=== PATIENT | male | born 1955 | race Caucasian/White ===

== ENCOUNTER 2023-08-08 11:10 | Outpatient (REF) | payer MEDICARE, SELFPAY ==
--- NOTE | ~2023-08-08 | US_ITS ---
EXAMINATION: US EXTRACRANIAL CAROTID DUPLEX, BILATERAL CLINICAL INFORMATION: TIA COMPARISON: None available. TECHNIQUE: Real-time ultrasound and Doppler techniques (integrating B-mode 2-D vascular images, Doppler spectral analysis and color-flow Doppler imaging) were utilized to interrogate the extracranial carotid arteries, the vertebral arteries and proximal subclavian arteries bilaterally. The degree of stenosis is determined by criteria similar to NASCET. FINDINGS: Right Side: 1. There is mild atherosclerotic plaque seen in the bifurcation/proximal ICA region. 2. The common carotid artery PSV proximally is 65 cm/s and distally 45 cm/s. 3. The proximal internal carotid artery velocities are 100 cm/s systolic and 24 cm/s diastolic. 4. The proximal external carotid artery PSV is 54 cm/s. 5. The vertebral artery shows antegrade flow. 6. The subclavian artery waveforms are normal. Left Side: 1. There is mild atherosclerotic plaque seen in the bifurcation/proximal ICA region. 2. The common carotid artery PSV proximally is 114 cm/s and distally 50 cm/s. 3. The proximal internal carotid artery velocities are 52 cm/s systolic and 17 cm/s diastolic. 4. The proximal external carotid artery PSV is 78 cm/s. 5. The vertebral artery shows antegrade flow. 6. The subclavian artery waveforms are normal. US/US carotid duplex BI IMPRESSION: 1. RIGHT: Minimal, non-hemodynamically significant stenosis of the proximal right internal carotid artery corresponding to a 0-49% stenosis by velocity criteria. 2. LEFT: Minimal, non-hemodynamically significant stenosis of the proximal left internal carotid artery corresponding to a 0-49% stenosis by velocity criteria.
== END 2023-08-08 11:11 | disposition home or self-care (01) ==
LOC: HO.US 11:10
PROVIDERS: Visit Provider Psychiatry & Neurology Neurology
DX: G45.9 Transient cerebral ischemic attack, unspecified (principal)
CPT/HCPCS: 93880

== ENCOUNTER 2024-01-08 12:07 | Outpatient (REF) | payer MEDICARE, SELFPAY ==
--- NOTE | ~2024-01-08 | XR_ITS ---
EXAMINATION: XR KNEE, LEFT CLINICAL INFORMATION: Left knee pain COMPARISON: None available. TECHNIQUE: Three views of the left knee. FINDINGS: Knee joint spaces are preserved. No significant subarticular sclerosis, cystic changes or marginal osteophytic changes are noted. No evidence of acute fracture or dislocation. No suprapatellar joint effusion. Mild vascular calcifications. XR/XR knee LT 3V IMPRESSION: No evidence of acute fracture or dislocation in the left knee. No significant degenerative changes. Electronically signed by: Penny Perez MD 01/23/2024 12:49 PM EDT
--- NOTE | ~2024-01-08 | XR_ITS ---
EXAMINATION: XR KNEE, RIGHT CLINICAL INFORMATION: Right knee pain COMPARISON: None available. TECHNIQUE: Three views of the right knee. FINDINGS: Knee joint spaces are preserved. No significant subarticular sclerosis, cystic changes or marginal osteophytic changes are noted. No evidence of acute fracture or dislocation. No suprapatellar joint effusion. XR/XR knee RT 3V IMPRESSION: No evidence of acute fracture or dislocation in the right knee. No significant degenerative changes. Electronically signed by: Penny Perez MD 01/23/2024 12:50 PM EDT
== END 2024-01-08 12:08 | disposition home or self-care (01) ==
LOC: HO.XRAY 12:07
PROVIDERS: PCP Hospitalist; Visit Provider Physician Assistant
DX: M17.11 Unilateral primary osteoarthritis, right knee (principal); M25.562 Pain in left knee
CPT/HCPCS: 20610; 73562; 99202; J1010

== ENCOUNTER 2024-01-08 12:45 | Outpatient (AMB) | payer MEDICARE, SELFPAY ==
--- NOTE | 2024-01-08 13:15 | A.OFFVIS_ITS ---
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 Patient reports his pain has been present for a while with his right knee being the worse. He has constant pain that has been increasing. Denies injury. No previous tx. Finds relief with Tylenol and Motrin daily. He mentions being diagnosed with MS. Allergies No Known Allergies Allergy (Verified 01/08/24 13:18) Medication List - Last Reconciled 01/08/24 by kAua Villatoro PA-C aspirin 81 mg PO DAILY bisoprolol fumarate 5 mg PO DAILY celecoxib 200 mg PO DAILY cyclobenzaprine 10 mg PO BEDTIME hydrochlorothiazide 12.5 mg PO DAILY levocetirizine 5 mg PO DAILY losartan 25 mg PO DAILY pantoprazole 40 mg PO DAILY paroxetine HCl 30 mg PO DAILY tamsulosin 0.4 mg PO DAILY HPI HPI [employer] - Bilateral knee pain, right is worse: Details: The patient is a 68-year-old male who presents to the office today for bilateral knee pain. He states it has been over a month and the right knee is worse than the left knee. He does notice crunching when he goes up the stairs. He denies any injury or trauma to the knees. He takes Tylenol and Motrin daily to help with the pain. He admits to having been diagnosed with multiple sclerosis. [facility] [place] Social History (Updated 01/08/24 @ 13:20 by Shraddha Patel Khoa) Patient Tobacco Use Status: Current everyday Tobacco user Current occupational status: unemployed and disabled Review of Systems Const All systems reviewed & are unremarkable except as noted in HPI and below Physical Exam Vital Signs: BMI result Body Mass Index 27.1 Extrem Other: Bilateral knee: Skin intact, no erythema or joint effusion. Tenderness along the medial joint line. Full ROM with crepitus. Negative Lulu?s. No ligamentous laxity. NVI. Results Reviewed Results Reviewed: xrays of bilat knee obtained today show mild oa Assessment & Plan Assessment & Plan (1) Osteoarthritis of knees, bilateral: Code(s): M17.0 - Bilateral primary osteoarthritis of knee Category: Medical Qualifiers: Osteoarthritis type: primary Qualified Code(s): M17.0 - Bilateral primary osteoarthritis of knee Plan We discussed options today, which include steroid injection. The patient did consent to move forward with the injection, which was tolerated well.? I recommended rest, ice and elevation and OTC antiinflammatories prn for discomfort. If symptoms persist over the next 6-8 weeks, they will contact our office, otherwise, prn Scribed for Akua Villatoro PA-C, by Sanjuana Wen medical art therapist, on 01/08/2024 at 12:30 AM EST. I, Akua Villatoro PA-C, have personally reviewed and agree with the information entered by the scribe. Orders: Orders XR knee RT 3V Today M17.11 - Unilateral primary osteoarthritis, right knee XR knee LT 3V Today M25.562 - Pain in left knee Coding Level of Care Code New Pt Level 3 (09052) Complex EM visit Add On G2211 Diagnoses Primary osteoarthritis of both knees M17.0 Osteoarthritis type: primary
[2024-01-08 13:17] VITALS: BMI 27.1
== END 2024-01-08 13:58 | disposition home or self-care (01) ==
PROVIDERS: PCP Hospitalist; Visit Provider Physician Assistant
DX: M17.0 Bilateral primary osteoarthritis of knee (principal)
CPT/HCPCS: 20610; 99203

== ENCOUNTER 2024-01-22 09:41 | Outpatient (AMB) | payer MEDICARE, SELFPAY ==
[2024-01-22 10:26] VITALS: BMI 27.1
--- NOTE | 2024-01-22 10:26 | A.OFFVIS_ITS ---
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 Patient reports having ongoing pain for many years. He state that his pain is worse when he is sitting for a long time and walking. Patient mentions that his pain is better when laying down. He mentions that he had injections and PT for his back in the past with no relief. Patient informed me that 3 days ago he moved his body a certain way when he was laying down which caused him a lot of pain. Allergies No Known Allergies Allergy (Verified 01/22/24 10:41) Medication List - Last Reconciled 01/22/24 by Evelyn Butcher MD aspirin 81 mg PO DAILY bisoprolol fumarate 5 mg PO DAILY celecoxib 200 mg PO DAILY cyclobenzaprine 10 mg PO BEDTIME hydrochlorothiazide 12.5 mg PO DAILY levocetirizine 5 mg PO DAILY losartan 25 mg PO DAILY pantoprazole 40 mg PO DAILY paroxetine HCl 30 mg PO DAILY tamsulosin 0.4 mg PO DAILY HPI Comments Details: Chronic back pain. Was told in the past to have disc issues for both cervical and lumbar, constant pain 09/29. Had MRI this year. Not available for my review. History of MS, managed at [facility]. This week, 3-4 days ago, was carrying a stove, felt pain on lower back and right side. He can't stand, sit or breathe without pain. Also with pain with laying down. Today lower back pain, goes down both legs. No bladder/bowel changes. Sometimes feet/leg numbness. Treatment done so far: PT 2022 in another country [facility] Social History (Updated 01/08/24 @ 13:20 by Shraddha Patel Khoa) Patient Tobacco Use Status: Current everyday Tobacco user Current occupational status: unemployed and disabled Review of Systems Const All systems reviewed & are unremarkable except as noted in HPI and below Physical Exam Vital Signs: BMI result Body Mass Index 27.1 Constitutional: Patient appears to be in no acute distress, well nourished and well developed. Patient was appropriately conversant and oriented. Good historian. MSK: No specific abnormalities found on inspection of the spine and all extremities. Tender on lumbar spinous processes and facets. No tenderness on SI or GT. Lumbar ROM was full. Bilateral hip, knee and ankle ROM WNL. No ligamentous laxity or crepitance. No increased effusion. Straight-leg raising test negative. FABERE test positive bilateral. Strength is 5/5 in all muscle groups tested. No increased tone noted. Neurological: Neurologic examination of the upper and lower extremities was nonfocal with intact sensation, muscle stretch reflexes and without focal motor deficits . Curran?s negative bilaterally. Babinski was down going bilaterally. Clonus was negative. Gait is antalgic without loss of balance. Assessment & Plan Assessment & Plan (1) Acute on chronic back pain: Code(s): M54.9 - Dorsalgia, unspecified; G89.29 - Other chronic pain Category: Medical (2) Lumbar degenerative disc disease: Code(s): M51.369 - Other intervertebral disc degeneration, lumbar region without mention of lumbar back pain or lower extremity pain Category: Medical Qualifiers: Disc-related pain type: unspecified whether pain present Qualified Code(s): M51.369 - Other intervertebral disc degeneration, lumbar region without mention of lumbar back pain or lower extremity pain Plan History of lumbar degenerative disc. Acute on chronic lower back pain, exacerbated a few days ago after trying to lift a stove. Pain going more to the right hip. Pain is described as severe, but no neurologic findings on exam. Patient was sent right away to lumbar x-ray. Images reviewed by me, question mild chronic looking compression L5? As of writing this note, official reading has not been done yet. We have already called in to [facility] request stat reading. Patient also says he had a lumbar MRI done a few months ago, possibly at [facility]. We called a few areas where he could have had MRI and could not find any. Assessment and plan discussed with patient, and patient was agreeable. All questions were answered thoroughly. Await official lumbar x-ray results. Most likely we will order a new lumbar MRI if there is any new fracture. Total of 45 minutes spent today including chart review, results review, history taking, physical examination, discussion of assessment and plan, and coordination of care. Evelyn Butcher MD, PHYLLIS Board Certified, [place] [employer] and [employer] (ABPMR) Board Certified, [place] [employer] Electro[employer] (ABEM) Orders: Orders XR lumbar spine 2-3V Today M54.9 - Dorsalgia, unspecified Coding Level of Care Code New Pt Level 4 (15731) Diagnoses Acute on chronic back pain M54.9; G89.29 Degeneration of intervertebral disc of lumbar region, unspecified whether pain present M51.369 Disc-related pain type: unspecified whether pain present
== END 2024-01-22 11:08 | disposition home or self-care (01) ==
PROVIDERS: PCP Hospitalist; Visit Provider Physical Medicine & Rehabilitation
DX: M54.9 Dorsalgia, unspecified (principal); G89.29 Other chronic pain; M51.369 Other intervertebral disc degeneration, lumbar region without mention of lumbar back pain or lower extremity pain
CPT/HCPCS: 99204

== ENCOUNTER 2024-01-22 09:41 | Outpatient (REF) | payer MEDICARE, SELFPAY ==
--- NOTE | ~2024-01-22 | XR_ITS ---
EXAMINATION: XR LUMBOSACRAL SPINE CLINICAL INFORMATION: Back pain COMPARISON: None available. TECHNIQUE: Three views of the lumbosacral spine. FINDINGS: There are 5 lumbar-type nonrib-bearing vertebrae. The vertebral body heights and alignment are maintained. Intervertebral disc spaces are preserved. Small marginal endplate osteophytes are noted at multiple levels. Mild facet arthropathy in the lumbar spine at multiple levels. Close approximation of the spinous processes is noted which may raise the possibility of Baastrup's disease. No suspicious lytic or blastic osseous lesions are noted. The sacrum and coccyx appear intact. Multiple surgical tacks are noted projecting over the left pelvic region, recommend correlation with history of hernia repair in the region. Paraspinous soft tissues are unremarkable. There is limited evaluation of the sacroiliac joints however probable partial fusion of bilateral sacroiliac joints cannot be excluded. Scattered aortic calcifications. XR/XR lumbar spine 2-3V IMPRESSION: No evidence of acute compression fracture or suspicious osseous lesion in the lumbar spine. Mild lumbar spondylosis. Probable partial fusion of bilateral sacroiliac joints. Electronically signed by: Penny Perez MD 01/23/2024 12:47 PM EDT
== END 2024-01-22 09:42 | disposition home or self-care (01) ==
LOC: HO.HOSX 09:41
PROVIDERS: PCP Hospitalist; Visit Provider Physical Medicine & Rehabilitation
DX: M54.9 Dorsalgia, unspecified (principal); M51.369 Other intervertebral disc degeneration, lumbar region without mention of lumbar back pain or lower extremity pain; G89.29 Other chronic pain
CPT/HCPCS: 72100; 99202

== ENCOUNTER 2024-04-03 19:32 | Outpatient (REF) | payer MEDICARE, SELFPAY | END 2024-04-03 19:33 | disposition home or self-care (01) | LOC: HO.MRI 19:32 | PROVIDERS: Visit Provider Physical Medicine & Rehabilitation | DX: M51.369 Other intervertebral disc degeneration, lumbar region without mention of lumbar back pain or lower extremity pain (principal); M54.9 Dorsalgia, unspecified; G89.29 Other chronic pain | CPT/HCPCS: 72148 ==

== ENCOUNTER 2024-05-01 08:55 | Outpatient (AMB) | payer MEDICARE, SELFPAY ==
--- NOTE | 2024-05-01 08:58 | MHC.OFFVIS ---
Vital Signs 05/01/24 09:10 Height 6 ft Weight 200 lb BMI 27.1 Intake Visit Reasons: OV-Bilateral knee pain, right is worse Intake Note: Palmira is a 68 year old male who presents today for a follow up of bilateral knee pain, last injection 01/08/24. Patient reports injections provided him relief for about 2 months. His pain has returned with his right knee being the worse. He is requesting to repeat injection. Allergies No Known Allergies Allergy (Verified 05/01/24 09:08) Medication List - Last Reconciled 05/01/24 by Akua Villatoro PA-C aspirin 81 mg PO DAILY bisoprolol fumarate 5 mg PO DAILY celecoxib 200 mg PO DAILY cyclobenzaprine 10 mg PO BEDTIME hydrochlorothiazide 12.5 mg PO DAILY levocetirizine 5 mg PO DAILY losartan 25 mg PO DAILY pantoprazole 40 mg PO DAILY paroxetine HCl 30 mg PO DAILY tamsulosin 0.4 mg PO DAILY HPI HPI OV-Bilateral knee pain, right is worse: Details: 68-year-old male returns to the office today presenting for bilateral knee pain. I previously saw him back in December and performed bilateral knee injections which she states was helpful for about 2 months. Over the last several weeks he has developed worsening knee pain with activity. [facility] Social History (Updated 01/08/24 @ 13:20 by HOLLIE Garcia) Patient Tobacco Use Status: Current everyday Tobacco user Current occupational status: unemployed and disabled Review of Systems Const All systems reviewed & are unremarkable except as noted in HPI and below Physical Exam Vital Signs: BMI result Body Mass Index 27.1 Extrem Other: Bilateral knee: Skin intact, no erythema or joint effusion. Tenderness along the medial joint line. Full ROM with crepitus. Negative Lulu?s. No ligamentous laxity. NVI. Office Procedures AMB Joint Injection/Aspiration Joint Injection/Aspiration Primary Site: right knee Secondary Site: left knee Prep: site was prepped using aseptic technique, ethochloride spray was applied and injection warnings given Injected: 80 mg of, DepoMedrol, with 8 mL of, 1% plain lidocaine and in the joint Approach Used: anterolateral Procedure: The patient tolerated the procedure well and there was some relief with the local anesthesia Coding 28275 - Glenohumeral/Tronchanteric Bursa/Intraarticular Procedure code (CPT) selection complete Assessment & Plan Assessment & Plan (1) Osteoarthritis of knees, bilateral: Code(s): M17.0 - Bilateral primary osteoarthritis of knee Category: Medical Qualifiers: Osteoarthritis type: primary Qualified Code(s): M17.0 - Bilateral primary osteoarthritis of knee Plan We discussed options today, which include steroid injection. The patient did consent to move forward with the injection, which was tolerated well.? I recommended rest, ice and elevation and OTC antiinflammatories prn for discomfort. If symptoms persist over the next 6-8 weeks, they will contact our office, otherwise, prn Coding Level of Care Code Est Pt Level 3 (79534) Complex EM visit Add On G2211 Diagnoses Primary osteoarthritis of both knees M17.0 Osteoarthritis type: primary CPT Codes Coding - Joint 7: 29324 - Glenohumeral/Tronchanteric Bursa/Intraarticular ([id number])
[2024-05-01 09:10] VITALS: BMI 27.1
== END 2024-05-01 09:30 | disposition home or self-care (01) ==
PROVIDERS: PCP Hospitalist; Visit Provider Physician Assistant
DX: M17.0 Bilateral primary osteoarthritis of knee (principal)
CPT/HCPCS: 20610; 99213

== ENCOUNTER → 2024-05-01 08:55 | Outpatient (BNVA) | payer MEDICARE, SELFPAY | PROVIDERS: PCP Hospitalist; Visit Provider Physician Assistant | DX: M17.0 Bilateral primary osteoarthritis of knee (principal) | CPT/HCPCS: 20610; 99212; J1010; J2003 ==

== ENCOUNTER 2024-05-08 08:29 | Outpatient (AMB) | payer MEDICARE, SELFPAY ==
--- NOTE | 2024-05-08 08:41 | A.OFFVIS_ITS ---
Vital Signs 05/08/24 08:45 Height 6 ft Weight 200 lb BMI 27.1 Intake Visit Reasons: OV: lower back pain Intake Note: Palmira is a 68 year old male who presents today for folow up of his lower back pain and review of his lumbar spine MRI results. Patient reports his pain was better but this morning he woke up with pain on his upper back. Allergies diclofenac Allergy (Severe, Verified 05/08/24 08:47) Anaphylaxis HPI Comments Details: Chronic back pain. Was told in the past to have disc issues for both cervical and lumbar, constant pain 6/10. History of MS, managed at [facility]. Today lower back pain, goes down both legs. No bladder/bowel changes. Sometimes feet/leg numbness. Treatment done so far[place] He did have injections in [place], [place] and [place] - 15 years ago More numbness on right leg. Pain on lower back. Difficulty getting up from bed or chair. MRI done, confirms disc herniation L5-S1. Incidental finding on right kidney, possible cystic mass, possible mass near right adrenal gland. Patient denies any history of kidney issues. Denies any history of cancer. He just saw Dr. Dawson's speech therapy assistant last week, blood work ordered, but I do not think they are aware of the MRI findings. [facility] Social History (Updated 01/08/24 @ 13:20 by Shraddha Patel Khoa) Patient Tobacco Use Status: Current everyday Tobacco user Current occupational status: unemployed and disabled Physical Exam Vital Signs: BMI result Body Mass Index 27.1 Constitutional: Patient appears to be in no acute distress, well nourished and well developed. Patient was appropriately conversant and oriented. Good historian. Neurological: Neurologic examination of the upper and lower extremities was nonfocal with intact sensation, muscle stretch reflexes and without focal motor deficits . Curran?s negative bilaterally. Babinski was down going bilaterally. Clonus was negative. Gait is non antalgic without loss of balance. Results Reviewed Results Reviewed: Ordering Physician: Evelyn Potter Date of Service: 04/03/24 Procedure(s): MR lumbar spine wo con Accession Number(s): [id number] cc: Evelyn Potter~ EXAMINATION: MR LUMBAR SPINE WITHOUT CONTRAST CLINICAL INFORMATION: 68-year-old male with intervertebral disc degeneration, lumbar region. Self-reported low back pain of a few years' duration, worsening with reduced range of motion and difficulty walking and standing, with bilateral leg pain, weakness and numbness and toe weakness or numbness bilaterally. COMPARISON: None available. TECHNIQUE: MRI of the lumbar spine was obtained using routine sequences without contrast. FINDINGS: Coronal Alignment: Normal. Sagittal Alignment: Straightening of the lumbar spine is noted, with slight retrolisthesis at L5-S1. Lumbosacral Junction: Normal. There are 5 vrt-zeo-yrniyta lumbar-type vertebral bodies. Vertebral Bodies: Vertebral body heights are well maintained. Disc Spaces and Endplates: Minor disc volume loss posteriorly at L5-S1 with mild disc desiccation and mild spondylosis. Slight disc volume loss at L3-L4 with mild disc desiccation and iujs-mx-wpkrgmjy spondylosis. Emgo-af-tijssgps spondylosis asymmetric to the left at L2-L3 and mild anterior marginal spondylosis at L1-L2. Small Schmorl's node noted anteriorly asymmetric to the right along the superior endplate of L4. Otherwise, endplates appear grossly intact. Spinal Canal: No abnormal developmental findings. Bone Marrow: No suspicious marrow-replacing process or bone marrow edema. There is minor type I degenerative marrow signal changes seen along the anteroinferior corner of L1. There are multilevel small benign vertebral hemangiomata at L3 and L5. Conus Medullaris: Terminates at T12-L1. Morphology and signal is normal. Intradural Nerve Roots: Within normal limits. L5-S1: There is concentric disc bulging with a superimposed broad-based kzlgcnl-kp-ebli subarticular extruded disc herniation with slight caudal migration. Minimal indentation of the ventral thecal sac is noted. Disc herniation contacts the S1 nerve root sleeves bilaterally, left more than right. Mild facet joint arthrosis is noted bilaterally without significant central canal stenosis. Mild narrowing of the left subarticular zone is noted. There is mild foraminal narrowing, left more than right without neural impingement. L4-L5: There is concentric disc bulging, asymmetric to the left with left posterolateral annular fissuring, with qpbt-oy-gefaffkm flattening of the dural sac asymmetric to the left. Mild facet joint arthrosis is noted, left more than right without central canal stenosis. There is cuqp-jf-ddflglkp left-sided subarticular recess stenosis, with minimal encroachment on the traversing left L5 nerve root. Mild foraminal narrowing noted on the left, with disc bulging and annular fissuring possibly contacting the exiting left L4 nerve root sleeve. L3-L4: Concentric disc bulging is noted asymmetric to the left with left posterolateral concentric annular fissuring and slight flattening the ventral dural sac, slightly asymmetric to the left. Mild facet joint arthrosis is noted bilaterally without central canal stenosis. There is mild narrowing of the left subarticular zone with minimal encroachment on the traversing left L4 nerve root. Kvtd-cj-lanygsqs left-sided neural foraminal narrowing is noted with asymmetric disc bulge possibly contacting the exiting left L3 nerve root sleeve. L2-L3: No significant disc bulge or herniation. Mild facet joint arthropathy noted, left more than right. No significant canal or neural foraminal stenosis. L1-L2: Shallow left and right paramedian disc protrusions without significant facet joint arthrosis, canal or neural foraminal stenosis. No neural impingement. T12-L1: Normal annular contour. No facet joint arthrosis, canal or neural foraminal stenosis. Paravertebral and Included Extraspinal Soft Tissues: The visualized paravertebral soft tissues appear grossly unremarkable. Note is made of multiple partially included simple-appearing bilateral renal cysts in addition to a 3.4 cm somewhat complex-appearing cystic mass in the parapelvic portion of the mid right kidney. Numerous bilateral benign renal cysts were identified on ultrasound of 12/05/2023. There is a partially-imaged large partially-fatty mass which may be arising from the right adrenal gland. Given these findings, CT without and with contrast of the abdomen is recommended to further assess. MR/MR lumbar spine wo con IMPRESSION: 1. Straightening of the lumbar spine with slight retrolisthesis at L5-S1. 2. Multilevel discogenic degenerative changes between L1-L2 and L5-S1 inclusive, with multilevel disc bulging and annular fissuring, as described above, with a central to left subarticular extruded disc herniation at L5-S1 which contacts the S1 nerve root sleeves bilaterally, left more than right. 3. No significant central canal stenosis. Pfwy-sq-ksrpqujy left-sided subarticular recess stenosis at L4-L5 and mild left subarticular recess stenosis at L3-L4 with minimal encroachment on the traversing left L5 and L4 nerve roots respectively. 4. Tvhx-in-phgkwajt degrees of multilevel bilateral facet joint arthropathy, with tfav-vw-qcpqfwby left-sided neural foraminal narrowing at L3-L4, L4-L5 and L5-S1 without definite neural impingement. 5. Slightly complex-appearing cystic mass in the right kidney and a partially-imaged predominantly fatty mass possibly arising from the right adrenal gland measuring at least 4 cm as suspected on previous ultrasound. Recommend CT of the abdomen without and with contrast to further assess these findings. Study performed on 04/03/2024 and submitted for evaluation/interpretation on 05/06/2024. Electronically signed by: Andrea Hess MD 05/06/2024 02:13 PM EST Assessment & Plan Assessment & Plan (1) Lumbar degenerative disc disease: Code(s): M51.369 - Other intervertebral disc degeneration, lumbar region without mention of lumbar back pain or lower extremity pain Category: Medical Qualifiers: Disc-related pain type: unspecified whether pain present Qualified Code(s): M51.369 - Other intervertebral disc degeneration, lumbar region without mention of lumbar back pain or lower extremity pain (2) Right kidney mass: Code(s): N28.89 - Other specified disorders of kidney and ureter Category: Medical Plan 1. Lumbar MRI confirms L5-S1 disc herniation. He has had spinal injections in the past previously with at least temporary relief. He is considering repeat injections. Referring him to pain management. 2. Incidental finding on MRI on right kidney and adrenal gland. Patient unaware if there is any past history. We will go ahead and order CT abdomen/pelvis with and without contrast. I did advise patient to discuss with primary care. We will fax over this note and MRI results to Dr. Dawson. Assessment and plan discussed with patient, and patient was agreeable. All questions were answered thoroughly. Evelyn Butcher MD, PHYLLIS Board Certified, [place] [employer] and Rehabilitation (ABPMR) Board Certified, [place] [employer] Electro[employer] (ABEM) Orders: Orders CT abdomen pelvis wo/w IV con Today N28.89 - Other specified disorders of kidney and ureter Referrals Pain Management Referral M51.369 - Other intervertebral disc degeneration, lumbar region without mention of lumbar back pain or lower extremity pain Coding Level of Care Code Est Pt Level 4 (85479) Diagnoses Degeneration of intervertebral disc of lumbar region, unspecified whether pain present M51.369 Disc-related pain type: unspecified whether pain present Right kidney mass N28.89
[2024-05-08 08:45] VITALS: BMI 27.1
== END 2024-05-08 10:11 | disposition home or self-care (01) ==
PROVIDERS: PCP Hospitalist; Visit Provider Physical Medicine & Rehabilitation
DX: M51.369 Other intervertebral disc degeneration, lumbar region without mention of lumbar back pain or lower extremity pain (principal); N28.89 Other specified disorders of kidney and ureter
CPT/HCPCS: 99214

== ENCOUNTER → 2024-05-08 08:29 | Outpatient (BNVA) | payer MEDICARE, SELFPAY | PROVIDERS: PCP Hospitalist; Visit Provider Physical Medicine & Rehabilitation | DX: M51.369 Other intervertebral disc degeneration, lumbar region without mention of lumbar back pain or lower extremity pain (principal); N28.89 Other specified disorders of kidney and ureter | CPT/HCPCS: 99212 ==

== ENCOUNTER 2024-06-01 13:45 | Outpatient (AMB) | payer MEDICARE, SELFPAY ==
--- NOTE | 2024-06-01 13:55 | MHC.OFFVIS ---
Vital Signs 06/01/24 14:05 Height 6 ft Weight 215 lb BMI 29.2 BP 102/66 Blood Pressure Location Lt brachial Position Sitting Pulse 83 Pulse Source Pulse Oximeter Pulse Oximetry (%) 99 Intake Visit Reasons: Other interver disc degeneration/lumbar reg Allergies diclofenac Allergy (Severe, Verified 05/08/24 08:47) Anaphylaxis HPI HPI Other interver disc degeneration/lumbar reg: Details: Patient is a pleasant 68 years old male with a history of chronic back pain, presents today for initial evaluation for acute on chronic back pain with bilateral radiculopathy. Denies any recent trauma, injury or falls. Patient has been referred to our office by Dr. Butcher for potential L5-S1 injection for disc herniation. Back pain is axial, discogenic and bilateral radiation of back pain to buttocks and into posterior thighs and calves with associated numbness and tingling in his toes and weakness. Pain is presents during resting and worse with activity, especially walking or bending. Reports walking capacity is under 10-15 minutes due to increase of back pain.?Pain affects his daily activities and functioning, mobility, mood, sleep and quality of life. He completed physical therapy 2022 and injections in [place] where he spends summer months. He also had back injections in [place] and [place] about 15 years ago with mixed results. Lumbar spine imaging is noted below. Patient is also scheduled for abdominal/pelvic CT scan with and without contrast on 07/08/24 to evaluate right renal mass noted on lumbar MRI. Denies any fever or chills, weight loss, abdominal or groin pain, weakness, bladder or bowel dysfunction, or saddle anesthesia. Location: Lower back radiates down mauro legs posteriorly Duration: Chronic pain for over 5 years Characteristics of symptom or complaint: Aching, radiating, numbness, tinging, heavy, stabbing, burning, shooting Aggravating or associated factors: Laying flat, bending, standing, walking, movements, bending, lifting Relieving factors: Rest, activity modifications, cyclobenzaprine, NSAIDs, Tylenol Treatment: Injections, PT, lumbar xray/MRI [facility] Medical History (Updated 06/01/24 @ 15:09 by DEXTER Lopez) Currently smokes tobacco HTN (hypertension) TIA (transient ischemic attack) Multiple sclerosis Chronic low back pain Osteoarthritis of knees, bilateral Lumbar degenerative disc disease Social History Patient Tobacco Use Status: Current everyday Tobacco user Tobacco use type: Cigarette Cigarettes Per Day: 2 Current occupational status: unemployed and disabled Review of Systems Const All systems reviewed & are unremarkable except as noted in HPI and below Physical Exam Vital Signs: Last Vital Signs Pulse 83 06/01/24 14:05 BP 102/66 06/01/24 14:05 Pulse Ox 99 06/01/24 14:05 BMI result Body Mass Index 29.2 General: Appears afebrile. Alert and oriented. Mood and affect appropriate. Follows and participates in conversation appropriately. Respiratory effort is unlabored. No cough. Able to transition from sit to stand unassisted. Antalgic gait. Ambulates with bilaterally normal heel strike and toe off, reports increased pain with standing on his heels. General: Yes no CVA tenderness Back/Spine/Pelvis Other: Limited lumbar ROM due to pain. Antalgic gait. No limping. Lumbar flexion, bending forward and axial rotations reproduce moderate pain. Demonstrates 5/5 strength of quadriceps bilaterally as well as flexion/dorsiflexion of bilateral feet against resistance. 2+ pedal pulses bilaterally. Straight leg rise with dorsiflexion is negative bilaterally. +2 patellar and achilles reflexes bilaterally. Facet loading test positive bilaterally. Alirio sign, Bull?s, Gaenslen, Pelvic compression and Stinchfield tests are positive bilaterally, right>left. No groin pain with I/E hip rotations. Valsalva maneuver negative. Back: no CVA tenderness Cervical Spine: cervical ROM normal, cervical muscular tenderness, No Cervical spine tenderness and No step off deformity Thoracic/Lumbar Spine: thoracic and lumbar spine normal to inspection, No Thoracic/lumbar spine scar(s), Lasegue's sign negative, straight leg raise negative bilaterally, pain with thoraco-lumbar ROM, paraspinal muscle tenderness, thoraco-lumbar ROM limited, No thoracic spinal tenderness and lumbar spinal tenderness (L4-S1) Pelvis: buttock tenderness bilaterally and no sciatic notch tenderness Sacroiliac joints: bilaterally tender to palpation Extrem General: Yes capillary refill normal, Yes no clubbing, cyanosis or edema and Yes no calf tenderness Results Reviewed Results Reviewed: MR LUMBAR SPINE WITHOUT CONTRAST 04/03/24 CLINICAL INFORMATION: 68-year-old male with intervertebral disc degeneration, lumbar region. Self-reported low back pain of a few years' duration, worsening with reduced range of motion and difficulty walking and standing, with bilateral leg pain, weakness and numbness and toe weakness or numbness bilaterally. FINDINGS: Coronal Alignment: Normal. Sagittal Alignment: Straightening of the lumbar spine is noted, with slight retrolisthesis at L5-S1. Lumbosacral Junction: Normal. There are 5 fmx-yof-bewzkol lumbar-type vertebral bodies. Vertebral Bodies: Vertebral body heights are well maintained. Disc Spaces and Endplates: Minor disc volume loss posteriorly at L5-S1 with mild disc desiccation and mild spondylosis. Slight disc volume loss at L3-L4 with mild disc desiccation and ucbb-hf-krornvjy spondylosis. Dqjc-cx-aplofywq spondylosis asymmetric to the left at L2-L3 and mild anterior marginal spondylosis at L1-L2. Small Schmorl's node noted anteriorly asymmetric to the right along the superior endplate of L4. Otherwise, endplates appear grossly intact. Spinal Canal: No abnormal developmental findings. Bone Marrow: No suspicious marrow-replacing process or bone marrow edema. There is minor type I degenerative marrow signal changes seen along the anteroinferior corner of L1. There are multilevel small benign vertebral hemangiomata at L3 and L5. Conus Medullaris: Terminates at T12-L1. Morphology and signal is normal. Intradural Nerve Roots: Within normal limits. L5-S1: There is concentric disc bulging with a superimposed broad-based oisukdv-es-feti subarticular extruded disc herniation with slight caudal migration. Minimal indentation of the ventral thecal sac is noted. Disc herniation contacts the S1 nerve root sleeves bilaterally, left more than right. Mild facet joint arthrosis is noted bilaterally without significant central canal stenosis. Mild narrowing of the left subarticular zone is noted. There is mild foraminal narrowing, left more than right without neural impingement. L4-L5: There is concentric disc bulging, asymmetric to the left with left posterolateral annular fissuring, with wqay-zt-mjhnucqy flattening of the dural sac asymmetric to the left. Mild facet joint arthrosis is noted, left more than right without central canal stenosis. There is ythw-eg-kvqsjxzw left-sided subarticular recess stenosis, with minimal encroachment on the traversing left L5 nerve root. Mild foraminal narrowing noted on the left, with disc bulging and annular fissuring possibly contacting the exiting left L4 nerve root sleeve. L3-L4: Concentric disc bulging is noted asymmetric to the left with left posterolateral concentric annular fissuring and slight flattening the ventral dural sac, slightly asymmetric to the left. Mild facet joint arthrosis is noted bilaterally without central canal stenosis. There is mild narrowing of the left subarticular zone with minimal encroachment on the traversing left L4 nerve root. Uhfn-rx-kygsdhbq left-sided neural foraminal narrowing is noted with asymmetric disc bulge possibly contacting the exiting left L3 nerve root sleeve. L2-L3: No significant disc bulge or herniation. Mild facet joint arthropathy noted, left more than right. No significant canal or neural foraminal stenosis. L1-L2: Shallow left and right paramedian disc protrusions without significant facet joint arthrosis, canal or neural foraminal stenosis. No neural impingement. T12-L1: Normal annular contour. No facet joint arthrosis, canal or neural foraminal stenosis. Paravertebral and Included Extraspinal Soft Tissues: The visualized paravertebral soft tissues appear grossly unremarkable. Note is made of multiple partially included simple-appearing bilateral renal cysts in addition to a 3.4 cm somewhat complex-appearing cystic mass in the parapelvic portion of the mid right kidney. Numerous bilateral benign renal cysts were identified on ultrasound of 12/05/2023. There is a partially-imaged large partially-fatty mass which may be arising from the right adrenal gland. Given these findings, CT without and with contrast of the abdomen is recommended to further assess. IMPRESSION: 1. Straightening of the lumbar spine with slight retrolisthesis at L5-S1. 2. Multilevel discogenic degenerative changes between L1-L2 and L5-S1 inclusive, with multilevel disc bulging and annular fissuring, as described above, with a central to left subarticular extruded disc herniation at L5-S1 which contacts the S1 nerve root sleeves bilaterally, left more than right. 3. No significant central canal stenosis. Urli-cw-jstwyxvl left-sided subarticular recess stenosis at L4-L5 and mild left subarticular recess stenosis at L3-L4 with minimal encroachment on the traversing left L5 and L4 nerve roots respectively. 4. Drou-kg-rdgyvnvs degrees of multilevel bilateral facet joint arthropathy, with orqd-ct-oqktnbce left-sided neural foraminal narrowing at L3-L4, L4-L5 and L5-S1 without definite neural impingement. 5. Slightly complex-appearing cystic mass in the right kidney and a partially-imaged predominantly fatty mass possibly arising from the right adrenal gland measuring at least 4 cm as suspected on previous ultrasound. Recommend CT of the abdomen without and with contrast to further assess these findings. XR LUMBOSACRAL SPINE 01/22/24 FINDINGS: There are 5 lumbar-type nonrib-bearing vertebrae. The vertebral body heights and alignment are maintained. Intervertebral disc spaces are preserved. Small marginal endplate osteophytes are noted at multiple levels. Mild facet arthropathy in the lumbar spine at multiple levels. Close approximation of the spinous processes is noted which may raise the possibility of Baastrup's disease. No suspicious lytic or blastic osseous lesions are noted. The sacrum and coccyx appear intact. Multiple surgical tacks are noted projecting over the left pelvic region, recommend correlation with history of hernia repair in the region. Paraspinous soft tissues are unremarkable. There is limited evaluation of the sacroiliac joints however probable partial fusion of bilateral sacroiliac joints cannot be excluded. Scattered aortic calcifications. IMPRESSION: No evidence of acute compression fracture or suspicious osseous lesion in the lumbar spine. Mild lumbar spondylosis. Probable partial fusion of bilateral sacroiliac joints. Assessment & Plan Assessment & Plan (1) Lumbar degenerative disc disease: Code(s): M51.369 - Other intervertebral disc degeneration, lumbar region without mention of lumbar back pain or lower extremity pain Category: Medical Qualifiers: Disc-related pain type: unspecified whether pain present Qualified Code(s): M51.369 - Other intervertebral disc degeneration, lumbar region without mention of lumbar back pain or lower extremity pain (2) Acute on chronic back pain: Code(s): M54.9 - Dorsalgia, unspecified; G89.29 - Other chronic pain Category: Medical (3) Lumbosacral spondylosis: Code(s): M47.817 - Spondylosis without myelopathy or radiculopathy, lumbosacral region Category: Medical (4) Vertebrogenic low back pain: Code(s): M54.51 - Vertebrogenic low back pain Category: Medical (5) Herniation of intervertebral disc of lumbosacral region: Code(s): M51.27 - Other intervertebral disc displacement, lumbosacral region Category: Medical Plan Discussed interventional treatments for axial, discogenic and radicular low back pain. Schedule Bilateral L5-S1 TFESI with local and fluoroscopy. Recent lumbar spine MRI confirms L5-S1 disc herniation which correlates with patient's back exam today. Expectations, risks and benefits were reviewed. Patient is aware he will be contacted to schedule this procedure. All questions were answered and the patient is in agreement of plan. Follow-up after injections and sooner as needed. Coding Level of Care Code New Pt Level 4 (08412) Complex EM visit Add On G2211 Diagnoses Degeneration of intervertebral disc of lumbar region, unspecified whether pain present M51.369 Disc-related pain type: unspecified whether pain present Acute on chronic back pain M54.9; G89.29 Lumbosacral spondylosis M47.817 Vertebrogenic low back pain M54.51 Herniation of intervertebral disc of lumbosacral region M51.27
[2024-06-01 14:05] VITALS: BP 102/66; PULSE 83; O2SAT 99; BMI 29.2
== END 2024-06-01 14:26 | disposition home or self-care (01) ==
PROVIDERS: PCP Hospitalist; Referring Provider Physical Medicine & Rehabilitation; Visit Provider Nurse Practitioner Family
DX: M51.369 Other intervertebral disc degeneration, lumbar region without mention of lumbar back pain or lower extremity pain (principal); M54.9 Dorsalgia, unspecified; G89.29 Other chronic pain; M47.817 Spondylosis without myelopathy or radiculopathy, lumbosacral region; M54.51 Vertebrogenic low back pain; M51.27 Other intervertebral disc displacement, lumbosacral region
CPT/HCPCS: 99204; G2211

== ENCOUNTER → 2024-06-01 13:45 | Outpatient (BNVA) | payer MEDICARE, SELFPAY | PROVIDERS: PCP Hospitalist; Referring Provider Physical Medicine & Rehabilitation; Visit Provider Nurse Practitioner Family | DX: M51.360 Other intervertebral disc degeneration, lumbar region with discogenic back pain only (principal); M47.817 Spondylosis without myelopathy or radiculopathy, lumbosacral region; M51.27 Other intervertebral disc displacement, lumbosacral region; G89.29 Other chronic pain | CPT/HCPCS: 99202 ==

== ENCOUNTER 2024-07-08 08:43 | Outpatient (REF) | payer MEDICARE, SELFPAY ==
--- NOTE | ~2024-07-08 | CT_ITS ---
CLINICAL HISTORY: N28.89 - Other specified disorders of kidney and ureter CT abdomen and pelvis with and without contrast Comparison: None Findings: No consolidation or effusion. 3.7 cm right adrenal myelolipoma. Liver and spleen are unremarkable. Pancreas and left adrenal gland demonstrate no acute finding. Cholecystectomy. No biliary ductal dilation. Bilateral exophytic renal lesions that do not demonstrate postcontrast enhancement and are consistent with simple cysts. No bowel obstruction, pneumoperitoneum, or pneumatosis. Lipoma versus hernia posterolaterally on the right at the level of the kidney. Pelvic contents unremarkable. Normal appendix. Prior bilateral inguinal hernia repair with mesh. No pelvic fluid collections or adenopathy. No vascular dilation. No acute osseous findings. IMPRESSION: 1. Right adrenal myelolipoma measuring 3.7 cm. 2. Bilateral benign appearing renal cysts. No enhancing renal lesion or hydronephrosis. No stones. This document has been electronically signed by: Mishel Vasquez MD on 07/09/2024 09:30:05
--- OUTSIDE RECORDS SUMMARY | 2024-07-08 09:33 | XMS_ITS | Clinical Summary ---
Author Organization [facility] Address [address] [place] [id number] Care Team Providers Care Food Technology Teacher Name Role Phone Rylee Valenzuela MD Primary Care Provider [phone] Allergies Active Allergy Reactions Criticality Noted Date Comments Diclofenac 09/07/2014 Medications Medication Sig Dispensed Refills Start Date End Date Status clonazePAM (KLONOPIN) 0.25 mg split tablet Take 0.5 mg by mouth daily. 0 Active tamsulosin (FLOMAX) 0.4 MG CAPS Take 1 capsule (0.4 mg total) by mouth daily. 90 capsule 1 05/15/2016 Active simvastatin (ZOCOR) tablet 40 mg Take 1 tablet (40 mg total) by mouth every night at bedtime. 90 tablet 1 05/15/2016 Active ranitidine (ZANTAC) 150 MG tablet Take 1 tablet (150 mg total) by mouth every night at bedtime. 90 tablet 1 05/15/2016 Active PARoxetine (PAXIL) 20 MG tablet Take 1 tablet (20 mg total) by mouth daily. 30 tablet 3 05/21/2016 Active lamoTRIgine (LAMICTAL) 25 MG tablet Take 1 tablet by mouth daily. 0 06/11/2016 Active ibuprofen (ADVIL,MOTRIN) 800 MG tablet Take 800 mg by mouth every 4 (four) hours. 0 Active Active Problems Problem Noted Date Diagnosed Date Hyperlipidemia 05/21/2016 Essential hypertension 02/18/2015 Chain smoker 09/09/2014 Back pain, chronic 09/09/2014 CAFL (chronic airflow limitation) 09/09/2014 Clinical depression 09/09/2014 Auditory impairment 09/09/2014 Immunizations Name Administration Dates Next Due Influenza Quad (Afluria/Fluz one) 0.5mL >=6mon Vial (SD-IIV4) 02/28/2016 Family History Medical History Relation Name Comments No Sig Med Hx Brother Hypertension Father No Sig Med Hx Maternal Aunt No Sig Med Hx Maternal Grandfather No Sig Med Hx Maternal Grandmother No Sig Med Hx Maternal Uncle Hypertension Mother No Sig Med Hx Paternal Aunt No Sig Med Hx Paternal Grandfather No Sig Med Hx Paternal Grandmother No Sig Med Hx Paternal Uncle No Sig Med Hx Sister Relation Name Status Comments Brother Father Maternal Aunt Maternal Grandfather Maternal Grandmother Maternal Uncle Mother Paternal Aunt Paternal Grandfather Paternal Grandmother Paternal Uncle Sister Social History Tobacco Use Types Packs/Day Years Used Date Smoking Tobacco: Every Day Cigarettes 1.5 Tobacco Cessation:Counseling Given: No Alcohol Use Standard Drinks/Week Comments No 0 (1 standard drink = 0.6 oz pur e alcohol) Sex and Gender Information Value Date Recorded Sex Assigned at Not on file Gender Identity Not on file Sexual Orientation Not on file Job Start Date Occupation Industry Not on file Not on file Not on file Last Filed Vital Signs Vital Sign Reading Time Taken Comments Blood Pressure 160/82 06/19/2016 11:19 AM EST Pulse 120 06/19/2016 11:19 AM EST Temperature 36.6 ??C (97.8 ??F) 06/19/2016 11:[address] Respiratory Rate 16 03/13/2016 9:00 AM EST Oxygen Saturation - - Inhaled Oxygen Concentration - - Weight 88.5 kg (195 lb) 06/19/2016 11:19 AM EST Height 182.9 cm (6') 06/19/2016 11:19 AM EST Body Mass Index 26.45 06/19/2016 11:19 AM EST Plan of Treatment Health Maintenance Due Date Last Done Comments Hepatitis C Screening 1955 COVID-19 Vaccine (#1) 02/21/1956 Pneumococcal Vaccine (1 of 2 - PCV) 1962 Depression Screening 1968 DTap / Tdap / Td (1 - Tdap) 08/22/1975 Colon Cancer Screening (Colonoscopy) 2001 Shingrix-Zoster Vaccine (1 o f 2) 2006 Preventative Health Evaluation 02/27/2017 02/28/2016, 05/17/2015 Fall Risk Assessment 2021 Influenza Vaccine (#1) 2023 02/28/2016 RSV Adult > 60+ Yrs or (1 - 1-dose 75+ series) 08/22/2031 Hepatitis B Vaccines Aged Out No long er eligible based on patient's age to complete this topic RSV Ped < 20 months Aged Out No longe r eligible based on patient's age to complete this topic Care Teams Food Technology Teacher Relationship Specialty Start Date End Date Rylee Valenzuela MD PCP - General Family Medicine 09/07/14
--- OUTSIDE RECORDS SUMMARY | 2024-07-08 09:34 | XMS_ITS | Clinical Summary ---
Author Organization [facility] Address [address] [place] [address] Phone Care Team Providers Care Sand Shoveler Name Role Phone Whit Dawson MD Primary Care Provider [phone] Surgical History Surgery Date Site/Laterality Comments LIPOMA RESECTION PROCEDURE: SKIN TISSUE EXCISION(LIPOMA); COMMENT: midline abdomen Medical History Medical History Date Comments Benign essential HTN 10/07/2018 DX:Benign e ssential HTN Hyperlipidemia 10/07/2018 DX:Hyperlipidemi a GERD (gastroesophageal reflux disease) 10/07/2018 DX:GERD (gastroesophageal reflux disease) BPH (benign prostatic hyperplasia) 10/07/2018 DX:BPH (benign prostatic hyperplasia) Tobacco abuse 10/07/2018 DX:Tobacco abuse Family History Medical History Relation Name Comments Heart attack Mother Relation Name Status Comments Mother Social History Tobacco Use Types Packs/Day Years Used Date Smoking Tobacco: Every Day Cigarettes 1 49.9 Started: 1974 Smokeless Tobacco: Never Alcohol Use Standard Drinks/Week Comments No 0 (1 standard drink = 0.6 oz pur e alcohol) Sex and Gender Information Value Date Recorded Sex Assigned at Not on file Legal Sex Male 8:20 AM EST Gender Identity Not on file Sexual Orientation Not on file Obstetrics History Plan of Treatment Health Maintenance Due Date Last Done Comments DTaP,Tdap,and Td Vaccines (1 - Tdap) 08/22/1975 Pneumococcal Vaccine: 50+ Ye ars (1 of 2 - PCV) 08/22/1975 Zoster Vaccines (1 of 2) 2006 COVID-19 Vaccine (2023-2 5 season) 2023 07/15/2020 Influenza Vaccine (#1) 2023 02/28/2016 Abdominal Aortic Aneurysm (A AA) Screen 01/30/2024 Cholesterol Screening (Lipid Panel) 01/30/2024 Colorectal Cancer Screening: Colonoscopy 01/30/2024 Depression Screening 01/30/2024 Falls Risk Assessment 01/30/2024 Hepatitis C Screening 01/30/2024 Hypertension/CHF/CAD Annual BMP Blood Test 01/30/2024 Lung Cancer Screening (Low D ose CT) 01/30/2024 Medicare Annual Wellness Visit 01/30/2024 Social Influencers of Health Screening 01/30/2024 RSV Immunization Patients 60 + Years Old (1 - 1-dose 75+ series) 08/22/2031 HIB Vaccines Aged Out No longer eligi ble based on patient's age to complete this topic HPV Vaccines Aged Out No longer eligi ble based on patient's age to complete this topic Hepatitis A Vaccines Aged Out No long er eligible based on patient's age to complete this topic Hepatitis B Vaccines Aged Out No long er eligible based on patient's age to complete this topic IPV Vaccines Aged Out No longer eligi ble based on patient's age to complete this topic MMR Vaccines Aged Out No longer eligi ble based on patient's age to complete this topic Meningococcal ACWY Vaccine Aged Out N o longer eligible based on patient's age to complete this topic Meningococcal B Vacine Aged Out No lo nger eligible based on patient's age to complete this topic RSV Immunization Patients Un joel 20 months Aged Out No longer eligible b ased on patient's age to complete this topic Varicella Vaccines Aged Out No longer eligible based on patient's age to complete this topic Insurance [place] Care Teams Sand Shoveler Relationship Specialty Start Date End Date Whit Dawson MD [address] [place] [address] PCP - General 08/05/23
--- OUTSIDE RECORDS SUMMARY | 2024-07-08 09:34 | XMS_ITS ---
Author Organization [facility] Address [address] [facility] [address] [place] [address] Care Team Providers Care Supervisor Insulation Name Role Phone INESSA CHAPMAN Primary Care Provider [phone] Rene Allan Unavailable [phone] REASON FOR VISIT Waiting for call back Encounters Encounter Location Date Provider Diagnosis [facility] [address] [facility] [address] [place] [address] 05/08/2024 Rene Allan Kidney cysts N28.1 Assessments Encounter Date Diagnosis (ICD Code) Assessment Notes Treatment Notes Treatment Clinical Notes Section Notes 05/08/2024 Kidney cysts (ICD-10 - N28.1) Plan Of Treatment Pending Test Test Name Order Date CT Abdomen W WO 05/08/2024 Progress Notes * Eleazar ASTORGAOB:1955 (68 yo M)Acc No.[id number]:05/08/2024 Patient:?GAURI Chavis :1955???Age:68 Y???Sex:Male Address:[address] [place] [address] Subjective: * Chief Complaints: * ???Waiting for call back * Medical History:? * Surgical History:? * Hospitalization/Major Diagno stic Procedure:? * Medications:? Objective: * Vitals:? * Physical Examination:? Assessment: * Assessment: 1.?Kidney cysts - N28.1 (Mercedez maggie)??? Plan: * Treatment: * Procedure Codes:? * true * Date:? Generated for Printi ng/Faxing/eTransmitting on:?07/08/2024 09:34 AM EDT
--- OUTSIDE RECORDS SUMMARY | 2024-07-08 09:34 | XMS_ITS ---
Author Organization [facility] Address [address] [address] Care Team Providers Care Artistic Director Name Role Phone INESSA CHAPMAN Primary Care Provider [phone] REASON FOR VISIT RX Req Encounters Encounter Location Date Provider Diagnosis [facility] [address] [facility] [address] [place] [address] 06/02/2024 INESSA CHAPMAN Plan Of Treatment No Information Progress Notes * Eleazar ASTORGAOB:1955 (68 yo M)Acc No.[id number]:06/02/2024 Patient:?Palmira ASTORGA :1955???Age:68 Y???Sex:Male Address:[address] [place] [address] * true * Date:? Generated for Clevei jeffrey/Arie/eTransmitting on:?07/08/2024 09:34 AM EDT
--- OUTSIDE RECORDS SUMMARY | 2024-07-08 09:34 | XMS_ITS ---
Author Organization [facility] Address [address] [address] Care Team Providers Care Sample Worker Name Role Phone INESSA CHAPMAN Primary Care Provider REASON FOR VISIT [facility] Referral Encounters Encounter Location Date Provider Diagnosis [facility] [address] [address] 05/21/2024 INESSA CHAPMAN Plan Of Treatment No Information Progress Notes * Eleazar ASTORGAOB:1955 (68 yo M)Acc No.[id number]:05/21/2024 Patient:?Palmira ASTORGA :1955???Age:68 Y???Sex:Male Address:[address] [place] [address] * true * Date:? Generated for Clevei jeffrey/Arie/eTransmitting on:?07/08/2024 09:33 AM EDT
[2024-07-08] MEDS: iohexoL 350 MG/ML 100 ML INFUS..BTL IV (10:09)
[2024-07-08 13:00] LABS: Creatinine POC 1.1 mg/dL (0.5-1.4); GFR POC > 60
== END 2024-07-08 08:44 | disposition home or self-care (01) ==
LOC: HO.CT 08:43
PROVIDERS: PCP Hospitalist; Visit Provider Physical Medicine & Rehabilitation
DX: N28.89 Other specified disorders of kidney and ureter (principal)
CPT/HCPCS: 74178; 82565; Q9967

== ENCOUNTER → 2024-07-08 08:45 | Outpatient (BNV) | payer MEDICARE, SELFPAY | PROVIDERS: PCP Hospitalist; Visit Provider Radiology Diagnostic Radiology | DX: N28.89 Other specified disorders of kidney and ureter (principal) | CPT/HCPCS: 74178 ==

== ENCOUNTER 2024-07-09 06:26 | Outpatient (REF) | payer MEDICARE, SELFPAY ==
--- NOTE | ~2024-07-09 | FL_ITS ---
EXAMINATION: FL GUIDANCE ONLY HISTORY: M51.27 - Other intervertebral disc displacement, lumbosacral region COMPARISON: None available. TECHNIQUE: Fluoroscopy time: 0.2 minutes. Cumulative Dose: 4.47 mGy. DAP: 0.0409 mGym2 Images: 2. FINDINGS: AP and lateral fluoroscopic spot films demonstrate needles and contrast material in the regions of the bilateral S1-2 levels. FL/FL guidance in treatment room IMPRESSION: Fluoroscopy during procedure. Please see procedure report for additional information. Electronically signed by: Kimani Skaggs MD 07/09/2024 03:00 PM EDT
== END 2024-07-09 06:27 | disposition home or self-care (01) ==
LOC: CF 06:26
PROVIDERS: Visit Provider Internal Medicine
DX: M51.27 Other intervertebral disc displacement, lumbosacral region (principal); M54.16 Radiculopathy, lumbar region
CPT/HCPCS: 64483; J1100; J2003; Q9967

== ENCOUNTER 2024-07-09 12:39 | Outpatient (AMB) | payer MEDICARE, SELFPAY ==
[2024-07-09 12:44] VITALS: BP 119/70; PULSE 83; RESP 16; O2SAT 97
--- NOTE | 2024-07-09 12:44 | A.OFFVIS_ITS ---
Vital Signs 07/09/24 12:44 BP 119/70 Blood Pressure Location Lt brachial Position Sitting Respiration 16 Pulse 83 Pulse Source Pulse Oximeter Pulse Oximetry (%) 97 Oxygen Delivery Method Room Air Intake Visit Reasons: Keenan L5-S1 TFESI Intake Note: Pt left before 2nd vitals could be done Ordained Minister Required: No Allergies diclofenac Allergy (Severe, Verified 08/06/24 12:51) Anaphylaxis Medication List - Last Reconciled 07/09/24 by Aruna Ingram LPN albuterol sulfate 90 mcg/actuation inhalation aspirin 81 mg PO DAILY bisoprolol fumarate 5 mg PO DAILY celecoxib 200 mg PO DAILY cyclobenzaprine 10 mg PO BEDTIME hydrochlorothiazide 12.5 mg PO DAILY levocetirizine 5 mg PO DAILY losartan 25 mg PO DAILY ocrelizumab 600 mg IV [id number] pantoprazole 40 mg PO DAILY paroxetine HCl 30 mg PO DAILY tamsulosin 0.4 mg PO DAILY HPI HPI Keenan L5-S1 TFESI: Details: Patient presents for scheduled procedure. Denies any recent cough, cold, infecti on, fever or other significant changes in medical history since last office visit. [facility] Medical History Currently smokes tobacco HTN (hypertension) TIA (transient ischemic attack) Multiple sclerosis Chronic low back pain Osteoarthritis of knees, bilateral Lumbar degenerative disc disease Social History Patient Tobacco Use Status: Current everyday Tobacco user Tobacco use type: Cigarette Cigarettes Per Day: 2 Current occupational status: unemployed and disabled Physical Exam Vital Signs: Last Vital Signs Pulse 83 07/09/24 12:44 Resp 16 07/09/24 12:44 BP 119/70 07/09/24 12:44 Pulse Ox 97 07/09/24 12:44 Oxygen Delivery Method Room Air 07/09/24 12:44 Office Procedures Details: Transforaminal epidural steroid injection, Bilateral S1 After obtaining written consent, pre-procedure blood pressure and heart rate were stable and recorded in the nursing record. The patient was placed in the prone position on the fluoroscopy table. The lumbosacral area was prepped with chloraprep, allowed to dry and draped in sterile fashion. Using fluoroscopy, the skin overlying our target was anesthetized with 0.5% lidocaine. A 22 gauge 3.5 inch spinal needle was advanced through the S1 foramen. No paresthesias were elicited with needle placement and aspiration was negative for blood and CSF. Correct needle position was confirmed with approximately 1 ml contrast dye (Omnipaque 180 mg/ml) injected under real- time fluoroscopy. No evidence of vascular or intrathecal uptake was seen and there was both epidural and peripheral spread of the contrast agent. 7.5 mg dexamethasone plus 1 ml containing 0.5% lidocaine was slowly injected. The needle was flushed and removed. The same procedure was repeated for the other side. The skin was cleansed and a sterile bandages were applied. The patient tolerated the procedure well and no complications were encountered. Following the procedure the patient's vital signs were stable. The patient was discharged home in good condition with post-procedural instructions. Time Out: Immediately prior to the procedure, the following was verbally confirmed that there is a signed consent form and that the correct patient, planned procedure, site and side are consistent with documentation and that necessary equipment and/or blood products are available prior to the start of the case. Complications: none EBL: <5 cc 39991 - Lumbar/Sacral (bilateral) Procedure code (CPT) selection complete Assessment & Plan Assessment & Plan (1) Lumbar radicular pain: Code(s): M54.16 - Radiculopathy, lumbar region Category: Medical Plan Patient is status post bilateral S1 TFESI. Patient tolerated procedure well and was discharged home in stable condition with discharge instructions. All questions were answered. We will follow-up via telephone or in clinic to assess response to therapy. A follow-up appointment was made during today's visit. Orders: Orders FL guidance in treatment room 07/09/24 M51.27 - Other intervertebral disc displacement, lumbosacral region Coding Level of Care Code Procedure Only Diagnoses Lumbar radicular pain M54.16 CPT Codes Transforaminal Epidural Steroid Inj - TESI 3: 59837 - Lumbar/Sacral ([id number])
== END 2024-07-09 14:02 | disposition home or self-care (01) ==
LOC: HO.PMCPRC 12:39
PROVIDERS: PCP Hospitalist; Visit Provider Internal Medicine
DX: M54.16 Radiculopathy, lumbar region (principal)
CPT/HCPCS: 64483

== ENCOUNTER 2024-07-16 09:29 | Outpatient (AMB) | payer MEDICARE, SELFPAY ==
--- NOTE | 2024-07-16 09:30 | MHC.OFFVIS ---
Intake Visit Reasons: TELE - Pelvis & Abdomen CT Review Intake Note: Palmira is a 68 year old male who presents today VIA Telephone for a CT scan review of his abdomen & pelvis. At his last visit his lumbar spine MRI was reviewed & he was referred to Pain Management to discuss injections. 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 Was told in the past to have disc issues for both cervical and lumbar, constant pain /10. History of MS, managed at [facility]. Today lower back pain, goes down both legs. No bladder/bowel changes. Sometimes feet/leg numbness. Treatment done so far[place] He did have injections in [place], [place] and [place] - 15 years ago More numbness on right leg. Pain on lower back. Difficulty getting up from bed or chair. MRI done, confirms disc herniation L5-S1. Incidental finding on right kidney, possible cystic mass, possible mass near right adrenal gland. Patient denies any history of kidney issues. Denies any history of cancer. [facility] Medical History (Updated 06/01/24 @ 15:09 by DEXTER Lopez) Currently smokes tobacco HTN (hypertension) TIA (transient ischemic attack) Multiple sclerosis Chronic low back pain Osteoarthritis of knees, bilateral Lumbar degenerative disc disease Social History Patient Tobacco Use Status: Current everyday Tobacco user Tobacco use type: Cigarette Cigarettes Per Day: 2 Current occupational status: unemployed and disabled Telehealth Telehealth Telehealth Platform: [facility] Location of provider rendering services: practice address Location of patient: address on file Patient Identification confirmed using: Name, : Yes Telehealth method: video Patient verbally consented to treatment: Yes Patient verbally consented to billing insurance company: Yes Patient informed of any privacy concerns related to visit: Yes Minutes spent on Phone/Video with Pt.: 30 Results Reviewed Results Reviewed: Ordering Physician: Evelyn Potter Date of Service: 07/08/24 Procedure(s): CT abdomen pelvis wo/w IV con Accession Number(s): [id number] cc: Denisa Dawson MD; Evelyn Potter~ Report Number: [id number]: Total DLP = 1261.00 mGy-cm CLINICAL HISTORY: N28.89 - Other specified disorders of kidney and ureter CT abdomen and pelvis with and without contrast Comparison: None Findings: No consolidation or effusion. 3.7 cm right adrenal myelolipoma. Liver and spleen are unremarkable. Pancreas and left adrenal gland demonstrate no acute finding. Cholecystectomy. No biliary ductal dilation. Bilateral exophytic renal lesions that do not demonstrate postcontrast enhancement and are consistent with simple cysts. No bowel obstruction, pneumoperitoneum, or pneumatosis. Lipoma versus hernia posterolaterally on the right at the level of the kidney. Pelvic contents unremarkable. Normal appendix. Prior bilateral inguinal hernia repair with mesh. No pelvic fluid collections or adenopathy. No vascular dilation. No acute osseous findings. IMPRESSION: 1. Right adrenal myelolipoma measuring 3.7 cm. 2. Bilateral benign appearing renal cysts. No enhancing renal lesion or hydronephrosis. No stones. This document has been electronically signed by: Mishel Vasquez MD on 07/09/2024 09:30:05 MR LUMBAR SPINE WITHOUT CONTRAST 04/03/24 CLINICAL INFORMATION: 68-year-old male with intervertebral disc degeneration, lumbar region. Self-reported low back pain of a few years' duration, worsening with reduced range of motion and difficulty walking and standing, with bilateral leg pain, weakness and numbness and toe weakness or numbness bilaterally. FINDINGS: Coronal Alignment: Normal. Sagittal Alignment: Straightening of the lumbar spine is noted, with slight retrolisthesis at L5-S1. Lumbosacral Junction: Normal. There are 5 tbb-shf-nshpxcs lumbar-type vertebral bodies. Vertebral Bodies: Vertebral body heights are well maintained. Disc Spaces and Endplates: Minor disc volume loss posteriorly at L5-S1 with mild disc desiccation and mild spondylosis. Slight disc volume loss at L3-L4 with mild disc desiccation and szcx-sa-hcecsvkd spondylosis. Ryns-gw-pnfvnovc spondylosis asymmetric to the left at L2-L3 and mild anterior marginal spondylosis at L1-L2. Small Schmorl's node noted anteriorly asymmetric to the right along the superior endplate of L4. Otherwise, endplates appear grossly intact. Spinal Canal: No abnormal developmental findings. Bone Marrow: No suspicious marrow-replacing process or bone marrow edema. There is minor type I degenerative marrow signal changes seen along the anteroinferior corner of L1. There are multilevel small benign vertebral hemangiomata at L3 and L5. Conus Medullaris: Terminates at T12-L1. Morphology and signal is normal. Intradural Nerve Roots: Within normal limits. L5-S1: There is concentric disc bulging with a superimposed broad-based nwkdtaw-jb-icsv subarticular extruded disc herniation with slight caudal migration. Minimal indentation of the ventral thecal sac is noted. Disc herniation contacts the S1 nerve root sleeves bilaterally, left more than right. Mild facet joint arthrosis is noted bilaterally without significant central canal stenosis. Mild narrowing of the left subarticular zone is noted. There is mild foraminal narrowing, left more than right without neural impingement. L4-L5: There is concentric disc bulging, asymmetric to the left with left posterolateral annular fissuring, with agyo-sa-vwwnrkkt flattening of the dural sac asymmetric to the left. Mild facet joint arthrosis is noted, left more than right without central canal stenosis. There is keiz-rf-qqgnfjyb left-sided subarticular recess stenosis, with minimal encroachment on the traversing left L5 nerve root. Mild foraminal narrowing noted on the left, with disc bulging and annular fissuring possibly contacting the exiting left L4 nerve root sleeve. L3-L4: Concentric disc bulging is noted asymmetric to the left with left posterolateral concentric annular fissuring and slight flattening the ventral dural sac, slightly asymmetric to the left. Mild facet joint arthrosis is noted bilaterally without central canal stenosis. There is mild narrowing of the left subarticular zone with minimal encroachment on the traversing left L4 nerve root. Rhnx-gr-bzwxtlco left-sided neural foraminal narrowing is noted with asymmetric disc bulge possibly contacting the exiting left L3 nerve root sleeve. L2-L3: No significant disc bulge or herniation. Mild facet joint arthropathy noted, left more than right. No significant canal or neural foraminal stenosis. L1-L2: Shallow left and right paramedian disc protrusions without significant facet joint arthrosis, canal or neural foraminal stenosis. No neural impingement. T12-L1: Normal annular contour. No facet joint arthrosis, canal or neural foraminal stenosis. Paravertebral and Included Extraspinal Soft Tissues: The visualized paravertebral soft tissues appear grossly unremarkable. Note is made of multiple partially included simple-appearing bilateral renal cysts in addition to a 3.4 cm somewhat complex-appearing cystic mass in the parapelvic portion of the mid right kidney. Numerous bilateral benign renal cysts were identified on ultrasound of 12/05/2023. There is a partially-imaged large partially-fatty mass which may be arising from the right adrenal gland. Given these findings, CT without and with contrast of the abdomen is recommended to further assess. IMPRESSION: 1. Straightening of the lumbar spine with slight retrolisthesis at L5-S1. 2. Multilevel discogenic degenerative changes between L1-L2 and L5-S1 inclusive, with multilevel disc bulging and annular fissuring, as described above, with a central to left subarticular extruded disc herniation at L5-S1 which contacts the S1 nerve root sleeves bilaterally, left more than right. 3. No significant central canal stenosis. Xvbl-os-zupjxiil left-sided subarticular recess stenosis at L4-L5 and mild left subarticular recess stenosis at L3-L4 with minimal encroachment on the traversing left L5 and L4 nerve roots respectively. 4. Hbio-be-uegviqjb degrees of multilevel bilateral facet joint arthropathy, with lpzg-vk-biinutyo left-sided neural foraminal narrowing at L3-L4, L4-L5 and L5-S1 without definite neural impingement. 5. Slightly complex-appearing cystic mass in the right kidney and a partially-imaged predominantly fatty mass possibly arising from the right adrenal gland measuring at least 4 cm as suspected on previous ultrasound. Recommend CT of the abdomen without and with contrast to further assess these findings. XR LUMBOSACRAL SPINE 01/22/24 FINDINGS: There are 5 lumbar-type nonrib-bearing vertebrae. The vertebral body heights and alignment are maintained. Intervertebral disc spaces are preserved. Small marginal endplate osteophytes are noted at multiple levels. Mild facet arthropathy in the lumbar spine at multiple levels. Close approximation of the spinous processes is noted which may raise the possibility of Baastrup's disease. No suspicious lytic or blastic osseous lesions are noted. The sacrum and coccyx appear intact. Multiple surgical tacks are noted projecting over the left pelvic region, recommend correlation with history of hernia repair in the region. Paraspinous soft tissues are unremarkable. There is limited evaluation of the sacroiliac joints however probable partial fusion of bilateral sacroiliac joints cannot be excluded. Scattered aortic calcifications. IMPRESSION: No evidence of acute compression fracture or suspicious osseous lesion in the lumbar spine. Mild lumbar spondylosis. Probable partial fusion of bilateral sacroiliac joints. Assessment & Plan Assessment & Plan (1) Lumbar degenerative disc disease: Code(s): M51.369 - Other intervertebral disc degeneration, lumbar region without mention of lumbar back pain or lower extremity pain Category: Medical Qualifiers: Disc-related pain type: unspecified whether pain present Qualified Code(s): M51.369 - Other intervertebral disc degeneration, lumbar region without mention of lumbar back pain or lower extremity pain Plan 1. Lumbar MRI confirms L5-S1 disc herniation. He has undergone bilateral L5-S1 transforaminal epidural injections under Dr. Fleming, pain management. Patient reports at least 50% relief. He is happy with this improvement. Patient has further follow up with Dr. Fleming on 08/06/2024. 2. Incidental finding on MRI on right kidney and adrenal gland. Pelvis CT done which reports myelolipoma on adrenal and bilateral kidney CS. We have sent the results to Dr. Dawson's office and we will send him this note as well. Patient advised to follow up with primary care. UPTODATE: Adrenal myelolipoma?? This is a benign tumor composed of mature fat and interspersed hematopoietic elements that resemble bone marrow. On computed imaging, the presence of large amounts of macroscopic fat in an adrenal mass is diagnostic of a myelolipoma (image [email or web address]) [email or web address]]. Although adrenal myelolipomas may grow over time, they can usually be followed without surgical excision. However, when larger than 6 cm in diameter or when causing local mass-effect symptoms, surgical removal should be considered. When adrenal myelolipomas are bilateral, the clinician should consider the diagnosis of congenital adrenal hyperplasia [[email or web address]]. Assessment and plan discussed with patient, and patient was agreeable. All questions were answered thoroughly. Evelyn Butcher MD, PHYLLIS Board Certified, [place] Board of Physical Medicine and Rehabilitation (ABPMR) Board Certified, [place] Board of Electrodiagnostic Medicine (ABEM) Coding Level of Care Code Tele Est Pt Level 4 (95324) Diagnoses Degeneration of intervertebral disc of lumbar region, unspecified whether pain present M51.369 Disc-related pain type: unspecified whether pain present
== END 2024-07-16 09:40 | disposition home or self-care (01) ==
LOC: HO.HOS 09:29
PROVIDERS: PCP Hospitalist; Visit Provider Physical Medicine & Rehabilitation
DX: M51.369 Other intervertebral disc degeneration, lumbar region without mention of lumbar back pain or lower extremity pain (principal)
CPT/HCPCS: 98006

== ENCOUNTER 2024-08-06 12:46 | Outpatient (AMB) | payer MEDICARE, SELFPAY ==
--- NOTE | 2024-08-06 12:48 | A.OFFVIS_ITS ---
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 Fleming. Patient reports ongoing 70% pain relief in the lower back and bilateral posterior leg pain since procedure with partial improvement in his daily activities, functioning, mobility and sleep. He also reports ongoing complaints of right knee pain resurfacing after substantial initial relief with cortisone injection through Orthopedic office in April,, indicating expected recurrence after around three months. The pain is currently exacerbated and interfering with mobility and activities such as walking or climbing stairs as well as with cold or rainy weather changes. Right knee pain is localized to medial aspects. Physical therapy has not been undertaken yet, though residential proximity might facilitate future participation. 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 He is managing depression symptoms with current medications, including lamotrigine and paroxetine. The patient denies substance misuse, aside from smoking 3-4 cigarettes per day. Past Procedures: 07/09/24: Bilateral L5-S1 TFESI-70% ongoing pain relief PRIOR: Patient is a pleasant 68 years old male with a history of chronic back pain, presents today for initial evaluation for acute on chronic back pain with bilateral radiculopathy. Denies any recent trauma, injury or falls. Patient has been referred to our office by Dr. Butcher for potential L5-S1 injection for disc herniation. Back pain is axial, discogenic and bilateral radiation of back pain to buttocks and into posterior thighs and calves with associated numbness and tingling in his toes and weakness. Pain is presents during resting and worse with activity, especially walking or bending. Reports walking capacity is under 10-15 minutes due to increase of back pain. Pain affects his daily activities and functioning, mobility, mood, sleep and quality of life. He completed physical therapy 2023 and injections in [place] where he spends summer months. He also had back injections in [place] and [place] about 15 years ago with mixed results. Lumbar spine imaging is noted below. Patient is also scheduled for abdominal/pelvic CT scan with and without contrast on 07/08/24 to evaluate right renal mass noted on lumbar MRI. Denies any fever or chills, weight loss, abdominal or groin pain, weakness, bladder or bowel dysfunction, or saddle anesthesia. Location: Lower back radiates down mauro legs posteriorly Duration: Chronic pain for over 5 years Characteristics of symptom or complaint: Aching, radiating, numbness, tinging, heavy, stabbing, burning, shooting Aggravating or associated factors: Laying flat, bending, standing, walking, movements, bending, lifting Relieving factors: Rest, activity modifications, cyclobenzaprine, NSAIDs, Tylenol Treatment: Injections, PT, lumbar xray/MRI [facility] Medical History Currently smokes tobacco HTN (hypertension) TIA (transient ischemic attack) Multiple sclerosis Chronic low back pain Osteoarthritis of knees, bilateral Lumbar degenerative disc disease Social History Patient Tobacco Use Status: Current everyday Tobacco user Tobacco use type: Cigarette Cigarettes Per Day: 2 Current occupational status: unemployed and disabled Review of Systems Const All systems reviewed & are unremarkable except as noted in HPI and below Physical Exam Vital Signs: Last Vital Signs Pulse 92 08/06/24 12:51 BP 128/74 08/06/24 12:51 Pulse Ox 96 08/06/24 12:51 Oxygen Delivery Method Room Air 08/06/24 12:51 BMI result Body Mass Index 29.2 General: Appears afebrile. Alert and oriented. Mood and affect appropriate. Follows and participates in conversation appropriately. Respiratory effort is unlabored. No cough. Able to transition from sit to stand unassisted. Antalgic gait. Ambulates with bilaterally normal heel strike and toe off, reports increased right medial knee pain with walking. General: Yes no CVA tenderness Back/Spine/Pelvis Back: no CVA tenderness Cervical Spine: cervical ROM normal, cervical muscular tenderness, No Cervical spine tenderness and No step off deformity Thoracic/Lumbar Spine: thoracic and lumbar spine normal to inspection, No Thoracic/lumbar spine scar(s), Lasegue's sign negative, straight leg raise nega tive bilaterally, pain with thoraco-lumbar ROM, paraspinal muscle tenderness, thoraco-lumbar ROM limited, No thoracic spinal tenderness and lumbar spinal tenderness (L4-S1) Pelvis: buttock tenderness bilaterally and no sciatic notch tenderness Sacroiliac joints: bilaterally tender to palpation Extrem General: Yes capillary refill normal, Yes no clubbing, cyanosis or edema and Yes no calf tenderness Right lower extremity: knee (Limited ROM due to pain.) Details: normal to ins pection, tenderness Location: of the medial joint line and crepitus (mild); no swelling, no ecchymosis, no deformity and no unusual warmth Assessment & Plan Assessment & Plan (1) Depression: Code(s): F32.A - Depression, unspecified Category: Medical (2) Lumbar degenerative disc disease: Code(s): M51.369 - Other intervertebral disc degeneration, lumbar region without mention of lumbar back pain or lower extremity pain Category: Medical Qualifiers: Disc-related pain type: unspecified whether pain present Qualified Code(s): M51.369 - Other intervertebral disc degeneration, lumbar region without mention of lumbar back pain or lower extremity pain (3) Herniation of intervertebral disc of lumbosacral region: Code(s): M51.27 - Other intervertebral disc displacement, lumbosacral region Category: Medical (4) Osteoarthritis of knees, bilateral: Code(s): M17.0 - Bilateral primary osteoarthritis of knee Category: Medical Qualifiers: Osteoarthritis type: primary Qualified Code(s): M17.0 - Bilateral primary osteoarthritis of knee (5) Lumbosacral spondylosis: Code(s): M47.817 - Spondylosis without myelopathy or radiculopathy, lumbosacral region Category: Medical (6) Chronic low back pain: Code(s): M54.50 - Low back pain, unspecified; G89.29 - Other chronic pain Category: Medical (7) Right knee pain: Code(s): M25.561 - Pain in right knee Category: Medical Plan Patient is one month status post bilateral L5-S1 TFESI with 70% ongoing pain relief. Patient will notify our office upon symptom resurgence. For chronic right knee pain due to OA, we will proceed with Right knee Synvisc One injection with local and fluoroscopy. Expectations, risks and benefits were reviewed. Patient is aware he will be contacted to schedule this procedure. Script sent for Gabapentin to mitigate combined pain, depression and anxiety symptoms. Side effects and precautions were discussed with patient. He also requests refill for Aspirin as he recently run out of medication. I advised patient in exploring psychiatric consultations to reassess the current strategies managing his depression symptoms. Patient will also start formal course of PT at [facility] for chronic back and knee pain, at location closer to his home for most participation per patient's request. All questions and concerns have been answered and patient agreed with the plan. Follow up after injection and sooner as needed. Patient was informed and verbally consented to the use of an ambient scribe for clinic note documentation during this visit. Orders: Orders PT Evaluation and Treatment Today G89.29 - Other chronic pain, M17.0 - Bilateral primary osteoarthritis of knee, M25.561 - Pain in right knee, M47.817 - Spondylosis without myelopathy or radiculopathy, lumbosacral region, M51.27 - Other intervertebral disc displacement, lumbosacral region, M54.50 - Low back pain, unspecified Medications: New gabapentin 300 mg PO TID 30 days 90 caps 0RF pain F32.A - Depression, unspecified, M51.27 - Other intervertebral disc displacement, lumbosacral region, M51.369 - Other intervertebral disc degeneration, lumbar region without mention of lumbar back pain or lower extremity pain Changed From aspirin 81 mg PO DAILY To aspirin 81 mg PO DAILY 90 days 90 tabs 0RF Coding Level of Care Code Est Pt Level 4 (23560) Complex EM visit Add On G2211 Diagnoses Depression F32.A Degeneration of intervertebral disc of lumbar region, unspecified whether pain present M51.369 Disc-related pain type: unspecified whether pain present Herniation of intervertebral disc of lumbosacral region M51.27 Primary osteoarthritis of both knees M17.0 Osteoarthritis type: primary Lumbosacral spondylosis M47.817 Chronic low back pain M54.50; G89.29 Right knee pain M25.561
[2024-08-06 12:51] VITALS: BP 128/74; PULSE 92; O2SAT 96; BMI 29.2
--- OUTSIDE RECORDS SUMMARY | 2024-08-06 15:31 | XMS_ITS | Clinical Summary ---
Author Organization [facility] Address [address] [place] [address] Care Team Providers Care Sulfonation Equipment Operator Name Role Phone Rylee Valenzuela MD Primary Care Provider [phone] Allergies Active Allergy Reactions Criticality Noted Date [...] age to complete this topic Care Teams Sulfonation Equipment Operator Relationship Specialty Start Date End Date Rylee Valenzuela MD PCP - General Family Medicine 09/07/14
--- OUTSIDE RECORDS SUMMARY | 2024-08-06 15:31 | XMS_ITS ---
Author Organization [facility] Address [address] [facility] [address] [place] [address] Care Team Providers Care Dowel Sticker Operator Name Role Phone ARI WYLIE Primary Care Provider Rene Allan Unavailable [phone] REASON FOR VISIT BP Medication Encounters Encounter Location Date Provider Diagnosis [facility] [address] [facility] [address] [place] [address] 07/28/2024 Rene Allan Plan Of Treatment No Information Progress Notes * Eleazar ASTORGAOB:1955 (68 yo M)Acc No.[id number]:07/28/2024 Patient:?Palmira ASTORGA :1955???Age:68 Y???Sex:Male Address:[address] [place] [id number] * * Date:?
--- OUTSIDE RECORDS SUMMARY | 2024-08-06 15:32 | XMS_ITS ---
Author Organization [facility] Address [address] [address] Care Team Providers Care Bass Viol Repairer Name Role Phone INESSA CHAPMAN Primary Care Provider REASON FOR VISIT [facility] Auth Encounters Encounter Location Date Provider Diagnosis [facility] [address] [address] 07/27/2024 INESSA CHAPMAN Plan Of Treatment No Information Progress Notes * Eleazar ASTORGAOB:1955 (68 yo M)Acc No.[id number]:07/27/2024 Patient:?Palmira ASTORGA :1955???Age:68 Y???Sex:Male Address:[address] [place] [address] * true * Date:? Generated for Clevei jeffrey/Arie/eTransmitting on:?08/06/2024 03:32 PM EDT
--- OUTSIDE RECORDS SUMMARY | 2024-08-06 15:32 | XMS_ITS | Patient Health Record ---
Author Organization [facility] Address [address] [place] [address] [address] [place] [address] Care Team Providers Care Teleservices Representative Name Role Phone INESSA CHAPMAN Primary Care Provider Sanjana Rene Unavailable [phone] Allergies No Known Allergies Results Component Value Reference Range Notes Comp. Metabolic Panel ([id number] Reviewed date:05/07/2024 09:48:52 AM Interpretation: Performing Lab:[employer] [facility], [facility], Phone - [phone], Director - MDJodry Notes/Report: Glucose 99 70-99 mg/dL BUN 17 8-27 mg/dL Creatinine 1.12 0.76-1.27 mg/dL eGFR 72 >59 mL/min/1.73 BUN/Creatinine Ratio 15 10-24 Sodium 142 134-144 mmol/L Potassium 4.3 3.5-5.2 mmol/L Chloride 105 96-106 mmol/L Carbon Dioxide, Total 21 20-29 mmol/L Calcium 9.7 8.6-10.2 mg/dL Protein, Total 6.6 6.0-8.5 g/dL Albumin 4.2 3.9-4.9 g/dL Globulin, Total 2.4 1.5-4.5 g/dL Bilirubin, Total 0.5 0.0-1.2 mg/dL Alkaline Phosphatase 62 44-121 IU/L AST (SGOT) 22 0-40 IU/L ALT (SGPT) 20 0-44 IU/L Lipid Panel-[id number] Reviewed date:05/07/2024 09:48:34 AM Interpretation: Performing Lab:[employer] [facility], [facility] [place], Phone - [phone], Director - Ignacia Notes/Report: Cholesterol, Total 155 100-199 mg/dL Triglycerides 183 0-149 mg/dL HDL Cholesterol 26 >39 mg/dL VLDL Cholesterol Dereje 32 5-40 mg/dL LDL Chol Calc ([facility]) 97 0-99 mg/dL Vitamin D, 05-[id number] Reviewed date:05/07/2024 09:48:14 AM Interpretation: Performing Lab:[facility] [place], [address] [place] [address], Phone - [phone], Director - Ignacia Notes/Report: Vitamin D, 25-Hydroxy 32.7 30.0-100.0 ng/mL Vitamin D deficiency has been defined by the [place] of Medicine and an Endocrine Society practice guideline as a level of serum 25-OH vitamin D less than 20 ng/mL (1,2). The Endocrine Society went on to further define vitamin D insufficiency as a level between 21 and 29 ng/mL (2). 1. IOM ([place] of [employer]). 2010. Dietary reference intakes for calcium and D. [place]: The National Academies Press. 2. Mark MF, Jose [place], Agatha CARREON, et al. Evaluation, treatment, and prevention of vitamin D deficiency: an Endocrine Society clinical practice guideline. JCEM. 2010; 96(7):1911-30. CBC with Diff, Platelet, NLR -[id number] Reviewed date:05/07/2024 09:48:43 AM Interpretation: Performing Lab:[facility] [place], [address] [place] [address], Phone - [phone], Director - Ignacia Notes/Report: WBC 13.6 3.4-10.8 x10E3/uL RBC 5.10 4.14-5.80 x10E6/uL Hemoglobin 15.4 13.0-17.7 g/dL Hematocrit 47.0 37.5-51.0 % MCV 92 79-97 fL MCH 30.2 26.6-33.0 pg MCHC 32.8 31.5-35.7 g/dL RDW 12.7 11.6-15.4 % Platelets 253 150-450 x10E3/uL Neutrophils 57 Not Estab. % Lymphs 29 Not Estab. % Monocytes 8 Not Estab. % Eos 4 Not Estab. % Basos 1 Not Estab. % Neutrophils (Absolute) 7.8 1.4-7.0 x10E3/uL Lymphs (Absolute) 4.0 0.7-3.1 x10E3/uL Neut/Lymph Ratio 2.0 0.0-2.9 ratio Published COVID-19 studies suggest: Low likelihood of severe COVID-19 disease progression 0.0-2.9 High likelihood of severe COVID-19 disease progression >4.9 Monocytes(Absolute) 1.1 0.1-0.9 x10E3/uL Eos (Absolute) 0.6 0.0-0.4 x10E3/uL Baso (Absolute) 0.1 0.0-0.2 x10E3/uL Immature Granulocytes 1 Not Estab. % Immature Grans (Abs) 0.1 0.0-0.1 x10E3/uL Ferritin-[id number] Reviewed date:05/07/2024 09:49:13 AM Interpretation: Performing Lab:[facility] [place], [address] [place] [address], [place], Phone - [phone], Director - Jerody Notes/Report: Ferritin 71 30-400 ng/mL Iron and TIBC-[id number] Reviewed date:05/07/2024 09:49:02 AM Interpretation: Performing Lab:[facility] [place], [address] [facility], [place], Phone - [phone], Director - MDMaryy Notes/Report: Iron Bind.Cap.(TIBC) 272 250-450 ug/dL UIBC 174 111-343 ug/dL Iron 98 38-169 ug/dL Iron Saturation 36 15-55 % Reason For Referral Reason Evaluation and manag ement Diagnosis 1 Chest pain, unspecif ied (R07.9) Referral Organization [facility] Referring Provider First Name [facility] Referring Provider Last Name [facility] Referring Provider Speciality Internal M edicine Referred Provider Specialty Cardiology General Notes Referral faxed to cardiology F: [phone], please contact patient to schedule Referral Priority Routine Reason Evaluation and manag ement Diagnosis 1 Chest pain, unspecif ied (R07.9) Referral Organization [facility] Referring Provider First Name [facility] Referring Provider Last Name [facility] Referring Provider Speciality Internal M edicine Referred Provider Specialty Cardiology General Notes Referral faxed to [phone] by celestino Referral Priority Routine Reason History of lumbar de generative Disc w/ radiculopathy BL with numbness. BL knee pain Prefer [facility] with Dr. car or Dr. Royal Mane at [facility] whomever takes him first Diagnosis 1 Other intervertebral disc degeneration, lumbar region (M51.36) Referral Organization [facility] Referring Provider First Name Rene Referring Provider Last Name Sanjana Referred Provider Specialty Orthopedic S urgery General Notes Referral sent to [facility] at [facility] and [facility] - Office will call patient for scheduling., Celestino Dennis 12/12/2023 12:51:09 PM > Referral Priority Urgent Reason constant headache- Diagnosis 1 Headache, unspecifie d (R51.9) Referral Organization [facility] Referring Provider First Name Rene Referring Provider Last Name Sanjana Referred Provider Specialty Neurology General Notes faxed to [facility], they will call Sonja cohen Brittney 01/03/2024 02:09:53 PM > Referral Priority Routine Reason Tinea unguium- evalu ate and treat Diagnosis 1 Tinea unguium (B35.1 ) Referral Organization [facility] Referring Provider First Name Jaleel Referring Provider Last Name Sanjana Referred Provider Specialty Podiatry General Notes faxed to [facility] , they will call Sonja cohen Brittney 01/07/2024 01:04:07 PM > Referral Priority Routine Reason BP monitor 48 hour Please evaluate and treat Diagnosis 1 Unspecified acute co njunctivitis, unspecified eye (H10.30) Referral Organization [facility] Referring Provider First Name Rene Referring Provider Last Name Sanjana Referred Provider Specialty Nephrology General Notes Please call the divya ent to schedule the appointment, Namrata Boswell 07/20/2024 01:06:22 PM > Referral Priority Stat Medications Medication SIG (Take, Route, Frequency, Duration) Notes Start Date End Date Status Bisoprolol Fumarate 5 MG 1 tablet Orally Once a day for 90 days Active Celecoxib 200 MG 1 capsule with food Orally Once a day for 30 day(s) 07/11/2023 Not-Taking lamoTRIgine Starter Kit-[place] 42 x 25 MG & 7 x 100 MG as directed Orally daily for 30 days Active Levocetirizine Dihydrochloride 5 MG 1 tablet in the evening Orally Once a day for 90 days Active CeleBREX 200 MG 1 capsule with food Orally Once a day for 30 days 2023 Active Spiriva HandiHaler 18 MCG 1 capsule by inhaling the contents of the capsule using the HandiHaler device Inhalation Once a day for 30 days 07/25/2023 Active Advair HFA 115-21 MCG/ACT 2 puffs Inhalation Twice a day for 30 days 07/25/2023 Active Albuterol Sulfate HFA 108 (90 Base) MCG/ACT 1 puff as needed Inhalation every 4 hrs for 30 days Active PARoxetine HCl 30 MG TAKE 1 TABLET BY MOUTH EVERY DAY IN THE MORNING FOR 30 DAYS for 90 days Active Pregabalin 50 MG 1 capsule in the evening 1 to 3 hours before bedtime Orally Once a day for 28 days 2023 Active Bthpwzsr-Pjhhxcbmg-Utozyy th 3.5-25069-7.1 1 drop into affected eye Ophthalmic Four times a day for 30 days 07/15/2024 Active Cyclobenzaprine HCl 10 MG 1 tablet at bedtime as needed Orally Once a day for 30 days 2023 Active Breo Ellipta 100-25 MCG/ACT 1 puff Inhalation Once a day for 30 days 08/22/2023 Active Atorvastatin Calcium 40 MG 1 tablet Orally Once a day for 90 days Active Doxycycline Hyclate 100 MG 1 tablet Orally twice a day for 10 days 11/22/2023 Not-Taking predniSONE 20 MG 1 tablet Orally Once a day for 7 days 10/18/2023 Not-Taking Caladryl 1-8 % 1 application as needed Externally Three times a day for 30 days 07/08/2023 Not-Taking Riboflavin 400 MG 1 capsule Orally Once a day for 30 days 12/05/2023 Not-Taking Hydrocortisone 2 % 1 application Externally Twice a day for 14 days 11/22/2023 Not-Taking Acyclovir 5 % 1 application Externally Five times a day for 10 days 01/29/2023 Not-Taking oxyCODONE HCl 5 MG 1 tablet as needed Orally every 12 hrs for 5 days 11/25/2023 Not-Taking clonazePAM 0.5 MG 1 tablet at bedtime Orally Once a day for 30 days 07/08/2023 Not-Taking Align 4 MG as directed Orally DAILY for 90 days 2023 Not-Taking Pantoprazole Sodium 40 MG 1 tablet Orall y Once a day for 30 days 01/29/2023 Active hydroCHLOROthiazide 12.5 MG TAKE 1 TABLET BY MOUTH EVERY DAY IN THE MORNING FOR 30 DAYS for 90 days Active Losartan Potassium 25 MG TAKE 1 TABLET B Y MOUTH EVERY DAY FOR 30 DAYS for 90 days Active Tamsulosin HCl 0.4 MG 1 capsule Orally TWICE A DAY for 30 days ADJUSTED BY UROLOGY 01/29/2023 Active Hydrocortisone 2.5 % APPLY 1 APPLICATION EXTERNALLY EVERY DAY for 56 Active LaMICtal 100 MG 1 tablet Orally Once a day for 30 days 07/15/2024 Active Aspirin 81 MG 1 tablet Orally Once a day for 30 day(s) 07/11/2023 Active Ocrelizumab 300 MG/10ML as directed Intravenous weekly for 30 days 07/12/2023 Active Pantoprazole Sodium 20 MG TAKE 1 TABLET BY MOUTH EVERY DAY FOR 30 DAYS for 90 Active Fluticasone Propionate 50 MCG/ACT 1 spray in each nostril Nasally Twice a day for 30 days 04/29/2024 Active lamoTRIgine 25 & 50 & 100 MG as directed Orally daily for 90 days 04/29/2024 Active Immunizations Vaccine Route Administration Date Status Comme nts COVID 19 Pfizer Unknown 07/15/2020 Administered Influenza Unknown 02/15/2021 Administered Influenza, high dose seasonal Unknown 02/14/2021 Admini stered Social History Tobacco Use: Social History Observation Description Date Details (start date - stop date) Current Smoker NA - NA Tobacco Use/Smoking Question Answer Notes Are you a current smoker How often do you smoke cigarettes? every day How many cigarettes a day do you smoke? 11-20 Alcohol Screen (Audit-C) Question Answer Notes Did you have a drink containing alcohol in the p ast year? No Points 0 Interpretation Negative Problems Problem Type SNOMED Code ICD Code Onset Dates Problem Status W/U Status Risk Notes Problem Genital herpes simplex (00159856) Herpesviral infection of urogenital system, unspecified (A60.00) Active confirmed Problem Mixed hyperlipidemia (342377288) Mixed hyperlipidemia (E78.2) Active confirmed Problem Tobacco user (291959600) Nicotine dependence, unspecified, uncomplicated (F17.200) Active confirmed Problem Tobacco user (044994383) Nicotine dependence, cigarettes, uncomplicated (F17.210) Active confirmed Problem Generalized anxiety disorder (55305365) Generalized anxiety disorder (F41.1) Active confirmed Problem Multiple sclerosis (47061940) Multiple sclerosis (G35) Active confirmed Problem Insomnia (996890615) Insomnia, unspecified (G47.00) Active confirmed Problem Hearing loss (33872823) Unspecified hearing loss, unspecified ear (H91.90) Active confirmed Problem Intermittent claudication of bilateral lower limbs co-occurrent and due to atherosclerosis (53581543530730502) Atherosclerosis of [place] arteries of extremities with intermittent claudication, 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) Active confirmed Problem Chronic obstructive pulmonary disease (95601129) Chronic obstructive pulmonary disease, unspecified (J44.9) Active confirmed Problem Gastro-esophageal reflux disease without esophagitis (152917259) Gastro-esophageal reflux disease without esophagitis (K21.9) Active confirmed Problem Constipation (47170498) Constipation, unspecified (K59.00) Active confirmed Problem Osteoarthritis (079468916) Polyosteoarthriti s, unspecified (M15.9) Active confirmed Problem Osteoarthritis of knee (440154461) Osteoarthritis of knee, unspecified (M17.9) Active confirmed Problem Acquired spondylolisthesis (546056176) Spondylolisthesis , lumbar region (M43.16) Active confirmed Problem Degeneration of thoracolumbar intervertebral disc (42077426) Other intervertebral disc degeneration, thoracolumbar region (M51.35) Active confirmed Problem Degeneration of lumbar intervertebral disc (21416920) Other intervertebral disc degeneration, lumbar region (M51.36) Active confirmed Problem Erectile dysfunction (disorder) (566229291) Male erectile dysfunction, unspecified (N52.9) Active confirmed Problem 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, 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) Active confirmed Problem Wheezing (36360889) Wheezing (R06.2) Active con firmed Problem Adult health examination (135260981) Encounter for general adult medical examination without abnormal findings (Z00.00) Active confirmed Problem Body mass index 30+ - obesity (589812648) Body mass index (BMI) 30.0-30.9, adult (Z68.30) Active confirmed Problem Essential hypertension (16982657) Essential (primary) hypertension (I10) Active confirmed Problem Benign prostatic hypertrophy without outflow obstruction (852217526) Benign prostatic hyperplasia without lower urinary tract symptoms (N40.0) Active confirmed Problem Lower urinary tract symptoms due to benign prostatic hypertrophy (08763307308561) Benign prostatic hyperplasia with lower urinary tract symptoms (N40.1) Active confirmed Problem Atherosclerotic heart disease of [place] coronary artery without angina pectoris (905806453878654) Coronary artery disease involving [place] coronary artery of [place] heart without angina pectoris (I25.10) Active confirmed Problem Seasonal allergy (730864905) Seasonal allergies (J30.2) Active confirmed Vital Signs Heart Rate 76 /min 07/15/2024 Temperature 97.4 degrees Fahrenheit 07/15/2024 Oximetry 96 % 07/15/2024 Blood pressure diastolic 82 mm Hg 07/15/2024 Height 70.5 in 07/15/2024 Blood pressure systolic 130 mm Hg 07/15/2024 Weight 215.4 lbs 07/15/2024 BMI 30.47 kg/m2 07/15/2024 Encounters Encounter Location Date Provider Diagnosis [address] [place] [address] 07/21/[address] [place] [address] 07/28/[address] [place] [address] 08/08/[address] [place] [address] 08/13/[address] [place] [address] 08/14/[address] [place] [address] 08/15/[address] [place] [address] 08/19/[address] [place] [address] 08/22/[address] [place] [address] 09/05/2023 [facility] [address] [place] [address] 10/18/2023 [facility] [address] [place] [address] 10/18/2023 [facility] Chronic obstructive pulmonary disease, unspecified J44.9 [facility] [address] [facility] [place] [address] 10/22/2023 [facility] [address] [facility] [place] [address] 10/31/2023 [facility] Herpesviral infectio n, unspecified B00.9 [facility] [address] [facility] [place] [address] 11/25/2023 Ghadeer Mazloum [facility] [address] [facility] [place] [address] 11/25/2023 [facility] [address] [place] [address] 11/27/2023 [facility] [address] [facility] [place] [address] 12/05/2023 [facility] Headache, unspecifie d R51.9 [facility] [address] [place] [address] 12/05/2023 [facility] [address] [facility] [place] [address] 12/05/2023 [facility] [address] [facility] [place] [address] 12/06/2023 [facility] [address] [facility] [place] [address] 12/11/2023 [facility] [address] [facility] [place] [address] 12/18/2023 [facility] [address] [place] [address] 12/24/2023 [facility] Benign prostatic hyperplasia with lower urinary tract symptoms N40.1 [facility] [address] [place] [address] 12/31/2023 [facility] [address] [place] [address] 01/20/2024 [facility] [address] [place] [address] 01/27/2024 [facility] [address] [place] [address] 02/06/2024 [facility] Herpesviral infectio n, unspecified B00.9 [facility] [address] [place] [address] 03/11/2024 [facility] [address] [place] [address] 03/16/2024 [facility] [address] [place] [address] 04/24/2024 [facility] [address] [place] [address] 04/27/2024 [facility] [address] [place] [address] 05/01/2024 [facility] Headache, unspecifie d R51.9 [facility] [address] [place] [address] 05/05/2024 [facility] [address] [place] [address] 05/08/2024 [facility]er [facility] Kidney cysts N28.1 [facility] [address] [place] [address] 05/21/2024 [facility] [address] [place] [address] 06/02/2024 [facility] [address] [place] [address] 07/13/2024 [facility] [address] [place] [address] 07/14/2024 [facility] [address] [place] [address] 07/20/2024 [facility] [address] [place] [address] 07/21/2024 [facility] [address] [place] [address] 07/27/2024 [facility] [address] [facility] [address] [place] [address] 07/15/2024 [facility] Headache, unspecifie d R51.9 ; Essential (primary) hypertension I10 and Unspecified acute conjunctivitis, unspecified eye H10.30 [facility] [address] [place] [address] 05/06/2024 [facility] [address] [place] [address] 2023 WYLIE GU Essential (primary) hypertension I10 ; Coronary artery disease involving [place] coronary artery of [place] heart without angina pectoris I25.10 ; Mixed hyperlipidemia E78.2 ; Gastro-esophageal reflux disease without esophagitis K21.9 ; Pain in right arm M79.601 and Seasonal allergies J30.2 [facility] [address] [place] [address] 10/18/2023 WYLIE AZAR Chronic obstructive pulmonary disease, unspecified J44.9 [facility] [address] [place] [address] 11/22/2023 WYLIE AZAR Folliculitis L73.9 a nd Dermatitis L30.[address] [place] [address] 12/06/2023 Ghadeer Mazloum Other intervertebral disc degeneration, lumbar region M51.36 ; Pain in unspecified knee M25.569 and Benign prostatic hyperplasia with lower urinary tract symptoms N40.[address] [place] [address] 01/03/2024 Ghadeer Mazloum Folliculitis L73.9 ; Dermatitis L30.9 and Tinea unguium B35.[address] [place] [address] 04/29/2024 Ghadeer Mazloum Headache, unspecifie d R51.9 ; Acute sinusitis, unspecified J01.90 and Encounter for screening for cardiovascular disorders Z13.6 Assessments Encounter Date Diagnosis (ICD Code) Assessment Notes Treatment Notes Treatment Clinical Notes Section Notes 12/05/2023 Headache, unspecified (ICD-10 - R51.9) 2023 Essential (primary) hypertension (ICD-10 - I10) Mr. Jensen is a 67 year old gentleman with acid reflux, BPH, generalized anxiety disorder, hypertension, HSV and dyslipidemia here complaining of arm pain. Plan is as follows: Coronary artery disease. Recent cardiac catheterization with mild coronary artery disease with no stenosis or blockage. Optimize medical management. He is on the right medications. Encouraged to quit smoking Hyperlipidemia. Last lipid panel within normal limits. Continue Atorvastatin 40 MG once a day. Hypertension. Blood pressure is wihtin reasonable limits. Continue Losartan 25 MG along with HCTZ 12.5 MG once a day. Continue other current regimen. Generalized anxiety disorder. Mood is stable on Paroxetine. GERD. Stable on Pantoprazole 40 mg once a day. Start Align 4 MG once a day. BPH. Stable on Tamsulosin 0.4 MG once a day. MS. Continue Ocrelizumab 300 MG/10 ML weekly. COPD. He was advised to use inhalers as needed along with Benzonatate 100 MG TID PRN for 7 days. He is also started on Advair, Spiriva. Seasonal allergies. Start Levocetirizine 5 MG in the evening Arm pain. DDX cervical radiculopathy, brachial plexus neuropathy. Start Celebrex 200 MG with food, Pregabalin 50 MG in the evening, and Cyclobenzaprine 10 MG at bedtime as needed. General health concerns discussed with patient. Scribe services used to formulate this note under HIPAA compliance and under [place] law mandated for scribe services. Patient aware of service. Verbal consent and written consent taken from the patient. Patient understands and verbalizes understanding of the scribes services and all questions answered regarding scribes services. Patient agrees to use of scribes services. 2023 Coronary artery disease involving [place] coronary artery of [place] heart without angina pectoris (ICD-10 - I25.10) Mr. Jensen is a 67 year old gentleman with acid reflux, BPH, generalized anxiety disorder, hypertension, HSV and dyslipidemia here complaining of arm pain. Plan is as follows: Coronary artery disease. Recent cardiac catheterization with mild coronary artery disease with no stenosis or blockage. Optimize medical management. He is on the right medications. Encouraged to quit smoking Hyperlipidemia. Last lipid panel within normal limits. Continue Atorvastatin 40 MG once a day. Hypertension. Blood pressure is wihtin reasonable limits. Continue Losartan 25 MG along with HCTZ 12.5 MG once a day. Continue other current regimen. Generalized anxiety disorder. Mood is stable on Paroxetine. GERD. Stable on Pantoprazole 40 mg once a day. Start Align 4 MG once a day. BPH. Stable on Tamsulosin 0.4 MG once a day. MSRosa Continue Ocrelizumab 300 MG/10 ML weekly. COPD. He was advised to use inhalers as needed along with Benzonatate 100 MG TID PRN for 7 days. He is also started on Advair, Spiriva. Seasonal allergies. Start Levocetirizine 5 MG in the evening Arm pain. DDX cervical radiculopathy, brachial plexus neuropathy. Start Celebrex 200 MG with food, Pregabalin 50 MG in the evening, and Cyclobenzaprine 10 MG at bedtime as needed. General health concerns discussed with patient. Scribe services used to formulate this note under HIPAA compliance and under [place] law mandated for scribe services. Patient aware of service. Verbal consent and written consent taken from the patient. Patient understands and verbalizes understanding of the scribes services and all questions answered regarding scribes services. Patient agrees to use of scribes services. 10/18/2023 Chronic obstructive pulmonary disease, unspecified (ICD-10 - J44.9) Mr. Jensen is a 68 year old gentleman with acid reflux, BPH, generalized anxiety disorder, hypertension, HSV and dyslipidemia here complaining of wheezing. Plan is as follows: COPD. Start Albuterol inhalers as needed. We will give him a course of Azithromycin 250 MG, as directed, 2 tablets on the first day, then 1 tablet daily for 5 days along with Benzonatate TID for 7 days, prednisone taper starting from 60 mg and Levocetirizine 5 MG once a day. Advised appropriate hydration. General health concerns discussed with patient. Scribe services used to formulate this note under HIPAA compliance and under [place] law mandated for scribe services. Patient aware of service. Verbal consent and written consent taken from the patient. Patient understands and verbalizes understanding of the scribes services and all questions answered regarding scribes services. Patient agrees to use of scribes services. 10/18/2023 Chronic obstructive pulmonary disease, unspecified (ICD-10 - J44.9) 10/31/2023 Herpesviral infection, unspecified (ICD-10 - B00.9) 11/22/2023 Dermatitis (ICD-10 - L30.9) Mr. Jensen is a 68-year-old gentleman with acid reflux, BPH, generalized anxiety disorder, hypertension, HSV and dyslipidemia here complaining of folliculitis. He states that he had an ingrown hair, he plucked it and then a cyst formed. Plan as follows: Folliculitis: - Cyst is noted with erythema, edema and tender to palpate. Extending to the right jaw and neck. We have started patient on Doxycyline for 10 days. - Advised on taking Tylenol for pain as needed. - Advised on not taking abx without medical rx, educated on side effects of Fluroquinolones. Dermatitis: - Most likely seasonal dermatitis. Started patient on Hydrocortisone cream. I have rendered the services for this patient under direct supervision of Dr. Chapman, who did not see the patient but was available upon request 11/22/2023 Folliculitis (ICD-10 - L73.9) Mr. Jensen is a 68-year-old gentleman with acid reflux, BPH, generalized anxiety disorder, hypertension, HSV and dyslipidemia here complaining of folliculitis. He states that he had an ingrown hair, he plucked it and then a cyst formed. Plan as follows: Folliculitis: - Cyst is noted with erythema, edema and tender to palpate. Extending to the right jaw and neck. We have started patient on Doxycyline for 10 days. - Advised on taking Tylenol for pain as needed. - Advised on not taking abx without medical rx, educated on side effects of Fluroquinolones. Dermatitis: - Most likely seasonal dermatitis. Started patient on Hydrocortisone cream. I have rendered the services for this patient under direct supervision of Dr. Chapman, who did not see the patient but was available upon request 12/06/2023 Other intervertebral disc degeneration, lumbar region (ICD-10 - M51.36) Mr. Jensen is a 68-year-old gentleman with acid reflux, BPH, generalized anxiety disorder, hypertension, HSV and dyslipidemia here for low back pain with BL radiculopathy and another chief complaint of progressive BL knee pain. Plan as follows: Lumbar radiculopathy: - Per patient has history of lumbar degenerative disc disease. He has been experiencing low back pain that radiates BL with numbness. Denies red flags sxs. SLR is 60 degrees. NML strength BL. Sensation intact BL. Referred to Orthopedic for further evaluation and management. BL knee pain: - Progressive BL knee pain. Most likely arthritis. PE is normal. But will r/o RA. Referred to Orthopedic. Defers therapy for now. Started patient on Celebrix. I have rendered the services for this patient under direct supervision of Dr. Chapman, who did not see the patient but was available upon request 12/24/2023 Benign prostatic hyperplasia with lower urinary tract symptoms (ICD-10 - N40.1) 01/03/2024 Dermatitis (ICD-10 - L30.9) Mr. Jensen is a 68-year-old gentleman with acid reflux, BPH, generalized anxiety disorder, hypertension, HSV and dyslipidemia here for cysts in the armpit. Plan as follows: Folliculitis: - Started couple days ago. painful and tender to touch. PE is remarkable for two small folliculitis with pus, mild erythema, warm and tender to touch. Started patient on Augmentin. Recommended warm compresses. Headaches: - Referred to Neurology. Tinea Unguium: - Referred to podiatry 01/03/2024 Folliculitis (ICD-10 - L73.9) Mr. Jensen is a 68-year-old gentleman with acid reflux, BPH, generalized anxiety disorder, hypertension, HSV and dyslipidemia here for cysts in the armpit. Plan as follows: Folliculitis: - Started couple days ago. painful and tender to touch. PE is remarkable for two small folliculitis with pus, mild erythema, warm and tender to touch. Started patient on Augmentin. Recommended warm compresses. Headaches: - Referred to Neurology. Tinea Unguium: - Referred to podiatry 02/06/2024 Herpesviral infection, unspecified (ICD-10 - B00.9) 04/29/2024 Acute sinusitis, unspecified (ICD-10 - J01.90) Mr. Jensen is a 68-year-old gentleman with acid reflux, BPH, generalized anxiety disorder, hypertension, HSV and dyslipidemia here for Headache and dizziness. Plan as follows: CARREON: - Consistent with migraines. He has been on Lamictal before and improved his symptoms. Had recent MRI which was non-revealing for any new pathology. Started patient on Lamictal. Possible side effects have been discussed. HTN/dizziness: - BP is running on the low normal. He is currently on Bisoprolol and HCTZ, he has not been taking Losartan. I have discontinued HCTZ. We will also check comp. Continue on bisprolol. We will check BP in 2 weeks. Hydration is recommended and reducing salt intake Acute Sinusitis: - He admits runny nose and post nasal drip. PE is unremarkable. Started patient on fluticasone nasal spray BL knee pain: - He is currently getting managed by [facility]. I have spent 20 mins w/ patient Screening BW before next appt General concerns have been discussed. I have rendered the services for this patient under direct supervision of Dr. Chapman, who did not see the patient but was available upon request 04/29/2024 Headache, unspecified (ICD-10 - R51.9) Mr. Jensen is a 68-year-old gentleman with acid reflux, BPH, generalized anxiety disorder, hypertension, HSV and dyslipidemia here for Headache and dizziness. Plan as follows: CARREON: - Consistent with migraines. He has been on Lamictal before and improved his symptoms. Had recent MRI which was non-revealing for any new pathology. Started patient on Lamictal. Possible side effects have been discussed. HTN/dizziness: - BP is running on the low normal. He is currently on Bisoprolol and HCTZ, he has not been taking Losartan. I have discontinued HCTZ. We will also check comp. Continue on bisprolol. We will check BP in 2 weeks. Hydration is recommended and reducing salt intake Acute Sinusitis: - He admits runny nose and post nasal drip. PE is unremarkable. Started patient on fluticasone nasal spray BL knee pain: - He is currently getting managed by [facility]. I have spent 20 mins w/ patient Screening BW before next appt General concerns have been discussed. I have rendered the services for this patient under direct supervision of Dr. Chapman, who did not see the patient but was available upon request 05/01/2024 Headache, unspecified (ICD-10 - R51.9) 05/08/2024 Kidney cysts (ICD-10 - N28.1) 07/15/2024 Essential (primary) hypertension (ICD-10 - I10) Mr. Jensen is a 68-year-old gentleman with acid reflux, BPH, generalized anxiety disorder, hypertension, HSV and dyslipidemia here for BP check. Plan as follows: HTN - BP is within normal limit. Continue on Bisoprolol and losartan 25mg. I will also get a 48-hour blood pressure monitor. Given the intermittent/episo dic headache and high blood pressure. I will rule out pheochromocytoma. Order blood work Hydration is recommended and reducing salt intake Headache - Stable on Lamictal. Continue Lamictal 100 mg. Refilled his medications General concerns have been discussed. I have rendered the services for this patient under direct supervision of Dr. Champan, who did not see the patient but was available upon request 07/15/2024 Headache, unspecified (ICD-10 - R51.9) Mr. Jensen is a 68-year-old gentleman with acid reflux, BPH, generalized anxiety disorder, hypertension, HSV and dyslipidemia here for BP check. Plan as follows: HTN - BP is within normal limit. Continue on Bisoprolol and losartan 25mg. I will also get a 48-hour blood pressure monitor. Given the intermittent/episo dic headache and high blood pressure. I will rule out pheochromocytoma. Order blood work Hydration is recommended and reducing salt intake Headache - Stable on Lamictal. Continue Lamictal 100 mg. Refilled his medications General concerns have been discussed. I have rendered the services for this patient under direct supervision of Dr. Chapman, who did not see the patient but was available upon request 2023 Mixed hyperlipidemia (ICD-10 - E78.2) Mr. Jensen is a 67 year old gentleman with acid reflux, BPH, generalized anxiety disorder, hypertension, HSV and dyslipidemia here complaining of arm pain. Plan is as follows: Coronary artery disease. Recent cardiac catheterization with mild coronary artery disease with no stenosis or blockage. Optimize medical management. He is on the right medications. Encouraged to quit smoking Hyperlipidemia. Last lipid panel within normal limits. Continue Atorvastatin 40 MG once a day. Hypertension. Blood pressure is wihtin reasonable limits. Continue Losartan 25 MG along with HCTZ 12.5 MG once a day. Continue other current regimen. Generalized anxiety disorder. Mood is stable on Paroxetine. GERD. Stable on Pantoprazole 40 mg once a day. Start Align 4 MG once a day. BPH. Stable on Tamsulosin 0.4 MG once a day. MS. Continue Ocrelizumab 300 MG/10 ML weekly. COPD. He was advised to use inhalers as needed along with Benzonatate 100 MG TID PRN for 7 days. He is also started on Advair, Spiriva. Seasonal allergies. Start Levocetirizine 5 MG in the evening Arm pain. DDX cervical radiculopathy, brachial plexus neuropathy. Start Celebrex 200 MG with food, Pregabalin 50 MG in the evening, and Cyclobenzaprine 10 MG at bedtime as needed. General health concerns discussed with patient. Scribe services used to formulate this note under HIPAA compliance and under [place] law mandated for scribe services. Patient aware of service. Verbal consent and written consent taken from the patient. Patient understands and verbalizes understanding of the scribes services and all questions answered regarding scribes services. Patient agrees to use of scribes services. 07/15/2024 Unspecified acute conjunctivitis, unspecified eye (ICD-10 - H10.30) Mr. Jensen is a 68-year-old gentleman with acid reflux, BPH, generalized anxiety disorder, hypertension, HSV and dyslipidemia here for BP check. Plan as follows: HTN - BP is within normal limit. Continue on Bisoprolol and losartan 25mg. I will also get a 48-hour blood pressure monitor. Given the intermittent/episo dic headache and high blood pressure. I will rule out pheochromocytoma. Order blood work Hydration is recommended and reducing salt intake Headache - Stable on Lamictal. Continue Lamictal 100 mg. Refilled his medications General concerns have been discussed. I have rendered the services for this patient under direct supervision of Dr. Chapman, who did not see the patient but was available upon request 04/29/2024 Encounter for screening for cardiovascular disorders (ICD-10 - Z13.6) Mr. Jensen is a 68-year-old gentleman with acid reflux, BPH, generalized anxiety disorder, hypertension, HSV and dyslipidemia here for Headache and dizziness. Plan as follows: CARREON: - Consistent with migraines. He has been on Lamictal before and improved his symptoms. Had recent MRI which was non-revealing for any new pathology. Started patient on Lamictal. Possible side effects have been discussed. HTN/dizziness: - BP is running on the low normal. He is currently on Bisoprolol and HCTZ, he has not been taking Losartan. I have discontinued HCTZ. We will also check comp. Continue on bisprolol. We will check BP in 2 weeks. Hydration is recommended and reducing salt intake Acute Sinusitis: - He admits runny nose and post nasal drip. PE is unremarkable. Started patient on fluticasone nasal spray BL knee pain: - He is currently getting managed by [facility]. I have spent 20 mins w/ patient Screening BW before next appt General concerns have been discussed. I have rendered the services for this patient under direct supervision of Dr. Chapman, who did not see the patient but was available upon request 01/03/2024 Tinea unguium (ICD-10 - B35.1) Mr. Jensen is a 68-year-old gentleman with acid reflux, BPH, generalized anxiety disorder, hypertension, HSV and dyslipidemia here for cysts in the armpit. Plan as follows: Folliculitis: - Started couple days ago. painful and tender to touch. PE is remarkable for two small folliculitis with pus, mild erythema, warm and tender to touch. Started patient on Augmentin. Recommended warm compresses. Headaches: - Referred to Neurology. Tinea Unguium: - Referred to podiatry 12/06/2023 Pain in unspecified knee (ICD-10 - M25.569) Mr. Jensen is a 68-year-old gentleman with acid reflux, BPH, generalized anxiety disorder, hypertension, HSV and dyslipidemia here for low back pain with BL radiculopathy and another chief complaint of progressive BL knee pain. Plan as follows: Lumbar radiculopathy: - Per patient has history of lumbar degenerative disc disease. He has been experiencing low back pain that radiates BL with numbness. Denies red flags sxs. SLR is 60 degrees. NML strength BL. Sensation intact BL. Referred to Orthopedic for further evaluation and management. BL knee pain: - Progressive BL knee pain. Most likely arthritis. PE is normal. But will r/o RA. Referred to Orthopedic. Defers therapy for now. Started patient on Celebrix. I have rendered the services for this patient under direct supervision of Dr. Chapman, who did not see the patient but was available upon request 12/06/2023 Benign prostatic hyperplasia with lower urinary tract symptoms (ICD-10 - N40.1) Mr. Jensen is a 68-year-old gentleman with acid reflux, BPH, generalized anxiety disorder, hypertension, HSV and dyslipidemia here for low back pain with BL radiculopathy and another chief complaint of progressive BL knee pain. Plan as follows: Lumbar radiculopathy: - Per patient has history of lumbar degenerative disc disease. He has been experiencing low back pain that radiates BL with numbness. Denies red flags sxs. SLR is 60 degrees. NML strength BL. Sensation intact BL. Referred to Orthopedic for further evaluation and management. BL knee pain: - Progressive BL knee pain. Most likely arthritis. PE is normal. But will r/o RA. Referred to Orthopedic. Defers therapy for now. Started patient on Celebrix. I have rendered the services for this patient under direct supervision of Dr. Chapman, who did not see the patient but was available upon request 2023 Gastro-esophageal reflux disease without esophagitis (ICD-10 - K21.9) Mr. Jensen is a 67 year old gentleman with acid reflux, BPH, generalized anxiety disorder, hypertension, HSV and dyslipidemia here complaining of arm pain. Plan is as follows: Coronary artery disease. Recent cardiac catheterization with mild coronary artery disease with no stenosis or blockage. Optimize medical management. He is on the right medications. Encouraged to quit smoking Hyperlipidemia. Last lipid panel within normal limits. Continue Atorvastatin 40 MG once a day. Hypertension. Blood pressure is wihtin reasonable limits. Continue Losartan 25 MG along with HCTZ 12.5 MG once a day. Continue other current regimen. Generalized anxiety disorder. Mood is stable on Paroxetine. GERD. Stable on Pantoprazole 40 mg once a day. Start Align 4 MG once a day. BPH. Stable on Tamsulosin 0.4 MG once a day. MS. Continue Ocrelizumab 300 MG/10 ML weekly. COPD. He was advised to use inhalers as needed along with Benzonatate 100 MG TID PRN for 7 days. He is also started on Advair, Spiriva. Seasonal allergies. Start Levocetirizine 5 MG in the evening Arm pain. DDX cervical radiculopathy, brachial plexus neuropathy. Start Celebrex 200 MG with food, Pregabalin 50 MG in the evening, and Cyclobenzaprine 10 MG at bedtime as needed. General health concerns discussed with patient. Scribe services used to formulate this note under HIPAA compliance and under [place] law mandated for scribe services. Patient aware of service. Verbal consent and written consent taken from the patient. Patient understands and verbalizes understanding of the scribes services and all questions answered regarding scribes services. Patient agrees to use of scribes services. 2023 Pain in right arm (ICD-10 - M79.601) Mr. Jensen is a 67 year old gentleman with acid reflux, BPH, generalized anxiety disorder, hypertension, HSV and dyslipidemia here complaining of arm pain. Plan is as follows: Coronary artery disease. Recent cardiac catheterization with mild coronary artery disease with no stenosis or blockage. Optimize medical management. He is on the right medications. Encouraged to quit smoking Hyperlipidemia. Last lipid panel within normal limits. Continue Atorvastatin 40 MG once a day. Hypertension. Blood pressure is wihtin reasonable limits. Continue Losartan 25 MG along with HCTZ 12.5 MG once a day. Continue other current regimen. Generalized anxiety disorder. Mood is stable on Paroxetine. GERD. Stable on Pantoprazole 40 mg once a day. Start Align 4 MG once a day. BPH. Stable on Tamsulosin 0.4 MG once a day. MS. Continue Ocrelizumab 300 MG/10 ML weekly. COPD. He was advised to use inhalers as needed along with Benzonatate 100 MG TID PRN for 7 days. He is also started on Advair, Spiriva. Seasonal allergies. Start Levocetirizine 5 MG in the evening Arm pain. DDX cervical radiculopathy, brachial plexus neuropathy. Start Celebrex 200 MG with food, Pregabalin 50 MG in the evening, and Cyclobenzaprine 10 MG at bedtime as needed. General health concerns discussed with patient. Scribe services used to formulate this note under HIPAA compliance and under [place] law mandated for scribe services. Patient aware of service. Verbal consent and written consent taken from the patient. Patient understands and verbalizes understanding of the scribes services and all questions answered regarding scribes services. Patient agrees to use of scribes services. 2023 Seasonal allergies (ICD-10 - J30.2) Mr. Jensen is a 67 year old gentleman with acid reflux, BPH, generalized anxiety disorder, hypertension, HSV and dyslipidemia here complaining of arm pain. Plan is as follows: Coronary artery disease. Recent cardiac catheterization with mild coronary artery disease with no stenosis or blockage. Optimize medical management. He is on the right medications. Encouraged to quit smoking Hyperlipidemia. Last lipid panel within normal limits. Continue Atorvastatin 40 MG once a day. Hypertension. Blood pressure is wihtin reasonable limits. Continue Losartan 25 MG along with HCTZ 12.5 MG once a day. Continue other current regimen. Generalized anxiety disorder. Mood is stable on Paroxetine. GERD. Stable on Pantoprazole 40 mg once a day. Start Align 4 MG once a day. BPH. Stable on Tamsulosin 0.4 MG once a day. MS. Continue Ocrelizumab 300 MG/10 ML weekly. COPD. He was advised to use inhalers as needed along with Benzonatate 100 MG TID PRN for 7 days. He is also started on Advair, Spiriva. Seasonal allergies. Start Levocetirizine 5 MG in the evening Arm pain. DDX cervical radiculopathy, brachial plexus neuropathy. Start Celebrex 200 MG with food, Pregabalin 50 MG in the evening, and Cyclobenzaprine 10 MG at bedtime as needed. General health concerns discussed with patient. Scribe services used to formulate this note under HIPAA compliance and under [place] law mandated for scribe services. Patient aware of service. Verbal consent and written consent taken from the patient. Patient understands and verbalizes understanding of the scribes services and all questions answered regarding scribes services. Patient agrees to use of scribes services. Plan Of Treatment Pending Test Test Name Order Date MRI : Brain 07/08/2023 HEMOGLOBIN A1C 02/20/2023 CT Abdomen W WO 05/08/2024 Metanephrines, Pheochromocyt-[id number] 06/21 Catecholamines,Ur.,Free,24 Hr-[id number] Metanephrines, Frac, Qn, 91-[id number] Rheumatoid Factor (RF)-[id number] 12/06/2023 CBC/Differential (No Platelet)-[id number] Anti-CCP Ab, IgG/IgA-[id number] 12/06/2023 Comp. Metabolic Panel [id number] 2024 DARCY Profile 12 (RDL)-[id number] 12/06/2023 Hemoglobin A1c 07/11/2023 Insurance Providers Payer Name Payer Address Payer Phone Subscriber Number Group Number Insured Name Patient Relationship to Insured Coverage Start Date Coverage End Date [employer] Preferred [address] [place] [address] [id number] Palmira Jensen Self - patient is the insured Medical (General) History Medical History History ICD Code hypertension, benign hyperlipidemia acid reflux Benign prostatic hypertrophy Nicotine dependence herpes genitalis right renal cyst on [place] imaging in [place] Migraines Hospitalization History Reason Date(Month/Year) dizziness, weakness, headache, elevated BP-went in [place]
--- OUTSIDE RECORDS SUMMARY | 2024-08-06 15:32 | XMS_ITS ---
Author Organization [facility] Address [address] [address] Care Team Providers Care Manager Digital Ad Operations Name Role Phone ARI WYLIE Primary Care Provider REASON FOR VISIT Atorvastatin Refill Req Medications Medication SIG (Take, Route, Frequency, Duration) Notes Start Date End Date Status Atorvastatin Calcium 40 MG 1 tablet Oral ly Once a day for 90 days Active Encounters Encounter Location Date Provider Diagnosis [facility] [address] [address] 07/21/2024 INESSA CHAPMAN Plan Of Treatment Medication Medication Name Sig Start Date Stop Date Notes Atorvastatin Calcium 40 MG 1 tablet Oral ly Once a day for 90 days Progress Notes * Eleazar ASTORGAOB:1955 (68 yo M)Acc No.[id number]:07/21/2024 Patient:?VASQUEZPalmira THEODORE :1955???Age:68 Y???Sex:Male Address:[address] [place] [address] * Refills? Refill Atorvastatin Calcium Tablet, 40 MG, Orally, 90, 1 tablet, Once a day, 90 days, Refills=3 Subjective: * Chief Complaints: * ???Atorvastatin Refill Req * Medical History:? * Surgical History:? * Hospitalization/Major Diagno stic Procedure:? * Medications:? Objective: * Vitals:? * Physical Examination:? Assessment: Plan: * Treatment: * Procedure Codes:? * true * Date:? Generated for Jericho murphy/Arie/eTransmitting on:?08/06/2024 03:32 PM EDT
--- OUTSIDE RECORDS SUMMARY | 2024-08-06 15:32 | XMS_ITS | Clinical Summary ---
Author Organization [facility] Address [address] [place] [address] Phone Care Team Providers Care Biological Aide Name Role Phone Whit Dawson MD Primary Care Provider [phone] Surgical History Surgery Date Site/Laterality Comments LIPOMA [...] Date Smoking Tobacco: Every Day Cigarettes 1 50 Started: 1974 Smokeless Tobacco: Never Alcohol Use [...] Vaccines (1 of 2) 2006 COVID-19 Vaccine (2 - 2024-2 5 season) 2023 07/15/2020 Abdominal Aortic Aneurysm (A AA) Screen 01/30/2024 Cholesterol Screening (Lipid Panel) 01/30/2024 Colorectal Cancer Screening: Colonoscopy 01/30/2024 Depression Screening 01/30/2024 Falls Risk Assessment 01/30/2024 Hepatitis C Screening 01/30/2024 Hypertension/CHF/CAD Annual BMP Blood Test 01/30/2024 Lung Cancer Screening (Low D ose CT) 01/30/2024 Medicare Annual Wellness Visit 01/30/2024 Social Influencers of Health Screening 01/30/2024 Influenza Vaccine (Season Ended) 2024 02/28/20 16 RSV Immunization Adult Patie nts (1 - 1-dose 75+ series) 08/22/2031 HIB [...] age to complete this topic Meningococcal B Vaccine Aged Out No l onger eligible based on patient's age to complete this topic RSV Immunization Patients Un joel 20 months Aged Out No longer eligible b ased on patient's age to complete this topic Varicella Vaccines Aged Out No longer eligible based on patient's age to complete this topic Insurance [place] Care Teams Biological Aide Relationship Specialty Start Date End Date Whit Dawson MD [address] [place] [address] PCP - General 08/05/23
== END 2024-08-06 13:14 | disposition home or self-care (01) ==
LOC: HO.PMC 12:47
PROVIDERS: PCP Hospitalist; Visit Provider Nurse Practitioner Family
DX: M51.369 Other intervertebral disc degeneration, lumbar region without mention of lumbar back pain or lower extremity pain (principal); M51.27 Other intervertebral disc displacement, lumbosacral region; M17.0 Bilateral primary osteoarthritis of knee; M47.817 Spondylosis without myelopathy or radiculopathy, lumbosacral region; M54.50 Low back pain, unspecified; G89.29 Other chronic pain; M25.561 Pain in right knee; F32.A Depression, unspecified
CPT/HCPCS: 99214; G2211

== ENCOUNTER → 2024-08-06 12:46 | Outpatient (BNVA) | payer MEDICARE, SELFPAY | PROVIDERS: PCP Hospitalist; Visit Provider Nurse Practitioner Family | DX: M51.360 Other intervertebral disc degeneration, lumbar region with discogenic back pain only (principal); M51.27 Other intervertebral disc displacement, lumbosacral region; M17.0 Bilateral primary osteoarthritis of knee; M47.817 Spondylosis without myelopathy or radiculopathy, lumbosacral region; F32.A Depression, unspecified; G89.29 Other chronic pain | CPT/HCPCS: 99212 ==

== ENCOUNTER 2024-08-20 07:07 | Outpatient (REF) | payer MEDICARE, SELFPAY ==
--- NOTE | ~2024-08-20 | FL_ITS ---
EXAMINATION: XR FLUOROSCOPY WITH IMAGES CLINICAL INFORMATION: Right knee pain management. COMPARISON: None available. TECHNIQUE: Fluoroscopy provided to: Dr. Fleming Fluoroscopy time: 0.3 minutes DAP: 0.0186 mGycm2 Images: 2 FINDINGS: 2 fluoroscopic spot images obtained during injection of the right knee. Please refer to full procedural report for detail. FL/FL guidance in treatment room IMPRESSION: Fluoroscopic guidance. Electronically signed by: Alexander Ortega MD 08/21/2024 11:09 AM EDT
--- OUTSIDE RECORDS SUMMARY | 2024-08-20 07:10 | XMS_ITS ---
Author Organization [facility] Address [address] [facility] [address] [place] [address] Care Team Providers Care Furniture Installer Name Role Phone ARI WYLIE Primary Care Provider Rene Allan Unavailable [phone] REASON FOR VISIT BP Medication Encounters Encounter Location Date Provider Diagnosis [facility] [address] [facility] [address] [place] [address] 07/28/2024 Rene Allan Plan Of Treatment No Information Progress Notes * Eleazar ASTORGAOB:1955 (68 yo M)Acc No.[id number]:07/28/2024 Patient:?GAURIYuryan :1955???Age:68 Y???Sex:Male Address:[address] [place] [address] * true * Date:? Generated for Jericho murphy/Arie/eTransmitting on:?08/20/2024 07:09 AM EDT
--- OUTSIDE RECORDS SUMMARY | 2024-08-20 07:10 | XMS_ITS ---
Author Organization [facility] Address [address] [place] [address] [address] [place] [address] Care Team Providers Care Conduit Mechanic Name Role Phone INESSA CHAPMAN Primary Care Provider Allergies No Known Allergies REASON FOR VISIT high BP Medications Medication SIG (Take, Route, Frequency, Duration) Notes Start Date End Date Status Doxycycline Hyclate 100 MG 1 tablet Orally twice a day for 10 days 11/22/2023 Not-Taking Caladryl 1-8 % 1 application as needed Externally Three times a day for 30 days 07/08/2023 Not-Taking predniSONE 20 MG 1 tablet Orally Once a day for 7 days 10/18/2023 Not-Taking Hydrocortisone 2 % 1 application Externally Twice a day for 14 days 11/22/2023 Not-Taking Riboflavin 400 MG 1 capsule Orally Once a day for 30 days 12/05/2023 Not-Taking Align 4 MG as directed Orally DAILY for 90 days 2023 Not-Taking clonazePAM 0.5 MG 1 tablet at bedtime Orally Once a day for 30 days 07/08/2023 Not-Taking oxyCODONE HCl 5 MG 1 tablet as needed Orally every 12 hrs for 5 days 11/25/2023 Not-Taking Acyclovir 5 % 1 application Externally Five times a day for 10 days 01/29/2023 Not-Taking Celecoxib 200 MG 1 capsule with food Orally Once a day for 30 day(s) 07/11/2023 Not-Taking Cyclobenzaprine HCl 10 MG 1 tablet at bedtime as needed Orally Once a day for 30 days 2023 Active Losartan Potassium 25 MG TAKE 1 TABLET B Y MOUTH EVERY DAY FOR 30 DAYS for 90 days Active Atorvastatin Calcium 40 MG 1 tablet Orally Once a day for 90 days Active Bisoprolol Fumarate 5 MG 1 tablet Orally Once a day for 90 days Active Levocetirizine Dihydrochloride 5 MG 1 tablet in the evening Orally Once a day for 90 days Active lamoTRIgine Starter Kit-Whitley 42 x 25 MG & 7 x 100 MG as directed Orally daily for 30 days Active CeleBREX 200 MG 1 capsule with food Orally Once a day for 30 days 2023 Active Pregabalin 50 MG 1 capsule in the evening 1 to 3 hours before bedtime Orally Once a day for 28 days 2023 Active Advair HFA 115-21 MCG/ACT 2 puffs Inhalation Twice a day for 30 days 07/25/2023 Active Spiriva HandiHaler 18 MCG 1 capsule by inhaling the contents of the capsule using the HandiHaler device Inhalation Once a day for 30 days 07/25/2023 Active Tamsulosin HCl 0.4 MG 1 capsule Orally TWICE A DAY for 30 days ADJUSTED BY UROLOGY 01/29/2023 Active hydroCHLOROthiazide 12.5 MG TAKE 1 TABLET BY MOUTH EVERY DAY IN THE MORNING FOR 30 DAYS for 90 days Active Pantoprazole Sodium 40 MG 1 tablet Orall y Once a day for 30 days 01/29/2023 Active Aspirin 81 MG 1 tablet Orally Once a day for 30 day(s) 07/11/2023 Active PARoxetine HCl 30 MG TAKE 1 TABLET BY MOUTH EVERY DAY IN THE MORNING FOR 30 DAYS for 90 days Active Pantoprazole Sodium 20 MG TAKE 1 TABLET BY MOUTH EVERY DAY FOR 30 DAYS for 90 Active Ocrelizumab 300 MG/10ML as directed Intravenous weekly for 30 days 07/12/2023 Active Hydrocortisone 2.5 % APPLY 1 APPLICATION EXTERNALLY EVERY DAY for 56 Active lamoTRIgine 25 & 50 & 100 MG as directed Orally daily for 90 days 04/29/2024 Active Fluticasone Propionate 50 MCG/ACT 1 spray in each nostril Nasally Twice a day for 30 days 04/29/2024 Active Cbskmcod-Ttwztwwjv-Tgtpen th 3.5-63385-9.1 1 drop into affected eye Ophthalmic Four times a day for 30 days 07/15/2024 Active LaMICtal 100 MG 1 tablet Orally Once a day for 30 days 07/15/2024 Active amLODIPine Besylate 10 MG 1 tablet Orall y Once a day Active Albuterol Sulfate HFA 108 (90 Base) MCG/ACT 1 puff as needed Inhalation every 4 hrs for 30 days Active Breo Ellipta 100-25 MCG/ACT 1 puff Inhalation Once a day for 30 days 08/22/2023 Active Align 10 MG as directed Orally DAILY for 30 days 08/17/2024 Active Gas Relief 80 MG 1 tablet after meals and at bedtime as needed Orally Four times a day for 30 days 08/17/2024 Active Vital Signs Temperature 97 degrees Fahrenheit 08/17/2024 Oximetry 98 % 08/17/2024 Heart Rate 81 /min 08/17/2024 Blood pressure systolic 116 mm Hg 08/18/19 25 Blood pressure diastolic 62 mm Hg 025 Weight 218.6 lbs 08/17/2024 BMI 30.92 kg/m2 08/17/2024 Height 70.5 in 08/17/2024 Encounters Encounter Location Date Provider Diagnosis [facility] [address] [address] 08/17/2024 INESSA CHAPMAN Essential (primary) hypertension I10 and Flatulence R14.3 Assessments Encounter Date Diagnosis (ICD Code) Assessment Notes Treatment Notes Treatment Clinical Notes Section Notes 08/17/2024 Essential (primary) hypertension (ICD-10 - I10) Mr. Astorga is a 68-year-old gentleman with acid reflux, BPH, generalized anxiety disorder, hypertension, MS, HSV and dyslipidemia here for Episodic elevated blood pressure up to 180 with headache. Hypertension. Blood pressure well controlled on current regimen. We discussed that there may be an error in his home blood pressure cuff. Advised low-sodium diet and encouraged nicotine abstinence. Flatulence. He is given Gas-X and probiotics. Advised to avoid starchy foods and increase regular exercise and weight loss 08/17/2024 Flatulence (ICD-10 - R14.3) Mr. Astorga is a 68-year-old gentleman with acid reflux, BPH, generalized anxiety disorder, hypertension, MS, HSV and dyslipidemia here for Episodic elevated blood pressure up to 180 with headache. Hypertension. Blood pressure well controlled on current regimen. We discussed that there may be an error in his home blood pressure cuff. Advised low-sodium diet and encouraged nicotine abstinence. Flatulence. He is given Gas-X and probiotics. Advised to avoid starchy foods and increase regular exercise and weight loss Plan Of Treatment Medication Medication Name Sig Start Date Stop Date Notes Align 10 MG as directed Orally DAILY for 30 days Gas Relief 80 MG 1 tablet after meals and at bedtime as needed Orally Four times a day for 30 days 08/17/2024 Next Appt Details Follow Up: 3 Months, Reason: Progress Notes * Eleazar ASTORGAOB:1955 (68 yo M)Acc No.[id number]:08/17/2024 Patient:?Palmira ASTORGA Provider:?INESSA CHAPMAN MD :1955???Age:68 Y???Sex:Male Omari e:08/17/2024 Address:[address] [place], [place] [id number] Subjective: * Chief Complaints: * ???high BP * HPI: ???Internal Medicine:?Mr. Astorga is a 68-year-old gentleman with acid reflux, BPH, generalized anxiety disorder, hypertension, HSV and dyslipidemia here for Episodic elevated blood pressure up to 180 with headache.? He states that happens intermittently.? His blood pressure usually is high at night with no associated symptoms.? He still smoking cigarettes and noncompliant with low-sodium diet.? He saw cardiology and he was started on amlodipine 10 mg daily which she is tolerating fine.? He also complained of flatulence today.? His bowel movements are regular.? No other issues. * ROS:?General/Constitutional:?Overall health?Good.?Change in appetite?denies.?Chills?denies.?Fever?denies.?Night sweats?denies.?Sleep disturbance?denies.?Weight gain?denies.?Weight loss?denies.?Neurologic:?Difficulty speaking?denies.?Dizziness?, admits, that is associated with change in position, that is frequent.?Gait abnormality?denies.?Headache?admits.?Loss of strength?denies.?Memory loss?denies.?Seizures?denies.?Tingling/Numbness?denies .?Ophthalmologic:?Blurred vision?denies.?Discharge?denies.?Dry eye?denies.?Red eye?denies.?ENT:?Change in Voice?Denies.?Cold Symptoms?Denies.?Cough?Denies.?Dizziness?Denies.?Nasal Congestion?Denies.?Otalgia?Denies.?postnasal drip?Denies.?Blocked ear?denies.?Nosebleed?denies.?Snoring?denies.?Cardiovascular:?Diaphoresis?Denies.?Pedal Edema?Denies.?PND (Paroxsymal nocturnal dyspnea)?Denies.?Chest pain?denies.?Difficulty laying flat?denies.?Dyspnea on exertion?denies.?Heart murmur?denies.?Orthopnea?denies.?Respiratory:?Snoring?denies.?Asthma?denies.?Cough?denies.?Shortness of breath with exertion?denies.?Sputum production?denies.?Wheezing?denies.?Gastrointestinal:?Change in bowel habits?denies.?Constipation?denies.?Decreased appetite?denies.?Diarrhea?denies.?Heartburn?denies.?Nausea?denies.?Vomiting?baylee es.?Musculoskeletal:?tingling/numbness?Admits.?myalgias?Denies.?Joint Swelling?Denies.?extremeties?normal.?Patient complaining of?BL knee pain.?Arthritis?denies.?Back problems?admits, has history of lumbar Degenerative disc.?Carpal tunnel?denies.?Joint stiffness?denies.?Muscle aches?denies.?Admits?Weakness,?of the right lower extremity, pogressive.?Endocrine:?Bowel Changes?Denies.?Breast Discharge?Denies.?poor libido?Denies.?Cold intolerance?denies.?Excessive sweating?denies.?Excessive thirst?denies.?Frequent urination?denies.?Thyroid problems?denies.?Skin:?Bruising?Denies.?Eczema?denies.?Hair changes?denies.?Rash?denies.?Skin lesion(s)?denies.?Psychiatric:?Anxiety?denies.?Depressed mood?denies.?Difficulty sleeping?denies.?Nervous breakdown?denies.?Substance abuse?denies.?Urology:?blood in urine?denies.?burning on urination?denies.?difficulty urinating?denies.?discharge?denies.?dysuria?denies.? * Medical History:? * Medications:?TakingamLODIPin e Besylate 10 MG Tablet 1 tablet Orally Once a day LaMICtal 100 MG Tablet 1 tablet Orally Once a day Czshtgfd-Jzjxzzxab-Kayqwzvo 3.5-10209-3.1 Suspension 1 drop into affected eye Ophthalmic Four times a day Breo Ellipta 100-25 MCG/ACT Aerosol Powder Breath Activated 1 puff Inhalation Once a day Albuterol Sulfate HFA 108 (90 Base) MCG/ACT Aerosol Solution 1 puff as needed Inhalation every 4 hrs Fluticasone Propionate 50 MCG/ACT Suspension 1 spray in each nostril Nasally Twice a day lamoTRIgine 25 & 50 & 100 MG Kit as directed Orally daily Ocrelizumab 300 MG/10ML Solution as directed Intravenous weekly Pantoprazole Sodium 20 MG Tablet Delayed Release TAKE 1 TABLET BY MOUTH EVERY DAY FOR 30 DAYS Hydrocortisone 2.5 % Cream APPLY 1 APPLICATION EXTERNALLY EVERY DAY Aspirin 81 MG Tablet Delayed Release 1 tablet Orally Once a day Tamsulosin HCl 0.4 MG Capsule 1 capsule Orally TWICE A DAY , Notes to Pharmacist: ADJUSTED BY UROLOGYPantoprazole Sodium 40 MG Tablet Delayed Release 1 tablet Orally Once a day hydroCHLOROthiazide 12.5 MG Tablet TAKE 1 TABLET BY MOUTH EVERY DAY IN THE MORNING FOR 30 DAYS PARoxetine HCl 30 MG Tablet TAKE 1 TABLET BY MOUTH EVERY DAY IN THE MORNING FOR 30 DAYS Pregabalin 50 MG Capsule 1 capsule in the evening 1 to 3 hours before bedtime Orally Once a day Spiriva HandiHaler 18 MCG Capsule 1 capsule by inhaling the contents of the capsule using the HandiHaler device Inhalation Once a day Advair HFA 115-21 MCG/ACT Aerosol 2 puffs Inhalation Twice a day CeleBREX 200 MG Capsule 1 capsule with food Orally Once a day lamoTRIgine Starter Kit-Whitley 42 x 25 MG & 7 x 100 MG Kit as directed Orally daily Levocetirizine Dihydrochloride 5 MG Tablet 1 tablet in the evening Orally Once a day Bisoprolol Fumarate 5 MG Tablet 1 tablet Orally Once a day Losartan Potassium 25 MG Tablet TAKE 1 TABLET BY MOUTH EVERY DAY FOR 30 DAYS Cyclobenzaprine HCl 10 MG Tablet 1 tablet at bedtime as needed Orally Once a day Atorvastatin Calcium 40 MG Tablet 1 tablet Orally Once a day Taking amLODIPine Besylate 10 MG Tablet 1 tablet Orally Once a day Taking LaMICtal 100 MG Tablet 1 tablet Orally Once a day Taking Tkmcklvm-Llnrymrcj-Laamizdx 3.5-33444-5.1 Suspension 1 drop into affected eye Ophthalmic Four times a day Taking Breo Ellipta 100-25 MCG/ACT Aerosol Powder Breath Activated 1 puff Inhalation Once a day Taking Albuterol Sulfate HFA 108 (90 Base) MCG/ACT Aerosol Solution 1 puff as needed Inhalation every 4 hrs Taking Fluticasone Propionate 50 MCG/ACT Suspension 1 spray in each nostril Nasally Twice a day Taking lamoTRIgine 25 & 50 & 100 MG Kit as directed Orally daily Taking Ocrelizumab 300 MG/10ML Solution as directed Intravenous weekly Taking Pantoprazole Sodium 20 MG Tablet Delayed Release TAKE 1 TABLET BY MOUTH EVERY DAY FOR 30 DAYS Taking Hydrocortisone 2.5 % Cream APPLY 1 APPLICATION EXTERNALLY EVERY DAY Taking Aspirin 81 MG Tablet Delayed Release 1 tablet Orally Once a day Taking Tamsulosin HCl 0.4 MG Capsule 1 capsule Orally TWICE A DAY , Notes to Pharmacist: ADJUSTED BY UROLOGYTaking Pantoprazole Sodium 40 MG Tablet Delayed Release 1 tablet Orally Once a day Taking hydroCHLOROthiazide 12.5 MG Tablet TAKE 1 TABLET BY MOUTH EVERY DAY IN THE MORNING FOR 30 DAYS Taking PARoxetine HCl 30 MG Tablet TAKE 1 TABLET BY MOUTH EVERY DAY IN THE MORNING FOR 30 DAYS Taking Pregabalin 50 MG Capsule 1 capsule in the evening 1 to 3 hours before bedtime Orally Once a day Taking Spiriva HandiHaler 18 MCG Capsule 1 capsule by inhaling the contents of the capsule using the HandiHaler device Inhalation Once a day Taking Advair HFA 115-21 MCG/ACT Aerosol 2 puffs Inhalation Twice a day Taking CeleBREX 200 MG Capsule 1 capsule with food Orally Once a day Taking lamoTRIgine Starter Kit-Whitley 42 x 25 MG & 7 x 100 MG Kit as directed Orally daily Taking Levocetirizine Dihydrochloride 5 MG Tablet 1 tablet in the evening Orally Once a day Taking Bisoprolol Fumarate 5 MG Tablet 1 tablet Orally Once a day Taking Losartan Potassium 25 MG Tablet TAKE 1 TABLET BY MOUTH EVERY DAY FOR 30 DAYS Taking Cyclobenzaprine HCl 10 MG Tablet 1 tablet at bedtime as needed Orally Once a day Taking Atorvastatin Calcium 40 MG Tablet 1 tablet Orally Once a day Not-TakingCelecoxib 200 MG Capsule 1 capsule with food Orally Once a day clonazePAM 0.5 MG Tablet 1 tablet at bedtime Orally Once a day Align 4 MG Capsule as directed Orally DAILY Acyclovir 5 % Cream 1 application Externally Five times a day oxyCODONE HCl 5 MG Tablet 1 tablet as needed Orally every 12 hrs Riboflavin 400 MG Capsule 1 capsule Orally Once a day Hydrocortisone 2 % Cream 1 application Externally Twice a day predniSONE 20 MG Tablet 1 tablet Orally Once a day Caladryl 1-8 % Lotion 1 application as needed Externally Three times a day Doxycycline Hyclate 100 MG Tablet 1 tablet Orally twice a day Medication List reviewed and reconciled with the patientNot-Taking Celecoxib 200 MG Capsule 1 capsule with food Orally Once a day Not-Taking clonazePAM 0.5 MG Tablet 1 tablet at bedtime Orally Once a day Not- Taking Align 4 MG Capsule as directed Orally DAILY Not-Taking Acyclovir 5 % Cream 1 application Externally Five times a day Not-Taking oxyCODONE HCl 5 MG Tablet 1 tablet as needed Orally every 12 hrs Not-Taking Riboflavin 400 MG Capsule 1 capsule Orally Once a day Not-Taking Hydrocortisone 2 % Cream 1 application Externally Twice a day Not-Taking predniSONE 20 MG Tablet 1 tablet Orally Once a day Not-Taking Caladryl 1-8 % Lotion 1 application as needed Externally Three times a day Not-Taking Doxycycline Hyclate 100 MG Tablet 1 tablet Orally twice a day Medication List reviewed and reconciled with the patient * Allergies:?N.K.D.A.no[Allerg ies Verified] Objective: * Vitals:?Temp:97F, Oxygen sat %:98%, HR:81/min, BP:116/62mm Hg, Wt:218.6lbs, BMI:30.92Index, Ht: 70.5 in. * Examination: ???General Examination: ?Psychiatry?Normal.?GENERAL APPEARANCE:?Well developed, well nourished, in no acute distress.?HEAD:?Normocephalic, atraumatic.?EYES:?Pupils equal, round, reactive to light and accommodation, sclera non-icteric.?EARS:?Normal.?ORAL CAVITY:?Normal.?THROAT:?Clear.?OROPHARYNX?Normal.?SINUSES?Normal.?NECK/THYROID:?Neck supple, full range of motion, no cervical lymphadenopathy.?SKIN:?normal.?HEART:?, S1, S2 normal, regular rate and rhythm, no murmurs, rubs, gallops.?LUNGS:?, clear to auscultation bilaterally.?BREASTS:?__.?EXTREMITIES:?Normal.?PERIPHERAL PULSES:?Normal.?NEUROLOGIC:?Nonfocal,? 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 .? Assessment: * Assessment: 1.?Essential (primary) hyper tension - I10 (Primary)???2.?Flatulence - R14.3??? Mr. Astorga is a 68-year-old g entleman with acid reflux, BPH, generalized anxiety disorder, hypertension, MS, HSV and dyslipidemia here for Episodic elevated blood pressure up to 180 with headache.? Hypertension.? Blood pressure well controlled on current regimen.? We discussed that there may be an error in his home blood pressure cuff.? Advised low-sodium diet and encouraged nicotine abstinence. Flatulence.? He is given Gas-X and probiotics.? Advised to avoid starchy foods and increase regular exercise and weight loss Plan: * Treatment: * Procedure Codes:?3074F SYST BP LT 130 MM [id number] DIAST BP < 80 MM HG * Follow Up:?3 Months * Images: * Sign off status: Completed true * Provider:?INESSA CHAPMAN MD Date:?08/17 Generated for Jericho murphy/Arie/Chano on:?08/20/2024 07:10 AM EDT History and Physical Notes * HPI (History of Present Illness) Category Sub-Category Detail Notes Category Not es Internal Medicine Mr. Astorga is a 68-year-old gentleman with acid reflux, BPH, generalized anxiety disorder, hypertension, HSV and dyslipidemia here for Episodic elevated blood pressure up to 180 with headache. He states that happens intermittently. His blood pressure usually is high at night with no associated symptoms. He still smoking cigarettes and noncompliant with low-sodium diet. He saw cardiology and he was started on amlodipine 10 mg daily which she is tolerating fine. He also complained of flatulence today. His bowel movements are regular. No other issues Examination Category Sub-Category Detail Notes Category Not es General Examination GENERAL APPEARANCE: Well dev eloped, well nourished, in no acute distress HEAD: Normocephalic, atrau matic EYES: Pupils equal, round, reactive to light and accommodation, sclera non-icteric EARS: Normal THROAT: Clear NECK/THYROID: Neck supple, full ra nge of motion, no cervical lymphadenopathy HEART: , S1, S2 normal, reg ular rate and rhythm, no murmurs, rubs, gallops LUNGS: , clear to auscultat ion bilaterally ABDOMEN: NEUROLOGIC: Nonfocal, appropriat e motor strength normal upper and lower extremities, sensory exam intact, negative Romberg, negative Heather hillpike SKIN: normal EXTREMITIES: Normal PERIPHERAL PULSES: Normal BREASTS: __ MUSCULOSKELETAL: MALE GENITOURINARY: __ FEMALE GENITOURINARY: __ ORAL CAVITY: Normal PODIATRIC: Tinea unguium of the right toe Psychiatry Normal OROPHARYNX Normal SINUSES Normal 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
--- OUTSIDE RECORDS SUMMARY | 2024-08-20 07:10 | XMS_ITS | Clinical Summary ---
Author Organization [facility] Address [address] [place] [address] Care Team Providers Care Television News Producer Name Role Phone Rylee Valenzuela MD Primary Care Provider [phone] Allergies Active Allergy Reactions Criticality Noted Date [...] age to complete this topic Care Teams Television News Producer Relationship Specialty Start Date End Date Rylee Valenzuela MD PCP - General Family Medicine 09/07/14
--- OUTSIDE RECORDS SUMMARY | 2024-08-20 07:10 | XMS_ITS | Patient Health Record ---
Author Organization [facility] Address [address] [place] [address] [address] [place] [address] Care Team Providers Care Uniform Force Captain Name Role Phone INESSA CHAPMAN Primary Care Provider Sanjana Rene Unavailable [phone] Allergies No Known Allergies Results Component Value Reference Range Notes Comp. Metabolic Panel [id number] Reviewed date:05/07/2024 09:48:52 AM Interpretation: Performing Lab:[facility] Suraj, [facility], Phone - [phone], Director - MDJodry Notes/Report: Glucose 99 70-99 [...] IU/L ALT (SGPT) 20 0-44 IU/L Lipid Panel-[id number] Reviewed date:05/07/2024 09:48:34 AM Interpretation: Performing Lab:[facility] Suraj, [employer] [place], Phone - [phone], Director - Ignacia Notes/Report: Cholesterol, Total 155 100-199 mg/dL Triglycerides 183 0-149 mg/dL HDL Cholesterol 26 >39 mg/dL VLDL Cholesterol Dereje 32 5-40 mg/dL LDL Chol Calc ([facility]) 97 0-99 mg/dL Vitamin D, 32-Pvdiefh-403838 Reviewed date:05/07/2024 09:48:14 AM Interpretation: Performing Lab:[facility] [place], [address] [place] [address], Phone - [phone], Director - Ignacia Notes/Report: Vitamin D, 25-Hydroxy 32.7 30.0-100.0 ng/mL Vitamin D deficiency has been defined by the [place] of [employer] and an Endocrine Society practice guideline as a level of serum 25-OH vitamin D less than 20 ng/mL (1,2). The Endocrine Society went on to further define vitamin D insufficiency as a level between 21 and 29 ng/mL (2). 1. IOM ([place] of [employer]). 2010. Dietary reference intakes for calcium and D. [place]: The National Academies Press. 2. Mark MF, Jose [place], Agatha CARREON, et al. Evaluation, treatment, and prevention of vitamin D deficiency: an Endocrine Society clinical practice guideline. JCEM. 2010; 96(7):1911-30. CBC with Diff, Platelet, NLR -[id number] Reviewed date:05/07/2024 09:48:43 AM Interpretation: Performing Lab:[facility] [place], [address] [place] [address], Phone - [phone], Director - Ignacia Notes/Report: WBC 13.6 3.4-10.8 [...] % Immature Grans (Abs) 0.1 0.0-0.1 x10E3/uL Ferritin-[id number] Reviewed date:05/07/2024 09:49:13 AM Interpretation: Performing Lab:[facility] [place], [address] [facility], [place], Phone - [phone], Director - MDJodry Notes/Report: Ferritin 71 30-400 ng/mL Iron and TIBC-247923 Reviewed date:05/07/2024 09:49:02 AM Interpretation: Performing Lab:[facility] [place], [address] [facility], [place], Phone - [phone], Director - MDJodry Notes/Report: Iron Bind.Cap.(TIBC) 272 250-450 ug/dL UIBC 174 111-343 ug/dL Iron 98 38-169 ug/dL Iron Saturation 36 15-55 % Reason For Referral Reason History of lumbar de generative Disc w/ radiculopathy BL with numbness. BL knee pain Prefer C with Dr. car or Dr. Royal Mane at [facility] whomever takes him first Diagnosis 1 Other intervertebral disc degeneration, lumbar region (M51.36) Referral Organization [facility] Referring Provider First Name Rene Referring Provider Last Name Sanjana Referred Provider Specialty Orthopedic S urgery General Notes Referral sent to [facility] and [facility] - Office will call patient for scheduling.Jeannie Latraya 12/12/2023 12:51:09 PM > Referral Priority Urgent Reason constant headache- Diagnosis 1 Headache, unspecifie d (R51.9) Referral Organization [facility] Referring Provider First Name Jaleel Referring Provider Last Name Sanjana Referred Provider Specialty Neurology General Notes faxed to [facility], they will call Sonja cohen Brittney 01/03/2024 02:09:53 PM > Referral Priority Routine Reason Tinea unguium- evalu ate and treat Diagnosis 1 Tinea unguium (B35.1 ) Referral Organization [facility] Referring Provider First Name Jaleel Referring Provider Last Name Sanjana Referred Provider Specialty Podiatry General Notes faxed to [facility] , they will call Sonja cohen Brittney 01/07/2024 01:04:07 PM > Referral Priority Routine Reason BP monitor 48 hour Please evaluate and treat Diagnosis 1 Unspecified acute co njunctivitis, unspecified eye (H10.30) Referral Organization [facility] Referring Provider First Name Jaleel Referring Provider Last Name Sanjana Referred Provider Specialty Nephrology General Notes Please call the divya ent to schedule the appointment, Namrata Boswell 07/20/2024 01:06:22 PM > Referral Priority Stat Medications Medication SIG (Take, Route, Frequency, Duration) Notes Start Date End Date Status Tamsulosin HCl 0.4 MG 1 capsule Orally TWICE A DAY for 30 days ADJUSTED BY UROLOGY 01/29/2023 Active hydroCHLOROthiazide 12.5 MG TAKE 1 TABLET BY MOUTH EVERY DAY IN THE MORNING FOR 30 DAYS for 90 days Active Pantoprazole Sodium 40 MG 1 tablet Orall y Once a day for 30 days 01/29/2023 Active Riboflavin 400 MG 1 capsule Orally Once a day for 30 days 12/05/2023 Not-Taking Doxycycline Hyclate 100 MG 1 tablet Orally twice a day for 10 days 11/22/2023 Not-Taking amLODIPine Besylate 10 MG 1 tablet Orall y Once a day Active Caladryl 1-8 % 1 application as needed Externally Three times a day for 30 days 07/08/2023 Not-Taking lamoTRIgine Starter Kit-Luquillo 42 x 25 MG & 7 x 100 MG as directed Orally daily for 30 days Active CeleBREX 200 MG 1 capsule with food Orally Once a day for 30 days 2023 Active predniSONE 20 MG 1 tablet Orally Once a day for 7 days 10/18/2023 Not-Taking Levocetirizine Dihydrochloride 5 MG 1 tablet in the evening Orally Once a day for 90 days Active Hydrocortisone 2 % 1 application Externally Twice a day for 14 days 11/22/2023 Not-Taking Pregabalin 50 MG 1 capsule in the evening 1 to 3 hours before bedtime Orally Once a day for 28 days 2023 Active PARoxetine HCl 30 MG TAKE 1 TABLET BY MOUTH EVERY DAY IN THE MORNING FOR 30 DAYS for 90 days Active Advair HFA 115-21 MCG/ACT 2 puffs Inhalation Twice a day for 30 days 07/25/2023 Active Spiriva HandiHaler 18 MCG 1 capsule by inhaling the contents of the capsule using the HandiHaler device Inhalation Once a day for 30 days 07/25/2023 Active Sragnqrk-Cilwlaxxj-Czdxvo th 3.5-25463-5.1 1 drop into affected eye Ophthalmic Four times a day for 30 days 07/15/2024 Active LaMICtal 100 MG 1 tablet Orally Once a day for 30 days 07/15/2024 Active Align 4 MG as directed Orally DAILY for 90 days 2023 Not-Taking clonazePAM 0.5 MG 1 tablet at bedtime Orally Once a day for 30 days 07/08/2023 Not-Taking oxyCODONE HCl 5 MG 1 tablet as needed Orally every 12 hrs for 5 days 11/25/2023 Not-Taking Acyclovir 5 % 1 application Externally Five times a day for 10 days 01/29/2023 Not-Taking Align 10 MG as directed Orally DAILY for 30 days 08/17/2024 Active Cyclobenzaprine HCl 10 MG 1 tablet at bedtime as needed Orally Once a day for 30 days 2023 Active Gas Relief 80 MG 1 tablet after meals and at bedtime as needed Orally Four times a day for 30 days 08/17/2024 Active Losartan Potassium 25 MG TAKE 1 TABLET B Y MOUTH EVERY DAY FOR 30 DAYS for 90 days Active Celecoxib 200 MG 1 capsule with food Orally Once a day for 30 day(s) 07/11/2023 Not-Taking Atorvastatin Calcium 40 MG 1 tablet Orally Once a day for 90 days Active Pantoprazole Sodium 20 MG TAKE 1 TABLET BY MOUTH EVERY DAY FOR 30 DAYS for 90 Active Ocrelizumab 300 MG/10ML as directed Intravenous weekly for 30 days 07/12/2023 Active Aspirin 81 MG 1 tablet Orally Once a day for 30 day(s) 07/11/2023 Active Bisoprolol Fumarate 5 MG 1 tablet Orally Once a day for 90 days Active Hydrocortisone 2.5 % APPLY 1 APPLICATION EXTERNALLY EVERY DAY for 56 Active Albuterol Sulfate HFA 108 (90 Base) MCG/ACT 1 puff as needed Inhalation every 4 hrs for 30 days Active Breo Ellipta 100-25 MCG/ACT 1 puff Inhalation Once a day for 30 days 08/22/2023 Active lamoTRIgine 25 & 50 & 100 MG as directed Orally daily for 90 days 04/29/2024 Active Fluticasone Propionate 50 MCG/ACT 1 spray in each nostril Nasally Twice a day for 30 days 04/29/2024 Active Immunizations Vaccine Route Administration [...] Status Risk Notes Problem Genital herpes simplex (93570563) Herpesviral infection of urogenital system, unspecified (A60.00) Active confirmed Problem Mixed hyperlipidemia (913333061) Mixed hyperlipidemia (E78.2) Active confirmed Problem Tobacco user (282213713) Nicotine dependence, unspecified, uncomplicated (F17.200) Active confirmed Problem Tobacco user (618683163) Nicotine dependence, cigarettes, uncomplicated (F17.210) Active confirmed Problem Generalized anxiety disorder (97240329) Generalized anxiety disorder (F41.1) Active confirmed Problem Multiple sclerosis (25697850) Multiple sclerosis (G35) Active confirmed Problem Insomnia (662455380) Insomnia, unspecified (G47.00) Active confirmed Problem Hearing loss (98272038) Unspecified hearing loss, unspecified ear (H91.90) Active confirmed Problem Intermittent claudication of bilateral lower limbs co-occurrent and due to atherosclerosis (24057747709453249) Atherosclerosis of [place] arteries of extremities with intermittent claudication, 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) Active confirmed Problem Chronic obstructive pulmonary disease (54333723) Chronic obstructive pulmonary disease, unspecified (J44.9) Active confirmed Problem Gastro-esophageal reflux disease without esophagitis (477487200) Gastro-esophageal reflux disease without esophagitis (K21.9) Active confirmed Problem Constipation (77846759) Constipation, unspecified (K59.00) Active confirmed Problem Osteoarthritis (054436564) Polyosteoarthriti s, unspecified (M15.9) Active confirmed Problem Osteoarthritis of knee (743400073) Osteoarthritis of knee, unspecified (M17.9) Active confirmed Problem Acquired spondylolisthesis (921520385) Spondylolisthesis , lumbar region (M43.16) Active confirmed Problem Degeneration of thoracolumbar intervertebral disc (88162629) Other intervertebral disc degeneration, thoracolumbar region (M51.35) Active confirmed Problem Degeneration of lumbar intervertebral disc (88487505) Other intervertebral disc degeneration, lumbar region (M51.36) Active confirmed Problem Erectile dysfunction (disorder) (004032960) Male erectile dysfunction, unspecified (N52.9) Active confirmed Problem 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, 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) Active confirmed Problem Wheezing (46805925) Wheezing (R06.2) Active con firmed Problem Adult health examination (087589787) Encounter for general adult medical examination without abnormal findings (Z00.00) Active confirmed Problem Body mass index 30+ - obesity (168757341) Body mass index (BMI) 30.0-30.9, adult (Z68.30) Active confirmed Problem Essential hypertension (64636486) Essential (primary) hypertension (I10) Active confirmed Problem Benign prostatic hypertrophy without outflow obstruction (859907853) Benign prostatic hyperplasia without lower urinary tract symptoms (N40.0) Active confirmed Problem Lower urinary tract symptoms due to benign prostatic hypertrophy (94261260515414) Benign prostatic hyperplasia with lower urinary tract symptoms (N40.1) Active confirmed Problem Atherosclerotic heart disease of [place] coronary artery without angina pectoris (372454257641077) Coronary artery disease involving [place] coronary artery of [place] heart without angina pectoris (I25.10) Active confirmed Problem Seasonal allergy (902262947) Seasonal allergies (J30.2) Active confirmed Vital Signs Heart Rate 81 /min 08/17/2024 Temperature 97 degrees Fahrenheit 08/17/2024 Blood pressure diastolic 62 mm Hg 08/17/2024 Oximetry 98 % 08/17/2024 Height 70.5 in 08/17/2024 Blood pressure systolic 116 mm Hg 08/17/2024 Weight 218.6 lbs 08/17/2024 BMI 30.92 kg/m2 08/17/2024 Encounters Encounter Location Date Provider Diagnosis [address] [place] [address] 05/06/2024 Ghadeer Joeloum [address] [place] [address] 2023 WYLIE GUL Essential (primary) hypertension I10 ; Coronary artery disease involving [place] coronary artery of [place] heart without angina pectoris I25.10 ; Mixed hyperlipidemia E78.2 ; Gastro-esophageal reflux disease without esophagitis K21.9 ; Pain in right arm M79.601 and Seasonal allergies J30.[address] [place] [address] 10/18/2023 WYLIE GUL Chronic obstructive pulmonary disease, unspecified J44.[address] [place] [address] 11/22/2023 WYLIE GUL Folliculitis L73.9 a nd Dermatitis L30.[address] [place] [address] 12/06/2023 Ghadeer Mazloum Other intervertebral disc degeneration, lumbar region M51.36 ; Pain in unspecified knee M25.569 and Benign prostatic hyperplasia with lower urinary tract symptoms N40.[address] [place] [address] 01/03/2024 Ghadeer Mazloum Folliculitis L73.9 ; Dermatitis L30.9 and Tinea unguium B35.[address] [place] [address] 04/29/2024 Ghadeer Mazloum Headache, unspecifie d R51.9 ; Acute sinusitis, unspecified J01.90 and Encounter for screening for cardiovascular disorders Z13.6 [facility] [address] [place] [address] 07/15/2024 Ghadeer Mazloum Headache, unspecifie d R51.9 ; Essential (primary) hypertension I10 and Unspecified acute conjunctivitis, unspecified eye H10.30 [facility] [address] [place] [address] 08/17/2024 [facility] Essential (primary) hypertension I10 and Flatulence R14.3 [facility] [address] [facility] [address] [place] [address] 08/22/[address] [place] [address] 09/05/[address] [place] [address] 10/18/[address] [place] [address] 10/18/2023 [facility] Chronic obstructive pulmonary disease, unspecified J44.[address] [place] [address] 10/22/[address] [place] [address] 10/31/2023 [facility] Herpesviral infectio n, unspecified B00.[address] [place] [address] 11/25/[address] [facility] [address] [place] [address] 11/25/[address] [place] [address] 11/27/[address] [place] [address] 12/05/2023 Ghadeer Joeloum Headache, unspecifie d R51.9 [facility] [address] [place] [address] 12/05/2023 [facility] [address] [place] [address] 12/05/2023 [facility] [address] [place] [address] 12/06/2023 [facility] [address] [place] [address] 12/11/2023 [facility] [address] [place] [address] 12/18/2023 [facility] [address] [place] [address] 12/24/2023 [facility] Benign prostatic hyperplasia with lower urinary tract symptoms N40.1 [facility] [address] [place] [address] 12/31/2023 [facility] [address] [place] [address] 01/20/[address] [facility] [address] [place] [address] 01/27/2024 [facility] [address] [place] [address] 02/06/2024 Ghadeer Joeloum Herpesviral infectio n, unspecified B00.9 [facility] [address] [place] [address] 03/11/2024 [facility] [address] [place] [address] 03/16/2024 [facility] [address] [place] [address] 04/24/2024 [facility] [address] [place] [address] 04/27/2024 [facility] [address] [place] [address] 05/01/2024 [facility] Headache, unspecifie d R51.9 [facility] [address] [place] [address] 05/05/[address] [facility] [address] [place] [address] 05/08/2024 [facility] Kidney cysts N28.1 [facility] [address] [place] [address] 05/21/2024 [facility] [address] [place] [address] 06/02/2024 [facility] [address] [place] [address] 07/13/2024 [facility] [address] [place] [address] 07/14/2024 [facility] [address] [place] [address] 07/20/2024 [facility] [address] [place] [address] 07/21/2024 [facility] [address] [place] [address] 07/21/2024 [facility] [address] [place] [address] 07/27/2024 [facility] [address] [place] [address] 07/28/[address] [facility] [address] [place] [address] 08/17/2024 INESSA CHAPMAN Assessments Encounter Date Diagnosis (ICD Code) Assessment Notes Treatment Notes Treatment Clinical Notes Section Notes 12/05/2023 Headache, unspecified (ICD-10 - R51.9) 11/22/2023 Dermatitis (ICD-10 - L30.9) Mr. Jensen [...] the patient but was available upon request 10/31/2023 Herpesviral infection, unspecified (ICD-10 - B00.9) 10/18/2023 Chronic obstructive pulmonary disease, unspecified (ICD-10 - J44.9) 10/18/2023 Chronic obstructive pulmonary disease, unspecified (ICD-10 [...] this note under HIPAA compliance and under [place] law mandated for scribe services. Patient aware of service. Verbal consent and written consent taken from the patient. Patient understands and verbalizes understanding of the scribes services and all questions answered regarding scribes services. Patient agrees to use of scribes services. 01/03/2024 Dermatitis (ICD-10 - L30.9) Mr. Jensen [...] Neurology. Tinea Unguium: - Referred to podiatry 12/24/2023 Benign prostatic hyperplasia with lower urinary tract symptoms (ICD-10 - N40.1) 02/06/2024 Herpesviral infection, unspecified (ICD-10 - B00.9) 05/08/2024 Kidney cysts (ICD-10 - N28.1) 12/06/2023 Other intervertebral disc degeneration, lumbar region [...] patient but was available upon request 2023 Essential (primary) hypertension (ICD-10 - I10) [...] this note under HIPAA compliance and under [place] law mandated for scribe services. Patient aware of service. Verbal consent and written consent taken from the patient. Patient understands and verbalizes understanding of the scribes services and all questions answered regarding scribes services. Patient agrees to use of scribes services. 2023 Coronary artery disease involving [place] coronary artery of [place] heart without angina pectoris (ICD-10 - I25.10) [...] this note under HIPAA compliance and under [place] law mandated for scribe services. Patient aware of service. Verbal consent and written consent taken from the patient. Patient understands and verbalizes understanding of the scribes services and all questions answered regarding scribes services. Patient agrees to use of scribes services. 07/15/2024 Essential (primary) hypertension (ICD-10 - I10) [...] request 05/01/2024 Headache, unspecified (ICD-10 - R51.9) 04/29/2024 Acute sinusitis, unspecified (ICD-10 - J01.90) [...] - He is currently getting managed by [facility]. I have spent 20 mins w/ patient Screening BW before next appt General concerns have been discussed. I have rendered the services for this patient under direct supervision of Dr. Chapman, who did not see the patient but was available upon request 08/17/2024 Flatulence (ICD-10 - R14.3) Mr. Jensen is a 68-year-old gentleman with [...] increase regular exercise and weight loss 08/17/2024 Essential (primary) hypertension (ICD-10 - I10) [...] and increase regular exercise and weight loss 04/29/2024 Headache, unspecified (ICD-10 - R51.9) Mr. [...] - He is currently getting managed by [facility]. I have spent 20 mins w/ patient Screening BW before next appt General concerns have been discussed. I have rendered the services for this patient under direct supervision of Dr. Chapman, who did not see the patient but was available upon request 07/15/2024 Unspecified acute conjunctivitis, unspecified eye (ICD-10 [...] - He is currently getting managed by [facility]. I have spent 20 mins w/ [...] this note under HIPAA compliance and under [place] law mandated for scribe services. Patient aware of service. Verbal consent and written consent taken from the patient. Patient understands and verbalizes understanding of the scribes services and all questions answered regarding scribes services. Patient agrees to use of scribes services. 2023 Gastro-esophageal reflux disease without esophagitis (ICD-10 [...] this note under HIPAA compliance and under [place] law mandated for scribe services. Patient aware of service. Verbal consent and written consent taken from the patient. Patient understands and verbalizes understanding of the scribes services and all questions answered regarding scribes services. Patient agrees to use of scribes services. 12/06/2023 Benign prostatic hyperplasia with lower urinary [...] patient but was available upon request 2023 Pain in right arm (ICD-10 - [...] this note under HIPAA compliance and under [place] law mandated for scribe services. Patient aware [...] this note under HIPAA compliance and under [place] law mandated for scribe services. Patient aware of service. Verbal consent and written consent taken from the patient. Patient understands and verbalizes understanding of the scribes services and all questions answered regarding scribes services. Patient agrees to use of scribes services. Plan Of Treatment Pending Test Test Name Order Date MRI : Brain 07/08/2023 HEMOGLOBIN A1C 02/20/2023 CT Abdomen W WO 05/08/2024 Metanephrines, Pheochromocyt-[id number] 06/21 Catecholamines,Ur.,Free,24 Hr-[id number] Metanephrines, Frac, Qn, 78-Pz-[id number] Rheumatoid Factor (RF)-[id number] 12/06/2023 CBC/Differential (No Platelet)-[id number] Anti-CCP Ab, IgG/IgA-[id number] 12/06/2023 Comp. Metabolic Panel [id number] 2024 DARCY Profile 12 (RDL)-[id number] 12/06/2023 Hemoglobin A1c 07/11/2023 Insurance Providers Payer Name Payer Address Payer Phone Subscriber Number Group Number Insured Name Patient Relationship to Insured Coverage Start Date Coverage End Date [employer] Preferred [address] [place] [address] [phone] [id number] Palmira Jensen Self - patient is the insured Medical (General) History Medical History History ICD Code hypertension, benign hyperlipidemia acid reflux Benign prostatic hypertrophy Nicotine dependence herpes genitalis right renal cyst on recent imaging in [facility] [place] Migraines Hospitalization History Reason Date(Month/Year) dizziness, weakness, headache, elevated BP-went in [facility] [facility]
--- OUTSIDE RECORDS SUMMARY | 2024-08-20 07:10 | XMS_ITS | Clinical Summary ---
Author Organization [facility] Address [address] [place] [address] Phone Care Team Providers Care Principal Law Clerk Name Role Phone Whit Dawson MD Primary Care Provider [phone] Surgical History Surgery Date Site/Laterality Comments LIPOMA [...] on file Obstetrics History Plan of Treatment Upcoming Encounters Date Type Department Care Team (Late st Contact Info) Description 08/20/2024 2:00 PM EDT Consult [facility] [address] [facility] [address] [place] [id number] Karan Lee MD [address] [facility] [address] [place] [address] Health Maintenance Due Date Last Done Comments DTaP,Tdap,and Td Vaccines (1 - Tdap) 08/22/1975 Pneumococcal Vaccine: 50+ Ye ars (1 of 2 - PCV) 08/22/1975 Zoster Vaccines (1 of 2) 2006 COVID-19 Vaccine (2 - 2023-2 5 season) 2023 07/15/2020 Abdominal Aortic Aneurysm (A AA) Screen 01/30/2024 Cholesterol Screening (Lipid Panel) 01/30/2024 Colorectal Cancer Screening: Colonoscopy 01/30/2024 Depression Screening 01/30/2024 Falls Risk Assessment 01/30/2024 Hepatitis C Screening 01/30/2024 Hypertension/CHF/CAD Annual BMP Blood Test 01/30/2024 Medicare Annual Wellness Visit 01/30/2024 Social [...] - [place] [employer] Care Teams Principal Law Clerk Relationship Specialty Start Date End Date Whit Dawson MD [address] [place] [address] PCP - General 08/05/23
--- OUTSIDE RECORDS SUMMARY | 2024-08-20 07:10 | XMS_ITS ---
Author Organization [facility] Address [address] [address] Care Team Providers Care Rough Planer Tender Name Role Phone INESSA CHAPMAN Primary Care Provider REASON FOR VISIT High BP Encounters Encounter Location Date Provider Diagnosis [facility] [address] [facility] [address] [place] [address] 08/17/2024 INESSA CHAPMAN Plan Of Treatment No Information Progress Notes * Eleazar ASTORGAOB:1955 (68 yo M)Acc No.[id number]:08/17/2024 Patient:?Palmira ASTORGA :1955???Age:68 Y???Sex:Male Address:[address] [place] [address] * true * Date:? Generated for Clevei jeffrey/Arie/eTransmitting on:?08/20/2024 07:10 AM EDT
== END 2024-08-20 07:08 | disposition home or self-care (01) ==
LOC: CF 07:07
PROVIDERS: Visit Provider Internal Medicine
DX: M25.561 Pain in right knee (principal); M17.0 Bilateral primary osteoarthritis of knee
CPT/HCPCS: 20610; J2003; J7325; Q9967

== ENCOUNTER 2024-08-20 11:46 | Outpatient (AMB) | payer MEDICARE, SELFPAY ==
[2024-08-20 11:52] VITALS: BP 100/64; PULSE 79; RESP 16; O2SAT 98
--- NOTE | 2024-08-20 11:52 | MHC.OFFVIS ---
Vital Signs 08/20/24 11:52 08/20/24 12:28 BP 100/64 110/68 Blood Pressure Location Lt brachial Lt brachial Position Sitting Sitting Respiration 16 16 Pulse 79 78 Pulse Source Pulse Oximeter Pulse Oximeter Pulse Oximetry (%) 98 98 Oxygen Delivery Method Room Air Room Air Intake Visit Reasons: Right knee Synvisc one w/ fluoro Senior Counsel Required: No Allergies diclofenac Allergy (Severe, Verified 08/20/24 11:53) Anaphylaxis Medication List - Last Reconciled 08/20/24 by Aruna Ingram LPN acyclovir 5% appl topical albuterol sulfate 90 mcg/actuation inhalation amlodipine 2.5 mg PO DAILY aspirin 81 mg PO DAILY 90 days bisoprolol fumarate 5 mg PO DAILY celecoxib 200 mg PO DAILY cholecalciferol (vitamin D3) (Vitamin D3) 50 mcg PO DAILY cyclobenzaprine 10 mg PO BEDTIME fluticasone propionate 50 mcg/actuation 1 spray intranasal BID gabapentin 300 mg PO TID 30 days hydrochlorothiazide 12.5 mg PO DAILY lamotrigine 100 mg PO DAILY levocetirizine 5 mg PO DAILY losartan 25 mg PO DAILY ocrelizumab 600 mg IV [id number] pantoprazole 40 mg PO DAILY paroxetine HCl 30 mg PO DAILY tamsulosin 0.4 mg PO DAILY HPI HPI Right knee Synvisc one w/ fluoro: Details: Patient presents for scheduled procedure. Denies any recent cough, cold, infection, fever or other significant changes in medical history since last office visit. [facility] Medical History Currently smokes tobacco HTN (hypertension) TIA (transient ischemic attack) Multiple sclerosis Chronic low back pain Osteoarthritis of knees, bilateral Lumbar degenerative disc disease Social History Patient Tobacco Use Status: Current everyday Tobacco user Tobacco use type: Cigarette Cigarettes Per Day: 2 Current occupational status: unemployed and disabled Physical Exam Vital Signs: Last Vital Signs Pulse 78 08/20/24 12:28 Resp 16 08/20/24 12:28 BP 110/68 08/20/24 12:28 Pulse Ox 98 08/20/24 12:28 Oxygen Delivery Method Room Air 08/20/24 12:28 Office Procedures AMB Joint Injection/Aspiration Joint Injection/Aspiration Primary Site: right knee Prep: site was prepped using sterile technique Injected: in the joint (6 mL Synvisc-One) Approach Used: medial parapatellar (fluoro guided) Procedure: The patient tolerated the procedure well Coding 48325 - Large joint Procedure code (CPT) selection complete Office Meds lidocaine (PF) 10 mg/mL (1 %) injection solution Performing Provider: Rob Fleming MD Performing Location: [facility] Administered by: Rob Fleming MD on 08/20/24 12:04 Dose Route Admin Location Dispensed Lot Number Expiration Date [facility] Sales Correspondent 5 mL Infiltration 5 mL [id number] 08/20/26 Synvisc-One 48 mg/6 mL intra-articular syringe Performing Provider: Rob Fleming MD Performing Location: [facility] Administered by: Rob Fleming MD on 08/20/24 12:04 Dose Route Admin Location Dispensed Lot Number Expiration Date [facility] Sales Correspondent 48 mg intra-articular 6 mL [id number] 10/19/26 [address]-4 dscovered EVANS - Assessment & Plan Assessment & Plan (1) Right knee pain: Code(s): M25.561 - Pain in right knee Category: Medical Plan Patient is status post right Synvisc-One injection under fluoroscopy. Patient tolerated procedure well and was discharged home in stable condition with discharge instructions. All questions were answered. We will follow-up via telephone or in clinic to assess response to therapy. A follow-up appointment was made during today's visit. Orders: Orders FL guidance in treatment room Today M25.561 - Pain in right knee AMB Joint Injection/Aspiration Today M25.561 - Pain in right knee Coding Level of Care Code Procedure Only Diagnoses Right knee pain M25.561 CPT Codes Coding - 45881 Large joint: 54694 - Large joint ([id number])
[2024-08-20 12:28] VITALS: BP 110/68; PULSE 78; RESP 16; O2SAT 98
== END 2024-08-20 12:15 | disposition home or self-care (01) ==
LOC: HO.PMCPRC 11:46
PROVIDERS: PCP Hospitalist; Visit Provider Internal Medicine
DX: M25.561 Pain in right knee (principal)
CPT/HCPCS: 20610; 77002

== ENCOUNTER 2024-09-24 08:15 | Outpatient (AMB) | payer MEDICARE, SELFPAY ==
--- OUTSIDE RECORDS SUMMARY | 2024-09-24 08:25 | XMS_ITS | Clinical Summary ---
Author Organization [facility] Address [address] [place] [address] Care Team Providers Care Nurseryman Assistant Name Role Phone Rylee Valenzuela MD Primary Care Provider [phone] Allergies Active Allergy Reactions Criticality Noted Date [...] age to complete this topic Care Teams Nurseryman Assistant Relationship Specialty Start Date End Date Rylee Valenzuela MD PCP - General Family Medicine 09/07/14
--- NOTE | 2024-09-24 08:26 | MHC.OFFVIS ---
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 Fleming. Patient reports ongoing 50% pain relief in the medial aspect of right knee with minimal improvement in his daily activities, functioning, mobility and sleep. Patient would like to proceed with right diagnostic saphenous nerve block for potential Sprint PNS trial. We also discussed genicular RFA, however his insurance generally does not cover it. The patient has a documented allergy to diclofenac with previous anaphylactic reactions and has not tried Celebrex due to concern over similar reactions. Gabapentin has been prescribed but usage consistency is unclear. Upcoming travel plans limit immediate intervention options, guiding a decision between pre-travel or post-travel management strategies. Past Procedures: 08/20/24: Right knee Synvisc One injection-50% ongoing pain relief 07/09/24: Bilateral L5-S1 TFESI-70% ongoing pain relief PRIOR: Patient is a pleasant 68 years old male with a history of chronic back pain, presents today for initial evaluation for acute on chronic back pain with bilateral radiculopathy. Denies any recent trauma, injury or falls. Patient has been referred to our office by Dr. Butcher for potential L5-S1 injection for disc herniation. Back pain is axial, discogenic and bilateral radiation of back pain to buttocks and into posterior thighs and calves with associated numbness and tingling in his toes and weakness. Pain is presents during resting and worse with activity, especially walking or bending. Reports walking capacity is under 10-15 minutes due to increase of back pain. Pain affects his daily activities and functioning, mobility, mood, sleep and quality of life. He completed physical therapy 2022 and injections in [place] where he spends summer months. He also had back injections in [place] and [place] about 15 years ago with mixed results. Lumbar spine imaging is noted below. Patient is also scheduled for abdominal/pelvic CT scan with and without contrast on 07/08/24 to evaluate right renal mass noted on lumbar MRI. Denies any fever or chills, weight loss, abdominal or groin pain, weakness, bladder or bowel dysfunction, or saddle anesthesia. Location: Lower back radiates down mauro legs posteriorly Duration: Chronic pain for over 5 years Characteristics of symptom or complaint: Aching, radiating, numbness, tinging, heavy, stabbing, burning, shooting Aggravating or associated factors: Laying flat, bending, standing, walking, movements, bending, lifting Relieving factors: Rest, activity modifications, cyclobenzaprine, NSAIDs, Tylenol Treatment: Injections, PT, lumbar xray/MRI [facility] Medical History Currently smokes tobacco HTN (hypertension) TIA (transient ischemic attack) Multiple sclerosis Chronic low back pain Osteoarthritis of knees, bilateral Lumbar degenerative disc disease Social History Patient Tobacco Use Status: Current everyday Tobacco user Tobacco use type: Cigarette Cigarettes Per Day: 2 Current occupational status: unemployed and disabled Review of Systems Const All systems reviewed & are unremarkable except as noted in HPI and below Physical Exam Vital Signs: Last Vital Signs Pulse 79 09/24/24 08:31 BP 116/68 09/24/24 08:31 Pulse Ox 100 09/24/24 08:31 Oxygen Delivery Method Room Air 09/24/24 08:31 BMI result Body Mass Index 29.2 General: Appears afebrile. Alert and oriented. Mood and affect appropriate. Follows and participates in conversation appropriately. Respiratory effort is unlabored. No cough. Able to transition from sit to stand unassisted. Antalgic gait. Ambulates with bilaterally normal heel strike and toe off, reports increased right medial knee pain with walking. Extrem General: Yes capillary refill normal, Yes no clubbing, cyanosis or edema and Yes no calf tenderness Right lower extremity: knee (Limited ROM due to pain) Details: normal to inspection, tenderness Location: of the medial joint line and crepitus (mild); no swelling, no ecchymosis, no deformity and no unusual warmth Results Reviewed Results Reviewed: XR KNEE, RIGHT 01/08/24 CLINICAL INFORMATION: Right knee pain FINDINGS: Knee joint spaces are preserved. No significant subarticular sclerosis, cystic changes or marginal osteophytic changes are noted. No evidence of acute fracture or dislocation. No suprapatellar joint effusion. IMPRESSION: No evidence of acute fracture or dislocation in the right knee. No significant degenerative changes. Assessment & Plan Assessment & Plan (1) Osteoarthritis of knees, bilateral: Code(s): M17.0 - Bilateral primary osteoarthritis of knee Category: Medical Qualifiers: Osteoarthritis type: primary Qualified Code(s): M17.0 - Bilateral primary osteoarthritis of knee (2) Right knee pain: Code(s): M25.561 - Pain in right knee Category: Medical Plan Patient is one month status post right knee Synvisc One injection with minimal relief. He would like to proceed with diagnostic nerve block for otential Sprint PNS trial, with scheduling dependent on insurance approval. Interventions are time-sensitive, accommodating the patient's travel timeline. Schedule Right Diagnostic Saphenous Nerve Block with local and fluoroscopy. Expectations, risks and benefits were reviewed. Patient is aware he will be contacted to schedule this procedure. Further orthopedic consultation is being considered for advanced management if no relief with diagnostic injection. Due to allergy concerns, Celebrex was reconsidered, and gabapentin remains. All questions and concerns have been answered and patient agreed with the plan. Follow up after injection and sooner as needed. Patient was informed and verbally consented to the use of an ambient scribe for clinic note documentation during this visit. Patient Instructions: I discussed with the patient the persistence of his chronic right knee pain and the lack of relief from prior injections. We reviewed treatment options including a diagnostic right saphenous nerve block and Sprint PNS trial and RFA. I explained potential benefits and limitations of these procedures, along with the need for insurance approval. Given his drug allergy, Celebrex was reconsidered, maintaining gabapentin as the current medication. We addressed the patient's travel schedule, ensuring flexibility in treatment initiation. The patient agreed to follow up upon return for continued evaluation and management. - Continue taking gabapentin 300 mg three times a day - Avoid Celebrex due to potential allergy - Prepare for nerve block injection; await scheduling details - Monitor for effectiveness and report changes in pain level - Follow up after return from [place] - Contact for immediate concerns or adverse reactions Coding Level of Care Code Est Pt Level 4 (20977) Complex EM visit Add On G2211 Diagnoses Primary osteoarthritis of both knees M17.0 Osteoarthritis type: primary Right knee pain M25.561
[2024-09-24 08:31] VITALS: BP 116/68; PULSE 79; O2SAT 100; BMI 29.2
== END 2024-09-24 09:18 | disposition home or self-care (01) ==
LOC: HO.PMC 08:16
PROVIDERS: PCP Hospitalist; Visit Provider Nurse Practitioner Family
DX: M17.0 Bilateral primary osteoarthritis of knee (principal); M25.561 Pain in right knee
CPT/HCPCS: 99214; G2211

== ENCOUNTER → 2024-09-24 08:15 | Outpatient (BNVA) | payer MEDICARE, SELFPAY | PROVIDERS: PCP Hospitalist; Visit Provider Nurse Practitioner Family | DX: M17.0 Bilateral primary osteoarthritis of knee (principal); M25.561 Pain in right knee | CPT/HCPCS: 99212 ==

== ENCOUNTER 2024-11-06 11:40 | Outpatient (AMB) | payer MEDICARE, SELFPAY ==
--- NOTE | 2024-11-06 11:42 | MHC.OFFVIS ---
Vital Signs 11/06/24 11:43 Height 6 ft Weight 211 lb BMI 28.6 BP 110/58 L Blood Pressure Location Lt brachial Position Sitting Respiration 16 Pulse 79 Pulse Source Pulse Oximeter Pulse Oximetry (%) 97 Oxygen Delivery Method Room Air Intake Visit Reasons: Right SNB Client Relations Representative Required: No Logistics Service Representative: Logistics Service Representative Present Accompanied by: Cullen Ortiz Allergies diclofenac Allergy (Severe, Verified 11/06/24 11:44) Anaphylaxis Medication List - Last Reconciled 11/06/24 by Aruna Ingram LPN acyclovir 5% appl topical albuterol sulfate 90 mcg/actuation inhalation amlodipine 10 mg PO DAILY aspirin 81 mg PO DAILY 90 days atorvastatin 40 mg PO DAILY bisoprolol fumarate 5 mg PO DAILY celecoxib 200 mg PO DAILY cholecalciferol (vitamin D3) (Vitamin D3) 50 mcg PO DAILY cyclobenzaprine 10 mg PO BEDTIME dalfampridine ER mg PO fluticasone propionate 50 mcg/actuation 1 spray intranasal BID gabapentin 300 mg PO TID 30 days hydrochlorothiazide 12.5 mg PO DAILY lamotrigine 100 mg PO DAILY levocetirizine 5 mg PO DAILY losartan 25 mg PO DAILY ocrelizumab 600 mg IV [id number] pantoprazole 20 mg PO DAILY paroxetine HCl 30 mg PO DAILY tamsulosin 0.4 mg PO DAILY HPI HPI Right SNB: Details: The patient is a 69-year-old male presenting with knee and leg pain. The knee pain has been persistent, and a previous injection did not provide significant relief. The patient reports weakness in the leg, necessitating starting ambulation with the left leg instead of the right. A nerve block was performed to assess if targeting the nerve would alleviate the knee pain. [facility] Medical History Currently smokes tobacco HTN (hypertension) TIA (transient ischemic attack) Multiple sclerosis Chronic low back pain Osteoarthritis of knees, bilateral Lumbar degenerative disc disease Social History Patient Tobacco Use Status: Current everyday Tobacco user Tobacco use type: Cigarette Cigarettes Per Day: 2 Current occupational status: unemployed and disabled Physical Exam Vital Signs: Last Vital Signs Pulse 79 11/06/24 11:43 Resp 16 11/06/24 11:43 BP 110/58 L 11/06/24 11:43 Pulse Ox 97 11/06/24 11:43 Oxygen Delivery Method Room Air 11/06/24 11:43 BMI result Body Mass Index 28.6 Office Procedures Nerve Block Details: Right adductor canal saphenous nerve block, ultrasound-guided After obtaining written consent, pre-procedure blood pressure and heart rate were stable and recorded in the nursing record. The patient was placed supine on the table. The medial thigh area overlying the adductor canal was widely prepped with chloraprep, allowed to dry and sterilely draped. Using ultrasound, the appropriate landmarks including the femoral artery and saphenous nerve were identified. The skin overlying the target was anesthetized with 0.5% lidocaine. A 21 gauge 80 mm echostim needle was advanced under sonographic guidance to the adductor canal. Aspiration was negative for heme and synovial fluid. 8 cc of lidocaine 1%? was injected around the saphenous nerve. The needles were removed, skin cleansed and a sterile bandage was applied. The patient tolerated the procedure well and no complications were encountered. Following the procedure the patient's vital signs and knee strength were stable. The patient was discharged home in good condition with post-procedural instructions. Time Out: Immediately prior to the procedure, the following was verbally confirmed that there is a signed consent form and that the correct patient, planned procedure, site and side are consistent with documentation and that necessary equipment and/or blood products are available prior to the start of the case. Complications: none EBL: <1 cc 03836 - Femoral (adductor injection) Procedure code (CPT) selection complete Assessment & Plan Assessment & Plan (1) Right knee pain: Code(s): M25.561 - Pain in right knee Category: Medical Plan - Monitor for extremity weakness on the right side following the procedure. - Follow up to assess the response to the injection. Patient was informed and verbally consented to the use of an ambient scribe for clinic note documentation during this visit. Discussion Notes I discussed with the patient the option of performing a nerve block to evaluate if targeting the nerve would help alleviate his knee pain. I explained that the procedure is primarily for testing purposes and may not provide long-term relief. The patient was informed about the possibility of experiencing weakness in the right leg post-procedure and agreed to follow up to assess the response. Patient Instructions - Monitor for any weakness in the right leg after the procedure. - Follow up with the clinic to assess the response to the injection. Coding Level of Care Code Procedure Only Diagnoses Right knee pain M25.561 CPT Codes Nerve Block - Nerve Block 7: 84380 - Femoral (adductor injection) ([id number])
[2024-11-06 11:43] VITALS: BP 110/58; PULSE 79; RESP 16; O2SAT 97; BMI 28.6
--- OUTSIDE RECORDS SUMMARY | 2024-11-06 12:00 | XMS_ITS | Clinical Summary ---
Author Organization [facility] Address [address] [place] [address] Care Team Providers Care Soaker Meat Name Role Phone Rylee Valenzuela MD Primary Care Provider [phone] Allergies Active Allergy Reactions Criticality Noted Date [...] 120 06/19/2016 11:19 AM EST Temperature 36.6 C (97.8 F) 06/19/2016 11:19 AM EST Respiratory Rate 16 03/13/2016 9:00 AM EST [...] Fall Risk Assessment 2021 Influenza Vaccine (#1) 2024 02/28/2016 RSV Adult > 60+ Yrs or (1 - 1-dose 75+ series) 08/22/2031 Hepatitis B Vaccines Aged Out No long er eligible based on patient's age to complete this topic RSV Ped < 20 months Aged Out No longe r eligible based on patient's age to complete this topic Care Teams Soaker Meat Relationship Specialty Start Date End Date Rylee Valenzuela MD PCP - General Family Medicine 09/07/14
--- OUTSIDE RECORDS SUMMARY | 2024-11-06 12:01 | XMS_ITS | Clinical Summary ---
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 Capsules should be taken 30 minutes following the same meal each day. Active atorvastatin (LIPITOR) 40 mg tablet Take 1 tablet (40 mg total) by mouth at bedtime. Active pantoprazole (PROTONIX) 40 mg EC tablet Take 1 tablet (40 mg total) by mouth 1 (one) time each day before breakfast. Do not crush, chew, or split. Active bisoprolol (ZEBETA) 5 mg tablet Take 1 tablet (5 mg total) by mouth 1 (one) time each day. Active losartan (COZAAR) 25 mg tablet Take 1 tablet (25 mg total) by mouth 1 (one) time each day. Active PARoxetine (PAXIL) 30 mg tablet Take 1 tablet (30 mg total) by mouth 1 (one) time each day in the morning. Active ocrelizumab (OCREVUS IV) Infuse 600 mg into a venous catheter. 4 Active dalfampridine (Ampyra) 10 mg tablet extended release 12 hr Take one tablet (10 mg) by mouth 2 (two) times a day. 60 each 3 09/28/2024 8:38 AM EDT Active amLODIPine (NORVASC) 5 mg tablet Take by mouth 1 (one) time each day. Active lamoTRIgine (LaMICtal) 100 mg tablet Take by mouth. Activ e cyanocobalamin 2,000 mcg ER tablet Take 1 tablet (2,000 mcg total) by mouth 1 (one) time each day. 30 tablet 11 5 08/26/19 26 Active Active Problems Problem Noted Date Diagnosed Date MS (multiple sclerosis) ([facility] V24, [facility] V2 8) 09/08/2024 Encounters Date Type Department Care Team Description 11/05/2024 [facility] Out[facility] [address] [phone] [place] 10/08/2024 [facility] [address] [phone] Andrea Thompson RN Multiple Sclerosis 10/08/2024 [facility] Out[facility] Re[facility]itation [address] [phone] Andrea Thompson RN Multiple Sclerosis 09/22/2024 11:00 AM EDT Evaluation [address] [phone] Kimani Vincent, PT Multiple sclerosis ([facility] V24, [facility] V28); Vitamin D deficiency; Gait abnormality 09/21/2024 [facility] [phone] Karan Lee MD RQST FOR FREE DRUG; APPROVED FOR FREE DRUG 09/10/[address] [phone] Whit Dawson MD 09/08/2024 9:32 AM EDT - 09/08/2024 11:59 PM EDT Hospital Encounter [facility] Outpatient Rehabilititation [facility] [address] [place] [phone] MS (multiple sclerosis) ([facility] V24, [facility] V28) (Primary Dx) Discharge Disposition: Home or Self Care 09/01/2024 Telephone [facility] Outpatient Rehabilititation [facility] [address] [place] [phone] Karan Lee MD MISSING OCREVUS START FORM INFO 08/28/2024 Telephone [facility] MS [facility] [address] [place] [phone] Karan Lee MD QUESTIONS 08/25/2024 [facility] Outpatient Rehabil[facility]itation [facility] [address] [place] [phone] Karan Lee MD OCREVUS AUTH RQST; AUTH NOT REQRD 08/20/2024 2:00 PM EDT Consult [facility] [address] [place] [phone] Karan Lee MD Multiple sclerosis ([facility] V24, [facility] V28) (Primary Dx); Vitamin D deficiency; Gait abnormality; Mood changes from Last 3 Months Surgical History Surgery Date Site/Laterality Comments LIPOMA [...] Date Smoking Tobacco: Every Day Cigarettes 1 50.2 Started: 1974 Smokeless Tobacco: Never Tobacco Cessation:Ready to Q uit: Not Asked; Counseling Given: Not Answered Alcohol Use Standard Drinks/Week Comments No 0 (1 standard drink = 0.6 oz pur e alcohol) Sex and Gender Information Value Date Recorded Sex Assigned at Not on file Legal Sex Male 8:20 AM EST Gender Identity Not on file Sexual Orientation Not on file Obstetrics History Last Filed Vital Signs Vital Sign Reading Time Taken Comments Blood Pressure 116/73 09/08/2024 1:12 PM EDT Pulse 90 09/08/2024 1:12 PM EDT Temperature 36.3 C (97.3 F) 09/08/2024 1:12 PM EDT Respiratory Rate 16 09/08/2024 1:12 PM EDT Oxygen Saturation 96% 09/08/2024 1:12 PM EDT Inhaled Oxygen Concentration - - Weight 102 kg (225 lb) 08/20/2024 2:09 PM EDT Height 180.3 cm (5' 11 ) 08/20/2024 2:09 PM EDT Body Mass Index 31.38 08/20/2024 2:09 PM EDT Plan of Treatment Upcoming Encounters Date Type Department Care Team (Late st Contact Info) Description 11/30/2024 3:30 PM EDT Office Visit [facility] [place] [address] [phone] Karan Lee MD [address] [phone] 03/08/2025 10:00 AM EST Appointment [facility] [place] [address] [phone] Health Maintenance Due Date Last Done Comments DTaP,Tdap,and Td Vaccines (1 - Tdap) 08/22/1975 Pneumococcal Vaccine: 50+ Years (1 of 2 - PCV) 08/22/1975 Zoster Vaccines (1 of 2) 2006 RSV Immunization Adult Patients (1 - Risk 60-74 years 1-dose series) 2016 COVID-19 Vaccine (2 - season) 2023 07/15/2020 Abdominal Aortic Aneurysm (AAA) Screen 01/30/2024 Cholesterol Screening (Lipid Panel) 01/30/2024 Colorectal Cancer Screening: Colonoscopy 01/30/2024 Falls Risk Assessment 01/30/2024 Lung Cancer Screening (Low Dose CT) 01/30/2024 Medicare Annual Wellness Visit 01/30/2024 Social Influencers of Health Screening 01/30/2024 Depression Screening 04/22/2024 Influenza Vaccine (#1) 2024 , 02/15/2021, 02/14/2021, Additional history exists Hypertension/CHF/CAD Annual BMP Blood Test 2025 2024 Hepatitis C Screening Completed 2024 HIB Vaccines Aged Out No longer eligi [...] to complete this topic RSV Immunization Patients Under 20 months Aged Out No longer eligible based on patient's age to complete this topic Varicella Vaccines Aged Out No longer eligible based on patient's age to complete this topic Goals Goal Patient Goal Type Associated Problems Recent Progress Patient-Stated? Author PT LTGs General No Kimani Vincent, PT Note: Pt will be independent with HEP Pt will report no ERP with lumbar AROM testing Pt will increase FGA to 18/30 to indicate improved balance with functional mobility Procedures Procedure Name Priority Date/Time Associated Diagnosis Comments INTERFERON GAMMA INTERPRETATION Routine 2024 3:18 PM EDT Multiple sclerosis ([facility]/HCC V24, CMS/HCC V28) INTERFERON GAMMA ANTIGEN 2 Routine 2024 3:18 PM EDT Multiple sclerosis (CMS/HCC V24, CMS/HCC V28) INTERFERON GAMMA ANTIGEN 1 Routine 2024 3:18 PM EDT Multiple sclerosis (CMS/HCC V24, CMS/HCC V28) INTERFERON GAMMA MITOGEN Routine 2024 3:18 PM EDT Multiple sclerosis (CMS/HCC V24, CMS/HCC V28) INTERFERON GAMMA NIL Routine 2024 3:18 PM EDT Multiple sclerosis (CMS/HCC V24, CMS/HCC V28) CBC WITH AUTO DIFFERENTIAL Routine 2024 3:18 PM EDT Multiple sclerosis ([facility]/HCC V24, CMS/HCC V28) SJOGRENS ANTIBODIES, SSA AND SSB Routine 2024 3:18 PM EDT Multiple sclerosis ([facility]/HCC V24, CMS/HCC V28) NEUROMYELITIS OPTICA, [id number] Routine 2024 3:18 PM EDT Multiple sclerosis ([facility]/HCC V24, CMS/HCC V28) MYELIN OLIGODENDROCYTE GLYCOPROTEIN ANTIBODY WITH REFLEX TO TITER Routine 2024 3:18 PM EDT Multiple sclerosis ([facility]/HCC V24, CMS/HCC V28) RHEUMATOID FACTOR Routine 2024 3:1 8 PM EDT Multiple sclerosis ([facility]/HCC V24, [facility]/HCC V28) DARCY IFA WITH TITER AND PATTERN Routine 2024 3:18 PM EDT Multiple sclerosis ([facility]/HCC V24, [facility]/HCC V28) HEPATIC FUNCTION PANEL Routine 3:18 PM EDT Multiple sclerosis ([facility]/HCC V24, CMS/HCC V28) VARICELLA ZOSTER ANTIBODY IGG Routine 2024 3:18 PM EDT Multiple sclerosis ([facility]/HCC V24, CMS/HCC V28) INTERFERON GAMMA FOR TB, QUALITATIVE Routine 2024 3:18 PM EDT Multiple sclerosis ([facility]/HCC V24, CMS/HCC V28) HIV 1, 2 ANTIBODY, P24 ANTIGEN WITH REFLEX TO DIFFERENTIATION Routine 2024 3:18 PM EDT Multiple sclerosis (CMS/HCC V24, CMS/HCC V28) HEPATITIS B CORE ANTIBODY, TOTAL Routine 2024 3:18 PM EDT Multiple sclerosis (CMS/HCC V24, CMS/HCC V28) HEPATITIS B CORE ANTIBODY IGM Routine 2024 3:18 PM EDT Multiple sclerosis (CMS/HCC V24, CMS/HCC V28) HEPATITIS B SURFACE ANTIGEN WITH CONFIRMATION Routine 2024 3:18 PM EDT Multiple sclerosis (CMS/HCC V24, CMS/HCC V28) HEPATITIS C ANTIBODY Routine 2024 3:18 PM EDT Multiple sclerosis (CMS/HCC V24, CMS/HCC V28) IMMUNOGLOBULIN IGM Routine 2024 3: 18 PM EDT Multiple sclerosis (CMS/HCC V24, CMS/HCC V28) IMMUNOGLOBULIN IGG Routine 2024 3: 18 PM EDT Multiple sclerosis (CMS/HCC V24, CMS/HCC V28) IMMUNOGLOBULIN IGA Routine 2024 3: 18 PM EDT Multiple sclerosis (CMS/HCC V24, CMS/HCC V28) IMMUNE DEFICIENCY PANEL, COMPREHENSIVE Routine 2024 3:18 PM EDT Multiple sclerosis (CMS/HCC V24, CMS/HCC V28) BORRELIA BURGDORFERI ANTIBODY Routine 2024 3:18 PM EDT Multiple sclerosis (CMS/HCC V24, CMS/HCC V28) CBC AND DIFFERENTIAL Routine 2024 3:18 PM EDT Multiple sclerosis (CMS/HCC V24, CMS/HCC V28) BUN Routine 2024 3:18 PM EDT Multiple sclerosis (CMS/HCC V24, CMS/HCC V28) CREATININE, SERUM Routine 2024 3:1 8 PM EDT Multiple sclerosis (CMS/HCC V24, CMS/HCC V28) VITAMIN B12 Routine 2024 3:18 PM EDT Multiple sclerosis (CMS/HCC V24, CMS/HCC V28) VITAMIN D 25 HYDROXY Routine 2024 3:18 PM EDT Multiple sclerosis (CMS/HCC V24, CMS/HCC V28) Vitamin D deficiency from Last 3 Months Results * Hepatitis C antibody (2024 3:18 PM EDT) Pathologist [facility] Hepatitis C Antibody Negative Negative LAB CHEMISTRY METHOD 2024 6:11 PM EDT [facility] Blood Venous blood specimen / Unknown Venipuncture / Unknown 2024 3:18 PM EDT 2024 3:37 PM EDT Karan Lee MD LAB BLOOD ORDERABLES Fin al Result [facility] [address] [place] [address], * HIV 1,2 antibody, p24 antigen with reflex to differentiation (2024 3:18 PM EDT) [facility] HIV Combo AB/AG Negative Negative LAB CHEMISTRY METHOD 2024 6:13 PM EDT [facility] Blood Venous blood specimen / Unknown Venipuncture / Unknown 2024 3:18 PM EDT 2024 3:37 PM EDT Narrative [facility] - 2024 6:13 PM EDT This assay is a 4th generation assay allowing for earlier detection of HIV infection by detecting the presence of the HIV-1 p24 antigen as well as the traditional antibodies to HIV type 1 (including group O) and type 2. Use of a 4th generation assay is the current CDC recommendation for HIV screening. us Karan Lee MD LAB BLOOD ORDERABLES Fin al Result Performing Organization Address City/[facility]/ZIP Co de Phone Number [facility] [address] [place] [address], [place] [phone] * Interferon gamma interpretation (2024 3:18 PM EDT) [facility] Quantiferon Plus Interpretation Negative Negative LAB CHEMISTRY METHOD 08/23/2024 11:00 AM EDT [facility] Blood Venous blood specimen / Unknown Venipuncture / Unknown 2024 3:18 PM EDT 2024 3:41 PM EDT Karan Lee MD LAB BLOOD ORDERABLES Fin al Result Performing Organization Address [facility]/ZIP Co de Phone Number [facility] [address] [place] [address], [place] [phone] * Interferon gamma antigen 2 (2024 3:18 PM EDT) Blood Venous blood specimen / Unknown Venipuncture / Unknown 2024 3:18 PM EDT 2024 3:41 PM EDT us Karan Lee MD LAB BLOOD ORDERABLES Fin al Result Performing Organization Address City/[facility]/ZIP Co de Phone Number [facility] [address] [place] [address], [place] [phone] * Inteferon gamma antigen 1 (2024 3:18 PM EDT) Blood Venous blood specimen / Unknown Venipuncture / Unknown 2024 3:18 PM EDT 2024 3:41 PM EDT us Karan Lee MD LAB BLOOD ORDERABLES Fin al Result Performing Organization Address City/[facility]/ZIP Co de Phone Number [facility] [address] [place] [address], [place] [phone] * Interferon gamma mitogen (2024 3:18 PM EDT) Blood Venous blood specimen / Unknown Venipuncture / Unknown 2024 3:18 PM EDT 2024 3:41 PM EDT us Karan Lee MD LAB BLOOD ORDERABLES Fin al Result Performing Organization Address [facility] Co de Phone Number [facility] [address] [place] [address], [place] [phone] * Interferon gamma NIL (2024 3:18 PM EDT) Blood Venous blood specimen / Unknown Venipuncture / Unknown 2024 3:18 PM EDT 2024 3:41 PM EDT us Karan Lee MD LAB BLOOD ORDERABLES Fin al Result Performing Organization Address [facility] Co de Phone Number [facility] [address] [place] [address], [place] [phone] * Hepatitis B surface antigen with reflex to confirmation (2024 3:18 PM EDT) Hepatitis B Surface Ag Negative Negative LAB CHEMISTRY METHOD 2024 5:44 PM EDT [facility] Blood Venous blood specimen / Unknown Venipuncture / Unknown 2024 3:18 PM EDT 2024 3:37 PM EDT Narrative [facility] - 2024 5:44 PM EDT Over the counter supplements containing high doses of biotin may interfere with this assay. If interference is suspected, patients shoud be retested after refraining from biotin supplements for 72 hours. us Karan Lee MD LAB BLOOD ORDERABLES Fin al Result Performing Organization Address [facility]/ZIP Co de Phone Number [facility] [address] [place] [address], * Myelin oligodendrocyte glycoprotein antibody with reflex to titer (2024 3:18 PM EDT) Pathologist [facility] MOG Antibody, Cell-based IFA Negative Negative 08/24/2024 11:05 PM EDT [facility] Blood Venous blood specimen / Unknown Venipuncture / Unknown 2024 3:18 PM EDT 2024 3:37 PM EDT Narrative [facility] - 08/24/2024 11:05 PM EDT Test(s) [id number] Antibody, Cell-based IFA was developed and its performance characteristics determined by [facility]. It has not been cleared or approved by the Food and Drug Administration. Performed at: - [address] [id number] [employer]uff Blender: Shanice Cardona MD, Phone: [phone] Karan Lee MD LAB BLOOD ORDERABLES Fin al Result Performing Organization Address [facility]/ZIP Co de Phone Number [facility] * Sjogrens antibodies, SSA and SSB (2024 3:18 PM EDT) Sjogren's SS-A (Ro) Ab Quant 1 <20 units LAB CHEMISTRY METHOD 08/23/2024 12:34 PM EDT [facility] Sjogren's SS-A (Ro) Ab Negative Negative LAB CHEMISTRY METHOD 08/23/2024 12:34 PM EDT [facility] Sjogren's SS-B (La) Ab Quant 1 <20 units LAB CHEMISTRY METHOD 08/23/2024 12:34 PM EDT [facility] Sjogren's SS-B (La) Ab Negative Negative LAB CHEMISTRY METHOD 08/23/2024 12:34 PM EDT [facility] Blood Venous blood specimen / Unknown Venipuncture / Unknown 2024 3:18 PM EDT 2024 3:40 PM EDT us Karan Lee MD LAB BLOOD ORDERABLES Fin al Result [facility] [address] [place] [address], [place] [phone] * Neuromyelitis optica, [id number] (2024 3:18 PM EDT) Pathologist [facility] NMO IgG Autoantibodies <1.5 0.0 - 3.0 U/mL 08/24/2024 5:05 PM EDT [facility] Comment: Negative: 0.0 - 3.0 Positive: >3.0 Blood Venous blood specimen / Unknown Venipuncture / Unknown 2024 3:18 PM EDT 2024 3:37 PM EDT Narrative [facility] - 08/24/2024 5:05 PM EDT Performed at: 01 - [facility] [id number] Snuff Blender: Shanice Cardona MD, Phone: [phone] us Karan Lee MD LAB BLOOD ORDERABLES Fin al Result [facility] * (ABNORMAL) Immune deficiency panel, comprehensive (2024 3:18 PM EDT) CD3 Percent 86 55 - 86 % 08/24/2024 10:24 AM EDT [facility] CD3 Absolute Count 2933(H) 704 - 2138 cell/ul 08/24/2024 10:24 AM EDT [facility] CD8 Percent 15 9 - 37 % 08/24/2024 10:24 AM EDT [facility] CD8 Absolute Count 494 190 - 832 cell/ul 08/24/2024 10:24 AM EDT [facility] CD4 Percent 70(H) 35 - 66 % 08/24/2024 10:24 AM EDT [facility] CD4 Absolute Count 2388(H) 443 - 1471 cell/ul 08/24/2024 10:24 AM EDT [facility] CD56+CD16 Percent 13 3 - 24 % 08/24/2024 10:24 AM EDT [facility] CD56+CD16 Absolute Count 450 60 - 500 cell/ul 08/24/2024 10:24 AM EDT [facility] CD19 Percent <1(L) 4 - 25 % 08/24/2024 10:24 AM EDT [facility] CD19 Absolute <14(L) 100 - 524 cell/ul 08/24/2024 10:24 AM EDT [facility] T4/T8 Ratio (CD4:CD8) 4.8(H) 1.0 - 3.7 08/24/2024 10:24 AM EDT [facility] Comment: Test performed at [facility], [address] , [place] [address] Blood Venous blood specimen / Unknown Venipuncture / Unknown 2024 3:18 PM EDT 2024 3:37 PM EDT Karan Lee MD LAB BLOOD ORDERABLES Fin al Result [facility] [address] [place] [address] * DARCY IFA with titer and pattern (2024 3:18 PM EDT) [facility] DARCY Negative Negative 08/25/2024 10:41 AM EDT [facility] Blood Venous blood specimen / Unknown Venipuncture / Unknown 2024 3:18 PM EDT 2024 3:40 PM EDT Karan Lee MD LAB BLOOD ORDERABLES Fin al Result [facility] [address] [place] [address], * (ABNORMAL) CBC auto differential (2024 3:18 PM EDT) WBC 9.9 4.8 - 10.8 K/mcL LAB HEMETOLOGY METHOD 2024 3:54 PM EDT [facility] RBC 4.60 4.50 - 5.50 M/mcL LAB HEMETOLOGY METHOD 2024 3:54 PM EDT [facility] Hemoglobin 14.2 13.5 - 17.5 g/dL LAB HEMETOLOGY METHOD 2024 3:54 PM EDT [facility] Hematocrit 41.8(L) 42.0 - 54.0 % LAB HEMETOLOGY METHOD 2024 3:54 PM EDT [facility] MCV 91.5 79.0 - 98.0 FL LAB HEMETOLOGY METHOD 2024 3:54 PM EDT [facility] MCH 31.1 27.0 - 32.0 pcg LAB HEMETOLOGY METHOD 2024 3:54 PM EDT [facility] MCHC 34.0 32.0 - 37.0 g/dL LAB HEMETOLOGY METHOD 2024 3:54 PM EDT [facility] RDW 13.2 11.0 - 15.0 % LAB HEMETOLOGY METHOD 2024 3:54 PM EDT [facility] Platelets 234 130 - 400 K/mcL LAB HEMETOLOGY METHOD 2024 3:54 PM EDT [facility] MPV 10.4 7.0 - 11.0 FL LAB HEMETOLOGY METHOD 2024 3:54 PM EDT [facility] NRBC 0.0 <1.0 % LAB HEMETOLOGY METHOD 2024 3:54 PM [facility] NRBC Absolute 0.00 <0.10 K/mcL LAB HEMETOLOGY METHOD 2024 3:54 PM [facility] Neutrophils Relative 55.6 % LAB HEMETOLOGY METHOD 2024 3:54 PM [facility] Lymphocytes Relative 31.1 % LAB HEMETOLOGY METHOD 2024 3:54 PM [facility] Monocytes Relative 7.8 % LAB HEMETOLOGY METHOD 2024 3:54 PM [facility] Eosinophils Relative 4.3 % LAB HEMETOLOGY METHOD 2024 3:54 PM [facility] Basophils Relative 0.8 % LAB HEMETOLOGY METHOD 2024 3:54 PM [facility] Immature Granulocytes Relative 0.4 % LAB HEMETOLOGY METHOD 2024 3:54 PM [facility] Neutrophils Absolute 5.48 1.50 - 7.00 K/mcL LAB HEMETOLOGY METHOD 2024 3:54 PM [facility] Lymphocytes Absolute 3.07 1.00 - 5.00 K/mcL LAB HEMETOLOGY METHOD 2024 3:54 PM [facility] Monocytes Absolute 0.77 0.20 - 1.00 K/mcL LAB HEMETOLOGY METHOD 2024 3:54 PM [facility] Eosinophils Absolute 0.42 0.00 - 0.50 K/mcL LAB HEMETOLOGY METHOD 2024 3:54 PM [facility] Basophils Absolute 0.08 0.00 - 0.20 K/mcL LAB HEMETOLOGY METHOD 2024 3:54 PM EDT [facility] Immature Granulocytes Absolute 0.04(H) 0.00 - 0.03 K/[facility] LAB HEMETOLOGY METHOD 2024 3:54 PM EDT [facility] Blood Venous blood specimen / Unknown Venipuncture / Unknown 2024 3:18 PM EDT 2024 3:38 PM EDT us Karan Lee MD LAB BLOOD ORDERABLES Fin al Result Performing Organization Address [facility] de Phone Number [facility] [address] [place] [address], [place] [phone] * Borrelia burgdorferi antibody (2024 3:18 PM EDT) [facility] Lyme Ab Negative Negative LAB CHEMISTRY METHOD 08/22/2024 9:50 AM EDT [facility] Comment: No laboratory evidence of infection with B. burgdorferi (Lyme disease). Negative results may occur in patients recently infected (<=14 days) with B. burgdorferi. If recent infection is suspected, repeat testing on a new sample collected in 7- 14 days is recommended. Blood Venous blood specimen / Unknown Venipuncture / Unknown 2024 3:18 PM EDT 2024 3:40 PM EDT us Karan Lee MD LAB BLOOD ORDERABLES Fin al Result Performing Organization Address [facility]/ZIP Co de Phone Number [facility] [address] [place] [address], [place] [phone] * Hepatitis B core antibody IgM (2024 3:18 PM EDT) [facility] Hep B Core IgM Negative Negative LAB CHEMISTRY METHOD 2024 6:12 PM EDT [facility] Blood Venous blood specimen / Unknown Venipuncture / Unknown 2024 3:18 PM EDT 2024 3:37 PM EDT Narrative [facility] - 2024 6:12 PM EDT Over the counter supplements containing high doses of biotin may interfere with this assay. If interference is suspected, patients shoud be retested after refraining from biotin supplements for 72 hours. us Karan Lee MD LAB BLOOD ORDERABLES Fin al Result Performing Organization Address [facility]/ZIP Co de Phone Number [facility] [address] [place] [address], [place] [phone] * Hepatitis B core antibody, total (2024 3:18 PM EDT) Hep B Core Total Ab Negative Negative LAB CHEMISTRY METHOD 2024 6:12 PM EDT [facility] Blood Venous blood specimen / Unknown Venipuncture / Unknown 2024 3:18 PM EDT 2024 3:37 PM EDT us Karan Lee MD LAB BLOOD ORDERABLES Fin al Result Performing Organization Address City/[facility]/ZIP Co de Phone Number [facility] [address] [place] [address], [place] [phone] * Creatinine (2024 3:18 PM EDT) Creatinine 1.03 0.70 - 1.30 mg/dL LAB CHEMISTRY METHOD 2024 4:31 PM EDT [facility] eGFR 79 >=60 mL/min/1. 73m2 LAB CHEMISTRY METHOD 2024 4:31 PM EDT [facility] Comment:Calculation based on the Chronic Kidney Disease Epidemiology Collaboration (CKD-EPI) equation refit without adjustment for race. Blood Venous blood specimen / Unknown Venipuncture / Unknown 2024 3:18 PM EDT 2024 3:37 PM EDT us Karan Lee MD LAB BLOOD ORDERABLES Fin al Result Performing Organization Address [facility]/ZIP Co de Phone Number [facility] [address] [place] [address], [place] [phone] * Vitamin D 25 hydroxy (2024 3:18 PM EDT) Vit D, 25-Hydroxy 40.6 30.0 - 80.0 ng/mL LAB CHEMISTRY METHOD 2024 5:32 PM EDT [facility] Blood Venous blood specimen / Unknown Venipuncture / Unknown 2024 3:18 PM EDT 2024 3:37 PM EDT us Karan Lee MD LAB BLOOD ORDERABLES Fin al Result Performing Organization Address [facility] de Phone Number [facility] [address] [place] [address], [place] [phone] * Rheumatoid factor (2024 3:18 PM EDT) Rheumatoid Factor <10.0 <15.0 I Unit/mL LAB CHEMISTRY METHOD 2024 4:31 PM EDT [facility] Blood Venous blood specimen / Unknown Venipuncture / Unknown 2024 3:18 PM EDT 2024 3:37 PM EDT us Karan Lee MD LAB BLOOD ORDERABLES Fin al Result Performing Organization Address [facility]/ZIP Co de Phone Number [facility] [address] [place] [address], [place] [phone] * Varicella zoster antibody IgG (2024 3:18 PM EDT) Pathologist [facility] Varicella IgG Positive Positive LAB CHEMISTRY METHOD 08/22/2024 8:45 AM EDT [facility] Varicella Zoster IgG 5.33 >=1.00 S/CO LAB CHEMISTRY METHOD 08/22/2024 8:45 AM EDT [facility] Blood Venous blood specimen / Unknown Venipuncture / Unknown 2024 3:18 PM EDT 2024 3:40 PM EDT Narrative [facility] - 08/22/2024 8:45 AM EDT Interpretation >= 1.00 S/CO is considered to be consistent with Immunity us Karan Lee MD LAB BLOOD ORDERABLES Fin al Result Performing Organization Address City/[facility]/ZIP Co de Phone Number [facility] [address] [place] [address], [place] [phone] * BUN (2024 3:18 PM EDT) [facility] BUN 17 5 - 25 mg/dL LAB CHEMISTRY METHOD 2024 4:31 PM EDT [facility] Blood Venous blood specimen / Unknown Venipuncture / Unknown 2024 3:18 PM EDT 2024 3:37 PM EDT us Karan Lee MD LAB BLOOD ORDERABLES Fin al Result Performing Organization Address City/[facility]/ZIP Co de Phone Number [facility] [address] [place] [address], [place] [phone] * Immunoglobulin IgA (2024 3:18 PM EDT) [facility] IgA 251 61 - 348 mg/dL LAB CHEMISTRY METHOD 2024 4:31 PM EDT [facility] Blood Venous blood specimen / Unknown Venipuncture / Unknown 2024 3:18 PM EDT 2024 3:37 PM EDT us Karan Lee MD LAB BLOOD ORDERABLES Fin al Result Performing Organization Address [place]/[facility]/ZIP Co de Phone Number [facility] [address] [place] [address], [place] [phone] * Immunoglobulin IgM (2024 3:18 PM EDT) IgM 59 23 - 259 mg/dL LAB CHEMISTRY METHOD 2024 4:55 PM EDT [facility] Blood Venous blood specimen / Unknown Venipuncture / Unknown 2024 3:18 PM EDT 2024 3:37 PM EDT us Karan Lee MD LAB BLOOD ORDERABLES Fin al Result Performing Organization Address [place]/[facility]/ZIP Co de Phone Number [facility] [address] [place] [address], [place] [phone] * Immunoglobulin IgG (2024 3:18 PM EDT) Total IgG 1,100 549 - 1,584 mg/dL LAB CHEMISTRY METHOD 2024 4:31 PM EDT [facility] Blood Venous blood specimen / Unknown Venipuncture / Unknown 2024 3:18 PM EDT 2024 3:37 PM EDT us Karan Lee MD LAB BLOOD ORDERABLES Fin al Result [facility] [address] [place] [address], [place] [phone] * (ABNORMAL) Vitamin B12 (2024 3:18 PM EDT) Pathologist [facility] Vitamin B-12 237(L) 250 - 900 pcg/mL LAB CHEMISTRY METHOD 2024 4:55 PM EDT [facility] Blood Venous blood specimen / Unknown Venipuncture / Unknown 2024 3:18 PM EDT 2024 3:37 PM EDT Karan Lee MD LAB BLOOD ORDERABLES Fin al Result [facility] [address] [place] [address], [place] [phone] * Hepatic function panel (2024 3:18 PM EDT) [facility] Total Protein 7.0 6.0 - 8.0 g/dL LAB CHEMISTRY METHOD 2024 4:31 PM EDT [facility] Albumin 3.7 3.2 - 5.0 g/dL LAB CHEMISTRY METHOD 2024 4:31 PM EDT [facility] Total Bilirubin 0.5 0.0 - 1.4 mg/dL LAB CHEMISTRY METHOD 2024 4:31 PM [facility] Bilirubin, Direct 0.1 0.0 - 0.3 mg/dL LAB CHEMISTRY METHOD 2024 4:31 PM EDT [facility] Bilirubin, Indirect 0.4 0.0 - 1.1 mg/dL LAB CHEMISTRY METHOD 2024 4:31 PM EDT [facility] ALT (SGPT) 25 10 - 60 unit/L LAB [facility]STRY [facility]24 4:[facility] AST (SGOT) 20 10 - 42 unit/L LAB CHEMISTRY METHOD 2024 4:31 PM EDT [facility] Alkaline Phosphatase 71 42 - 121 unit/L LAB CHEMISTRY METHOD 2024 4:31 PM EDT [facility]) [facility] Blood Venous blood specimen / Unknown Venipuncture / Unknown 2024 3:18 PM EDT 2024 3:37 PM EDT Karan Lee MD LAB BLOOD ORDERABLES Fin al Result [facility] [address] [place] [address], [place] [phone] from Last 3 Months Insurance MEDICAID - [place] Care Teams Seed Analysis Laboratory Assistant Relationship Specialty Start Date End Date Whit Dawson MD [address] [place] [address] PCP - General 08/05/23
--- OUTSIDE RECORDS SUMMARY | 2024-11-06 12:01 | XMS_ITS | Patient Health Record ---
Author Organization [facility] Address [address] [place] [address] Care Team Providers Care Binder Lockstitch Name Role Phone INESSA CHAPMAN Primary Care Provider [phone] Sanjana Rene Unavailable [phone] Allergies No Known Allergies Results Component Value Reference Range Notes IMMUNOGLOBULIN IGG Reviewed date:2024 05:40:16 PM Interpretation: Performing Lab: Notes/Report: Total IgG 9608 492-7141 mg/dL IMMUNOGLOBULIN IGM Reviewed date:2024 05:39:43 PM Interpretation: Performing Lab: Notes/Report: IgM 59 23-259 mg/dL BORRELIA BURGDORFERI ANTIBOD Y Reviewed date:08/23/2024 09:41:16 AM Interpretation: Performing Lab: Notes/Report: Lyme Ab Negative Negative No laboratory evidence of infection with B. burgdorferi (Lyme disease). Negative results may occur in patients recently infected (<=14 days) with B. burgdorferi. If recent infection is suspected, repeat testing on a new sample collected in 7-14 days is recommended. HEPATITIS B CORE ANTIBODY IG M Reviewed date:08/23/2024 09:42:05 AM Interpretation: Performing Lab: Notes/Report: Over the counter supplements containing high doses of biotin may interfere with this assay. If interference is suspected, patients shoud be retested after refraining from biotin supplements for 72 hours. Hep B Core IgM Negative Negative IMMUNOGLOBULIN IGA Reviewed date:2024 05:40:03 PM Interpretation: Performing Lab: Notes/Report: IgA 251 61-348 mg/dL HEPATITIS B CORE ANTIBODY, T OTAL Reviewed date:08/23/2024 09:42:01 AM Interpretation: Performing Lab: Notes/Report: Hep B Core Total Ab Negative Negative VARICELLA ZOSTER ANTIBODY IG G Reviewed date:08/23/2024 09:41:53 AM Interpretation: Performing Lab: Notes/Report: Interpretation >= 1.00 S/CO is considered to be consistent with Immunity Varicella IgG Positive Positive Varicella Zoster IgG 5.33 >=1.00 S/CO INTERFERON GAMMA NIL Reviewed date:08/23/2024 10:19:16 AM Interpretation: Performing Lab: Notes/Report: INTERFERON GAMMA ANTIGEN 1 Reviewed date:08/23/2024 10:19:12 AM Interpretation: Performing Lab: Notes/Report: INTERFERON GAMMA ANTIGEN 2 Reviewed date:08/23/2024 10:19:08 AM Interpretation: Performing Lab: Notes/Report: INTERFERON GAMMA MITOGEN Reviewed date:08/23/2024 10:19:05 AM Interpretation: Performing Lab: Notes/Report: INTERFERON GAMMA INTERPRETAT ION Reviewed date:08/24/2024 08:02:47 AM Interpretation: Performing Lab: Notes/Report: Quantiferon Plus Interpretation Negative Negative SJOGRENS ANTIBODIES, SSA AND SSB Reviewed date:08/24/2024 08:02:44 AM Interpretation: Performing Lab: Notes/Report: Sjogren's SS-A (Ro) Ab Quant 1 <20 units Sjogren's SS-A (Ro) Ab Negative Negative Sjogren's SS-B (La) Ab Quant 1 <20 units Sjogren's SS-B (La) Ab Negative Negative RHEUMATOID FACTOR Reviewed date:2024 05:40:35 PM Interpretation: Performing Lab: Notes/Report: Rheumatoid Factor <10.0 <15.0 I Unit/mL HEPATIC FUNCTION PANEL Reviewed date:2024 05:40:45 PM Interpretation: Performing Lab: Notes/Report: Total Protein 7.0 6.0-8.0 g/dL Albumin 3.7 3.2-5.0 g/dL Total Bilirubin 0.5 0.0-1.4 mg/dL Bilirubin, Direct 0.1 0.0-0.3 mg/dL Bilirubin, Indirect 0.4 0.0-1.1 mg/dL ALT (SGPT) 25 10-60 unit/L AST (SGOT) 20 10-42 unit/L Alkaline Phosphatase 71 42-121 unit/L BUN Reviewed date:2024 05:40:54 PM Interpretation: Performing Lab: Notes/Report: BUN 17 5-25 mg/dL HIV 1, 2 ANTIBODY, P24 ANTIG EN WITH REFLEX TO DIFFERENTIATION Reviewed date:08/23/2024 09:41:56 AM Interpretation: Performing Lab: Notes/Report: This assay is a 4th generation assay allowing for earlier detection of HIV infection by detecting the presence of the HIV-1 p24 antigen as well as the traditional antibodies to HIV type 1 (including group O) and type 2. Use of a 4th generation assay is the current CDC recommendation for HIV screening. HIV Combo AB/AG Negative Negative HEPATITIS C ANTIBODY Reviewed date:08/23/2024 09:42:09 AM Interpretation: Performing Lab: Notes/Report: Hepatitis C Antibody Negative Negative HEPATITIS B SURFACE ANTIGEN WITH REFLEX TO CONFIRMATION Reviewed date:08/23/2024 09:42:13 AM Interpretation: Performing Lab: Notes/Report: Over the counter supplements containing high doses of biotin may interfere with this assay. If interference is suspected, patients shoud be retested after refraining from biotin supplements for 72 hours. Hepatitis B Surface Ag Negative Negative VITAMIN D 25 HYDROXY Reviewed date:2024 05:39:26 PM Interpretation: Performing Lab: Notes/Report: Vit D, 25-Hydroxy 40.6 30.0-80.0 ng/mL VITAMIN B12 Reviewed date:2024 05:39:48 PM Interpretation: Performing Lab: Notes/Report: Vitamin B-12 237 250-900 pcg/mL CREATININE Reviewed date:2024 05:40:26 PM Interpretation: Performing Lab: Notes/Report: Creatinine 1.03 0.70-1.30 mg/dL eGFR 79 >=60 mL/min/1.73m2 Calculati on based on the?Chronic Kidney Disease Epidemiology Collaboration (CKD-EPI) equation refit?without adjustment for race. CBC WITH AUTO DIFFERENTIAL Reviewed date:2024 05:41:03 PM Interpretation: Performing Lab: Notes/Report: WBC 9.9 4.8-10.8 K/mcL RBC 4.60 4.50-5.50 M/mcL Hemoglobin 14.2 13.5-17.5 g/dL Hematocrit 41.8 42.0-54.0 % MCV 91.5 79.0-98.0 FL MCH 31.1 27.0-32.0 pcg MCHC 34.0 32.0-37.0 g/dL RDW 13.2 11.0-15.0 % Platelets 234 130-400 K/mcL MPV 10.4 7.0-11.0 FL NRBC 0.0 <1.0 % NRBC Absolute 0.00 <0.10 K/mcL Neutrophils Relative 55.6 Lymphocytes Relative 31.1 Monocytes Relative 7.8 Eosinophils Relative 4.3 Basophils Relative 0.8 Immature Granulocytes Relative 0.4 Neutrophils Absolute 5.48 1.50-7.00 K/mcL Lymphocytes Absolute 3.07 1.00-5.00 K/mcL Monocytes Absolute 0.77 0.20-1.00 K/mcL Eosinophils Absolute 0.42 0.00-0.50 K/mcL Basophils Absolute 0.08 0.00-0.20 K/mcL Immature Granulocytes Absolute 0.04 0.00-0.03 K/mcL DARCY IFA WITH TITER AND KWAKU COOPER Reviewed date:08/25/2024 11:55:07 AM Interpretation: Performing Lab: Notes/Report: DARCY Negative Negative MYELIN OLIGODENDROCYTE GLYCO PROTEIN ANTIBODY WITH REFLEX TO TITER Reviewed date:08/25/2024 07:47:25 AM Interpretation: Performing Lab: Notes/Report: Test(s) 150632-ZQI Antibody, Cell-based IFA was developed and its performance characteristics determined by [facility]. It has not been cleared or approved by the Food and Drug Administration. Performed at: [address] [place] [address] [id number] Silk Spreader: Shanice Cardona MD, Phone: [phone] MOG Antibody, Cell-based IFA Negative Negative NEUROMYELITIS OPTICA, [place] RIN-4-IGG Reviewed date:08/25/2024 07:47:27 AM Interpretation: Performing Lab: Notes/Report: Performed at: [address] [place] [address] [id number] Silk Spreader: Shanice Cardona MD, Phone: [phone] NMO IgG Autoantibodies <1.5 0.0-3.0 U/mL Negative: 0.0 - 3.0 Positive: >3.0 IMMUNE DEFICIENCY PANEL, COM PREHENSIVE Reviewed date:08/24/2024 12:41:34 PM Interpretation: Performing Lab: Notes/Report: CD3 Percent 86 55-86 % CD3 Absolute Count 2933 704-2138 cell/ul CD8 Percent 15 9-37 % CD8 Absolute Count 494 190-832 cell/ul CD4 Percent 70 35-66 % CD4 Absolute Count 2388 443-1471 cell/ul CD56+CD16 Percent 13 3-24 % CD56+CD16 Absolute Count 450 60-500 cell/ul CD19 Percent <1 4-25 % CD19 Absolute <14 100-524 cell/ul T4/T8 Ratio (CD4:CD8) 4.8 1.0-3.7 Test performed at [facility], [address] [place] [address] Comp. Metabolic Panel (14)-[phone] Reviewed date:05/07/2024 09:48:52 AM Interpretation: Performing Lab:[facility], [employer] [facility], [place], Phone - [phone], Director - MDJodry Notes/Report: Glucose 99 70-99 [...] IU/L ALT (SGPT) 20 0-44 IU/L Lipid Panel-[id number] Reviewed date:05/07/2024 09:48:34 AM Interpretation: Performing Lab:[facility], [address] [place], [place], Phone - [phone], Director - MDJodry Notes/Report: Cholesterol, Total 155 100-199 mg/dL Triglycerides 183 0-149 mg/dL HDL Cholesterol 26 >39 mg/dL VLDL Cholesterol Dereje 32 5-40 mg/dL LDL Chol Calc ([facility]) 97 0-99 mg/dL Vitamin D, 33-Qumqjzo-902725 Reviewed date:05/07/2024 09:48:14 AM Interpretation: Performing Lab:[facility] [place], [address] [facility], [place], Phone - [phone], Director - Ignacia Notes/Report: Vitamin D, 25-Hydroxy 32.7 30.0-100.0 ng/mL Vitamin D deficiency has been defined by the [place] of [employer] and an Endocrine Society practice guideline as a level of serum 25-OH vitamin D less than 20 ng/mL (1,2). The Endocrine Society went on to further define vitamin D insufficiency as a level between 21 and 29 ng/mL (2). 1. IOM ([place] of [employer]). 2010. Dietary reference intakes for calcium and D. [place]: The National Academies Press. 2. Mark MF, Jose PRYOR, Agatha CARREON, et al. Evaluation, treatment, and prevention of vitamin D deficiency: an Endocrine Society clinical practice guideline. JCEM. 2010; 96(7):1911-30. CBC with Diff, Platelet, NLR -[id number] Reviewed date:05/07/2024 09:48:43 AM Interpretation: Performing Lab:[facility] [place], [address] [facility], [place], Phone - [phone], Director - Ignacia Notes/Report: WBC 13.6 3.4-10.8 [...] % Immature Grans (Abs) 0.1 0.0-0.1 x10E3/uL Ferritin-[id number] Reviewed date:05/07/2024 09:49:13 AM Interpretation: Performing Lab:[facility] [place], [address] [facility], [place], Phone - [phone], Director - MDy Notes/Report: Ferritin 71 30-400 ng/mL Iron and TIBC-[id number] Reviewed date:05/07/2024 09:49:02 AM Interpretation: Performing Lab:[facility] [place], [address] [facility], [place], Phone - [phone], Director - MDMaryy Notes/Report: Iron Bind.Cap.(TIBC) 272 250-450 ug/dL UIBC 174 111-343 ug/dL Iron 98 38-169 ug/dL Iron Saturation 36 15-55 % Reason For Referral Reason History of lumbar de generative Disc w/ radiculopathy BL with numbness. BL knee pain Prefer C with Dr. car or Dr. Royal Mane at [facility] whomever takes him first Diagnosis 1 Other intervertebral disc degeneration, lumbar region (M51.36) Referral Organization [facility] Referring Provider First Name Rene Referring Provider Last Name Sanjana Referred Provider Specialty Orthopedic S urgery General Notes Referral sent to [facility] at [facility] - Office will call patient for scheduling.Jeannie Latraya 12/12/2023 12:51:09 PM > Referral Priority Urgent Reason constant headache- Diagnosis 1 Headache, unspecifie d (R51.9) Referral Organization [facility] Referring Provider First Name Rene Referring Provider Last Name Sanjana Referred Provider Specialty Neurology General Notes faxed to [facility], they will call Sonja cohen Brittney 01/03/2024 02:09:53 PM > Referral Priority Routine Reason Tinea unguium- evalu ate and treat Diagnosis 1 Tinea unguium (B35.1 ) Referral Organization [facility] Referring Provider First Name Jaleel Referring Provider Last Name Sanjana Referred Provider Specialty Podiatry General Notes faxed to [facility] , they will call ptSonja Brittney 01/07/2024 01:04:07 PM > Referral Priority Routine Reason BP monitor 48 hour Please evaluate and treat Diagnosis 1 Unspecified acute co njunctivitis, unspecified eye (H10.30) Referral Organization [facility] Referring Provider First Name Jaleel Referring Provider Last Name Sanjana Referred Provider Specialty Nephrology General Notes Please call the divya ent to schedule the appointment, Namrata Boswell 07/20/2024 01:06:22 PM > Referral Priority Stat Reason 48 hour BP monitor; Elevated BP Diagnosis 1 Essential (primary) hypertension (I10) Referral Organization [facility] Referring Provider First Name Jaleel Referring Provider Last Name Sanjana Referred Provider Specialty Cardiology General Notes Faxed to [facility]. Please contact the patient to schedule., Tasha Dudley 08/25/2024 02:51:34 PM > Referral Priority Routine Medications Medication SIG (Take, Route, Frequency, Duration) Notes Start Date End Date Status Tamsulosin HCl 0.4 MG 1 capsule Orally TWICE A DAY; Duration: 30 days ADJUSTED BY UROLOGY 01/29/2023 Active hydroCHLOROthiazide 12.5 MG TAKE 1 TABLET BY MOUTH EVERY DAY IN THE MORNING FOR 30 DAYS; Duration: 90 days Active Cyclobenzaprine HCl 10 MG 1 tablet at bedtime as needed Orally Once a day; Duration: 30 days 2023 Active Riboflavin 400 MG 1 capsule Orally Once a day; Duration: 30 days 12/05/2023 Not-Taking Doxycycline Hyclate 100 MG 1 tablet Orally twice a day; Duration: 10 days 11/22/2023 Not-Taking amLODIPine Besylate 10 MG 1 tablet Orall y Once a day Active Caladryl 1-8 % 1 application as needed Externally Three times a day; Duration: 30 days 07/08/2023 Not-Taking lamoTRIgine Starter Kit-[place]uy 42 x 25 MG & 7 x 100 MG as directed Orally daily; Duration: 30 days Active CeleBREX 200 MG 1 capsule with food Orally Once a day; Duration: 30 days 2023 Active predniSONE 20 MG 1 tablet Orally Once a day; Duration: 7 days 10/18/2023 Not-Taking Levocetirizine Dihydrochloride 5 MG 1 tablet in the evening Orally Once a day; Duration: 90 days Active Hydrocortisone 2 % 1 application Externally Twice a day; Duration: 14 days 11/22/2023 Not-Taking Pregabalin 50 MG 1 capsule in the evening 1 to 3 hours before bedtime Orally Once a day; Duration: 28 days 2023 Active Advair HFA 115-21 MCG/ACT 2 puffs Inhalation Twice a day; Duration: 30 days 07/25/2023 Active Spiriva HandiHaler 18 MCG 1 capsule by inhaling the contents of the capsule using the HandiHaler device Inhalation Once a day; Duration: 30 days 07/25/2023 Active Whxbuiwl-Racxmxnln-Vgwugd th 3.5-02459-5.1 1 drop into affected eye Ophthalmic Four times a day; Duration: 30 days 07/15/2024 Active LaMICtal 100 MG 1 tablet Orally Once a day; Duration: 30 days 07/15/2024 Active Pantoprazole Sodium 40 MG TAKE 1 TABLET BY MOUTH EVERY DAY FOR 30 DAYS; Duration: 90 Active Fluticasone Propionate 50 MCG/ACT 1 spray in each nostril Nasally Twice a day; Duration: 30 days Active Benzonatate 100 MG 1 capsule as needed Orally Three times a day; Duration: 7 days 08/26/2024 Active Align 4 MG as directed Orally DAILY; Duration: 90 days 2023 Not-Taking clonazePAM 0.5 MG 1 tablet at bedtime Orally Once a day; Duration: 30 days 07/08/2023 Not-Taking oxyCODONE HCl 5 MG 1 tablet as needed Orally every 12 hrs; Duration: 5 days 11/25/2023 Not-Taking Acyclovir 5 % 1 application Externally Five times a day; Duration: 10 01/29/2023 Not-Taking Align 10 MG as directed Orally DAILY; Duration: 30 days 08/17/2024 Active Bisoprolol Fumarate 5 MG 1 tablet Orally Once a day; Duration: 90 days Active Gas Relief 80 MG 1 tablet after meals and at bedtime as needed Orally Four times a day; Duration: 30 days 08/17/2024 Active Losartan Potassium 25 MG TAKE 1 TABLET B Y MOUTH EVERY DAY FOR 30 DAYS; Duration: 90 days Active Celecoxib 200 MG 1 capsule with food Orally Once a day; Duration: 30 day(s) 07/11/2023 Not-Taking PARoxetine HCl 30 MG TAKE 1 TABLET BY MOUTH EVERY MORNING; Duration: 90 Active Pantoprazole Sodium 20 MG TAKE 1 TABLET BY MOUTH EVERY DAY FOR 30 DAYS; Duration: 90 Active Ocrelizumab 300 MG/10ML as directed Intravenous weekly; Duration: 30 days 07/12/2023 Active Atorvastatin Calcium 40 MG TAKE 1 TABLET BY MOUTH EVERY DAY FOR 90 DAYS; Duration: 90 Active Aspirin 81 MG 1 tablet Orally Once a day; Duration: 30 day(s) 07/11/2023 Active Hydrocortisone 2.5 % APPLY 1 APPLICATION EXTERNALLY EVERY DAY; Duration: 56 Active Albuterol Sulfate HFA 108 (90 Base) MCG/ACT 1 puff as needed Inhalation every 4 hrs; Duration: 30 days Active Breo Ellipta 100-25 MCG/ACT 1 puff Inhalation Once a day; Duration: 30 days 08/22/2023 Active lamoTRIgine 25 & 50 & 100 MG as directed Orally daily; Duration: 90 days 04/29/2024 Active Immunizations Vaccine Route [...] Status Risk Notes Problem Genital herpes simplex (58502461) Herpesviral infection of urogenital system, unspecified (A60.00) Active confirmed Problem Mixed hyperlipidemia (916915264) Mixed hyperlipidemia (E78.2) Active confirmed Problem Tobacco user (264855901) Nicotine dependence, unspecified, uncomplicated (F17.200) Active confirmed Problem Tobacco user (259772568) Nicotine dependence, cigarettes, uncomplicated (F17.210) Active confirmed Problem Generalized anxiety disorder (78245505) Generalized anxiety disorder (F41.1) Active confirmed Problem Multiple sclerosis (47355138) Multiple sclerosis (G35) Active confirmed Problem Insomnia (260752663) Insomnia, unspecified (G47.00) Active confirmed Problem Hearing loss (83380387) Unspecified hearing loss, unspecified ear (H91.90) Active confirmed Problem Intermittent claudication of bilateral lower limbs co-occurrent and due to atherosclerosis (96123793127180904) Atherosclerosis of tribe arteries of extremities with intermittent claudication, 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) Active confirmed Problem Chronic obstructive pulmonary disease (31992829) Chronic obstructive pulmonary disease, unspecified (J44.9) Active confirmed Problem Gastro-esophageal reflux disease without esophagitis (871773362) Gastro-esophageal reflux disease without esophagitis (K21.9) Active confirmed Problem Constipation (75947088) Constipation, unspecified (K59.00) Active confirmed Problem Osteoarthritis (117489998) Polyosteoarthriti s, unspecified (M15.9) Active confirmed Problem Osteoarthritis of knee (700334795) Osteoarthritis of knee, unspecified (M17.9) Active confirmed Problem Acquired spondylolisthesis (445825519) Spondylolisthesis , lumbar region (M43.16) Active confirmed Problem Degeneration of thoracolumbar intervertebral disc (27294962) Other intervertebral disc degeneration, thoracolumbar region (M51.35) Active confirmed Problem Degeneration of lumbar intervertebral disc (93456462) Other intervertebral disc degeneration, lumbar region (M51.36) Active confirmed Problem Erectile dysfunction (disorder) (749854125) Male erectile dysfunction, unspecified (N52.9) Active confirmed Problem 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, 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) Active confirmed Problem Wheezing (19412256) Wheezing (R06.2) Active con firmed Problem Adult health examination (601688090) Encounter for general adult medical examination without abnormal findings (Z00.00) Active confirmed Problem Body mass index 30+ - obesity (386838443) Body mass index (BMI) 30.0-30.9, adult (Z68.30) Active confirmed Problem Essential hypertension (09994250) Essential (primary) hypertension (I10) Active confirmed Problem Benign prostatic hypertrophy without outflow obstruction (224812729) Benign prostatic hyperplasia without lower urinary tract symptoms (N40.0) Active confirmed Problem Lower urinary tract symptoms due to benign prostatic hypertrophy (84028714261269) Benign prostatic hyperplasia with lower urinary tract symptoms (N40.1) Active confirmed Problem Atherosclerotic heart disease of tribe coronary artery without angina pectoris (899165521416975) 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 (I25.10) Active confirmed Problem Seasonal allergy (347415222) Seasonal allergies (J30.2) Active confirmed Vital Signs Heart Rate 81 /min 08/17/2024 Temperature 97 degrees Fahrenheit 08/17/2024 Blood pressure diastolic 62 mm Hg 08/17/2024 Oximetry 98 % 08/17/2024 Height 70.5 in 08/17/2024 Blood pressure systolic 116 mm Hg 08/17/2024 Weight 218.6 lbs 08/17/2024 BMI 30.92 kg/m2 08/17/2024 Encounters Encounter Location Date Provider Diagnosis [address] [place] [address] 11/25/[address] [place] [address] 11/25/[address] [place] [address] 11/27/[address] [place] [address] 12/05/2023 [facility] Headache, unspecifie d R51.[address] [place] [address] 12/05/[address] [place] [address] 12/05/[address] [place] [address] 12/06/[address] [place] [address] 12/11/2023 [facility] [address] [place] [address] 12/18/2023 [facility] [address] [place] [address] 12/24/2023 [facility] Benign prostatic hyperplasia with lower urinary tract symptoms N40.1 [facility] [address] [place] [address] 12/31/2023 [facility] [address] [place] [address] 01/20/2024 [facility] [address] [place] [address] 01/27/2024 [facility] [address] [place] [address] [facility]pes[facility], unspecified B00.9 [facility] [address] [place] [address] 03/11/2024 [facility] [address] [facility] [address] [place] [address] 03/16/2024 [facility] [address] [place] [address] 04/24/2024 [facility] [address] [place] [address] 04/27/2024 [facility] [address] [place] [address] 05/01/2024 [facility] Headache, unspecifie d R51.9 [facility] [address] [place] [address] 05/05/2024 [facility] [address] [place] [address] 05/08[facility] N28.1 [facility] [address] [facility] [place] [address] 05/21/2024 [facility] [address] [facility] [place] [address] 06/02/2024 [facility] [address] [facility] [place] [address] 07/13/2024 [facility] [address] [facility] [place] [address] 07/14/2024 [facility] [address] [place] [address] 07/20/2024 [facility] [address] [facility] [place] [address] 07/21/2024 [facility] [address] [place] [address] 07/21/2024 [facility] [address] [facility] [place] [address] 07/27/2024 [facility] [address] [facility] [place] [address] 07/28/2024 [facility] [address] [place] [address] 08/17/2024 [facility] [address] [facility] [place] [address] 08/20/2024 [facility] [address] [facility] [place] [address] 2024 [facility] [address] [facility] [place] [address] 08/26/2024 [facility] [address] [facility] [place] [address] 08/27/2024 [facility] [address] [place] [address] 08/27/[address] [place] [address] 09/16/2024 WYLIE L [address] [address] [place] [address] 07/15/2024 Ghadeer Mazloum Headache, unspecifie d R51.9 ; Essential (primary) hypertension I10 and Unspecified acute conjunctivitis, unspecified eye H10.[address] [place] [address] 05/06/2024 Ghadeer Mazloum [address] [place] [address] 11/22/2023 WYLIE GUL Folliculitis L73.9 a nd Dermatitis L30.[address] [place] [address] 12/06/2023 Ghadeer Mazloum Other intervertebral disc degeneration, lumbar region M51.36 ; Pain in unspecified knee M25.569 and Benign prostatic hyperplasia with lower urinary tract symptoms N40.[address] [place] [address] 01/03/2024 Ghadeer Mazloum Folliculitis L73.9 ; Dermatitis L30.9 and Tinea unguium B35.[address] [place] [address] 04/29/2024 Ghadeer Mazloum Headache, unspecifie d R51.9 ; Acute sinusitis, unspecified J01.90 and Encounter for screening for cardiovascular disorders Z13.[address] [place] [address] 08/17/2024 WYLIE GUL Essential (primary) hypertension I10 and Flatulence R14.3 Assessments Encounter Date Diagnosis (ICD Code) Assessment Notes Treatment Notes Treatment Clinical Notes Section Notes 12/05/2023 Headache, unspecified (ICD-10 - R51.9) 07/15/2024 Essential (primary) hypertension (ICD-10 - I10) Mr. Jensen is a 68-year-old gentleman with acid reflux, BPH, generalized anxiety disorder, hypertension, HSV and dyslipidemia here for BP check. Plan as follows: HTN - BP is within normal limit. Continue on Bisoprolol and losartan 25mg. I will also get a 48-hour blood pressure monitor. Given the intermittent/epis odic headache and high blood pressure. I will [...] a 48-hour blood pressure monitor. Given the intermittent/epis odic headache and high blood pressure. I will rule out pheochromocytoma. Order blood work Hydration is recommended and reducing salt intake Headache - Stable on Lamictal. Continue Lamictal 100 mg. Refilled his medications General concerns have been discussed. I have rendered the services for this patient under direct supervision of Dr. Chapman, who did not see the patient but was available upon request 02/06/2024 Herpesviral infection, unspecified (ICD-10 - B00.9) 04/29/2024 Headache, unspecified (ICD-10 - R51.9) Mr. [...] - He is currently getting managed by [facility]. I have spent 20 mins w/ patient Screening BW before next appt General concerns have been discussed. I have rendered the services for this patient under direct supervision of Dr. Chapman, who did not see the patient but was available upon request 05/01/2024 Headache, unspecified (ICD-10 - R51.9) 05/08/2024 Kidney cysts (ICD-10 - N28.1) 08/17/2024 Flatulence (ICD-10 - R14.3) Mr. Jensen [...] and increase regular exercise and weight loss 01/03/2024 Dermatitis (ICD-10 - L30.9) Mr. Jensen [...] Neurology. Tinea Unguium: - Referred to podiatry 04/29/2024 Acute sinusitis, unspecified (ICD-10 - J01.90) [...] - He is currently getting managed by [facility]. I have spent 20 mins w/ patient Screening BW before next appt General concerns have been discussed. I have rendered the services for this patient under direct supervision of Dr. Chapman, who did not see the patient but was available upon request 11/22/2023 Dermatitis (ICD-10 - L30.9) Mr. Jensen [...] urinary tract symptoms (ICD-10 - N40.1) 01/03/2024 Tinea unguium (ICD-10 - B35.1) Mr. [...] - He is currently getting managed by [facility]. I have spent 20 mins w/ [...] a 48-hour blood pressure monitor. Given the intermittent/epis odic headache and high blood pressure. I will [...] the patient but was available upon request Plan Of Treatment Pending Test Test Name Order Date MRI : Brain 07/08/2023 HEMOGLOBIN A1C 02/20/2023 CT Abdomen W WO 05/08/2024 Metanephrines, Pheochromocyt-[id number] 06/21 Catecholamines,Ur.,Free,24 Hr-[id number] Metanephrines, Frac, Qn, 54-Hi-[id number] Rheumatoid Factor (RF)-[id number] 12/06/2023 CBC/Differential (No Platelet)-[id number] Anti-CCP Ab, IgG/IgA-[id number] 12/06/2023 Comp. Metabolic Panel [id number] 2024 DARCY Profile 12 (RDL)-[id number] 12/06/2023 Hemoglobin A1c 07/11/2023 Insurance Providers Payer Name Payer Address Payer Phone Subscriber Number Group Number Insured Name Patient Relationship to Insured Coverage Start Date Coverage End Date [employer] Preferred [address] [place] [address] [phone] [id number] Palmira Jensen Self - patient is the insured 4 Medical (General) History Medical History History ICD Code hypertension, benign hyperlipidemia acid reflux Benign prostatic hypertrophy Nicotine dependence herpes genitalis right renal cyst on [place] Migraines Hospitalization History Reason Date(Month/Year) dizziness, weakness, headache, elevated BP-went in [place]
== END 2024-11-06 12:26 | disposition home or self-care (01) ==
PROVIDERS: PCP Hospitalist; Visit Provider Internal Medicine
DX: M25.561 Pain in right knee (principal)
CPT/HCPCS: 64450; 76942

== ENCOUNTER 2024-12-29 14:14 | Outpatient (AMB) | payer MEDICARE, SELFPAY ==
--- OUTSIDE RECORDS SUMMARY | 2024-12-25 11:58 | XMS_ITS ---
Author Organization [facility] Address [address] [address] Care Team Providers Care Chief Cruiser Name Role Phone INESSA CHAPMAN Primary Care Provider REASON FOR VISIT lab slip Encounters Encounter Location Date Provider Diagnosis [facility] [address] [facility] [address] [place] [address] 12/25/2024 INESSA CHAPMAN Essential (primary) hypertension I10 Assessments Encounter Date Diagnosis (ICD Code) Assessment Notes Treatment Notes Treatment Clinical Notes Section Notes 12/25/2024 Essential (primary) hypertension (ICD-10 - I10) Plan Of Treatment Pending Test Test Name Order Date CBC/Differential (No Platelet)-[id number] Progress Notes * GAURIYuryJacielOB:1955 (69 yo M)Acc No.[id number]:12/25/2024 Patient: Palmira DEMPSEY :1955 A ge:69 Y S ex:Male Address:[address] [place] [address] Subjective: * Chief Complaints: * L ab slip * Medical History: * Surgical History: * Hospitalization/Major Diagno stic Procedure: * Medications: Objective: * Vitals: * Physical Examination: Assessment: * Assessment: 1. E ssential (primary) hypertension - I10 Plan: * Treatment: * Procedure Codes: * true * Date: Generated for Printi ng/Faxing/eTransmitting on: 0 12/29/2024 04:47 PM EDT
--- NOTE | 2024-12-29 14:18 | MHC.OFFVIS ---
Vital Signs 12/29/24 14:20 Height 6 ft Weight 216 lb 8 oz BMI 29.4 BP 111/68 Blood Pressure Location Lt brachial Position Sitting Pulse 87 Pulse Source Pulse Oximeter Pulse Oximetry (%) 99 Oxygen Delivery Method Room Air Intake Visit Reasons: PROCEDURE DISCUSSION Intake Note: Pain today 10/29 Supervisor Twisting Department Required: No Accompanied by: Son Allergies diclofenac Allergy (Severe, Verified 12/29/24 14:27) Anaphylaxis HPI Comments Details: The patient is a 69-year-old male presenting with chronic low back pain. The pain is located in the lower back and radiates to the side of both legs, with the right leg being more affected than the left. The patient reports that the pain has been persistent and is seeking a repeat injection for relief, as previous injections have been beneficial. However, patient reports his back radiates more laterally and posteriorly this time, than posterior. Patient reports partial and mild relief with gabapentin without any side effects. The patient also has a history of multiple sclerosis, which affects the right side more significantly. He experiences loss of leg control when his blood pressure is elevated or back pain is severe, which has been managed by adjusting his antihypertensive medication. Denies any recent cough, cold, infection, fever or any significant changes in medical history since last office visit. - Onset: Chronic, persistent pain in the lower back - Quality: Radiating pain to the side of both legs, more severe on the right; stabbing, shooting, aching, numbness, tingling, worse on the right - Exacerbating factors: Increased pain with certain movements, walking, bending - Relieving factors: Previous injections have provided relief - Affect: Pain impacts mobility, particularly in the right leg - Analgesia: Seeking repeat injection for pain relief - Activities of Daily Living: Pain affects leg control, reports MS affecting right side Past Procedures: 11/06/24: Right adductor canal saphenous nerve block, ultrasound-guided--minimal pain relief x1 day 08/20/24: Right knee Synvisc One injection-50% ongoing pain relief 07/09/24: Bilateral L5-S1 TFESI-70% ongoing pain relief PRIOR: Patient is a pleasant 68 years old male with a history of chronic back pain, presents today for initial evaluation for acute on chronic back pain with bilateral radiculopathy. Denies any recent trauma, injury or falls. Patient has been referred to our office by Dr. Butcher for potential L5-S1 injection for disc herniation. Back pain is axial, discogenic and bilateral radiation of back pain to buttocks and into posterior thighs and calves with associated numbness and tingling in his toes and weakness. Pain is presents during resting and worse with activity, especially walking or bending. Reports walking capacity is under 10-15 minutes due to increase of back pain. Pain affects his daily activities and functioning, mobility, mood, sleep and quality of life. He completed physical therapy 2022 and injections in [place] where he spends summer months. He also had back injections in [place] and [place] about 15 years ago with mixed results. Lumbar spine imaging is noted below. Patient is also scheduled for abdominal/pelvic CT scan with and without contrast on 07/08/24 to evaluate right renal mass noted on lumbar MRI. Denies any fever or chills, weight loss, abdominal or groin pain, weakness, bladder or bowel dysfunction, or saddle anesthesia. Location: Lower back radiates down mauro legs posteriorly Duration: Chronic pain for over 5 years Characteristics of symptom or complaint: Aching, radiating, numbness, tinging, heavy, stabbing, burning, shooting Aggravating or associated factors: Laying flat, bending, standing, walking, movements, bending, lifting Relieving factors: Rest, activity modifications, cyclobenzaprine, NSAIDs, Tylenol Treatment: Injections, PT, lumbar xray/MRI [facility] Medical History Currently smokes tobacco HTN (hypertension) TIA (transient ischemic attack) Multiple sclerosis Chronic low back pain Osteoarthritis of knees, bilateral Lumbar degenerative disc disease Social History Patient Tobacco Use Status: Current everyday Tobacco user Tobacco use type: Cigarette Cigarettes Per Day: 2 Current occupational status: unemployed and disabled Review of Systems Const All systems reviewed & are unremarkable except as noted in HPI and below Physical Exam Vital Signs: Last Vital Signs Pulse 87 12/29/24 14:20 BP 111/68 12/29/24 14:20 Pulse Ox 99 12/29/24 14:20 Oxygen Delivery Method Room Air 12/29/24 14:20 BMI result Body Mass Index 29.4 General: Appears afebrile. Alert and oriented. Mood and affect appropriate. Follows and participates in conversation appropriately. Respiratory effort is unlabored. No cough. Able to transition from sit to stand unassisted. Antalgic gait. Ambulates with bilaterally normal heel strike and toe off, reports increased pain with standing on his heels. General: Yes no CVA tenderness Back/Spine/Pelvis Other: Limited lumbar ROM due to pain. Antalgic gait. No limping. Lumbar flexion, bending forward and axial rotations reproduce moderate pain. Demonstrates 5/5 strength of quadriceps bilaterally as well as flexion/dorsiflexion of bilateral feet against resistance. 2+ pedal pulses bilaterally. Straight leg rise with dorsiflexion is negative bilaterally. +2 patellar and achilles reflexes bilaterally. Facet loading test positive bilaterally. Alirio sign, Bull?s, Gaenslen, Pelvic compression and Stinchfield tests are positive bilaterally, right>left. No groin pain with I/E hip rotations. Valsalva maneuver negative. Back: no CVA tenderness Cervical Spine: cervical ROM normal, cervical muscular tenderness, No Cervical spine tenderness and No step off deformity Thoracic/Lumbar Spine: thoracic and lumbar spine normal to inspection, No Thoracic/lumbar spine scar(s), Lasegue's sign negative, straight leg raise negative bilaterally, pain with thoraco-lumbar ROM, paraspinal muscle tenderness, thoraco-lumbar ROM limited, No thoracic spinal tenderness and lumbar spinal tenderness (L4-S1) Pelvis: buttock tenderness bilaterally and no sciatic notch tenderness Sacroiliac joints: bilaterally tender to palpation Extrem General: Yes capillary refill normal, Yes no clubbing, cyanosis or edema and Yes no calf tenderness Results Reviewed Results Reviewed: MR LUMBAR SPINE WITHOUT CONTRAST 04/03/24 CLINICAL INFORMATION: 68-year-old male with intervertebral disc degeneration, lumbar region. Self-reported low back pain of a few years' duration, worsening with reduced range of motion and difficulty walking and standing, with bilateral leg pain, weakness and numbness and toe weakness or numbness bilaterally. FINDINGS: Coronal Alignment: Normal. Sagittal Alignment: Straightening of the lumbar spine is noted, with slight retrolisthesis at L5-S1. Lumbosacral Junction: Normal. There are 5 urs-kyu-whljnsi lumbar-type vertebral bodies. Vertebral Bodies: Vertebral body heights are well maintained. Disc Spaces and Endplates: Minor disc volume loss posteriorly at L5-S1 with mild disc desiccation and mild spondylosis. Slight disc volume loss at L3-L4 with mild disc desiccation and pqug-ad-qbnqouug spondylosis. Tckf-fn-iebndgjf spondylosis asymmetric to the left at L2-L3 and mild anterior marginal spondylosis at L1-L2. Small Schmorl's node noted anteriorly asymmetric to the right along the superior endplate of L4. Otherwise, endplates appear grossly intact. Spinal Canal: No abnormal developmental findings. Bone Marrow: No suspicious marrow-replacing process or bone marrow edema. There is minor type I degenerative marrow signal changes seen along the anteroinferior corner of L1. There are multilevel small benign vertebral hemangiomata at L3 and L5. Conus Medullaris: Terminates at T12-L1. Morphology and signal is normal. Intradural Nerve Roots: Within normal limits. L5-S1: There is concentric disc bulging with a superimposed broad-based eawebji-bk-vjxm subarticular extruded disc herniation with slight caudal migration. Minimal indentation of the ventral thecal sac is noted. Disc herniation contacts the S1 nerve root sleeves bilaterally, left more than right. Mild facet joint arthrosis is noted bilaterally without significant central canal stenosis. Mild narrowing of the left subarticular zone is noted. There is mild foraminal narrowing, left more than right without neural impingement. L4-L5: There is concentric disc bulging, asymmetric to the left with left posterolateral annular fissuring, with qbii-rj-hcwufurh flattening of the dural sac asymmetric to the left. Mild facet joint arthrosis is noted, left more than right without central canal stenosis. There is kgmq-pr-lhsuntxo left-sided subarticular recess stenosis, with minimal encroachment on the traversing left L5 nerve root. Mild foraminal narrowing noted on the left, with disc bulging and annular fissuring possibly contacting the exiting left L4 nerve root sleeve. L3-L4: Concentric disc bulging is noted asymmetric to the left with left posterolateral concentric annular fissuring and slight flattening the ventral dural sac, slightly asymmetric to the left. Mild facet joint arthrosis is noted bilaterally without central canal stenosis. There is mild narrowing of the left subarticular zone with minimal encroachment on the traversing left L4 nerve root. Ojkw-gj-lhnauqbu left-sided neural foraminal narrowing is noted with asymmetric disc bulge possibly contacting the exiting left L3 nerve root sleeve. L2-L3: No significant disc bulge or herniation. Mild facet joint arthropathy noted, left more than right. No significant canal or neural foraminal stenosis. L1-L2: Shallow left and right paramedian disc protrusions without significant facet joint arthrosis, canal or neural foraminal stenosis. No neural impingement. T12-L1: Normal annular contour. No facet joint arthrosis, canal or neural foraminal stenosis. Paravertebral and Included Extraspinal Soft Tissues: The visualized paravertebral soft tissues appear grossly unremarkable. Note is made of multiple partially included simple-appearing bilateral renal cysts in addition to a 3.4 cm somewhat complex-appearing cystic mass in the parapelvic portion of the mid right kidney. Numerous bilateral benign renal cysts were identified on ultrasound of 12/05/2023. There is a partially-imaged large partially-fatty mass which may be arising from the right adrenal gland. Given these findings, CT without and with contrast of the abdomen is recommended to further assess. IMPRESSION: 1. Straightening of the lumbar spine with slight retrolisthesis at L5-S1. 2. Multilevel discogenic degenerative changes between L1-L2 and L5-S1 inclusive, with multilevel disc bulging and annular fissuring, as described above, with a central to left subarticular extruded disc herniation at L5-S1 which contacts the S1 nerve root sleeves bilaterally, left more than right. 3. No significant central canal stenosis. Lwzn-qu-ibfmwaxg left-sided subarticular recess stenosis at L4-L5 and mild left subarticular recess stenosis at L3-L4 with minimal encroachment on the traversing left L5 and L4 nerve roots respectively. 4. Vmyw-hf-ghwbyoys degrees of multilevel bilateral facet joint arthropathy, with mtmr-sl-ggdgaicm left-sided neural foraminal narrowing at L3-L4, L4-L5 and L5-S1 without definite neural impingement. 5. Slightly complex-appearing cystic mass in the right kidney and a partially-imaged predominantly fatty mass possibly arising from the right adrenal gland measuring at least 4 cm as suspected on previous ultrasound. Recommend CT of the abdomen without and with contrast to further assess these findings. XR LUMBOSACRAL SPINE 01/22/24 FINDINGS: There are 5 lumbar-type nonrib-bearing vertebrae. The vertebral body heights and alignment are maintained. Intervertebral disc spaces are preserved. Small marginal endplate osteophytes are noted at multiple levels. Mild facet arthropathy in the lumbar spine at multiple levels. Close approximation of the spinous processes is noted which may raise the possibility of Baastrup's disease. No suspicious lytic or blastic osseous lesions are noted. The sacrum and coccyx appear intact. Multiple surgical tacks are noted projecting over the left pelvic region, recommend correlation with history of hernia repair in the region. Paraspinous soft tissues are unremarkable. There is limited evaluation of the sacroiliac joints however probable partial fusion of bilateral sacroiliac joints cannot be excluded. Scattered aortic calcifications. IMPRESSION: No evidence of acute compression fracture or suspicious osseous lesion in the lumbar spine. Mild lumbar spondylosis. Probable partial fusion of bilateral sacroiliac joints. Assessment & Plan Assessment & Plan (1) Lumbar degenerative disc disease: Code(s): M51.369 - Other intervertebral disc degeneration, lumbar region without mention of lumbar back pain or lower extremity pain Category: Medical Qualifiers: Disc-related pain type: unspecified whether pain present Qualified Code(s): M51.369 - Other intervertebral disc degeneration, lumbar region without mention of lumbar back pain or lower extremity pain (2) Lumbosacral spondylosis: Code(s): M47.817 - Spondylosis without myelopathy or radiculopathy, lumbosacral region Category: Medical (3) Chronic low back pain: Code(s): M54.50 - Low back pain, unspecified; G89.29 - Other chronic pain Category: Medical (4) Lumbar radiculopathy: Code(s): M54.16 - Radiculopathy, lumbar region Category: Medical Plan The plan includes scheduling a Right L4-L5 TFESI with local and fluoroscopy. The patient is advised to discontinue aspirin one week prior to the procedure to minimize bleeding risk. Expectations, risks and benefits were reviewed. Patient is aware he will be contacted to schedule this procedure. All questions and concerns have been answered and patient agreed with the treatment plan. Follow up after injection and sooner as needed. Patient was informed and verbally consented to the use of an ambient scribe for clinic note documentation during this visit. Coding Level of Care Code Est Pt Level 4 (96279) Complex EM visit Add On G2211 Diagnoses Degeneration of intervertebral disc of lumbar region, unspecified whether pain present M51.369 Disc-related pain type: unspecified whether pain present Lumbosacral spondylosis M47.817 Chronic low back pain M54.50; G89.29 Lumbar radiculopathy M54.16
[2024-12-29 14:20] VITALS: BP 111/68; PULSE 87; O2SAT 99; BMI 29.4
--- OUTSIDE RECORDS SUMMARY | 2024-12-29 16:47 | XMS_ITS | Patient Health Record ---
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 Name Role Phone INESSA CHAPMAN Primary Care Provider Rene Allan Unavailable [phone] Allergies Allergen (clinical drug ingredient) Drug/Non Drug Allergy documented on EMR Reaction Allergy Type Onset Date Status diclofenac Diclofenac Unknown Drug Allergy Activ e Results Component Value Reference Range Notes CBC WITH AUTO DIFFERENTIAL ( Not yet reviewed by provider) Interpretation: Performing Lab: Notes/Report: WBC 13.1 4.8-10.8 K/mcL RBC 5.10 4.50-5.50 M/mcL Hemoglobin 15.5 13.5-17.5 g/dL Hematocrit 47.2 42.0-54.0 % MCV 92.4 79.0-98.0 FL MCH 30.3 27.0-32.0 pcg MCHC 32.8 32.0-37.0 g/dL RDW 13.8 11.0-15.0 % Platelets 272 130-400 K/mcL MPV 10.4 7.0-11.0 FL NRBC 0.0 <1.0 % NRBC Absolute 0.00 <0.10 K/mcL Neutrophils Relative 62.9 Lymphocytes Relative 25.5 Monocytes Relative 7.5 Eosinophils Relative 2.9 Basophils Relative 0.5 Immature Granulocytes Relative 0.7 Neutrophils Absolute 8.26 1.50-7.00 K/mcL Lymphocytes Absolute 3.34 1.00-5.00 K/mcL Monocytes Absolute 0.98 0.20-1.00 K/mcL Eosinophils Absolute 0.38 0.00-0.50 K/mcL Basophils Absolute 0.07 0.00-0.20 K/mcL Immature Granulocytes Absolute 0.09 0.00-0.03 K/mcL MR BRAIN WO AND W CONTRAST Reviewed date:12/23/2024 05:32:58 PM Interpretation: Performing Lab: Notes/Report: Note See Note [facility], a member of [employer] Patient Name: LESLI ASTORGA Date of : 1955 Reason for Exam: Multiple sclerosis, monitor Exam Date: 12/19/2024 [id number] EST Report Status: Final Ordering Provider: CLOVIS UMANA PCP: INESSA CHAPMAN PROCEDURE: Brain MRI INDICATION: Multiple sclerosis TECHNIQUE: Multiplanar, multisequence MRI of the brain without and with contrast. 20 mL Dotarem injected intravenously without complication from a 20 mL vial COMPARISON: 02/17/2023 FINDINGS: No acute infarct, ma ss effect, or intracranial hemorrhage. Unchanged, partially empty sella. Foramen magnum is within normal limits. Multiple T2 hyperintense foci throughout the supratentorial and infratentorial white matter are stable compared to 2022. For example pontine and left cerebellar T2 hyperintense foci are unchanged. Multiple supratentorial white matter T2 hyperintense foci are also unchanged. No new lesions. No abnormal intracranial enhancement. Ventricles, sulci, a nd cisterns are normal in size and configuration. No hydrocephalus. No abnormal intracranial susceptibility artifact. Major intracranial arterial flow voids are normal. Major dural venous sinuses enhance normally with contrast. Orbits and skull bas e soft tissues are within normal limits. Calvarium is normal. IMPRESSION: Stable demyelinating lesions throughout the supratentorial and infratentorial white matter when compared to 2022. No new lesions or abnormal enhancement to suggest active demyelination. -------- FINAL REPOR T -------- Dictated By: MARY JO THURSTON Dictated Date: 12/23/2024 09:11 ET Assigned Physician: MARY JO THURSTON Reviewed and Electronically Signed By: MARY JO THURSTON Signed Date: 12/23/2024 09:28 ET Workstation ID: [id number] Transcribed By: Self Edit Transcribed Date: 12/23/2024 09:11 ET MR CERVICAL SPINE WO AND W C ONTRAST Reviewed date:12/23/2024 05:32:47 PM Interpretation: Performing Lab: Notes/Report: Note See Note [facility], a member of [employer] Patient Name: LESLI ASTORGA Date of : 1955 Reason for Exam: Multiple sclerosis, monitor Exam Date: 12/19/2024 [id number] EST Report Status: Final Ordering Provider: CLOVIS UMANA PCP: INESSA CHAPMAN PROCEDURE: Cervical spine MRI INDICATION: Multiple sclerosis TECHNIQUE: Multiplanar, multisequence MRI of the Cervical spine without and with contrast. 20 mL Dotarem injected intravenously without complication. COMPARISON: 10/06/19 MRI. FINDINGS: Straightening of the normal cervical lordosis. No fracture or suspicious marrow replacing lesion. Mild multilevel degenerative loss of normal disc height and signal with associated endplate spurring, most pronounced at C5-C6 and C6-7. Mild degenerative facet arthritis throughout the cervical spine. There is a small T2 hyperintense focus within the right dorsolateral cord at the level of T1. Additional T2 hyperintense lesion within the left dorsolateral cord at the level of C7. Left dorsal cord T2 hyperintense lesion at C4-5. The dorsal cord T2 hyperintensity at C3-4. Lesions are all stable compared to the prior exam. No abnormal enhancement. Paraspinal muscles a re within normal limits. Foramen magnum is normal. Findings by level: C2-C3: Mild left and no right foraminal stenosis secondary to uncovertebral spurring and facet arthropathy. No spinal canal stenosis. C3-C4: Mild right an d no left foraminal stenosis secondary to uncovertebral spurring and facet arthropathy. Small posterior disc osteophyte complex without spinal canal stenosis. C4-C5: Mild left foraminal stenosis secondary to uncovertebral spurring and facet arthropathy. No right foraminal or spinal canal stenosis. Small posterior discussed by complex. C5-C6: Posterior discussed by complex results in mild spinal canal stenosis. Bilateral uncovertebral spurring and facet arthropathy with moderate foraminal stenosis bilaterally. C6-C7: Right greater than left facet arthropathy and uncovertebral spurring resulting in moderate right and no left foraminal stenosis. Posterior disc osteophyte complex with mild spinal canal stenosis. C7-T1: No foraminal or spinal canal stenosis. IMPRESSION: Multiple chronic demyelinating lesions throughout the cervical cord are similar compared to 2022. No new lesions or abnormal enhancement to suggest active demyelination. -------- FINAL REPOR T -------- Dictated By: MARY JO THURSTON Dictated Date: 12/23/2024 11:15 ET Assigned Physician: MARY JO THURSTON Reviewed and Electronically Signed By: MARY JO THURSTON Signed Date: 12/23/2024 13:22 ET Workstation ID: [id number] Transcribed By: Self Edit Transcribed Date: 12/23/2024 12:03 ET MYELIN OLIGODENDROCYTE GLYCO PROTEIN ANTIBODY WITH REFLEX TO TITER Reviewed date:08/25/2024 07:47:25 AM Interpretation: Performing Lab: Notes/Report: Test(s) 153801-VAY Antibody, Cell-based IFA was developed and its performance characteristics determined by [facility]. It has not been cleared or approved by the Food and Drug Administration. Performed at: [address] [place] [id number] Injection Moulding Machine Operator: Shanice Cardona MD, Phone: [phone] MOG Antibody, Cell-based IFA Negative Negative NEUROMYELITIS OPTICA, [place] RIN-4-IGG Reviewed date:08/25/2024 07:47:27 AM Interpretation: Performing Lab: Notes/Report: Performed at: [address] [place] [address] [id number] Injection Moulding Machine Operator: Shanice Cardona MD, Phone: [phone] NMO IgG Autoantibodies <1.5 0.0-3.0 U/mL Negative: [...] Ratio (CD4:CD8) 4.8 1.0-3.7 Test performed at [facility], [facility] [place] [address] [place] [address] SJOGRENS ANTIBODIES, SSA AND SSB Reviewed date:08/24/2024 08:02:44 AM Interpretation: Performing Lab: Notes/Report: Sjogren's SS-A (Ro) Ab Quant 1 <20 units Sjogren's SS-A (Ro) Ab Negative Negative Sjogren's SS-B (La) Ab Quant 1 <20 units Sjogren's SS-B (La) Ab Negative Negative INTERFERON GAMMA INTERPRETAT ION Reviewed date:08/24/2024 08:02:47 AM Interpretation: Performing Lab: Notes/Report: Quantiferon Plus Interpretation Negative Negative INTERFERON GAMMA MITOGEN Reviewed date:08/23/2024 10:19:05 AM Interpretation: Performing Lab: Notes/Report: INTERFERON GAMMA ANTIGEN 2 Reviewed date:08/23/2024 10:19:08 AM Interpretation: Performing Lab: Notes/Report: INTERFERON GAMMA ANTIGEN 1 Reviewed date:08/23/2024 10:19:12 AM Interpretation: Performing Lab: Notes/Report: INTERFERON GAMMA NIL Reviewed date:08/23/2024 10:19:16 AM Interpretation: Performing Lab: Notes/Report: VARICELLA ZOSTER ANTIBODY IG G Reviewed date:08/23/2024 09:41:53 AM Interpretation: Performing Lab: Notes/Report: Interpretation >= 1.00 S/CO is considered to be consistent with Immunity Varicella IgG Positive Positive Varicella Zoster IgG 5.33 >=1.00 S/CO HEPATITIS B CORE ANTIBODY, T OTAL Reviewed date:08/23/2024 09:42:01 AM Interpretation: Performing Lab: Notes/Report: Hep B Core Total Ab Negative Negative IMMUNOGLOBULIN IGA Reviewed date:2024 05:40:03 PM Interpretation: Performing Lab: Notes/Report: IgA 251 61-348 mg/dL HEPATITIS B CORE ANTIBODY IG M Reviewed date:08/23/2024 09:42:05 AM Interpretation: Performing Lab: Notes/Report: Over the counter supplements containing high doses of biotin may interfere with this assay. If interference is suspected, patients shoud be retested after refraining from biotin supplements for 72 hours. Hep B Core IgM Negative Negative BORRELIA BURGDORFERI ANTIBOD Y Reviewed date:08/23/2024 09:41:16 AM Interpretation: Performing Lab: Notes/Report: Lyme Ab Negative Negative No laboratory evidence of infection with B. burgdorferi (Lyme disease). Negative results may occur in patients recently infected (<=14 days) with B. burgdorferi. If recent infection is suspected, repeat testing on a new sample collected in 7-14 days is recommended. IMMUNOGLOBULIN IGM Reviewed date:2024 05:39:43 PM Interpretation: Performing Lab: Notes/Report: IgM 59 23-259 mg/dL IMMUNOGLOBULIN IGG Reviewed date:2024 05:40:16 PM Interpretation: Performing Lab: Notes/Report: Total IgG 7762 351-3160 mg/dL DARCY IFA WITH TITER AND KWAKU COOPER Reviewed date:08/25/2024 11:55:07 AM Interpretation: Performing Lab: Notes/Report: DARCY Negative Negative RHEUMATOID FACTOR Reviewed date:2024 05:40:35 [...] Performing Lab: Notes/Report: BUN 17 5-25 mg/dL MICROALBUMIN CREATININE URIN E RATIO Reviewed date:11/19/2024 12:25:28 PM Interpretation: Performing Lab: Notes/Report: Creatinine, Urine 167.0 Microalb, Ur 19.0 0.0-29.0 mg/L Microalb/Creat Ratio 11 <30 mg/g creat HIV 1, 2 ANTIBODY, P24 ANTIG EN [...] Notes/Report: Vit D, 25-Hydroxy 40.6 30.0-80.0 ng/mL PROSTATE SPECIFIC ANTIGEN SC PEGGYN Reviewed date:12/22/2024 12:50:33 PM Interpretation: Performing Lab: Notes/Report: The Siemens Advia Thinktwiceaur Chemiluminescent Immunoassay is used. Results obtained with different assay methods or kits cannot be used interchangeably. Results cannot be interpreted as absolute evidence of the presence or absence of malignant disease. PSA 0.83 0.00-4.00 ng/mL COMPREHENSIVE METABOLIC PANE L Reviewed date:11/19/2024 12:25:16 PM Interpretation: Performing Lab: Notes/Report: Sodium 140 133-145 mmol/L Potassium 4.1 3.5-5.5 mmol/L Hemolysis pre sent Chloride 111 96-110 mmol/L CO2 25 21-32 mmol/L Anion Gap 4 3-11 Glucose 89 70-100 mg/dL BUN 18 5-25 mg/dL Creatinine 1.16 0.70-1.30 mg/dL eGFR 69 >=60 mL/min/1.73m2 Calculation based on the Chronic Kidney Disease Epidemiology Collaboration (CKD-EPI) equation refit without adjustment for race. BUN/Creatinine Ratio 15.5 Calcium 8.4 8.5-10.5 mg/dL AST (SGOT) 24 10-42 unit/L Hemolysis prese nt ALT (SGPT) 32 10-60 unit/L Alkaline Phosphatase 69 42-121 unit/L Total Protein 6.7 6.0-8.0 g/dL Albumin 3.5 3.2-5.0 g/dL Total Bilirubin 0.5 0.0-1.4 mg/dL VITAMIN B12 Reviewed date:2024 05:39:48 PM Interpretation: Performing Lab: Notes/Report: Vitamin B-12 237 250-900 pcg/mL LIPID PANEL WITH REFLEX TO D IRECT LDL Reviewed date:12/22/2024 02:40:56 PM Interpretation: Performing Lab: Notes/Report: Cholesterol 153 0-200 mg/dL Triglycerides 125 0-150 mg/dL HDL 33 >=40 mg/dL LDL Calculated 95 0-100 mg/dL VLDL Cholesterol Dereje 25 Non HDL Chol. (LDL+VLDL) 120 <145 mg/dL Chol/HDL Ratio 4.6 0.0-4.4 CREATININE Reviewed date:2024 05:40:26 PM Interpretation: Performing Lab: Notes/Report: Creatinine 1.03 0.70-1.30 mg/dL eGFR 79 >=60 mL/min/1.73m2 Calculation based on the?Chronic Kidney Disease Epidemiology Collaboration (CKD-EPI) equation refit?without adjustment for race. CBC WITH AUTO DIFFERENTIAL Reviewed date:12/25/2024 04:15:47 PM Interpretation: Performing Lab: Notes/Report: WBC 14.1 4.8-10.8 K/mcL RBC 4.90 4.50-5.50 M/mcL Hemoglobin 14.8 13.5-17.5 g/dL Hematocrit 45.5 42.0-54.0 % MCV 92.3 79.0-98.0 FL MCH 30.0 27.0-32.0 pcg MCHC 32.5 32.0-37.0 g/dL RDW 14.8 11.0-15.0 % Platelets 293 130-400 K/mcL MPV 9.6 7.0-11.0 FL NRBC 0.0 <1.0 % NRBC Absolute 0.00 <0.10 K/mcL Neutrophils Relative 60.4 Lymphocytes Relative 28.9 Monocytes Relative 7.1 Eosinophils Relative 1.6 Basophils Relative 0.7 Immature Granulocytes Relative 1.3 Neutrophils Absolute 8.54 1.50-7.00 K/mcL Lymphocytes Absolute 4.09 1.00-5.00 K/mcL Monocytes Absolute 1.01 0.20-1.00 K/mcL Eosinophils Absolute 0.22 0.00-0.50 K/mcL Basophils Absolute 0.10 0.00-0.20 K/mcL Immature Granulocytes Absolute 0.18 0.00-0.03 K/mcL CBC WITH AUTO DIFFERENTIAL Reviewed date:2024 05:41:03 [...] K/mcL Immature Granulocytes Absolute 0.04 0.00-0.03 K/mcL Comp. Metabolic Panel (14)-3 [id number] Reviewed date:05/07/2024 09:48:52 AM Interpretation: Performing Lab:[facility], [address] [facility], [place], Phone - [phone], Director - Ignacia Notes/Report: Glucose 99 70-99 mg/dL BUN 17 [...] IU/L ALT (SGPT) 20 0-44 IU/L Lipid Panel-[id number] Reviewed date:05/07/2024 09:48:34 AM Interpretation: Performing Lab:[facility] [place], [address] [place] [address], Phone - [phone], Director - Ignacia Notes/Report: Cholesterol, Total 155 100-199 mg/dL Triglycerides 183 0-149 mg/dL HDL Cholesterol 26 >39 mg/dL VLDL Cholesterol Dereje 32 5-40 mg/dL LDL Chol Calc (NIH) 97 0-99 mg/dL Vitamin D, 12-Vevtumn-375800 Reviewed date:05/07/2024 09:48:14 AM Interpretation: Performing [facility] [address] [place] [address], Phone - [phone], Director - Ignacia Notes/Report: Vitamin D, 25-Hydroxy 32.7 30.0-100.0 ng/mL Vitamin D deficiency has been defined by the [place] of [employer] and an Endocrine Society practice guideline as a level of serum 25-OH vitamin D less than 20 ng/mL (1,2). The Endocrine Society went on to further define vitamin D insufficiency as a level between 21 and 29 ng/mL (2). 1. IOM ([place] of Medicine). 2010. Dietary reference intakes for calcium and D. [place]: The National Academies Press. 2. Mark MF, Jose [place], Agatha CARREON, et al. Evaluation, treatment, and prevention of vitamin D deficiency: an Endocrine Society clinical practice guideline. JCEM. 2010; 96(7):1911-30. CBC with Diff, Platelet, NLR -[id number] Reviewed date:05/07/2024 09:48:43 AM Interpretation: Performing Lab:[facility] [place], [address] [facility], [place], Phone - [phone], Director - Ignacia Notes/Report: WBC 13.6 3.4-10.8 [...] % Immature Grans (Abs) 0.1 0.0-0.1 x10E3/uL Ferritin-[id number] Reviewed date:05/07/2024 09:49:13 AM Interpretation: Performing Lab:[facility] [place], [address] [facility], Phone - [phone], [facility]/Report: Ferritin 71 30-400 ng/mL Iron and TIBC-[id number] Reviewed date:05/07/2024 09:49:02 AM Interpretation: Performing Lab:[facility] [place], [address] [facility], [place], Phone - [phone], Director - MDJodry Notes/Report: Iron Bind.Cap.(TIBC) 272 250-450 ug/dL UIBC 174 111-343 ug/dL Iron 98 38-169 ug/dL Iron Saturation 36 15-55 % Reason For Referral Reason constant headache- Diagnosis 1 Headache, unspecifie d (R51.9) Referral Organization [facility] ter Referring Provider First Name Rene Referring Provider Last Name Sanjana Referred Provider Specialty Neurology General Notes faxed to [facility] Neuro, they will call Sonja cohen Brittney 01/03/2024 02:09:53 PM > Referral Priority Routine Reason Tinea unguium- evalu ate and treat Diagnosis 1 Tinea unguium (B35.1 ) Referral Organization [facility] Referring Provider First Name Rene Referring Provider Last Name Sanjana Referred Provider Specialty Podiatry General Notes faxed to [facility] , they will call Sonja cohen Brittney 01/07/2024 01:04:07 PM > Referral Priority Routine Reason BP monitor 48 hour Please evaluate and treat Diagnosis 1 Unspecified acute co njunctivitis, unspecified eye (H10.30) Referral Organization [facility] Referring Provider First Name Jaleel Referring Provider Last Name Sanjana Referred Provider Specialty Nephrology General Notes Please call the [facility] to schedule the appointment, Namrata Boswell 07/20/2024 01:06:22 PM > Referral Priority Stat Reason 48 hour BP monitor; Elevated BP Diagnosis 1 Essential (primary) hypertension (I10) Referral Organization [facility] Referring Provider First Name Jaleel Referring Provider Last Name Sanjana Referred Provider Specialty Cardiology General Notes Faxed to [facility]. Please contact the patient to schedule., Tasha Dudley 08/25/2024 02:51:34 PM > Referral Priority Routine Medications Medication SIG (Take, Route, Frequency, Duration) Notes Start Date End Date Status Albuterol Sulfate HFA 108 (90 Base) MCG/ACT 1 puff as needed Inhalation every 4 hrs; Duration: 30 days Active Caladryl 1-8 % 1 application as needed Externally Three times a day; Duration: 30 days 07/08/2023 Not-Taking Breo Ellipta 100-25 MCG/ACT 1 puff Inhalation Once a day; Duration: 30 days 08/22/2023 Active predniSONE 20 MG 1 tablet Orally Once a day; Duration: 7 days 10/18/2023 Not-Taking Bdgqvrsu-Tzosbmxgp-Edggir th 3.5-86486-5.1 1 drop into affected eye Ophthalmic Four times a day; Duration: 30 days 07/15/2024 Active amLODIPine Besylate 10 MG 1 tablet Orall y Once a day Active Gas Relief 80 MG 1 tablet after meals and at bedtime as needed Orally Four times a day; Duration: 30 days 08/17/2024 Active Levocetirizine Dihydrochloride 5 MG 1 tablet in the evening Orally Once a day; Duration: 90 days Active lamoTRIgine 25 & 50 & 100 MG as directed Orally daily; Duration: 90 days 04/29/2024 Active lamoTRIgine Starter Kit-Independence 42 x 25 MG & 7 x 100 MG as directed Orally daily; Duration: 30 days Active Doxycycline Hyclate 100 MG 1 tablet Orally twice a day; Duration: 10 days 11/22/2023 Not-Taking PARoxetine HCl 30 MG TAKE 1 TABLET BY MOUTH EVERY MORNING; Duration: 90 Active Benzonatate 100 MG 1 capsule as needed Orally Three times a day; Duration: 7 days 08/26/2024 Not-Taking Cyclobenzaprine HCl 10 MG 1 tablet at bedtime as needed Orally Once a day; Duration: 30 days 2023 Active Align 10 MG as directed Orally DAILY; Duration: 30 days 08/17/2024 Active Pantoprazole Sodium 40 MG TAKE 1 TABLET BY MOUTH EVERY DAY FOR 30 DAYS; Duration: 90 Active Fluticasone Propionate 50 MCG/ACT 1 spray in each nostril Nasally Twice a day; Duration: 30 days Active Pantoprazole Sodium 20 MG TAKE 1 TABLET BY MOUTH EVERY DAY FOR 30 DAYS; Duration: 90 Active Atorvastatin Calcium 40 MG TAKE 1 TABLET BY MOUTH EVERY DAY FOR 90 DAYS; Duration: 90 Active Hydrocortisone 2.5 % APPLY 1 APPLICATION EXTERNALLY EVERY DAY; Duration: 56 Active clonazePAM 0.5 MG 1 tablet at bedtime Orally Once a day; Duration: 30 days 07/08/2023 Not-Taking Losartan Potassium 25 MG TAKE 1 TABLET B Y MOUTH EVERY DAY FOR 30 DAYS; Duration: 90 Active Celecoxib 200 MG 1 capsule with food Orally Once a day; Duration: 30 day(s) 07/11/2023 Not-Taking LORazepam 0.5 MG 1 tablet at bedtime as needed Orally Once a day; Duration: 45 days 11/18/2024 Active Ocrelizumab 300 MG/10ML as directed Intravenous weekly; Duration: 30 days 07/12/2023 Active hydroCHLOROthiazide 12.5 MG TAKE 1 TABLET BY MOUTH EVERY DAY IN THE MORNING; Duration: 90 Active Bisoprolol Fumarate 5 MG 1 tablet Orally Once a day; Duration: 90 days Active Pregabalin 50 MG 1 capsule in the evening 1 to 3 hours before bedtime Orally Once a day; Duration: 28 days 2023 Active Riboflavin 400 MG 1 capsule Orally Once a day; Duration: 30 days 12/05/2023 Not-Taking oxyCODONE HCl 5 MG 1 tablet as needed Orally every 12 hrs; Duration: 5 days 11/25/2023 Not-Taking Tamsulosin HCl 0.4 MG 1 capsule Orally TWICE A DAY; Duration: 30 days ADJUSTED BY UROLOGY 01/29/2023 Active Acyclovir 5 % 1 application Externally Five times a day; Duration: 10 days 01/29/2023 Not-Taking Aspirin 81 MG 1 tablet Orally Once a day; Duration: 30 day(s) 07/11/2023 Active Align 4 MG as directed Orally DAILY; Duration: 90 days 2023 Not-Taking CeleBREX 200 MG 1 capsule with food Orally Once a day; Duration: 30 days 2023 Active Advair HFA 115-21 MCG/ACT 2 puffs Inhalation Twice a day; Duration: 30 days 07/25/2023 Active lamoTRIgine 100 MG TAKE 1 TABLET BY MOUTH DAILY; Duration: 30 Active Spiriva HandiHaler 18 MCG 1 capsule by inhaling the contents of the capsule using the HandiHaler device Inhalation Once a day; Duration: 30 days 07/25/2023 Active Hydrocortisone 2 % 1 application Externally Twice a day; Duration: 14 days 11/22/2023 Not-Taking Immunizations Vaccine Route Administration Date Status Comme [...] Status Risk Notes Problem Genital herpes simplex (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) Herpesviral infection of urogenital system, unspecified (A60.00) Active confirmed Problem Mixed hyperlipidemia (155946294) Mixed hyperlipidemia (E78.2) Active confirmed Problem Tobacco user (198344338) Nicotine dependence, unspecified, uncomplicated (F17.200) Active confirmed Problem Tobacco user (579980348) Nicotine dependence, cigarettes, uncomplicated (F17.210) Active confirmed Problem Generalized anxiety disorder (26507219) Generalized anxiety disorder (F41.1) Active confirmed Problem Multiple sclerosis (63621858) Multiple sclerosis (G35) Active confirmed Problem Insomnia (660654520) Insomnia, unspecified (G47.00) Active confirmed Problem Hearing loss (38896817) Unspecified hearing loss, unspecified ear (H91.90) Active confirmed Problem Intermittent claudication of bilateral lower limbs co-occurrent and due to atherosclerosis (65165321369615511) Atherosclerosis of [place] arteries of extremities with intermittent claudication, 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) Active confirmed Problem Chronic obstructive pulmonary disease (68449457) Chronic obstructive pulmonary disease, unspecified (J44.9) Active confirmed Problem Gastro-esophageal reflux disease without esophagitis (542239677) Gastro-esophageal reflux disease without esophagitis (K21.9) Active confirmed Problem Constipation (84601341) Constipation, unspecified (K59.00) Active confirmed Problem Osteoarthritis (708512303) Polyosteoarthriti s, unspecified (M15.9) Active confirmed Problem Osteoarthritis of knee (289111192) Osteoarthritis of knee, unspecified (M17.9) Active confirmed Problem Acquired spondylolisthesis (392367344) Spondylolisthesis , lumbar region (M43.16) Active confirmed Problem Degeneration of thoracolumbar intervertebral disc (87301952) Other intervertebral disc degeneration, thoracolumbar region (M51.35) Active confirmed Problem Degeneration of lumbar intervertebral disc (69456972) Other intervertebral disc degeneration, lumbar region (M51.36) Active confirmed Problem Erectile dysfunction (disorder) (560042098) Male erectile dysfunction, unspecified (N52.9) Active confirmed Problem 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, 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) Active confirmed Problem Wheezing (02062445) Wheezing (R06.2) Active con firmed Problem Adult health examination (442250656) Encounter for general adult medical examination without abnormal findings (Z00.00) Active confirmed Problem Body mass index 30+ - obesity (734731143) Body mass index (BMI) 30.0-30.9, adult (Z68.30) Active confirmed Problem Essential hypertension (10133674) Essential (primary) hypertension (I10) Active confirmed Problem Benign prostatic hypertrophy without outflow obstruction (966350352) Benign prostatic hyperplasia without lower urinary tract symptoms (N40.0) Active confirmed Problem Lower urinary tract symptoms due to benign prostatic hypertrophy (37818335364540) Benign prostatic hyperplasia with lower urinary tract symptoms (N40.1) Active confirmed Problem Atherosclerotic heart disease of [place] coronary artery without angina pectoris (099506274658618) Coronary artery disease involving [place] coronary artery of [place] heart without angina pectoris (I25.10) Active confirmed Problem Seasonal allergy ([id number]) Seasonal allergies (J30.2) Active confirmed Vital Signs Heart Rate 92 /min 11/18/2024 Temperature 96.4 degrees Fahrenheit 11/18/2024 Oximetry 98 % 11/18/2024 Blood pressure diastolic 70 mm Hg 11/18/2024 Height 70.5 in 11/18/2024 Blood pressure systolic 124 mm Hg 11/18/2024 Weight 216.9 lbs 11/18/2024 BMI 30.68 kg/m2 11/18/2024 Encounters Encounter Location Date Provider Diagnosis [address] [place] [address] 12/28/[address] [place] [address] 12/31/[address] [place] [address] 01/20/[address] [place] [address] 01/27/[address] [place] [address] 02/06/2024 [facility] Herpesviral infectio n, unspecified B00.[address] [place] [address] 03/11/[address] [facility] [place] [address] 03/16/2024 [facility] [address] [facility] [place] [address] 04/24/2024 [facility] [address] [facility] [place] [address] 04/27/2024 [facility] [address] [facility] [place] [address] 05/01/2024 [facility] Headache, unspecifie d R51.9 [facility] [address] [place] [address] 05/05[facility] [address] [place] [address] 05/08/2024 [facility] Kidney cysts N28.1 [facility] [address] [place] [address] 05/21/2024 [facility] [address] [place] [address] 06/02/2024 [facility] [address] [facility] [place] [address] 07/13/2024 [facility] [address] [place] [address] 07/14/2024 [facility] [address] [place] [address] 07/20/2024 Jaleeler Joeloum [facility] [address] [place] [address] 07/21/2024 [facility] [address] [facility] [place] [address] 07/21/2024 [facility] [address] [place] [address] 07/27/2024 [facility] [address] [place] [address] 07/28/2024 [facility]er [facility] [address] [place] [address] 08/17/2024 [facility] [address] [place] [address] 08/20/2024 [facility] [address] [place] [address] 2024 [facility] [address] [place] [address] 08/26/2024 [facility] [address] [place] [address] 08/27/2024 [facility] [address] [place] [address] 08/27/2024 [facility] [address] [place] [address] 09/16/2024 [facility] [address] [place] [address] 11/12/2024 [facility] [address] [place] [address] 12/25/2024 [facility] Essential (primary) hypertension I10 [facility] [address] [place] [address] 07/15/2024 Ghadeer Mazloum Headache, unspecifie d R51.9 ; Essential (primary) hypertension I10 and Unspecified acute conjunctivitis, unspecified eye H10.30 [facility] [address] [place] [address] 11/18/2024 Ghadeer Mazloum Essential (primary) hypertension I10 ; Generalized anxiety disorder F41.1 ; Mixed hyperlipidemia E78.2 ; Gastro-esophageal reflux disease without esophagitis K21.9 ; Benign prostatic hyperplasia without lower urinary tract symptoms N40.0 ; Chronic obstructive pulmonary disease, unspecified J44.9 ; Multiple sclerosis G35 ; Nicotine dependence, unspecified, uncomplicated F17.200 and Encounter for screening for malignant neoplasm of prostate Z12.[address] [address] 01/03/2024 Ghadeer Mazloum Folliculitis L73.9 ; Dermatitis L30.9 and Tinea unguium B35.[address] [address] 04/29/2024 Ghadeer Mazloum Headache, unspecifie d R51.9 ; Acute sinusitis, unspecified J01.90 and Encounter for screening for cardiovascular disorders Z13.[address] [address] 08/17/2024 WYLIE GUL Essential (primary) hypertension I10 and Flatulence R14.[address] [address] 05/06/2024 Ghadeer Mazloum Assessments Encounter Date Diagnosis (ICD Code) Assessment Notes Treatment Notes Treatment Clinical Notes Section Notes 01/03/2024 Dermatitis (ICD-10 - L30.9) Mr. Astorga is a 68-year-old gentleman with [...] podiatry 01/03/2024 Folliculitis (ICD-10 - L73.9) Mr. Astorga is a 68-year-old gentleman with [...] Acute sinusitis, unspecified (ICD-10 - J01.90) Mr. Astorga is a 68-year-old gentleman with [...] - He is currently getting managed by [facility]. I have spent 20 mins w/ patient Screening BW before next appt General concerns have been discussed. I have rendered the services for this patient under direct supervision of Dr. Chapman, who did not see the patient but was available upon request 04/29/2024 Headache, unspecified (ICD-10 - R51.9) Mr. Asotrga is a 68-year-old gentleman with acid reflux, [...] - He is currently getting managed by [facility]. I have spent 20 mins w/ [...] a 48-hour blood pressure monitor. Given the intermittent/epi sodic headache and high blood pressure. I will rule out pheochromocytoma . Order blood work Hydration is recommended and reducing salt intake Headache - Stable on Lamictal. Continue Lamictal 100 mg. Refilled his medications General concerns have been discussed. I have rendered the services for this patient under direct supervision of Dr. Chapman, who did not see the patient but was available upon request 07/15/2024 Headache, unspecified (ICD-10 - R51.9) Mr. Astorga is a 68-year-old gentleman with acid reflux, BPH, generalized anxiety disorder, hypertension, HSV and dyslipidemia here for BP check. Plan as follows: HTN - BP is within normal limit. Continue on Bisoprolol and losartan 25mg. I will also get a 48-hour blood pressure monitor. Given the intermittent/epi sodic headache and high blood pressure. I will rule out pheochromocytoma . Order blood work Hydration is recommended and reducing salt intake Headache - Stable on Lamictal. Continue Lamictal 100 mg. Refilled his medications General concerns have been discussed. I have rendered the services for this patient under direct supervision of Dr. Chapman, who did not see the patient but was available upon request 08/17/2024 Flatulence (ICD-10 - R14.3) Mr. Astorga [...] and increase regular exercise and weight loss 11/18/2024 Generalized anxiety disorder (ICD-10 - F41.1) Mr. Astorga is a 69-year-old gentleman with acid reflux, BPH, generalized anxiety disorder, hypertension, MS, HSV and dyslipidemia here For anxiety and discussion of the handicap form. Plan as follows Hyperlipidemia. Last lipid panel within normal limits. Continue Atorvastatin 40 MG once a day. Check lipid panel Hypertension. Blood pressure is wihtin reasonable limits. Continue other current regimen. Check comp of microalbumin. He does follow with a tack cutter Generalized anxiety disorder. Continue on fluoxetine, lorazepam prescription will be given to be taken as needed. Patient has been informed that if requesting a refill sooner than 6 months and he will be required to sign a controlled substance. He voices understanding. GERD. Stable on Pantoprazole 40 mg once a day. BPH. Stable on Tamsulosin 0.4 MG once a day. MS. Continue Ocrelizumab 300 MG/10 ML weekly. COPD. Stable, No recent exacerbation. Continue on Advair, Spiriva. Nicotine dependence. Smoking cessation discussed. Complications discussed as well. Screening blood work before next appointment General concerns have been discussed I have rendered the services for this patient under direct supervision of Dr. Chapman, who did not see the patient but was available upon request Content of this note has been dictated using voice recognition software. Despite multiple revisions, Errors may persist 11/18/2024 Essential (primary) hypertension (ICD-10 - I10) Mr. Astorga is a 69-year-old gentleman with acid reflux, BPH, generalized anxiety disorder, hypertension, MS, HSV and dyslipidemia here For anxiety and discussion of the handicap form. Plan as follows Hyperlipidemia. Last lipid panel within normal limits. Continue Atorvastatin 40 MG once a day. Check lipid panel Hypertension. Blood pressure is wihtin reasonable limits. Continue other current regimen. Check comp of microalbumin. He does follow with a tack cutter Generalized anxiety disorder. Continue on fluoxetine, lorazepam prescription will be given to be taken as needed. Patient has been informed that if requesting a refill sooner than 6 months and he will be required to sign a controlled substance. He voices understanding. GERD. Stable on Pantoprazole 40 mg once a day. BPH. Stable on Tamsulosin 0.4 MG once a day. MS. Continue Ocrelizumab 300 MG/10 ML weekly. COPD. Stable, No recent exacerbation. Continue on Advair, Spiriva. Nicotine dependence. Smoking cessation discussed. Complications discussed as well. Screening blood work before next appointment General concerns have been discussed I have rendered the services for this patient under direct supervision of Dr. Chapman, who did not see the patient but was available upon request Content of this note has been dictated using voice recognition software. Despite multiple revisions, Errors may persist 12/25/2024 Essential (primary) hypertension (ICD-10 - I10) 11/18/2024 Mixed hyperlipidemia (ICD-10 - E78.2) Mr. Astorga is a 69-year-old gentleman with acid reflux, BPH, generalized anxiety disorder, hypertension, MS, HSV and dyslipidemia here For anxiety and discussion of the handicap form. Plan as follows Hyperlipidemia. Last lipid panel within normal limits. Continue Atorvastatin 40 MG once a day. Check lipid panel Hypertension. Blood pressure is wihtin reasonable limits. Continue other current regimen. Check comp of microalbumin. He does follow with a tack cutter Generalized anxiety disorder. Continue on fluoxetine, lorazepam prescription will be given to be taken as needed. Patient has been informed that if requesting a refill sooner than 6 months and he will be required to sign a controlled substance. He voices understanding. GERD. Stable on Pantoprazole 40 mg once a day. BPH. Stable on Tamsulosin 0.4 MG once a day. MS. Continue Ocrelizumab 300 MG/10 ML weekly. COPD. Stable, No recent exacerbation. Continue on Advair, Spiriva. Nicotine dependence. Smoking cessation discussed. Complications discussed as well. Screening blood work before next appointment General concerns have been discussed I have rendered the services for this patient under direct supervision of Dr. Chapman, who did not see the patient but was available upon request Content of this note has been dictated using voice recognition software. Despite multiple revisions, Errors may persist 01/03/2024 Tinea unguium (ICD-10 - B35.1) Mr. Astorga is a 68-year-old gentleman with [...] Neurology. Tinea Unguium: - Referred to podiatry 07/15/2024 Unspecified acute conjunctivitis, unspecified eye (ICD-10 - H10.30) Mr. Astorga is a 68-year-old gentleman with acid reflux, BPH, generalized anxiety disorder, hypertension, HSV and dyslipidemia here for BP check. Plan as follows: HTN - BP is within normal limit. Continue on Bisoprolol and losartan 25mg. I will also get a 48-hour blood pressure monitor. Given the intermittent/epi sodic headache and high blood pressure. I will rule out pheochromocytoma . Order blood work Hydration is recommended and reducing salt intake Headache - Stable on Lamictal. Continue Lamictal 100 mg. Refilled his medications General concerns have been discussed. I have rendered the services for this patient under direct supervision of Dr. Chapman, who did not see the patient but was available upon request 04/29/2024 Encounter for screening for cardiovascular disorders (ICD-10 - Z13.6) Mr. Astorga is a 68-year-old gentleman with [...] - He is currently getting managed by [facility]. I have spent 20 mins w/ patient Screening BW before next appt General concerns have been discussed. I have rendered the services for this patient under direct supervision of Dr. Chapman, who did not see the patient but was available upon request 11/18/2024 Gastro-esophageal reflux disease without esophagitis (ICD-10 - K21.9) Mr. Astorga is a 69-year-old gentleman with acid reflux, BPH, generalized anxiety disorder, hypertension, MS, HSV and dyslipidemia here For anxiety and discussion of the handicap form. Plan as follows Hyperlipidemia. Last lipid panel within normal limits. Continue Atorvastatin 40 MG once a day. Check lipid panel Hypertension. Blood pressure is wihtin reasonable limits. Continue other current regimen. Check comp of microalbumin. He does follow with a tack cutter Generalized anxiety disorder. Continue on fluoxetine, lorazepam prescription will be given to be taken as needed. Patient has been informed that if requesting a refill sooner than 6 months and he will be required to sign a controlled substance. He voices understanding. GERD. Stable on Pantoprazole 40 mg once a day. BPH. Stable on Tamsulosin 0.4 MG once a day. MS. Continue Ocrelizumab 300 MG/10 ML weekly. COPD. Stable, No recent exacerbation. Continue on Advair, Spiriva. Nicotine dependence. Smoking cessation discussed. Complications discussed as well. Screening blood work before next appointment General concerns have been discussed I have rendered the services for this patient under direct supervision of Dr. Chapman, who did not see the patient but was available upon request Content of this note has been dictated using voice recognition software. Despite multiple revisions, Errors may persist 11/18/2024 Benign prostatic hyperplasia without lower urinary tract symptoms (ICD-10 - N40.0) Mr. Astorga is a 69-year-old gentleman with acid reflux, BPH, generalized anxiety disorder, hypertension, MS, HSV and dyslipidemia here For anxiety and discussion of the handicap form. Plan as follows Hyperlipidemia. Last lipid panel within normal limits. Continue Atorvastatin 40 MG once a day. Check lipid panel Hypertension. Blood pressure is wihtin reasonable limits. Continue other current regimen. Check comp of microalbumin. He does follow with a tack cutter Generalized anxiety disorder. Continue on fluoxetine, lorazepam prescription will be given to be taken as needed. Patient has been informed that if requesting a refill sooner than 6 months and he will be required to sign a controlled substance. He voices understanding. GERD. Stable on Pantoprazole 40 mg once a day. BPH. Stable on Tamsulosin 0.4 MG once a day. MS. Continue Ocrelizumab 300 MG/10 ML weekly. COPD. Stable, No recent exacerbation. Continue on Advair, Spiriva. Nicotine dependence. Smoking cessation discussed. Complications discussed as well. Screening blood work before next appointment General concerns have been discussed I have rendered the services for this patient under direct supervision of Dr. Chapman, who did not see the patient but was available upon request Content of this note has been dictated using voice recognition software. Despite multiple revisions, Errors may persist 11/18/2024 Chronic obstructive pulmonary disease, unspecified (ICD-10 - J44.9) Mr. Astorga is a 69-year-old gentleman with acid reflux, BPH, generalized anxiety disorder, hypertension, MS, HSV and dyslipidemia here For anxiety and discussion of the handicap form. Plan as follows Hyperlipidemia. Last lipid panel within normal limits. Continue Atorvastatin 40 MG once a day. Check lipid panel Hypertension. Blood pressure is wihtin reasonable limits. Continue other current regimen. Check comp of microalbumin. He does follow with a tack cutter Generalized anxiety disorder. Continue on fluoxetine, lorazepam prescription will be given to be taken as needed. Patient has been informed that if requesting a refill sooner than 6 months and he will be required to sign a controlled substance. He voices understanding. GERD. Stable on Pantoprazole 40 mg once a day. BPH. Stable on Tamsulosin 0.4 MG once a day. MS. Continue Ocrelizumab 300 MG/10 ML weekly. COPD. Stable, No recent exacerbation. Continue on Advair, Spiriva. Nicotine dependence. Smoking cessation discussed. Complications discussed as well. Screening blood work before next appointment General concerns have been discussed I have rendered the services for this patient under direct supervision of Dr. Chapman, who did not see the patient but was available upon request Content of this note has been dictated using voice recognition software. Despite multiple revisions, Errors may persist 11/18/2024 Multiple sclerosis (ICD-10 - G35) Mr. Astorga is a 69-year-old gentleman with acid reflux, BPH, generalized anxiety disorder, hypertension, MS, HSV and dyslipidemia here For anxiety and discussion of the handicap form. Plan as follows Hyperlipidemia. Last lipid panel within normal limits. Continue Atorvastatin 40 MG once a day. Check lipid panel Hypertension. Blood pressure is wihtin reasonable limits. Continue other current regimen. Check comp of microalbumin. He does follow with a tack cutter Generalized anxiety disorder. Continue on fluoxetine, lorazepam prescription will be given to be taken as needed. Patient has been informed that if requesting a refill sooner than 6 months and he will be required to sign a controlled substance. He voices understanding. GERD. Stable on Pantoprazole 40 mg once a day. BPH. Stable on Tamsulosin 0.4 MG once a day. MS. Continue Ocrelizumab 300 MG/10 ML weekly. COPD. Stable, No recent exacerbation. Continue on Advair, Spiriva. Nicotine dependence. Smoking cessation discussed. Complications discussed as well. Screening blood work before next appointment General concerns have been discussed I have rendered the services for this patient under direct supervision of Dr. Chapman, who did not see the patient but was available upon request Content of this note has been dictated using voice recognition software. Despite multiple revisions, Errors may persist 11/18/2024 Nicotine dependence, unspecified, uncomplicated (ICD-10 - F17.200) Mr. Astorga is a 69-year-old gentleman with acid reflux, BPH, generalized anxiety disorder, hypertension, MS, HSV and dyslipidemia here For anxiety and discussion of the handicap form. Plan as follows Hyperlipidemia. Last lipid panel within normal limits. Continue Atorvastatin 40 MG once a day. Check lipid panel Hypertension. Blood pressure is wihtin reasonable limits. Continue other current regimen. Check comp of microalbumin. He does follow with a tack cutter Generalized anxiety disorder. Continue on fluoxetine, lorazepam prescription will be given to be taken as needed. Patient has been informed that if requesting a refill sooner than 6 months and he will be required to sign a controlled substance. He voices understanding. GERD. Stable on Pantoprazole 40 mg once a day. BPH. Stable on Tamsulosin 0.4 MG once a day. MS. Continue Ocrelizumab 300 MG/10 ML weekly. COPD. Stable, No recent exacerbation. Continue on Advair, Spiriva. Nicotine dependence. Smoking cessation discussed. Complications discussed as well. Screening blood work before next appointment General concerns have been discussed I have rendered the services for this patient under direct supervision of Dr. Chapman, who did not see the patient but was available upon request Content of this note has been dictated using voice recognition software. Despite multiple revisions, Errors may persist 11/18/2024 Encounter for screening for malignant neoplasm of prostate (ICD-10 - Z12.5) Mr. Astorga is a 69-year-old gentleman with acid reflux, BPH, generalized anxiety disorder, hypertension, MS, HSV and dyslipidemia here For anxiety and discussion of the handicap form. Plan as follows Hyperlipidemia. Last lipid panel within normal limits. Continue Atorvastatin 40 MG once a day. Check lipid panel Hypertension. Blood pressure is wihtin reasonable limits. Continue other current regimen. Check comp of microalbumin. He does follow with a tack cutter Generalized anxiety disorder. Continue on fluoxetine, lorazepam prescription will be given to be taken as needed. Patient has been informed that if requesting a refill sooner than 6 months and he will be required to sign a controlled substance. He voices understanding. GERD. Stable on Pantoprazole 40 mg once a day. BPH. Stable on Tamsulosin 0.4 MG once a day. MS. Continue Ocrelizumab 300 MG/10 ML weekly. COPD. Stable, No recent exacerbation. Continue on Advair, Spiriva. Nicotine dependence. Smoking cessation discussed. Complications discussed as well. Screening blood work before next appointment General concerns have been discussed I have rendered the services for this patient under direct supervision of Dr. Chapman, who did not see the patient but was available upon request Content of this note has been dictated using voice recognition software. Despite multiple revisions, Errors may persist Plan Of Treatment Pending Test Test Name Order Date MRI : Brain 07/08/2023 HEMOGLOBIN A1C 02/20/2023 CT Abdomen W WO 05/08/2024 Metanephrines, Pheochromocyt-[id number] 06/21 Catecholamines,Ur.,Free,24 Hr-[id number] Metanephrines, Frac, Qn, [id number] Rheumatoid Factor (RF)-[id number] 12/06/2023 CBC/Differential (No Platelet)-[id number] CBC/Differential (No Platelet)-[id number] Albumin/Creatinine Ratio,Urine-[id number] Anti-CCP Ab, IgG/IgA-[id number] 12/06/2023 Lipid Panel-[id number] 11/18/2024 Comp. Metabolic Panel ([id number] 2024 Comp. Metabolic Panel ([id number] 2024 PSA (Serial Monitor)-[id number] 11/18/2024 DARCY Profile 12 (RDL)-[id number] 12/06/2023 Hemoglobin A1c 07/11/2023 CBC WITH AUTO DIFFERENTIAL 12/29/2024 Insurance Providers Payer Name Payer Address Payer Phone Subscriber Number Group Number Insured Name Patient Relationship to Insured Coverage Start Date Coverage End Date [employer] Preferred [address] [place] [address] [phone] [id number] Lesli Astorga Self - patient is the insured Medical (General) History Medical History History ICD Code hypertension, benign hyperlipidemia acid reflux Benign prostatic hypertrophy Nicotine dependence herpes genitalis right renal cyst on recent imaging in [place] Migraines Hospitalization History Reason Date(Month/Year) dizziness, weakness, headache, elevated BP-went in [facility]
--- OUTSIDE RECORDS SUMMARY | 2024-12-29 16:47 | XMS_ITS | Clinical Summary ---
Author Organization [facility] Address [address] [place] [address] Phone Care Team Providers Care Transplanter Name Role Phone Whit Dawson MD Primary Care Provider [phone] Allergies Active Allergy Reactions Criticality Noted Date [...] Infuse 600 mg into a venous catheter. 09/11/19 24 Active dalfampridine (Ampyra) 10 mg tablet extended release 12 hr Take one tablet (10 mg) by mouth 2 (two) times a day. 60 each 3 10:44 AM EDT 08/21/19 25 Active amLODIPine (NORVASC) 5 mg tablet Take by mouth 1 (one) time each day. Active cyanocobalamin 2,000 mcg ER tablet Take 1 tablet (2,000 mcg total) by mouth 1 (one) time each day. 30 tablet 11 08/26/19 25 026 Active calcium carbonate-chelsea min D3 1,000 mg-20 mcg (800 unit) tablet TAKE 1 TABLET BY MOUTH EVERY DAY 30 tablet 3 12/03/19 25 Active lamoTRIgine (LaMICtal) 100 mg tablet Take by mouth. 025 Discontinued(Th erapy completed) calcium carb-vitamin D3-vit K2 600 mg-1,000 unit-90 mcg tablet Take 1 tablet by mouth 1 (one) time each day. 30 tablet 3 12/01/19 25 025 Discontinued calcium carbonate-chelsea min D3 1,000 mg-20 mcg (800 unit) tablet TAKE 1 TABLET BY MOUTH 1 TIME EACH DAY. 30 tablet 3 12/02/19 25 025 Discontinued Active Problems Problem Noted Date Diagnosed Date MS (multiple sclerosis) ([facility] V24, [facility] V2 8) 09/08/2024 Encounters Date Type Department Care Team Description 12/19/2024 12:16 PM EDT - 12/19/2024 11:59 PM EDT Hospital Encounter [facility] [address] [place] [address] Multiple sclerosis ([facility]/HCC V24, CMS/[facility] V28) Discharge Disposition: Home or Self Care 12/19/2024 12:09 PM EDT - 12/19/2024 11:59 PM EDT Hospital Encounter [facility] MRI [address] [place] [address] Multiple sclerosis (CMS/HCC V24, CMS/[facility] V28) Discharge Disposition: Home or Self Care 11/30/2024 3:30 PM EDT Office Visit [facility] [address] [place] [address] Karan Lee MD Multiple sclerosis (CMS/HCC V24, CMS/[facility] V28) (Primary Dx); Vitamin D deficiency; Gait abnormality; Mood changes; Vitamin B12 deficiency 11/19/2024 7:35 AM EDT Lab Draw Station - [address] [place] [phone] Essential hypertension, malignant (Primary Dx); Mixed hyperlipidemia; Special screening for malignant neoplasm of prostate; MS (multiple sclerosis) ([facility] V24, [facility] V28) 11/05/2024 Telephone [facility] [address] [phone] [place] 10/08/2024 [facility] [address] [phone] Andrea Thompson, KENNETH 10/08/2024 [facility] [address] [phone] Andrea Thompson, RN from Last 3 Months Surgical History Surgery [...] Date Smoking Tobacco: Every Day Cigarettes 1 50.4 Started: 1974 Smokeless Tobacco: Never Tobacco Cessation:Ready [...] Sign Reading Time Taken Comments Blood Pressure 119/76 11/30/2024 3:13 PM EDT Pulse 80 11/30/2024 3:13 PM EDT Temperature 36.2 C (97.1 F) 11/30/2024 3:13 PM EDT Respiratory Rate 16 09/08/2024 1:12 PM EDT Oxygen Saturation 96% 11/30/2024 3:13 PM EDT Inhaled Oxygen Concentration - - Weight 97.5 kg (215 lb) 11/30/2024 3:13 PM EDT Height 182.9 cm (6') 11/30/2024 3:13 PM EDT Body Mass Index 29.16 11/30/2024 3:13 PM EDT Plan of Treatment Upcoming Encounters Date Type Department Care Team (Late st Contact Info) Description 03/08/2025 10:00 AM EST Appointment [facility] [place] [address] [facility] [address] [place] [phone] 03/08/2025 11:40 AM EST Office Visit [facility] [place] [address] [facility] [address] [place] [phone] Karan Lee MD [address] [place] [phone] Health Maintenance Due Date Last Done Comments DTaP,Tdap,and Td Vaccines (1 - Tdap) 08/22/1975 Pneumococcal Vaccine: 50+ Years (1 of 2 - PCV) 08/22/1975 Zoster Vaccines (1 of 2) 2006 RSV Immunization Adult Patients (1 - Risk 60-74 years 1-dose series) 2016 Abdominal Aortic Aneurysm (AAA) Screen 01/30/2024 Colorectal Cancer Screening: Colonoscopy 01/30/2024 Falls Risk Assessment 01/30/2024 Lung Cancer Screening (Low Dose CT) 01/30/2024 Medicare Annual Wellness Visit 01/30/2024 Social Influencers of Health Screening 01/30/2024 Depression Screening 04/22/2024 COVID-19 Vaccine ( - season) 2024 07/15/2020 Hypertension/CHF/CAD Annual BMP Blood Test 11/19/2025 11/19/2024, 2024 Cholesterol Screening (Lipid Panel) 11/19/2029 11/19/2024 Hepatitis C Screening Completed 2024 Influenza Vaccine Completed 12/19/2024, , 03/02/2023, Additional history exists HIB Vaccines Aged Out No longer eligi [...] Procedure Name Priority Date/Time Associated Diagnosis Comments CBC WITH AUTO DIFFERENTIAL Routine 12/29/2024 1:49 PM EDT MS (multiple sclerosis) ([facility] V24, [facility] V28) CBC AND DIFFERENTIAL Routine 12/29/2024 1:49 PM EDT MS (multiple sclerosis) ([facility] V24, [facility] V28) MR CERVICAL SPINE WO AND W CONTRAST Routine 12/19/2024 1:43 PM EDT Multiple sclerosis ([facility]/HCC V24, [facility] V28) MR BRAIN WO AND W CONTRAST Routine 12/19/2024 1:42 PM EDT Multiple sclerosis (CMS/HCC V24, CMS/HCC V28) MICROALBUMIN CREATININE URINE RATIO Routine 11/19/2024 7:56 AM EDT Essential hypertension, malignant Mixed hyperlipidemia Special screening for malignant neoplasm of prostate CBC WITH AUTO DIFFERENTIAL Routine 11/19/2024 7:41 AM EDT MS (multiple sclerosis) (CMS/HCC V24, CMS/HCC V28) CBC AND DIFFERENTIAL Routine 11/19/2024 7:41 AM EDT MS (multiple sclerosis) (CMS/HCC V24, CMS/HCC V28) PROSTATE SPECIFIC ANTIGEN SCREEN Routine 11/19/2024 7:41 AM EDT Essential hypertension, malignant Mixed hyperlipidemia Special screening for malignant neoplasm of prostate LIPID PANEL WITH REFLEX TO DIRECT LDL Routine 11/19/2024 7:41 AM EDT Essential hypertension, malignant Mixed hyperlipidemia Special screening for malignant neoplasm of prostate COMPREHENSIVE METABOLIC PANEL Routine 11/19/2024 7:41 AM EDT Essential hypertension, malignant Mixed hyperlipidemia Special screening for malignant neoplasm of prostate HEPATITIS C ANTIBODY Routine 2024 3:18 PM EDT Multiple sclerosis (CMS/HCC V24, CMS/HCC V28) from Last 3 Months or Most Recently Relevant to Health Maintenance Results * (ABNORMAL) CBC auto differential (12/29/2024 1:49 PM EDT) Only the most recent of2 resultswithin the time period is included. WBC 13.1(H) 4.8 - 10.8 K/mcL LAB HEMETOLOGY METHOD 12/29/2024 3:33 PM EDT [facility] RBC 5.10 4.50 - 5.50 M/mcL LAB HEMETOLOGY METHOD 12/29/2024 3:33 PM EDT [facility] Hemoglobin 15.5 13.5 - 17.5 g/dL LAB HEMETOLOGY METHOD 12/29/2024 3:33 PM EDT [facility] Hematocrit 47.2 42.0 - 54.0 % LAB HEMETOLOGY METHOD 12/29/2024 3:33 PM EDT [facility] MCV 92.4 79.0 - 98.0 FL LAB HEMETOLOGY METHOD 12/29/2024 3:33 PM EDT [facility] MCH 30.3 27.0 - 32.0 pcg LAB HEMETOLOGY METHOD 12/29/2024 3:33 PM EDT [facility] MCHC 32.8 32.0 - 37.0 g/dL LAB HEMETOLOGY METHOD 12/29[facility]2024 [facility] RDW 13.8 11.0 - 15.0 % LAB HEMETOLOGY METHOD 12/29/2024 3:33 PM EDT [facility] Platelets 272 130 - 400 K/mcL LAB HEMETOLOGY METHOD 12/29/2024 3:33 PM EDT [facility] MPV 10.4 7.0 - 11.0 FL LAB HEMETOLOGY METHOD 12/29/2024 3:[facility] NRBC 0.0 <1.0 % LAB HEMETOLOGY METHOD 12/29/2024 3:[facility] NRBC Absolute 0.00 <0.10 K/mcL LAB HEMETOLOGY METHOD 12/29/2024 3:33 PM EDT [facility] Neutrophils Relative 62.9 % LAB HEMETOLOGY METHOD 12/29/2024 3:33 PM EDT [facility] Lymphocytes Relative 25.5 % LAB HEMETOLOGY METHOD 12/29/2024 3:[facility] Monocytes Relative 7.5 % LAB HEMETOLOGY METHOD 12/29/2024 3:33 PM EDT [facility] Eosinophils Relative 2.9 % LAB HEMETOLOGY METHOD 12/29/2024 3:33 PM EDT [facility] Basophils Relative 0.5 % LAB HEMETOLOGY METHOD 12/29/2024 3:33 PM EDT [facility] Immature Granulocytes Relative 0.7 % LAB HEMETOLOGY METHOD 12/29/2024 3:33 PM EDT [facility] Neutrophils Absolute 8.26(H) 1.50 - 7.00 K/mcL LAB HEMETOLOGY METHOD 12/29/2024 3:33 PM EDT [facility] Lymphocytes Absolute 3.34 1.00 - 5.00 K/mcL LAB HEMETOLOGY METHOD 12/29/2024 3:33 PM EDT [facility] Monocytes Absolute 0.98 0.20 - 1.00 K/mcL LAB HEMETOLOGY METHOD 12/29/2024 3:33 PM EDT [facility] Eosinophils Absolute 0.38 0.00 - 0.50 K/mcL LAB HEMETOLOGY METHOD 12/29/2024 3:33 PM EDT [facility] Basophils Absolute 0.07 0.00 - 0.20 K/mcL LAB HEMETOLOGY METHOD 12/29/2024 3:33 PM EDT [facility] Immature Granulocytes Absolute 0.09(H) 0.00 - 0.03 K/mcL LAB HEMETOLOGY METHOD 12/29/2024 3:33 PM EDT [facility] Blood Venous blood specimen / Unknown Venipuncture / Unknown 12/29/2024 1:49 PM EDT 12/29/2024 3:14 PM EDT us Krista ISRAEL LAB BLOOD ORDERABLES Final R esult [facility] [address] [place] [address], * MR Cervical Spine wo and w Contrast (12/19/2024 1:43 PM EDT) Anatomical Region Laterality Modality C-spine, Spine Magnetic Resonan ce 12/23/2024 11:1 5 AM EDT Impressions 12/23/2024 1:22 PM EDT Multiple chronic demyelinating lesions throughout the cervical cord are similar compared to 2022. No new lesions or abnormal enhancement to suggest active demyelination. -------- FINAL REPORT -------- Dictated By: MARY JO THURSTON Dictated Date: 12/23/2024 11:15 ET Assigned Physician: MARY JO THURSTON Reviewed and Electronically Signed By: MARY JO THURSTON Signed Date: 12/23/2024 13:22 ET Workstation ID: [id number] Transcribed By: Self Edit Transcribed Date: 12/23/2024 12:03 ET Narrative 12/23/2024 1:22 PM EDT PROCEDURE: Cervical spine MRI INDICATION: Multiple sclerosis TECHNIQUE: Multiplanar, multisequence MRI of the Cervical spine without and with contrast. 20 mL Dotarem injected intravenously without complication. COMPARISON: 10/05/2022 MRI. FINDINGS: Straightening of the normal cervical [...] prior exam. No abnormal enhancement. Paraspinal muscles are within normal limits. Foramen magnum is normal. Findings by level: C2-C3: Mild left and no right foraminal stenosis secondary to uncovertebral spurring and facet arthropathy. No spinal canal stenosis. C3-C4: Mild right and no left foraminal stenosis secondary to uncovertebral [...] C7-T1: No foraminal or spinal canal stenosis. Procedure Note Mary Jo Thurston MD - 12/23/2024 PROCEDURE: Cervical spine MRI INDICATION: Multiple sclerosis TECHNIQUE: Multiplanar, multisequence MRI of the Cervical spine withoutand with contrast. 20 mL Dotarem injected intravenously withoutcomplication. COMPARISON: 10/05/2022 MRI. FINDINGS: Straightening of the normal cervical lordosis. No fracture or suspicious marrow replacing lesion. Mild multilevel degenerative loss of normal disc height and signal withassociated endplate spurring, most pronounced at C5-C6 and C6-7. Mild degenerative facet arthritis throughout the cervical spine. There is a small T2 hyperintense focus within the right dorsolateral cordat the level of T1. Additional T2 hyperintense lesion within the leftdorsolateral cord at the level of C7. Left dorsal cord T2 hyperintenselesion at C4-5. The dorsal cord T2 hyperintensity at C3-4. Lesions areall stable compared to the prior exam. No abnormal enhancement. Paraspinal muscles are within normal limits. Foramen magnum is normal. Findings by level: C2-C3: Mild left and no right foraminal stenosis secondary touncovertebral spurring and facet arthropathy. No spinal canal stenosis. C3-C4: Mild right and no left foraminal stenosis secondary touncovertebral spurring and facet arthropathy. Small posterior discosteophyte complex without spinal canal stenosis. C4-C5: Mild left foraminal stenosis secondary to uncovertebral spurringand facet arthropathy. No right foraminal or spinal canal stenosis.Small posterior discussed by complex. C5-C6: Posterior discussed by complex results in mild spinal canalstenosis. Bilateral uncovertebral spurring and facet arthropathy withmoderate foraminal stenosis bilaterally. C6-C7: Right greater than left facet arthropathy and uncovertebralspurring resulting in moderate right and no left foraminal stenosis.Posterior disc osteophyte complex with mild spinal canal stenosis. C7-T1: No foraminal or spinal canal stenosis. IMPRESSION: Multiple chronic demyelinating lesions throughout the cervical cord aresimilar compared to 202. No new lesions or abnormal enhancement tosuggest active demyelination. -------- FINAL REPORT -------- Dictated By: MARY JO THURSTON Dictated Date: 12/23/2024 11:15 ET Assigned Physician: MARY JO THURSTON Reviewed and Electronically Signed By: MARY JO THURSTON Signed Date: 12/23/2024 13:22 ET Workstation ID: [id number] Transcribed By: Self Edit Transcribed Date: 12/23/2024 12:03 ET Karan Lee MD [facility] MRI PROCEDURES Final Result * MR Brain wo and w Contrast (12/19/2024 1:42 PM EDT) Anatomical Region Laterality Modality Head and Neck Magnetic Resonan ce 12/23/2024 9:11 AM EDT Impressions 12/23/2024 9:28 AM EDT Stable demyelinating lesions throughout the supratentorial and infratentorial white matter when compared to 2022. No new lesions or abnormal enhancement to suggest active demyelination. -------- FINAL REPORT -------- Dictated By: MARY JO THURSTON Dictated Date: 12/23/2024 09:11 ET Assigned Physician: MARY JO THURSTON Reviewed and Electronically Signed By: MARY JO THURSTON Signed Date: 12/23/2024 09:28 ET Workstation ID: [id number] Transcribed By: Self Edit Transcribed Date: 12/23/2024 09:11 ET Narrative 12/23/2024 9:28 AM EDT PROCEDURE: Brain MRI INDICATION: Multiple sclerosis TECHNIQUE: Multiplanar, multisequence MRI of the brain without and with contrast. 20 mL Dotarem injected intravenously without complication from a 20 mL vial COMPARISON: 02/17/2023 FINDINGS: No acute infarct, mass effect, or intracranial hemorrhage. Unchanged, partially empty sella. Foramen magnum is within normal limits. Multiple T2 hyperintense foci throughout the supratentorial and infratentorial white matter are stable compared to 2022. For example pontine and left cerebellar T2 hyperintense foci are unchanged. Multiple supratentorial white matter T2 hyperintense foci are also unchanged. No new lesions. No abnormal intracranial enhancement. Ventricles, sulci, and cisterns are normal in size and configuration. No hydrocephalus. No abnormal intracranial susceptibility artifact. Major intracranial arterial flow voids are normal. Major dural venous sinuses enhance normally with contrast. Orbits and skull base soft tissues are within normal limits. Calvarium is normal. Procedure Note Mary Jo Thurston MD - 12/23/2024 PROCEDURE: Brain MRI INDICATION: Multiple sclerosis TECHNIQUE: Multiplanar, multisequence MRI of the brain without and withcontrast. 20 mL Dotarem injected intravenously without complication froma 20 mL vial COMPARISON: 02/17/2023 FINDINGS: No acute infarct, mass effect, or intracranial hemorrhage. Unchanged, partially empty sella. Foramen magnum is within normallimits. Multiple T2 hyperintense foci throughout the supratentorial andinfratentorial white matter are stable compared to 2022. For examplepontine and left cerebellar T2 hyperintense foci are unchanged. Multiplesupratentorial white matter T2 hyperintense foci are also unchanged. Nonew lesions. No abnormal intracranial enhancement. Ventricles, sulci, and cisterns are normal in size and configuration. Nohydrocephalus. No abnormal intracranial susceptibility artifact. Major intracranial arterial flow voids are normal. Major dural venoussinuses enhance normally with contrast. Orbits and skull base soft tissues are within normal limits. Calvarium is normal. IMPRESSION: Stable demyelinating lesions throughout the supratentorial andinfratentorial white matter when compared to 2022. No new lesions orabnormal enhancement to suggest active demyelination. -------- FINAL REPORT -------- Dictated By: MARY JO THURSTON Dictated Date: 12/23/2024 09:11 ET Assigned Physician: MARY JO THURSTON Reviewed and Electronically Signed By: MARY JO THURSTON Signed Date: 12/23/2024 09:28 ET Workstation ID: [id number] Transcribed By: Self Edit Transcribed Date: 12/23/2024 09:11 ET Karan Lee MD [facility] MRI PROCEDURES Final Result * Microalbumin creatinine urine ratio (11/19/2024 7:56 AM EDT) Creatinine, Urine 167.0 mg/dL LAB CHEMISTRY METHOD 11/19/2024 9:01 AM EDT [facility] Microalb, Ur 19.0 0.0 - 29.0 mg/L LAB CHEMISTRY METHOD 11/19/2024 9:01 AM EDT [facility] Microalb/Creat Ratio 11 <30 mg/g creat LAB CHEMISTRY METHOD 11/19/2024 9:01 AM EDT [facility] Urine Urine specimen obtained by clean catch procedure / Unknown Non-blood Collection / Unknown 11/19/2024 7:56 AM EDT 11/19/2024 8:15 AM EDT Rene [facility] LAB URINE ORDERABLES Final Result Performing Organization Address [facility] Co de Phone Number [facility] [address] [place] [address], * Prostate specific antigen screen (11/19/2024 7:41 AM EDT) PSA 0.83 0.00 - 4.00 ng/mL LAB CHEMISTRY METHOD 11/19/2024 1:55 PM EDT [facility] Blood Venous blood specimen / Unknown Venipuncture / Unknown 11/19/2024 7:41 AM EDT 11/19/2024 8:15 AM EDT Narrative [facility] - 11/19/2024 1:55 PM EDT The Siemens Advia Centaur Chemiluminescent Immunoassay is used. Results obtained with different assay methods or kits cannot be used interchangeably. Results cannot be interpreted as absolute evidence of the presence or absence of malignant disease. Rene [facility] LAB BLOOD ORDERABLES Final Result Performing Organization Address City/[facility]/ZIP Co de Phone Number [facility] [address] [place] [address], [place] [phone] * (ABNORMAL) Lipid panel with reflex to direct LDL (11/19/2024 7:41 AM EDT) Cholesterol 153 0 - 200 mg/dL LAB CHEMISTRY METHOD 11/19/2024 1:00 PM EDT [facility] Triglycerides 125 0 - 150 mg/dL LAB CHEMISTRY METHOD 11/19/2024 1:00 PM EDT [facility] HDL 33(L) >=40 mg/dL LAB CHEMISTRY METHOD 11/19[facility]2024 [facility] LDL Calculated 95 0 - 100 mg/dL LAB CHEMISTRY METHOD 11/19/2024 1:00 [facility] VLDL Cholesterol Dereje 25 mg/dL LAB CHEMISTRY METHOD 11/19/2024 1:00 PM EDT [facility] Non HDL Chol. (LDL+VLDL) 120 <145 mg/dL LAB CHEMISTRY METHOD 11/19/2024 1:00 PM EDT [facility] Chol/HDL Ratio 4.6(H) 0.0 - 4.4 LAB CHEMISTRY METHOD 11/19/2024 1:00 PM T [facility] Blood Venous blood specimen / Unknown Venipuncture / Unknown 11/19/2024 7:41 AM EDT 11/19/2024 8:15 AM EDT Rene [facility] LAB BLOOD ORDERABLES Final Result [facility] [address] [place] [address], [place] [phone] * (ABNORMAL) Comprehensive metabolic panel (11/19/2024 7:41 AM EDT) Sodium 140 133 - 145 mmol/L LAB CHEMISTRY METHOD 11/19/2024 9:18 AM EDT [facility] Potassium 4.1 3.5 - 5.5 mmol/L LAB CHEMISTRY METHOD 11/19/2024 9:18 AM [facility] Comment:Hemolysis present Chloride 111(H) 96 - 110 mmol/L LAB CHEMISTRY METHOD 11/19/2024 9:18 AM [facility] CO2 25 21 - 32 mmol/L LAB CHEMISTRY METHOD 11/19/2024 9:18 AM [facility] Anion Gap 4 3 - 11 LAB CHEMISTRY METHOD 11/19/2024 9:18 AM [facility] Glucose 89 70 - 100 mg/dL LAB CHEMISTRY METHOD 11/19/2024 9:18 AM [facility] BUN 18 5 - 25 mg/dL LAB CHEMISTRY METHOD 11/19/2024 9:18 AM [facility] Creatinine 1.16 0.70 - 1.30 mg/dL LAB CHEMISTRY METHOD 11/19/2024 9:18 AM [facility] eGFR 69 >=60 mL/min/1. 73m2 LAB CHEMISTRY METHOD 11/19/2024 9:18 AM [facility] Comment:Calculation based on the Chronic Kidney Disease Epidemiology Collaboration (CKD-EPI) equation refit without adjustment for race. BUN/Creatinine Ratio 15.5 LAB CHEMISTRY METHOD 11/19/2024 9:18 AM [facility] Calcium 8.4(L) 8.5 - 10.5 mg/dL LAB CHEMISTRY METHOD 11/19/2024 9:18 AM [facility] AST (SGOT) 24 10 - 42 unit/L LAB CHEMISTRY METHOD 11/19/2024 9:18 AM [facility] Comment:Hemolysis present ALT (SGPT) 32 10 - 60 unit/L LAB CHEMISTRY METHOD 11/19/2024 9:18 AM [facility] Alkaline Phosphatase 69 42 - 121 unit/L LAB CHEMISTRY METHOD 11/19/2024 9:18 AM [facility] Total Protein 6.7 6.0 - 8.0 g/dL LAB CHEMISTRY METHOD 11/19/2024 9:18 AM EDT [facility] Albumin 3.5 3.2 - 5.0 g/dL LAB CHEMISTRY METHOD 11/19/2024 9:18 AM EDT [facility] Total Bilirubin 0.5 0.0 - 1.4 mg/dL LAB CHEMISTRY METHOD 11/19/2024 9:18 AM EDT [facility] Blood Venous blood specimen / Unknown Venipuncture / Unknown 11/19/2024 7:41 AM EDT 11/19/2024 8:15 AM EDT Rene [facility] LAB BLOOD ORDERABLES Final Result Performing Organization Address [facility]/ZIP Co de Phone Number [facility] [address] [place] [address], * Hepatitis C antibody (2024 3:18 PM EDT) Hepatitis C Antibody Negative Negative LAB CHEMISTRY METHOD 2024 6:11 PM EDT [facility] Blood Venous blood specimen / Unknown Venipuncture / Unknown 2024 3:18 PM EDT 2024 3:37 PM EDT Karan Lee MD LAB BLOOD ORDERABLES Fin al Result [facility] [address] [place] [address], [place] [phone] from Last 3 Months or Most Recently Relevant to Health Maintenance Insurance MEDICA[place] Care Teams Transplanter Relationship Specialty Start Date End Date Whit Dawson MD [address] [place] [phone] PCP - General 08/05/23
--- OUTSIDE RECORDS SUMMARY | 2024-12-29 16:47 | XMS_ITS | Clinical Summary ---
Author Organization [facility] Address [address] [place] [id number] Care Team Providers Care Watershed Engineer Name Role Phone Rylee Valenzuela MD Primary Care Provider [phone] Allergies Active Allergy Reactions Criticality Noted Date [...] age to complete this topic Care Teams Watershed Engineer Relationship Specialty Start Date End Date Rylee Valenzuela MD PCP - General Family Medicine 09/07/14
== END 2024-12-29 14:30 | disposition home or self-care (01) ==
LOC: HO.PMC 14:14
PROVIDERS: PCP Hospitalist; Visit Provider Nurse Practitioner Family
DX: M51.369 Other intervertebral disc degeneration, lumbar region without mention of lumbar back pain or lower extremity pain (principal); M47.817 Spondylosis without myelopathy or radiculopathy, lumbosacral region; M54.50 Low back pain, unspecified; G89.29 Other chronic pain; M54.16 Radiculopathy, lumbar region
CPT/HCPCS: 99214; G2211

== ENCOUNTER → 2024-12-29 14:14 | Outpatient (BNVA) | payer MEDICARE, SELFPAY | PROVIDERS: PCP Hospitalist; Visit Provider Nurse Practitioner Family | DX: M51.369 Other intervertebral disc degeneration, lumbar region without mention of lumbar back pain or lower extremity pain (principal); M47.817 Spondylosis without myelopathy or radiculopathy, lumbosacral region; M54.50 Low back pain, unspecified; G89.29 Other chronic pain; M54.16 Radiculopathy, lumbar region; Z87.891 Personal history of nicotine dependence | CPT/HCPCS: 99212 ==

== ENCOUNTER 2025-03-11 06:25 | Outpatient (REF) | payer MEDICARE, SELFPAY ==
--- NOTE | ~2025-03-11 | FL_ITS ---
EXAMINATION: FL GUIDANCE ONLY HISTORY: M54.16 - Radiculopathy, lumbar region COMPARISON: None available. TECHNIQUE: Fluoroscopy time: 21 seconds. Cumulative Dose: 6.70 mGy. DAP: 730.80 mGycm2 Images: 4. FINDINGS: Fluoroscopic spot films of the lumbar spine demonstrate a needle in place and contrast material in the region of the right facet joint. FL/FL guidance in treatment room IMPRESSION: Fluoroscopy during procedure. Please see procedure report for additional information. Electronically signed by: Kimani Skaggs MD 03/11/2025 03:08 PM OLESYA
--- OUTSIDE RECORDS SUMMARY | 2025-03-11 06:28 | XMS_ITS ---
Author Name [facility] Organization Unknown History of Medication Use Medication Directions Dispensed Refills Start Date End Date Stat us dalfampridine (Ampyra) 10 mg tablet extended release 12 hr Take one tablet (10 mg) by mouth 2 (two) times a day. 01/15/2025 active calcium carbonate-vitamin D3 1,000 mg-20 mcg (800 unit) tablet TAKE 1 TABLET BY MOUTH EVERY DAY 12/02/2024 active cyanocobalamin 2,000 mcg ER tablet Take 1 tablet (2,000 mcg total) by mouth 1 (one) time each day. 08/25/2024 active ocrelizumab (OCREVUS IV) Infuse 600 mg into a venous catheter. 09/11/2023 active amLODIPine (NORVASC) 5 mg tablet Take by mouth 1 (one) time each day. active atorvastatin (LIPITOR) 40 mg tablet Take 1 tablet (40 mg total) by mouth at bedtime. active bisoprolol (ZEBETA) 5 mg tablet Take 1 tablet (5 mg total) by mouth 1 (one) time each day. active LORazepam (ATIVAN) 0.5 mg tablet Take 1 tablet (0.5 mg total) by mouth every 6 (six) hours if needed for anxiety. Max Daily Amount: 2 mg active losartan (COZAAR) 25 mg tablet Take 1 tablet (25 mg total) by mouth 1 (one) time each day. active pantoprazole (PROTONIX) 40 mg EC tablet Take 1 tablet (40 mg total) by mouth 1 (one) time each day before breakfast. Do not crush, chew, or split. active PARoxetine (PAXIL) 30 mg tablet Take 1 tablet (30 mg total) by mouth 1 (one) time each day in the morning. active tamsulosin (FLOMAX) 0.4 mg 24 hr capsule Take 1 capsule (0.4 mg total) by mouth 1 (one) time each day with breakfast. Capsules should be taken 30 minutes following the same meal each day. active Allergies Allergen Reaction Severity Comment Documented Date Source Statu s DICLOFENAC 09/07/2014 [facility]_SMATTHIAS active Problems Problem Status Onset Date Problem Type Date of Resolution Source Encounter for therapeutic drug monitoring active EncounterDiagnosisAct CT_THS MATTHIAS MS (multiple sclerosis) active 2024-09-08 ProblemAct [facility]_SFRAN
--- OUTSIDE RECORDS SUMMARY | 2025-03-11 06:28 | XMS_ITS | Clinical Summary ---
Author Organization [facility] Address [address] [place] [address] Care Team Providers Care Clinical Support Nurse Name Role Phone Rylee Valenzuela MD Primary Care Provider [phone] Allergies Active Allergy Reactions Criticality Noted Date [...] age to complete this topic Care Teams Clinical Support Nurse Relationship Specialty Start Date End Date Rylee Valenzuela MD PCP - General Family Medicine 09/07/14
== END 2025-03-11 06:26 | disposition home or self-care (01) ==
LOC: CF 06:25
PROVIDERS: Visit Provider Internal Medicine
DX: M54.16 Radiculopathy, lumbar region (principal)
CPT/HCPCS: 64483; J1100; J2003; Q9967

== ENCOUNTER 2025-03-11 12:38 | Outpatient (AMB) | payer MEDICARE, SELFPAY ==
[2025-03-11 13:02] VITALS: BP 112/62; PULSE 90; RESP 1; O2SAT 97
--- NOTE | 2025-03-11 13:02 | MHC.OFFVIS ---
Vital Signs 03/11/25 13:02 03/11/25 13:22 BP 112/62 110/64 Blood Pressure Location Lt brachial Lt brachial Position Sitting Sitting Respiration 1 L 16 Pulse 90 77 Pulse Source Pulse Oximeter Pulse Oximeter Pulse Oximetry (%) 97 97 Oxygen Delivery Method Room Air Room Air Intake Visit Reasons: Right L4-L5 TFESI Vacuum Pan Tender Required: No Allergies diclofenac Allergy (Severe, Verified 03/11/25 13:03) Anaphylaxis Medication List - Last Reconciled 03/11/25 by Aruna Ingram LPN acyclovir 5% appl topical albuterol sulfate 90 mcg/actuation inhalation amlodipine 2.5 mg PO DAILY aspirin 81 mg PO DAILY 90 days atorvastatin 40 mg PO DAILY bisoprolol fumarate 5 mg PO DAILY celecoxib 200 mg PO DAILY cholecalciferol (vitamin D3) (Vitamin D3) 50 mcg PO DAILY cyclobenzaprine 10 mg PO BEDTIME cyclosporine 0.09% (Cequa) 1 drp ophthalmic (eye) BID dalfampridine ER mg PO fluticasone propionate 50 mcg/actuation 1 spray intranasal BID gabapentin 300 mg PO TID 30 days hydrochlorothiazide 12.5 mg PO DAILY lamotrigine 100 mg PO DAILY levocetirizine 5 mg PO DAILY lisinopril 20 mg PO DAILY lorazepam 0.5 mg PO BEDTIME PRN ocrelizumab 600 mg IV [id number] pantoprazole 40 mg PO DAILY paroxetine HCl 30 mg PO DAILY tamsulosin 0.4 mg PO DAILY HPI HPI Right L4-L5 TFESI: Details: Patient presents for scheduled procedure. Denies any recent cough, cold, infection, fever or other significant changes in medical history since last office visit. [facility] Medical History Currently smokes tobacco HTN (hypertension) TIA (transient ischemic attack) Multiple sclerosis Chronic low back pain Osteoarthritis of knees, bilateral Lumbar degenerative disc disease Social History Patient Tobacco Use Status: Current everyday Tobacco user Tobacco use type: Cigarette Cigarettes Per Day: 2 Current occupational status: unemployed and disabled Physical Exam Vital Signs: Last Vital Signs Pulse 77 03/11/25 13:22 Resp 16 03/11/25 13:22 BP 110/64 03/11/25 13:22 Pulse Ox 97 03/11/25 13:22 Oxygen Delivery Method Room Air 03/11/25 13:22 Office Procedures Details: Transforaminal epidural steroid injection, Right L4 After obtaining written consent, pre-procedure blood pressure and heart rate were stable and recorded in the nursing record. The patient was placed in the prone position on the fluoroscopy table. The lumbosacral area was prepped with chloraprep, allowed to dry and draped in sterile fashion. Using fluoroscopy, the skin overlying our target was anesthetized with 0.5% lidocaine. A 22 gauge 3.5 inch spinal needle was advanced to the safe triangle in the upper pole of the right L4 foramen. No paresthesias were elicited with needle placement and aspiration was negative for blood and CSF. Correct needle position was confirmed with approximately 1 ml contrast dye (Omnipaque 180 mg/ml) injected under real-time fluoroscopy. No evidence of vascular or intrathecal uptake was seen and there was both epidural and peripheral spread of the contrast agent. 10 mg dexamethasone plus 1 ml containing 0.5% lidocaine was slowly injected. The needle was flushed and removed. the same procedure was repeated for the remaining levels. The skin was cleansed and a sterile bandages were applied. The patient tolerated the procedure well and no complications were encountered. Following the procedure the patient's vital signs were stable. The patient was discharged home in good condition with post-procedural instructions. Time Out: Immediately prior to the procedure, the following was verbally confirmed that there is a signed consent form and that the correct patient, planned procedure, site and side are consistent with documentation and that necessary equipment and/or blood products are available prior to the start of the case. Complications: none EBL: <5 cc 85616 - Lumbar/Sacral Procedure code (CPT) selection complete Assessment & Plan Assessment & Plan (1) Lumbar radiculopathy: Code(s): M54.16 - Radiculopathy, lumbar region Category: Medical Plan Patient is status post right L4 TFESI. Patient tolerated procedure well and was discharged home in stable condition with discharge instructions. All questions were answered. We will follow-up via telephone or in clinic to assess response to therapy. A follow-up appointment was made during today's visit. Orders: Orders AMB Transforaminal Epidural Steroid Injection 03/11/25 M54.16 - Radiculopathy, lumbar region Coding Level of Care Code Procedure Only Diagnoses Lumbar radiculopathy M54.16 CPT Codes Transforaminal Epidural Steroid Inj - TESI 3: 58281 - Lumbar/Sacral ([id number])
[2025-03-11 13:22] VITALS: BP 110/64; PULSE 77; RESP 16; O2SAT 97
--- OUTSIDE RECORDS SUMMARY | 2025-03-11 18:26 | XMS_ITS | Clinical Summary ---
Author Organization [facility] Address [address] [place] [address] Care Team Providers Care Plasterer Helper Name Role Phone Rylee Valenzuela MD Primary Care Provider [phone] Allergies Active Allergy Reactions Criticality Noted Date [...] age to complete this topic Care Teams Plasterer Helper Relationship Specialty Start Date End Date Rylee Valenzuela MD PCP - General Family Medicine 09/07/14
== END 2025-03-11 13:22 | disposition home or self-care (01) ==
LOC: HO.PMCPRC 12:38
PROVIDERS: PCP Hospitalist; Visit Provider Internal Medicine
DX: M54.16 Radiculopathy, lumbar region (principal)
CPT/HCPCS: 64483

== ENCOUNTER 2025-03-26 13:03 | Outpatient (AMB) | payer MEDICARE, SELFPAY ==
--- NOTE | 2025-03-26 13:08 | MHC.OFFVIS ---
Vital Signs 03/26/25 13:11 Height 6 ft Weight 215 lb BMI 29.2 BP 109/57 L Blood Pressure Location Lt brachial Position Sitting Pulse 82 Pulse Source Pulse Oximeter Pulse Oximetry (%) 99 Oxygen Delivery Method Room Air Intake Visit Reasons: Follow Up Pt. Request Intake Note: Pain today 8/10 Clinical Dietetic Technician Required: No Accompanied by: Son Allergies diclofenac Allergy (Severe, Verified 03/26/25 13:16) Anaphylaxis HPI Comments Details: The patient is a 69 year old male presenting for a follow-up visit for chronic back pain. He recently underwent a right L4 transforaminal epidural steroid injection on 03/11/25 for his symptoms but reports minimal to no relief from the procedure. The patient rates his pain as 8/10. He reports that the pain in his legs is worse than his back pain, with the right leg being the most symptomatic. He experiences bilateral back pain, numbness and weakness in his legs, and has difficulty standing to the point where he must sit to take a shower. He also reports pain in his knees. Patient uses cane with ambulation. 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 The patient also has a history of multiple sclerosis, which affects the right side more significantly. Denies any recent cough, cold, infection, fever or any other significant changes in medical history since last office visit. - Location: The patient reports bilateral lower back pain, knee pain, and neck pain. - Radiation: Pain radiates to the legs, with the right leg being worse than the left. Stabbing, shooting, aching, radiating, numbness, tingling, worse on the right - Severity: He rates his pain as an 8/10. - Associated symptoms: He reports numbness and weakness in his legs. - Exacerbating factors: Prolonged standing exacerbates his pain. Walking, bending, lifting. - Functional limitations: Pain interferes with activities of daily living, such as being unable to stand while showering. Pain affects leg control, reports MS affecting right side - Analgesia: The patient reports a current pain level of 8/10 and states he received minimal relief from a recent right L4 transforaminal epidural steroid injection. - Activities of Daily Living: The pain significantly impacts his daily functions, as he is unable to stand while taking a shower and must sit instead. Past Procedures: 03/11/25: Right L4 TFESI- 0% pain relief 11/06/24: Right adductor canal saphenous nerve block, ultrasound-guided--minimal pain relief 08/20/24: Right knee Synvisc One injection-50% ongoing pain relief 07/09/24: Bilateral L5-S1 TFESI-70% ongoing pain relief PRIOR: Patient is a pleasant 68 years old male with a history of chronic back pain, presents today for initial evaluation for acute on chronic back pain with bilateral radiculopathy. Denies any recent trauma, injury or falls. Patient has been referred to our office by Dr. Butcher for potential L5-S1 injection for disc herniation. Back pain is axial, discogenic and bilateral radiation of back pain to buttocks and into posterior thighs and calves with associated numbness and tingling in his toes and weakness. Pain is presents during resting and worse with activity, especially walking or bending. Reports walking capacity is under 10-15 minutes due to increase of back pain. Pain affects his daily activities and functioning, mobility, mood, sleep and quality of life. He completed physical therapy 2022 and injections in [place] where he spends summer months. He also had back injections in [place] and [place] about 15 years ago with mixed results. Lumbar spine imaging is noted below. Patient is also scheduled for abdominal/pelvic CT scan with and without contrast on 07/08/24 to evaluate right renal mass noted on lumbar MRI. Denies any fever or chills, weight loss, abdominal or groin pain, weakness, bladder or bowel dysfunction, or saddle anesthesia. Location: Lower back radiates down mauro legs posteriorly Duration: Chronic pain for over 5 years Characteristics of symptom or complaint: Aching, radiating, numbness, tinging, heavy, stabbing, burning, shooting Aggravating or associated factors: Laying flat, bending, standing, walking, movements, bending, lifting Relieving factors: Rest, activity modifications, cyclobenzaprine, NSAIDs, Tylenol Treatment: Injections, PT, lumbar xray/MRI [facility] Medical History Currently smokes tobacco HTN (hypertension) TIA (transient ischemic attack) Multiple sclerosis Chronic low back pain Osteoarthritis of knees, bilateral Lumbar degenerative disc disease Social History Patient Tobacco Use Status: Current everyday Tobacco user Tobacco use type: Cigarette Cigarettes Per Day: 2 Current occupational status: unemployed and disabled Review of Systems Const Details: - Musculoskeletal: Reports bilateral low back pain, knee pain, and pain in the neck. - Constitutional: Reports weakness, worse RLE. - Neurological: Reports numbness in the legs. All systems reviewed & are unremarkable except as noted in HPI and below Physical Exam Vital Signs: Last Vital Signs Pulse 82 03/26/25 13:11 BP 109/57 L 03/26/25 13:11 Pulse Ox 99 03/26/25 13:11 Oxygen Delivery Method Room Air 03/26/25 13:11 BMI result Body Mass Index 29.2 General: Appears afebrile. Alert and oriented. Mood and affect appropriate. Follows and participates in conversation appropriately. Respiratory effort is unlabored. No cough. Able to transition from sit to stand unassisted. Antalgic gait. Uses cane with ambulation. Ambulates with bilaterally normal heel strike and toe off, reports increased pain with standing on his heels. General: Yes no CVA tenderness Back/Spine/Pelvis Other: Limited lumbar ROM due to pain. Antalgic gait with mild limping. Lumbar flexion, bending forward and axial rotations reproduce moderate to severe pain. Demonstrates 5/5 left and 4/5 right strength of quadriceps bilaterally as well as flexion/dorsiflexion of bilateral feet against resistance. 2+ pedal pulses bilaterally. Straight leg rise with dorsiflexion is positive bilaterally. +1 patellar and achilles reflexes bilaterally. Facet loading test positive bilaterally. Bull?s, Gaenslen, Pelvic compression and Stinchfield tests are positive bilaterally, right>left. No groin pain with I/E hip rotations. Valsalva maneuver negative. Back: no CVA tenderness Cervical Spine: cervical ROM normal, cervical muscular tenderness, No Cervical spine tenderness and No step off deformity Thoracic/Lumbar Spine: thoracic and lumbar spine normal to inspection, No Thoracic/lumbar spine scar(s), Lasegue's sign positive bilateral and diffuse, pain with thoraco-lumbar ROM, paraspinal muscle tenderness, thoraco-lumbar ROM limited, No thoracic spinal tenderness and lumbar spinal tenderness (L4-S1) Pelvis: buttock tenderness bilaterally and no sciatic notch tenderness Sacroiliac joints: bilaterally tender to palpation Extrem General: Yes capillary refill normal, Yes no clubbing, cyanosis or edema and Yes no calf tenderness Results Reviewed Results Reviewed: MR LUMBAR SPINE WITHOUT CONTRAST 04/03/24 CLINICAL INFORMATION: 68-year-old male with intervertebral disc degeneration, lumbar region. Self-reported low back pain of a few years' duration, worsening with reduced range of motion and difficulty walking and standing, with bilateral leg pain, weakness and numbness and toe weakness or numbness bilaterally. FINDINGS: Coronal Alignment: Normal. Sagittal Alignment: Straightening of the lumbar spine is noted, with slight retrolisthesis at L5-S1. Lumbosacral Junction: Normal. There are 5 owr-frl-qurdpdp lumbar-type vertebral bodies. Vertebral Bodies: Vertebral body heights are well maintained. Disc Spaces and Endplates: Minor disc volume loss posteriorly at L5-S1 with mild disc desiccation and mild spondylosis. Slight disc volume loss at L3-L4 with mild disc desiccation and qowv-ml-jmjvvodr spondylosis. Liwf-sx-eefcqfvu spondylosis asymmetric to the left at L2-L3 and mild anterior marginal spondylosis at L1-L2. Small Schmorl's node noted anteriorly asymmetric to the right along the superior endplate of L4. Otherwise, endplates appear grossly intact. Spinal Canal: No abnormal developmental findings. Bone Marrow: No suspicious marrow-replacing process or bone marrow edema. There is minor type I degenerative marrow signal changes seen along the anteroinferior corner of L1. There are multilevel small benign vertebral hemangiomata at L3 and L5. Conus Medullaris: Terminates at T12-L1. Morphology and signal is normal. Intradural Nerve Roots: Within normal limits. L5-S1: There is concentric disc bulging with a superimposed broad-based nnidkzz-jk-dpbn subarticular extruded disc herniation with slight caudal migration. Minimal indentation of the ventral thecal sac is noted. Disc herniation contacts the S1 nerve root sleeves bilaterally, left more than right. Mild facet joint arthrosis is noted bilaterally without significant central canal stenosis. Mild narrowing of the left subarticular zone is noted. There is mild foraminal narrowing, left more than right without neural impingement. L4-L5: There is concentric disc bulging, asymmetric to the left with left posterolateral annular fissuring, with mvyq-vx-udklmzvb flattening of the dural sac asymmetric to the left. Mild facet joint arthrosis is noted, left more than right without central canal stenosis. There is hnsf-cq-ofsqvwxu left-sided subarticular recess stenosis, with minimal encroachment on the traversing left L5 nerve root. Mild foraminal narrowing noted on the left, with disc bulging and annular fissuring possibly contacting the exiting left L4 nerve root sleeve. L3-L4: Concentric disc bulging is noted asymmetric to the left with left posterolateral concentric annular fissuring and slight flattening the ventral dural sac, slightly asymmetric to the left. Mild facet joint arthrosis is noted bilaterally without central canal stenosis. There is mild narrowing of the left subarticular zone with minimal encroachment on the traversing left L4 nerve root. Pjng-ds-jhsyrmbr left-sided neural foraminal narrowing is noted with asymmetric disc bulge possibly contacting the exiting left L3 nerve root sleeve. L2-L3: No significant disc bulge or herniation. Mild facet joint arthropathy noted, left more than right. No significant canal or neural foraminal stenosis. L1-L2: Shallow left and right paramedian disc protrusions without significant facet joint arthrosis, canal or neural foraminal stenosis. No neural impingement. T12-L1: Normal annular contour. No facet joint arthrosis, canal or neural foraminal stenosis. Paravertebral and Included Extraspinal Soft Tissues: The visualized paravertebral soft tissues appear grossly unremarkable. Note is made of multiple partially included simple-appearing bilateral renal cysts in addition to a 3.4 cm somewhat complex-appearing cystic mass in the parapelvic portion of the mid right kidney. Numerous bilateral benign renal cysts were identified on ultrasound of 12/05/2023. There is a partially-imaged large partially-fatty mass which may be arising from the right adrenal gland. Given these findings, CT without and with contrast of the abdomen is recommended to further assess. IMPRESSION: 1. Straightening of the lumbar spine with slight retrolisthesis at L5-S1. 2. Multilevel discogenic degenerative changes between L1-L2 and L5-S1 inclusive, with multilevel disc bulging and annular fissuring, as described above, with a central to left subarticular extruded disc herniation at L5-S1 which contacts the S1 nerve root sleeves bilaterally, left more than right. 3. No significant central canal stenosis. Qxkj-fb-axtivqvv left-sided subarticular recess stenosis at L4-L5 and mild left subarticular recess stenosis at L3-L4 with minimal encroachment on the traversing left L5 and L4 nerve roots respectively. 4. Balc-ly-qsjhjmyh degrees of multilevel bilateral facet joint arthropathy, with kufa-jf-ikynyrur left-sided neural foraminal narrowing at L3-L4, L4-L5 and L5-S1 without definite neural impingement. 5. Slightly complex-appearing cystic mass in the right kidney and a partially-imaged predominantly fatty mass possibly arising from the right adrenal gland measuring at least 4 cm as suspected on previous ultrasound. Recommend CT of the abdomen without and with contrast to further assess these findings. XR LUMBOSACRAL SPINE 01/22/24 FINDINGS: There are 5 lumbar-type nonrib-bearing vertebrae. The vertebral body heights and alignment are maintained. Intervertebral disc spaces are preserved. Small marginal endplate osteophytes are noted at multiple levels. Mild facet arthropathy in the lumbar spine at multiple levels. Close approximation of the spinous processes is noted which may raise the possibility of Baastrup's disease. No suspicious lytic or blastic osseous lesions are noted. The sacrum and coccyx appear intact. Multiple surgical tacks are noted projecting over the left pelvic region, recommend correlation with history of hernia repair in the region. Paraspinous soft tissues are unremarkable. There is limited evaluation of the sacroiliac joints however probable partial fusion of bilateral sacroiliac joints cannot be excluded. Scattered aortic calcifications. IMPRESSION: No evidence of acute compression fracture or suspicious osseous lesion in the lumbar spine. Mild lumbar spondylosis. Probable partial fusion of bilateral sacroiliac joints. Assessment & Plan Assessment & Plan (1) Lumbar degenerative disc disease: Code(s): M51.369 - Other intervertebral disc degeneration, lumbar region without mention of lumbar back pain or lower extremity pain Category: Medical Qualifiers: Disc-related pain type: unspecified whether pain present Qualified Code(s): M51.369 - Other intervertebral disc degeneration, lumbar region without mention of lumbar back pain or lower extremity pain (2) Lumbosacral spondylosis: Code(s): M47.817 - Spondylosis without myelopathy or radiculopathy, lumbosacral region Category: Medical (3) Vertebrogenic low back pain: Code(s): M54.51 - Vertebrogenic low back pain Category: Medical (4) Lumbar radiculopathy: Code(s): M54.16 - Radiculopathy, lumbar region Category: Medical (5) Lumbar spinal stenosis: Code(s): M48.061 - Spinal stenosis, lumbar region without neurogenic claudication Category: Medical Plan The patient presents with persistent 8/10 back and leg pain with minimal relief from a recent right L4 transforaminal epidural steroid injection. Given the failure of conservative management to provide adequate pain relief and intractable low back pain with spinal stenosis related pain, further diagnostic workup and consideration for surgical intervention are warranted. An updated MRI will be ordered for Neurosurgical consultation. Patient is aware to call if pain worsens or if he develops any red flag symptoms to seek emergency care. All questions and concerns have been answered and patient agreed with the treatment plan. Follow up as needed. Patient was informed and verbally consented to the use of an ambient scribe for clinic note documentation during this visit. Orders: Orders MR lumbar spine wo con Today M47.817 - Spondylosis without myelopathy or radiculopathy, lumbosacral region, M48.061 - Spinal stenosis, lumbar region without neurogenic claudication, M51.369 - Other intervertebral disc degeneration, lumbar region without mention of lumbar back pain or lower extremity pain, M54.16 - Radiculopathy, lumbar region, M54.51 - Vertebrogenic low back pain Referrals Neuro Spine Referral M48.061 - Spinal stenosis, lumbar region without neurogenic claudication, M54.16 - Radiculopathy, lumbar region Coding Level of Care Code New Pt Level 4 (20791) Diagnoses Degeneration of intervertebral disc of lumbar region, unspecified whether pain present M51.369 Disc-related pain type: unspecified whether pain present Lumbosacral spondylosis M47.817 Vertebrogenic low back pain M54.51 Lumbar radiculopathy M54.16 Lumbar spinal stenosis M48.061
[2025-03-26 13:11] VITALS: BP 109/57; PULSE 82; O2SAT 99; BMI 29.2
--- OUTSIDE RECORDS SUMMARY | 2025-03-26 17:00 | XMS_ITS | Encounter Summary ---
Author Organization [facility] Address [address] [place] [address] Care Team Providers Care Hydraulic Hammer Operator Name Role Phone Whit Dawson MD Primary Care Provider [phone] Encounter Details Date Type Department Care Team (Late Contact Info) Description 03/08/2025 Results Follow-Up [address] [phone] Karan Lee MD [address] [place] [address] Social History Tobacco Use Types Packs/Day Years Used Date Smoking Tobacco: Every Day Cigarettes 1 50.6 Started: 1974 Smokeless Tobacco: Never Alcohol Use Standard Drinks/Week Comments No 0 (1 standard drink = 0.6 oz pur e alcohol) Sex and Gender Information Value Date Recorded Sex Assigned at Not on file Legal Sex Male 8:20 AM EST Gender Identity Not on file Sexual Orientation Not on file documented as of this encounter Plan of Treatment Upcoming Encounters Date Type Department Care Team (Late Contact Info) Description 09/06/2025 10:00 AM EDT Appointment [facility] [address] [phone] 09/06/2025 10:00 AM EDT Office Visit [address] [phone] Karan Lee MD [address] [place] [address] documented as of this encounter Goals Goal Patient Goal Type Associated Problems Recent Progress Patient-Stated? Author PT LTGs General No Kimani Vincent PT Note: Pt will be independent with HEP Pt will report no ERP with lumbar AROM testing Pt will increase FGA to 18 to indicate improved balance with functional mobility documented as of this encounter Visit Diagnoses Not on filedocumented in this encounter Care Teams Hydraulic Hammer Operator Relationship Specialty Start Date End Date Whit Dawson MD [address] [place] [phone] PCP - General 08/05/23 documented as of this encounter
--- OUTSIDE RECORDS SUMMARY | 2025-03-26 17:00 | XMS_ITS | Clinical Summary ---
Author Organization [facility] Address [address] [place] [address] Phone Care Team Providers Care Brick Baker Name Role Phone Samir Shermanmary Couch MD Primary Care Provider [phone] Allergies Active Allergy Reactions Criticality Noted Date [...] into a venous catheter. 09/11/19 24 Active amLODIPine (NORVASC) 5 mg tablet Take by mouth 1 (one) time each day. Active calcium carbonate-chelsea min D3 1,000 mg-20 mcg (800 unit) tablet TAKE 1 TABLET BY MOUTH EVERY DAY 30 tablet 3 12/03/19 25 Active dalfampridine (Ampyra) 10 mg tablet extended release 12 hr Take one tablet (10 mg) by mouth 2 (two) times a day. 60 each 3 5 3:25 PM EST 01/16/20 25 Active LORazepam (ATIVAN) 0.5 mg tablet Take 1 tablet (0.5 mg total) by mouth every 6 (six) hours if needed for anxiety. Max Daily Amount: 2 mg Active cyanocobalamin , vitamin B-12, 2,000 mcg lozenge TAKE 1 TABLET (2,000 MG TOTAL) BY MOUTH DAILY 90 lozenge 03/09/20 25 Active cyanocobalamin 2,000 mcg ER tablet Take 1 tablet (2,000 mcg total) by mouth 1 (one) time each day. 30 tablet 11 08/26/19 25 025 Discontinued(Re order) cyanocobalamin 2,000 mcg ER tablet Take 1 tablet (2,000 mcg total) by mouth 1 (one) time each day. 90 tablet 03/08/20 25 025 Discontinued cyanocobalamin , vitamin B-12, 2,000 mcg lozenge TAKE 1 TABLET (2,000 MG TOTAL) BY MOUTH DAILY 90 lozenge 03/09/20 25 025 Discontinued Active Problems Problem Noted Date Diagnosed Date MS (multiple sclerosis) 09/08/2024 Encounters Date Type Department Care Team Description 03/08/2025 11:40 AM EST Office Visit [facility] - [address] [phone] Karan Lee MD MS (multiple sclerosis) (Primary Dx); Vitamin D deficiency; Mood changes; Gait abnormality; Vitamin B12 deficiency; High risk medication use 03/08/2025 9:41 AM EST - 03/08/2025 11:59 PM EST Hospital Encounter [facility] Outpatient Rehabilititation - [address] [phone] MS (multiple sclerosis) (Primary Dx); Encounter for therapeutic drug monitoring Discharge Disposition: Home or Self Care 03/08/2025 Results Follow-Up [facility] [place] [address] [phone] Karan Lee MD 03/03/2025 Telephone [facility] [place] [address] [phone] Frida Smith, [facility] 03/01/2025 Telephone [facility] [place] [address] [facility] [place] [address] Frida Smith, [facility] 03/01/2025 Telephone [facility] [place] [address] [facility] [place] [phone] Frida Smith, [facility] 02/25/2025 Telephone [facility] [place] [address] [phone] Karan Lee MD 02/05/2025 Telephone [facility] Outpatient [facility] - [address] [phone] Karan Lee MD 01/18/2025 10:24 PM EDT - 01/18/2025 11:34 PM EDT Emergency [facility] Emergency [address] [place] [address] Ct Martínez MD Transient weakness of lower extremity (Primary Dx); History of multiple sclerosis (CMS/HCC V24, CMS/HCC V28) Discharge Disposition: Left Against Medical Advice from Last 3 Months Surgical History Surgery [...] 1 50.6 Started: 1974 Smokeless Tobacco: Never Tobacco Cessation:Ready [...] Sign Reading Time Taken Comments Blood Pressure 82/56 03/08/2025 1:40 PM EST Pulse 80 03/08/2025 1:40 PM EST Temperature 36.1 C (96.9 F) 03/08/2025 1:40 PM EST Respiratory Rate 18 03/08/2025 1:40 PM EST Oxygen Saturation 96% 03/08/2025 1:40 PM EST Inhaled Oxygen Concentration - - Weight 97.5 kg (215 lb) 01/18/2025 10:42 PM EDT Height 182.9 cm (6') 01/18/2025 10:42 PM EDT Body Mass Index 29.16 01/18/2025 10:42 PM EDT Plan of Treatment Upcoming Encounters Date Type Department Care Team (Late st Contact Info) Description 09/06/2025 10:00 AM EDT Appointment [facility] Outpatient Rehabilititation [address] [phone] 09/06/2025 10:00 AM EDT Office Visit [facility] - [address] [phone] Karan Lee MD [address] [place] [address] Health Maintenance Due Date Last Done Comments Colorectal Cancer Screening: Colonoscopy 1955 DTaP,Tdap,and Td Vaccines (1 - Tdap) 08/22/1975 Pneumococcal Vaccine: 50+ Years (1 of 2 - PCV) 08/22/1975 RSV Immunization Adult Patients (1 - Risk 50-74 years 1-dose series) 2006 Zoster Vaccines (1 of 2) 2006 Abdominal Aortic Aneurysm (AAA) Screen 01/30/2024 Falls Risk Assessment 01/30/2024 Lung Cancer Screening (Low Dose CT) 01/30/2024 Medicare Annual Wellness Visit 01/30/2024 Social Influencers of Health Screening 01/30/2024 Depression Screening 04/22/2024 COVID-19 Vaccine ( season) 2024 07/15/2020 Hypertension/CHF/CAD Annual BMP Blood Test 03/08/2026 03/08/2025, 01/18/2025, 11/19/2024, Additional history exists Cholesterol Screening (Lipid Panel) 11/19/2029 11/19/2024 Hepatitis [...] Procedure Name Priority Date/Time Associated Diagnosis Comments EXTERNAL MRI REPORT 03/12/2025 VITAMIN B12 Add-On 03/08/2025 9:52 AM EST MS (multiple sclerosis) Encounter for therapeutic drug monitoring CBC WITH AUTO DIFFERENTIAL Routine 03/08/2025 9:52 AM EST MS (multiple sclerosis) CBC AND DIFFERENTIAL Routine 03/08/2025 9:52 AM EST MS (multiple sclerosis) HEPATIC FUNCTION PANEL Routine 03/08/2025 9:52 AM EST MS (multiple sclerosis) Encounter for therapeutic drug monitoring CREATININE, SERUM Routine 03/08/2025 9:5 2 AM EST MS (multiple sclerosis) Encounter for therapeutic drug monitoring BUN Routine 03/08/2025 9:52 AM EST MS (multiple sclerosis) Encounter for therapeutic drug monitoring ECG ANNOTATED 01/19/2025 ECG 12-LEAD STAT 01/18/2025 11:18 PM EDT MAGNESIUM STAT 01/18/2025 11:16 PM EDT TROPONIN I HIGH SENSITIVITY Timed 01/18/2025 11:16 PM EDT BASIC METABOLIC PANEL STAT 01/18/2025 11:16 PM EDT COMPLETE BLOOD COUNT STAT 01/18/2025 11:16 PM EDT XR CHEST 1 VIEW STAT 01/18/2025 10:51 PM EDT CBC WITH AUTO DIFFERENTIAL Routine 12/29/2024 1:49 PM EDT MS (multiple sclerosis) (CMS/HCC V24, CMS/HCC V28) CBC AND DIFFERENTIAL Routine 12/29/2024 1:49 PM EDT MS (multiple sclerosis) (CMS/HCC V24, CMS/HCC V28) LIPID PANEL WITH REFLEX TO DIRECT LDL Routine 11/19/2024 7:41 AM EDT Essential hypertension, malignant Mixed hyperlipidemia Special screening for malignant neoplasm of prostate HEPATITIS C ANTIBODY Routine 2024 3:18 PM EDT Multiple sclerosis (CMS/HCC V24, CMS/HCC V28) from Last 3 Months or Most Recently Relevant to Health Maintenance Results * External MRI Report (03/12/2025) Anatomical Region Laterality Modality Magnetic Resonan ce Provider [place] [facility] IMG MRI PROCEDURES Final Result * (ABNORMAL) CBC auto differential (03/08/2025 9:52 AM EST) Only the most recent of2 resultswithin the time period is included. WBC 9.4 4.8 - 10.8 K/mcL LAB HEMETOLOGY METHOD 03/08/2025 2:06 PM [facility] RBC 5.00 4.50 - 5.50 M/mcL LAB HEMETOLOGY METHOD 03/08/2025 2:06 PM [facility] Hemoglobin 15.1 13.5 - 17.5 g/dL LAB HEMETOLOGY METHOD 03/08/2025 2:06 PM [facility] Hematocrit 46.7 42.0 - 54.0 % LAB HEMETOLOGY METHOD 03/08/2025 2:06 PM [facility] MCV 93.8 79.0 - 98.0 FL LAB HEMETOLOGY METHOD 03/08/2025 2:06 PM [facility] MCH 30.3 27.0 - 32.0 pcg LAB HEMETOLOGY METHOD 03/08/2025 2:06 PM [facility] MCHC 32.3 32.0 - 37.0 g/dL LAB HEMETOLOGY METHOD 03/08/2025 2:06 PM [facility] RDW 14.3 11.0 - 15.0 % LAB HEMETOLOGY METHOD 03/08/2025 2:06 PM [facility] Platelets 241 130 - 400 K/mcL LAB HEMETOLOGY METHOD 03/08/2025 2:06 PM [facility] MPV 10.8 7.0 - 11.0 FL LAB HEMETOLOGY METHOD 03/08/2025 2:06 PM [facility] NRBC 0.0 <1.0 % LAB HEMETOLOGY METHOD 03/08/2025 2:06 PM [facility] NRBC Absolute 0.00 <0.10 K/mcL LAB HEMETOLOGY METHOD 03/08/2025 2:06 PM [facility] Neutrophils Relative 53.7 % LAB HEMETOLOGY METHOD 03/08/2025 2:06 PM [facility] Lymphocytes Relative 33.7 % LAB HEMETOLOGY METHOD 03/08/2025 2:06 PM [facility] Monocytes Relative 7.9 % LAB HEMETOLOGY METHOD 03/08/2025 2:06 PM [facility] Eosinophils Relative 3.4 % LAB HEMETOLOGY METHOD 03/08/2025 2:06 PM [facility] Basophils Relative 0.6 % LAB HEMETOLOGY METHOD 03/08/2025 2:06 PM [facility] Immature Granulocytes Relative 0.7 % LAB HEMETOLOGY METHOD 03/08/2025 2:06 PM [facility] Neutrophils Absolute 5.04 1.50 - 7.00 K/mcL LAB HEMETOLOGY METHOD 03/08/2025 2:06 PM [facility] Lymphocytes Absolute 3.16 1.00 - 5.00 K/mcL LAB HEMETOLOGY METHOD 03/08/2025 2:06 PM [facility] Monocytes Absolute 0.74 0.20 - 1.00 K/mcL LAB HEMETOLOGY METHOD 03/08/2025 2:06 PM [facility] Eosinophils Absolute 0.32 0.00 - 0.50 K/mcL LAB HEMETOLOGY METHOD 03/08/2025 2:06 PM EST [facility] Basophils Absolute 0.06 0.00 - 0.20 K/[facility] LAB HEMETOLOGY METHOD 03/08/2025 2:06 PM EST [facility] Immature Granulocytes Absolute 0.07(H) 0.00 - 0.03 K/[facility] LAB HEMETOLOGY METHOD 03/08/2025 2:06 PM EST [facility] Blood Venous blood specimen / Unknown Venipuncture / Unknown 03/08/2025 9:52 AM EST 03/08/2025 9:52 AM EST Kristacoy [facility] LAB BLOOD ORDERABLES Final R esult Performing Organization Address City/[facility]/ZIP Co de Phone Number [facility] [address] [place] [address], [place] [phone] * (ABNORMAL) Creatinine (03/08/2025 9:52 AM EST) Creatinine 1.42(H) 0.70 - 1.30 mg/dL LAB CHEMISTRY METHOD 03/08/2025 2:29 PM EST [facility] eGFR 54(L) >=60 mL/min/1. 73m2 LAB CHEMISTRY METHOD 03/08/2025 2:29 PM EST [facility] Comment:Calculation based on the Chronic Kidney Disease Epidemiology Collaboration (CKD-EPI) equation refit without adjustment for race. Blood Venous blood specimen / Unknown Venipuncture / Unknown 03/08/2025 9:52 AM EST 03/08/2025 9:52 AM EST Krista Eben [employer] LAB BLOOD ORDERABLES Final R esult [facility] [address] [place] [address], [place] [phone] * BUN (03/08/2025 9:52 AM EST) Pathologist [facility] BUN 22 5 - 25 mg/dL LAB CHEMISTRY METHOD 03/08/2025 2:36 PM EST [facility] Blood Venous blood specimen / Unknown Venipuncture / Unknown 03/08/2025 9:52 AM EST 03/08/2025 9:52 AM EST Krista ISRAEL LAB BLOOD ORDERABLES Final R esult [facility] [address] [place] [address], [place] [phone] * (ABNORMAL) Vitamin B12 (03/08/2025 9:52 AM EST) [facility] Vitamin B-12 211(L) 250 - 900 pcg/mL LAB CHEMISTRY METHOD 03/08/2025 3:52 PM EST [facility] Blood Venous blood specimen / Unknown Venipuncture / Unknown 03/08/2025 9:52 AM EST 03/08/2025 9:52 AM EST Karan Lee MD LAB BLOOD ORDERABLES Fin al Result Performing Organization Address City/[facility]/ZIP Co de Phone Number [facility] [address] [place] [address], [place] [phone] * Hepatic function panel (03/08/2025 9:52 AM EST) [facility] Total Protein 6.3 6.0 - 8.0 g/dL LAB CHEMISTRY METHOD 03/08/2025 2:35 PM EST [facility] Albumin 3.4 3.2 - 5.0 g/dL LAB CHEMISTRY METHOD 03/08/2025 2:35 PM EST [facility] Total Bilirubin 0.4 0.0 - 1.4 mg/dL LAB CHEMISTRY METHOD 03/08/2025 2:35 PM [facility] Bilirubin, Direct <0.1 0.0 - 0.3 mg/dL LAB CHEMISTRY METHOD 03/08/2025 2:35 PM [facility] Bilirubin, Indirect LAB CHEMISTRY METHOD 03/08/2025 2:35 PM [facility] Comment:Unable to calculate Indirect Bilirubin. ALT (SGPT) 25 10 - 60 unit/L LAB CHEMISTRY METHOD 03/08/2025 2:35 PM EST [facility] AST (SGOT) 16 10 - 42 unit/L LAB CHEMISTRY METHOD 03/08/2025 2:35 PM [facility] Alkaline Phosphatase 65 42 - 121 unit/L LAB CHEMISTRY METHOD 03/08/2025 2:35 PM [facility] Blood Venous blood specimen / Unknown Venipuncture / Unknown 03/08/2025 9:52 AM EST 03/08/2025 9:52 AM EST Krista ISRAEL LAB BLOOD ORDERABLES Final R esult [facility] [address] [place] [address], * ECG-Annotated (01/19/2025) Provider Onbase MD ECG ORDERABLES Final Result * 12-Lead ECG (01/18/2025 11:18 PM EDT) Ventricular Rate ECG 70 BPM GEMUSE Atrial Rate 70 BPM GEMUSE P-R Interval 172 ms GEMUSE QRS Duration 98 ms GEMUSE Q-T Interval 388 ms GEMUSE QTc 419 ms GEMUSE P Wave [place] 64 degrees GEMUSE R [place] 77 degrees GEMUSE T [place] 66 degrees GEMUSE ECG Interpretation Normal sinus rhythm Normal ECG When compared with ECG of 27-NOV-2023 12:20, No significant change was found Confirmed by Tiffani MELGAR JAMES ([id number]) on 01/19/2025 4:24:49 PM GEMUSE 01/18/2025 11:1 8 PM EDT 01/19/2025 4:[address] Martínez MD ECG ORDERABLES Final Result Performing Organization Address [facility] de Phone Number GEMUSE * Troponin I High Sensitivity (01/18/2025 11:16 PM EDT) [facility] High Sensitivity Troponin I 3 <=79 ng/L LAB CHEMISTRY METHOD 01/19/2025 12:00 AM EDT [facility] Blood Venous blood specimen / Unknown Venipuncture / Unknown 01/18/2025 11:16 PM EDT 01/18/2025 11:34 PM EDT Narrative [facility] - 01/19/2025 12:00 AM EDT High levels of biotin in samples may falsely decrease hsTroponin values. Use caution when interpreting hsTroponin results in patients taking biotin who exhibit renal impairment (eGFR <60) or in patients taking more than 20 mg/day of biotin. us Ct Martínez MD LAB BLOOD ORDERABLES Final Resul t Performing Organization Address [facility] Co de Phone Number [facility] [address] [place] [address], [place] [phone] * CBC (01/18/2025 11:16 PM EDT) [facility] WBC 10.4 4.8 - 10.8 K/mcL LAB HEMETOLOGY METHOD 01/18/2025 11:37 PM EDT [facility] RBC 4.80 4.50 - 5.50 M/mcL LAB HEMETOLOGY METHOD 01/18/2025 11:37 PM EDT [facility] Hemoglobin 14.4 13.5 - 17.5 g/dL LAB HEMETOLOGY METHOD 01/18/2025 11:37 PM EDT [facility] Hematocrit 44.1 42.0 - 54.0 % LAB HEMETOLOGY METHOD 01/18/2025 11:37 PM EDT [facility] MCV 91.9 79.0 - 98.0 FL LAB HEMETOLOGY METHOD 01/18/2025 11:37 PM EDT [facility] MCH 30.0 27.0 - 32.0 pcg LAB HEMETOLOGY METHOD 01/18/2025 11:37 PM EDT [facility] MCHC 32.7 32.0 - 37.0 g/dL LAB HEMETOLOGY METHOD 01/18/2025 11:37 PM EDT [facility] RDW 13.7 11.0 - 15.0 % LAB HEMETOLOGY METHOD 01/18/2025 11:37 PM EDT [facility] Platelets 242 130 - 400 K/mcL LAB HEMETOLOGY METHOD 01/18/2025 11:37 PM EDT [facility] MPV 10.2 7.0 - 11.0 FL LAB HEMETOLOGY METHOD 01/18/2025 11:37 PM EDT [facility] NRBC 0.0 <1.0 % LAB HEMETOLOGY METHOD 01/18/2025 11:37 PM EDT [facility] NRBC Absolute 0.00 <0.10 K/mcL LAB HEMETOLOGY METHOD 01/18/2025 11:37 PM EDT [facility] Blood Venous blood specimen / Unknown Venipuncture / Unknown 01/18/2025 11:16 PM EDT 01/18/2025 11:[address] Martínez MD LAB BLOOD ORDERABLES Final Resul t [facility] [address] [place] [address], * (ABNORMAL) Magnesium (01/18/2025 11:16 PM EDT) [facility] Magnesium 1.8(L) 1.9 - 2.6 mg/dL LAB CHEMISTRY METHOD 01/18/2025 11:56 PM EDT [facility] Blood Venous blood specimen / Unknown Venipuncture / Unknown 01/18/2025 11:16 PM EDT 01/18/2025 11:[address] Martínez MD LAB BLOOD ORDERABLES Final Resul t [facility] [address] [place] [address], * (ABNORMAL) Basic Metabolic Panel (BMP) (01/18/2025 11:16 PM EDT) [facility] Sodium 141 133 - 145 mmol/L LAB CHEMISTRY METHOD 01/18/2025 11:56 PM [facility] Potassium 3.9 3.5 - 5.5 mmol/L LAB CHEMISTRY METHOD 01/18/2025 11:56 PM [facility] Chloride 112(H) 96 - 110 mmol/L LAB CHEMISTRY METHOD 01/18/2025 11:56 PM [facility] CO2 24 21 - 32 mmol/L LAB CHEMISTRY METHOD 01/18/2025 11:56 PM [facility] Anion Gap 5 3 - 11 LAB CHEMISTRY METHOD 01/18/2025 11:56 PM [facility] Glucose 117(H) 70 - 100 mg/dL LAB CHEMISTRY METHOD 01/18/2025 11:56 PM [facility] BUN 13 5 - 25 mg/dL LAB CHEMISTRY METHOD 01/18/2025 11:56 PM [facility] Creatinine 1.10 0.70 - 1.30 mg/dL LAB CHEMISTRY METHOD 01/18/2025 11:56 PM [facility] eGFR 73 >=60 mL/min/1. 73m2 LAB CHEMISTRY METHOD 01/18/2025 11:56 PM EDT [facility] Comment:Calculation based on the Chronic Kidney Disease Epidemiology Collaboration (CKD-EPI) equation refit without adjustment for race. BUN/Creatinine Ratio 11.8 LAB CHEMISTRY METHOD 01/18/2025 11:56 PM EDT [facility] Calcium 9.0 8.5 - 10.5 mg/dL LAB CHEMISTRY METHOD 01/18/2025 11:56 PM EDT [facility] Blood Venous blood specimen / Unknown Venipuncture / Unknown 01/18/2025 11:16 PM EDT 01/18/2025 11:[address] Martínez MD LAB BLOOD ORDERABLES Final Resul t [facility] [address] [place] [address], * XR Chest 1 View (01/18/2025 10:51 PM EDT) Anatomical Region Laterality Modality Body Radiographic Franny ging 01/19/2025 8:43 AM EDT Impressions 01/19/2025 8:44 AM EDT Impression: No active pulmonary process identified. No significant change. Telerad JHONATAN ([id number]) -------- FINAL REPORT -------- Dictated By: Sharmila Bergeron Dictated Date: 01/19/2025 08:43 ET Assigned Physician: Sharmila Bergeron Reviewed and Electronically Signed By: Sharmila Bergeron Signed Date: 01/19/2025 08:44 ET Workstation ID: [id number] Transcribed By: Self Edit Transcribed Date: 01/19/2025 08:43 ET Narrative 01/19/2025 8:44 AM EDT History: Chest pain. Comparison: 11/27/23 Findings: Portable AP upright chest at 10:49 PM. The cardiac silhouette remains normal in size. Hilar contours and pulmonary vascularity appear normal. The lungs are clear. The costophrenic angles are sharp. Stable mild right hemidiaphragmatic elevation is seen. Procedure Note Sharmila Bergeron MD - 01/19/2025 History: Chest pain. Comparison: 11/27/23 Findings: Portable AP upright chest at 10:49 PM. The cardiac silhouette remainsnormal in size. Hilar contours and pulmonary vascularity appear normal.The lungs are clear. The costophrenic angles are sharp. Stable mild righthemidiaphragmatic elevation is seen. IMPRESSION: Impression: No active pulmonary process identified. No significant change. Telerad PA ([id number]) -------- FINAL REPORT -------- Dictated By: Sharmila Bergeron Dictated Date: 01/19/2025 08:43 ET Assigned Physician: Sharmila Bergeron Reviewed and Electronically Signed By: Sharmila Bergeron Signed Date: 01/19/2025 08:44 ET Workstation ID: [id number] Transcribed By: Self Edit Transcribed Date: 01/19/2025 08:[address] Martínez MD IMG XR PROCEDURES Final Result * (ABNORMAL) Lipid panel with reflex to direct LDL (11/19/2024 7:41 AM EDT) Cholesterol 153 0 - 200 mg/dL LAB CHEMISTRY METHOD 11/19/2024 1:00 PM EDT [facility] Triglycerides 125 0 - 150 mg/dL LAB CHEMISTRY METHOD 11/19/2024 1:00 PM EDT [facility] HDL 33(L) >=40 mg/dL LAB CHEMISTRY METHOD 11/19/2024 1:00 PM EDT [facility] LDL Calculated 95 0 - 100 mg/dL LAB CHEMISTRY METHOD 11/19/2024 1:00 PM EDT [facility] VLDL Cholesterol Dereje 25 mg/dL LAB CHEMISTRY METHOD 11/19/2024 1:00 PM EDT [facility] Non HDL Chol. (LDL+VLDL) 120 <145 mg/dL LAB CHEMISTRY METHOD 11/19/2024 1:00 PM EDT [facility] Chol/HDL Ratio 4.6(H) 0.0 - 4.4 LAB CHEMISTRY METHOD 11/19/2024 1:00 PM EDT [facility] Blood Venous blood specimen / Unknown Venipuncture / Unknown 11/19/2024 7:41 AM EDT 11/19/2024 8:15 AM EDT Rene ISRAEL LAB BLOOD ORDERABLES Final Result [facility] [address] [place] [address], * Hepatitis C antibody (2024 3:18 PM EDT) Hepatitis C Antibody Negative Negative LAB CHEMISTRY METHOD 2024 6:11 PM EDT [facility] Blood Venous blood specimen / Unknown Venipuncture / Unknown 2024 3:18 PM EDT 2024 3:37 PM EDT Karan Lee MD LAB BLOOD ORDERABLES Fin al Result Performing Organization Address City/[facility]/ZIP Co de Phone Number [facility] [address] [place] [address], from Last 3 Months or Most Recently Relevant to Health Maintenance Insurance MEDICA[place] [employer] Care Teams Brick Baker Relationship Specialty Start Date End Date Whit Dawson MD [address] [place] [address] PCP - General 08/05/23
--- OUTSIDE RECORDS SUMMARY | 2025-03-26 17:00 | XMS_ITS | Clinical Summary ---
Author Organization [facility] Prior to 09/19/[address] [place] [address] Care Team Providers Care Adjustment Examiner Name Role Phone Rylee Valenzuela MD Primary Care Provider [phone] Allergies Active Allergy Reactions Criticality Noted Date [...] age to complete this topic Care Teams Adjustment Examiner Relationship Specialty Start Date End Date Rylee Valenzuela MD PCP - General Family Medicine 09/07/14
== END 2025-03-26 13:28 | disposition home or self-care (01) ==
PROVIDERS: PCP Hospitalist; Visit Provider Nurse Practitioner Family
DX: M51.369 Other intervertebral disc degeneration, lumbar region without mention of lumbar back pain or lower extremity pain (principal); M47.817 Spondylosis without myelopathy or radiculopathy, lumbosacral region; M54.51 Vertebrogenic low back pain; M54.16 Radiculopathy, lumbar region; M48.061 Spinal stenosis, lumbar region without neurogenic claudication
CPT/HCPCS: 99214

== ENCOUNTER → 2025-03-26 13:03 | Outpatient (BNVA) | payer MEDICARE, SELFPAY | PROVIDERS: PCP Hospitalist; Visit Provider Nurse Practitioner Family | DX: M54.51 Vertebrogenic low back pain (principal); M47.817 Spondylosis without myelopathy or radiculopathy, lumbosacral region; M51.369 Other intervertebral disc degeneration, lumbar region without mention of lumbar back pain or lower extremity pain; M54.16 Radiculopathy, lumbar region; M48.061 Spinal stenosis, lumbar region without neurogenic claudication; F17.210 Nicotine dependence, cigarettes, uncomplicated | CPT/HCPCS: 99212 ==

== ENCOUNTER 2025-03-30 19:15 | Outpatient (REF) | payer MEDICARE, SELFPAY ==
--- OUTSIDE RECORDS SUMMARY | 2025-01-23 04:00 | XMS_ITS ---
Author Organization [facility] Address [address] [address] Care Team Providers Care [employer] French Teacher Name Role Phone Scar López Unavailable [phone] Migration, Provider Unavailable Unavailable REASON FOR VISIT EMR-[facility] Encounters Encounter Location Date Provider Diagnosis [facility] [address] [address] 01/23/2025 Provider Migration Plan Of Treatment No Information Progress Notes * CHAD ASTORGAOB:1955 (69 yo M)Acc No.[id number]:01/23/2025 Patient: Diana STROUDLESLI Richards :1955 A ge:69 Y S ex:Male Address:[address], [facility] [address] Subjective: * Chief Complaints: * E MR-Chase * * Date:
--- OUTSIDE RECORDS SUMMARY | 2025-01-24 04:00 | XMS_ITS ---
Author Organization [facility] Address [address] [address] Care Team Providers Care Tire Building Supervisor Name Role Phone Scar López Unavailable [phone] Migration, Provider Unavailable Unavailable Allergies Allergen (clinical drug ingredient) Drug/Non Drug Allergy documented on EMR Reaction Allergy Type Onset Date Status Diclofenac Unknown Drug Allergy 12/09/2020 Activ e REASON FOR VISIT EMR-[facility] Medications Medication SIG (Take, Route, Frequency, Duration) Notes Start Date End Date Status Amoxicillin-Pot Clavulanate 875-125 MG Tablet Oral 12/09/2020 Active Gabapentin 300 MG Capsule Oral 12/09/2020 Active Trelegy Ellipta 200-62.5-25 MCG/ACT Aerosol Powder Breath Activated Inhalation 12/09/2020 Active Pantoprazole Sodium 40 MG Tablet Delayed Release Oral 12/09/2020 Activ e valACYclovir HCl 500 MG Tablet Oral 12/09/2020 Active Benzonatate 100 MG Capsule Oral 12/09/2020 Active Meclizine HCl 25 MG Tablet Oral 12/09/2020 Active Suprep Bowel Prep Kit 17.5-3.13-1.6 GM/177ML Solution Oral 12/09/2020 Active Lisinopril 20 MG Tablet Oral 12/09/2020 Active Doxycycline Hyclate 100 MG Tablet Oral 12/09/2020 Active lamoTRIgine 100 MG Tablet Oral 12/09/2020 Active PARoxetine HCl 20 MG Tablet Oral 12/09/2020 Active Bisoprolol Fumarate 5 MG Tablet Oral 12/09/2020 Active oxyCODONE-Acetaminophen 10-325 MG Tablet Oral 12/09/2020 Active Tamsulosin HCl 0.4 MG Capsule Oral 12/09/2020 Active Atorvastatin Calcium 40 MG Tablet Oral 12/09/2020 Active buPROPion HCl ER (Smoking Det) 150 MG Tablet Extended Release 12 Hour Oral 12/09/2020 Active Aspirin 81 MG Tablet Chewable Oral 12/09/2020 Active Encounters Encounter Location Date Provider Diagnosis [facility] [address] [place] [id number] 01/24/2025 Provider Migration Plan Of Treatment No Information Progress Notes * CHAD ASTORGAOB:1955 (69 yo M)Acc No.[id number]:01/24/2025 Patient: LESLI DEMPSEY :1955 A ge:69 Y S ex:Male Address:[facility] [address], [place], [address] Subjective: * Chief Complaints: * E MR-Chase * Medications: T akingMeclizine HCl 25 MG Tablet Oral Pantoprazole Sodium 40 MG Tablet Delayed Release Oral Trelegy Ellipta 200-62.5-25 MCG/ACT Aerosol Powder Breath Activated Inhalation buPROPion HCl ER (Smoking Det) 150 MG Tablet Extended Release 12 Hour Oral Bisoprolol Fumarate 5 MG Tablet Oral oxyCODONE-Acetaminophen 10-325 MG Tablet Oral Suprep Bowel Prep Kit 17.5-3.13-1.6 GM/177ML Solution Oral Tamsulosin HCl 0.4 MG Capsule Oral Atorvastatin Calcium 40 MG Tablet Oral lamoTRIgine 100 MG Tablet Oral PARoxetine HCl 20 MG Tablet Oral Benzonatate 100 MG Capsule Oral Doxycycline Hyclate 100 MG Tablet Oral Lisinopril 20 MG Tablet Oral valACYclovir HCl 500 MG Tablet Oral Amoxicillin-Pot Clavulanate 875-125 MG Tablet Oral Gabapentin 300 MG Capsule Oral Aspirin 81 MG Tablet Chewable Oral Taking Meclizine HCl 25 MG Tablet Oral Taking Pantoprazole Sodium 40 MG Tablet Delayed Release Oral Taking Trelegy Ellipta 200-62.5-25 MCG/ACT Aerosol Powder Breath Activated Inhalation Taking buPROPion HCl ER (Smoking Det) 150 MG Tablet Extended Release 12 Hour Oral Taking Bisoprolol Fumarate 5 MG Tablet Oral Taking oxyCODONE-Acetaminophen 10-325 MG Tablet Oral Taking Suprep Bowel Prep Kit 17.5-3.13-1.6 GM/177ML Solution Oral Taking Tamsulosin HCl 0.4 MG Capsule Oral Taking Atorvastatin Calcium 40 MG Tablet Oral Taking lamoTRIgine 100 MG Tablet Oral Taking PARoxetine HCl 20 MG Tablet Oral Taking Benzonatate 100 MG Capsule Oral Taking Doxycycline Hyclate 100 MG Tablet Oral Taking Lisinopril 20 MG Tablet Oral Taking valACYclovir HCl 500 MG Tablet Oral Taking Amoxicillin-Pot Clavulanate 875-125 MG Tablet Oral Taking Gabapentin 300 MG Capsule Oral Taking Aspirin 81 MG Tablet Chewable Oral * Allergies: D iclofenac: Allergy - Onset Date 12/09/2020 * * Date:
--- NOTE | ~2025-03-30 | MR_ITS ---
CLINICAL HISTORY: M51.369 - Other intervertebral disc degeneration, lumbar region MRI lumbar spine without contrast Comparison: 04/03/2024 Findings: L5-S1 set hypertrophy and transverse osteophyte. Osteophyte more prominent left paramidline. Bilateral neural foraminal narrowing, greater on the left. Minimal spinal canal stenosis. L4-5 facet hypertrophy and osteophytosis. Left neural foraminal narrowing noted. L3-4 facet hypertrophy and mild disc bulge. [id number] spinal stenosis noted. Multilevel facet hypertrophy and mild spinal stenosis. No other neural foraminal narrowing. Scattered benign hemangiomas or lipid rests. No acute bony signal abnormality noted. Posterior bony alignment is normal. Multiple renal cysts partially visualized. Impression: Degenerative changes as above This document has been electronically signed by: Vitor Pineda MD on 03/30/2025 20:18:44
--- OUTSIDE RECORDS SUMMARY | 2025-03-30 23:17 | XMS_ITS | Clinical Summary ---
Author Organization [facility] Prior to 09/19/[address] [place] [address] Care Team Providers Care Motion Picture Camera Lens Technician Name Role Phone Rylee Valenzuela MD Primary Care Provider [phone] Allergies Active Allergy Reactions Criticality Noted Date [...] age to complete this topic Care Teams Motion Picture Camera Lens Technician Relationship Specialty Start Date End Date Rylee Valenzuela MD PCP - General Family Medicine 09/07/14
--- OUTSIDE RECORDS SUMMARY | 2025-03-30 23:17 | XMS_ITS | Patient Health Record ---
Author Organization [facility] Address [address] [place] [address] Care Team Providers Care Vault Clerk Name Role Phone INESSA CHAPMAN Primary Care Provider [phone] Rene Allan Unavailable [phone] Allergies Allergen (clinical drug ingredient) Drug/Non Drug Allergy documented on EMR Reaction Allergy Type Onset Date Status diclofenac Diclofenac Unknown Drug Allergy Activ e Results Component Value Reference Range Notes CREATININE Reviewed date:03/08/2025 05:40:34 PM Interpretation: Performing Lab: Notes/Report: Creatinine 1.42 0.70-1.30 mg/dL eGFR 54 >=60 mL/min/1.73m2 Calculation based on the Chronic Kidney Disease Epidemiology Collaboration (CKD-EPI) equation refit without adjustment for race. BUN Reviewed date:03/08/2025 05:40:06 PM Interpretation: Performing Lab: Notes/Report: BUN 22 5-25 mg/dL HEPATIC FUNCTION PANEL Reviewed date:03/08/2025 05:40:18 PM Interpretation: Performing Lab: Notes/Report: Total Protein 6.3 6.0-8.0 g/dL Albumin 3.4 3.2-5.0 g/dL Total Bilirubin 0.4 0.0-1.4 mg/dL Bilirubin, Direct <0.1 0.0-0.3 mg/dL Bilirubin, Indirect See Report Unable t o calculate Indirect Bilirubin. ALT (SGPT) 25 10-60 unit/L AST (SGOT) 16 10-42 unit/L Alkaline Phosphatase 65 42-121 unit/L CBC WITH AUTO DIFFERENTIAL Reviewed date:03/08/2025 05:40:42 PM Interpretation: Performing Lab: Notes/Report: WBC 9.4 4.8-10.8 K/mcL RBC 5.00 4.50-5.50 M/mcL Hemoglobin 15.1 13.5-17.5 g/dL Hematocrit 46.7 42.0-54.0 % MCV 93.8 79.0-98.0 FL MCH 30.3 27.0-32.0 pcg MCHC 32.3 32.0-37.0 g/dL RDW 14.3 11.0-15.0 % Platelets 241 130-400 K/mcL MPV 10.8 7.0-11.0 FL NRBC 0.0 <1.0 % NRBC Absolute 0.00 <0.10 K/mcL Neutrophils Relative 53.7 Lymphocytes Relative 33.7 Monocytes Relative 7.9 Eosinophils Relative 3.4 Basophils Relative 0.6 Immature Granulocytes Relative 0.7 Neutrophils Absolute 5.04 1.50-7.00 K/mcL Lymphocytes Absolute 3.16 1.00-5.00 K/mcL Monocytes Absolute 0.74 0.20-1.00 K/mcL Eosinophils Absolute 0.32 0.00-0.50 K/mcL Basophils Absolute 0.06 0.00-0.20 K/mcL Immature Granulocytes Absolute 0.07 0.00-0.03 K/mcL CBC WITH AUTO DIFFERENTIAL Reviewed date:12/29/2024 05:03:47 PM Interpretation: Performing Lab: Notes/Report: WBC 13.1 4.8-10.8 [...] Immature Granulocytes Absolute 0.09 0.00-0.03 K/mcL MR CERVICAL SPINE NIRAV AND Cristina WILLINGHAM Reviewed date:12/23/2024 05:32:47 PM Interpretation: Performing Lab: Notes/Report: Note See Note [facility], a member of [facility] Patient Name: LESLI ASTORGA Date of : 1955 Reason for Exam: Multiple sclerosis, monitor Exam Date: 12/19/2024 [id number] EST Report Status: Final Ordering Provider: CLOVIS UMANA PCP: INESSA CHAPMAN PROCEDURE: Cervical spine MRI INDICATION: Multiple sclerosis TECHNIQUE: Multiplanar, multisequence MRI of the Cervical spine without and with contrast. 20 mL Dotarem injected intravenously without complication. COMPARISON: 10/06/19 23 MRI. FINDINGS: Straightening of the normal cervical [...] the cervical cord are similar compared to 202. No new lesions or abnormal enhancement to suggest active demyelination. -------- FINAL REPOR T -------- Dictated By: MARY JO THURSTON Dictated Date: 12/23/2024 11:15 ET Assigned Physician: MARY JO THURSTON Reviewed and Electronically Signed By: MARY JO THURSTON Signed Date: 12/23/2024 13:22 ET Workstation ID: [id number] Transcribed By: Self Edit Transcribed Date: 12/23/2024 12:03 ET MR BRAIN WO AND W CONTRAST Reviewed date:12/23/2024 05:32:58 PM Interpretation: Performing Lab: Notes/Report: Note See Note [facility], a member of [employer] Patient Name: LESLI ASTORGA Date of : 1955 Reason for Exam: Multiple sclerosis, monitor Exam Date: 12/19/2024 [id number] EST Report Status: Final Ordering Provider: CLOVIS [...] infratentorial white matter are stable compared to 202. For example pontine and left cerebellar T2 [...] Signed Date: 12/23/2024 09:28 ET Workstation ID: [id number] Transcribed By: Self Edit Transcribed Date: 12/23/2024 09:11 ET CBC WITH AUTO DIFFERENTIAL Reviewed date:2024 05:41:03 [...] K/mcL Immature Granulocytes Absolute 0.04 0.00-0.03 K/mcL CREATININE Reviewed date:2024 05:40:26 PM Interpretation: Performing Lab: Notes/Report: Creatinine 1.03 0.70-1.30 mg/dL eGFR 79 >=60 mL/min/1.73m2 Calculation based on the?Chronic Kidney Disease Epidemiology Collaboration (CKD-EPI) equation refit?without adjustment for race. VITAMIN B12 Reviewed date:2024 05:39:48 PM Interpretation: Performing Lab: Notes/Report: Vitamin B-12 237 250-900 pcg/mL VITAMIN D 25 HYDROXY Reviewed date:2024 05:39:26 PM Interpretation: Performing Lab: Notes/Report: Vit D, 25-Hydroxy 40.6 30.0-80.0 ng/mL HEPATITIS B SURFACE ANTIGEN WITH REFLEX TO CONFIRMATION Reviewed date:08/23/2024 09:42:13 AM Interpretation: Performing Lab: Notes/Report: Over the counter supplements containing high doses of biotin may interfere with this assay. If interference is suspected, patients shoud be retested after refraining from biotin supplements for 72 hours. Hepatitis B Surface Ag Negative Negative HEPATITIS C ANTIBODY Reviewed date:08/23/2024 09:42:09 AM Interpretation: Performing Lab: Notes/Report: Hepatitis C Antibody Negative Negative HIV 1, 2 ANTIBODY, P24 ANTIG EN [...] HIV screening. HIV Combo AB/AG Negative Negative BUN Reviewed date:2024 05:40:54 PM Interpretation: Performing Lab: Notes/Report: BUN 17 5-25 mg/dL HEPATIC FUNCTION PANEL Reviewed date:2024 05:40:45 PM Interpretation: Performing Lab: Notes/Report: Total Protein 7.0 6.0-8.0 g/dL Albumin 3.7 3.2-5.0 g/dL Total Bilirubin 0.5 0.0-1.4 mg/dL Bilirubin, Direct 0.1 0.0-0.3 mg/dL Bilirubin, Indirect 0.4 0.0-1.1 mg/dL ALT (SGPT) 25 10-60 unit/L AST (SGOT) 20 10-42 unit/L Alkaline Phosphatase 71 42-121 unit/L RHEUMATOID FACTOR Reviewed date:2024 05:40:35 PM Interpretation: Performing Lab: Notes/Report: Rheumatoid Factor <10.0 <15.0 I Unit/mL DARCY IFA WITH TITER AND KWAKU COOPER Reviewed date:08/25/2024 11:55:07 AM Interpretation: Performing Lab: Notes/Report: DARCY Negative Negative IMMUNOGLOBULIN IGG Reviewed date:2024 05:40:16 PM Interpretation: Performing Lab: Notes/Report: Total IgG 2968 857-6096 mg/dL IMMUNOGLOBULIN IGM Reviewed date:2024 05:39:43 PM [...] units Sjogren's SS-B (La) Ab Negative Negative IMMUNE DEFICIENCY PANEL, COM PREHENSIVE Reviewed date:08/24/2024 [...] Ratio (CD4:CD8) 4.8 1.0-3.7 Test performed at [facility], [facility] [place] [address] NEUROMYELITIS OPTICA, [place] RIN-4-IGG Reviewed date:08/25/2024 07:47:27 AM Interpretation: Performing Lab: Notes/Report: Performed at: [address] [place] [id number] Sales Enablement Manager: Shanice Cardona MD, Phone: [phone] NMO IgG Autoantibodies <1.5 0.0-3.0 U/mL Negative: 0.0 - 3.0 Positive: >3.0 MYELIN OLIGODENDROCYTE GLYCO PROTEIN ANTIBODY WITH REFLEX TO TITER Reviewed date:08/25/2024 07:47:25 AM Interpretation: Performing Lab: Notes/Report: Test(s) 872505-XCX Antibody, Cell-based IFA was developed and its performance characteristics determined by [facility]. It has not been cleared or approved by the Food and Drug Administration. Performed at: [address] [id number] Sales Enablement Manager: Shanice Cardona MD, Phone: [phone] MOG Antibody, Cell-based IFA Negative Negative Iron and TIBC-[id number] Reviewed date:05/07/2024 09:49:02 AM Interpretation: Performing Lab:[facility], [address] [place] [address], Phone - [phone], Director - MDJodry Notes/Report: Iron Bind.Cap.(TIBC) 272 250-450 ug/dL UIBC 174 111-343 ug/dL Iron 98 38-169 ug/dL Iron Saturation 36 15-55 % Ferritin-[id number] Reviewed date:05/07/2024 09:49:13 AM Interpretation: Performing Lab:[facility], [address] [place] [address], Phone - [phone], Director - Ignacia Notes/Report: Ferritin 71 30-400 ng/mL CBC with Diff, Platelet, NLR -[id number] Reviewed date:05/07/2024 09:48:43 AM Interpretation: Performing Lab:[facility], [address] [place] [address], Phone - [phone], Director - MDJodry Notes/Report: WBC 13.6 3.4-10.8 x10E3/uL RBC 5.10 [...] % Immature Grans (Abs) 0.1 0.0-0.1 x10E3/uL Vitamin D, 03-Fbrfcdt-[id number] Reviewed date:05/07/2024 09:48:14 AM Interpretation: Performing Lab:[facility], [address] [place] [address], Phone - [phone], Director - Ignacia Notes/Report: Vitamin D, 25-Hydroxy 32.7 30.0-100.0 ng/mL Vitamin D deficiency has been defined by the [place] of Medicine and an Endocrine Society practice guideline as a level of serum 25-OH vitamin D less than 20 ng/mL (1,2). The Endocrine Society went on to further define vitamin D insufficiency as a level between 21 and 29 ng/mL (2). 1. IOM ([place] of Medicine). 2010. Dietary reference intakes for calcium and D. [place]: The National Academies Press. 2. Mark MF, Jose [place], Agatha CARREON, et al. Evaluation, treatment, and prevention of vitamin D deficiency: an Endocrine Society clinical practice guideline. JCEM. 2010; 96(7):1911-30. Lipid Panel-770947 Reviewed date:05/07/2024 09:48:34 AM Interpretation: Performing Lab:[facility], [facility], Phone - [phone], Director - Ignacia Notes/Report: Cholesterol, Total 155 100-199 mg/dL Triglycerides 183 0-149 mg/dL HDL Cholesterol 26 >39 mg/dL VLDL Cholesterol Dereje 32 5-40 mg/dL LDL Chol Calc ([facility]) 97 0-99 mg/dL Comp. Metabolic Panel (14)-3 09206 Reviewed date:05/07/2024 09:48:52 AM Interpretation: Performing Lab:[facility], [facility] [place], Phone - [phone], Director - Ignacia Notes/Report: Glucose 99 70-99 [...] 0-40 IU/L ALT (SGPT) 20 0-44 IU/L VITAMIN B12 Reviewed date:03/08/2025 05:41:00 PM Interpretation: Performing Lab: Notes/Report: Vitamin B-12 211 250-900 pcg/mL TROPONIN I HIGH SENSITIVITY Reviewed date:01/19/2025 07:45:44 AM Interpretation: Performing Lab: Notes/Report: High levels of biotin in samples may falsely decrease hsTroponin values. Use caution when interpreting hsTroponin results in patients taking biotin who exhibit renal impairment (eGFR <60) or in patients taking more than 20 mg/day of biotin. High Sensitivity Troponin I 3 <=79 ng/L BASIC METABOLIC PANEL Reviewed date:01/19/2025 07:45:52 AM Interpretation: Performing Lab: Notes/Report: Sodium 141 133-145 mmol/L Potassium 3.9 3.5-5.5 mmol/L Chloride 112 96-110 mmol/L CO2 24 21-32 mmol/L Anion Gap 5 3-11 Glucose 117 70-100 mg/dL BUN 13 5-25 mg/dL Creatinine 1.10 0.70-1.30 mg/dL eGFR 73 >=60 mL/min/1.73m2 Calculation based on the Chronic Kidney Disease Epidemiology Collaboration (CKD-EPI) equation refit without adjustment for race. BUN/Creatinine Ratio 11.8 Calcium 9.0 8.5-10.5 mg/dL COMPLETE BLOOD COUNT Reviewed date:01/19/2025 07:45:59 AM Interpretation: Performing Lab: Notes/Report: WBC 10.4 4.8-10.8 K/mcL RBC 4.80 4.50-5.50 M/mcL Hemoglobin 14.4 13.5-17.5 g/dL Hematocrit 44.1 42.0-54.0 % MCV 91.9 79.0-98.0 FL MCH 30.0 27.0-32.0 pcg MCHC 32.7 32.0-37.0 g/dL RDW 13.7 11.0-15.0 % Platelets 242 130-400 K/mcL MPV 10.2 7.0-11.0 FL NRBC 0.0 <1.0 % NRBC Absolute 0.00 <0.10 K/mcL MAGNESIUM Reviewed date:01/19/2025 07:45:55 AM Interpretation: Performing Lab: Notes/Report: Magnesium 1.8 1.9-2.6 mg/dL CBC WITH AUTO DIFFERENTIAL Reviewed date:12/25/2024 04:15:47 [...] K/mcL Immature Granulocytes Absolute 0.18 0.00-0.03 K/mcL LIPID PANEL WITH REFLEX TO D IRECT LDL Reviewed date:12/22/2024 02:40:56 PM Interpretation: Performing Lab: Notes/Report: Cholesterol 153 0-200 mg/dL Triglycerides 125 0-150 mg/dL HDL 33 >=40 mg/dL LDL Calculated 95 0-100 mg/dL VLDL Cholesterol Dereje 25 Non HDL Chol. (LDL+VLDL) 120 <145 mg/dL Chol/HDL Ratio 4.6 0.0-4.4 COMPREHENSIVE METABOLIC PANE L Reviewed date:11/19/2024 12:25:16 [...] 3.2-5.0 g/dL Total Bilirubin 0.5 0.0-1.4 mg/dL PROSTATE SPECIFIC ANTIGEN ANALISA CORONEL Reviewed date:12/22/2024 12:50:33 PM Interpretation: Performing Lab: Notes/Report: The Siemens [employer] Chemiluminescent Immunoassay is used. Results obtained with different assay methods or kits cannot be used interchangeably. Results cannot be interpreted as absolute evidence of the presence or absence of malignant disease. PSA 0.83 0.00-4.00 ng/mL MICROALBUMIN CREATININE URIN E RATIO Reviewed date:11/19/2024 12:25:28 PM Interpretation: Performing Lab: Notes/Report: Creatinine, Urine 167.0 Microalb, Ur 19.0 0.0-29.0 mg/L Microalb/Creat Ratio 11 <30 mg/g creat Reason For Referral Reason BP monitor 48 hour Please evaluate and treat Diagnosis 1 Unspecified acute co njunctivitis, unspecified eye (H10.30) Referral Organization [facility] Referring Provider First Name Jaleel Referring Provider Last Name Brandon Referred Provider Specialty Nephrology General Notes Please call the divya ent to schedule the appointment, Namrata Boswell 07/20/2024 01:06:22 PM > Referral Priority Stat Reason 48 hour BP monitor; Elevated BP Diagnosis 1 Essential (primary) hypertension (I10) Referral Organization [facility] Referring Provider First Name Rene Referring Provider Last Name Sanjana Referred Provider Specialty Cardiology General Notes Faxed to [facility]. Please contact the patient to schedule., Tasha Dudley 08/25/2024 02:51:34 PM > Referral Priority Routine Medications Medication SIG (Take, Route, Frequency, Duration) Notes Start Date End Date Status Benzonatate 100 MG 1 capsule as needed Orally Three times a day; Duration: 7 days 08/26/2024 Not-Taking LORazepam 0.5 MG 1 tablet at bedtime as needed Orally Once a day; Duration: 45 days 02/09/2025 Active PARoxetine HCl 30 MG TAKE 1 TABLET BY MOUTH EVERY MORNING; Duration: 90 Active Acyclovir 200 MG 1 capsule Orally Three times a day; Duration: 10 days 02/09/2025 Active lamoTRIgine 25 & 50 & 100 MG as directed Orally daily; Duration: 90 days 04/29/2024 Active Gas Relief 80 MG 1 tablet after meals and at bedtime as needed Orally Four times a day; Duration: 30 days 08/17/2024 Active predniSONE 20 MG 1 tablet Orally Once a day; Duration: 7 days 02/09/2025 Active Align 10 MG as directed Orally DAILY; Duration: 30 days 08/17/2024 Active Acyclovir 5 % 1 application Externally Five times a day; Duration: 10 days 01/29/2023 Active Breo Ellipta 100-25 MCG/ACT 1 puff Inhalation Once a day; Duration: 30 days 08/22/2023 Active lamoTRIgine 100 MG TAKE 1 TABLET BY MOUTH DAILY; Duration: 30 Active Albuterol Sulfate HFA 108 (90 Base) MCG/ACT 1 puff as needed Inhalation every 4 hrs; Duration: 30 days Active Azithromycin 250 MG as directed Orally 2 tablets on the first day, then 1 tablet daily; Duration: 5 days 02/09/2025 Active amLODIPine Besylate 10 MG 1 tablet Orall y Once a day Active Mzozucwq-Xcesodyds-Djhwvx th 3.5-31675-1.1 1 drop into affected eye Ophthalmic Four times a day; Duration: 30 days 07/15/2024 Active Pantoprazole Sodium 20 MG TAKE 1 TABLET BY MOUTH EVERY DAY FOR 30 DAYS; Duration: 90 Active Losartan Potassium 25 MG TAKE 1 TABLET B Y MOUTH EVERY DAY FOR 30 DAYS; Duration: 90 Active hydroCHLOROthiazide 12.5 MG TAKE 1 TABLET BY MOUTH EVERY DAY IN THE MORNING; Duration: 90 Active Caladryl 1-8 % 1 application as needed Externally Three times a day; Duration: 30 days 07/08/2023 Not-Taking Doxycycline Hyclate 100 MG 1 tablet Orally twice a day; Duration: 10 days 11/22/2023 Not-Taking Pregabalin 50 MG 1 capsule in the evening 1 to 3 hours before bedtime Orally Once a day; Duration: 28 days 2023 Active Spiriva HandiHaler 18 MCG 1 capsule by inhaling the contents of the capsule using the HandiHaler device Inhalation Once a day; Duration: 30 days 07/25/2023 Active Aspirin 81 MG 1 tablet Orally Once a day; Duration: 30 day(s) 07/11/2023 Active Tamsulosin HCl 0.4 MG 1 capsule Orally TWICE A DAY; Duration: 30 days ADJUSTED BY UROLOGY 01/29/2023 Active Ocrelizumab 300 MG/10ML as directed Intravenous weekly; Duration: 30 days 07/12/2023 Active Hydrocortisone 2.5 % APPLY 1 APPLICATION EXTERNALLY EVERY DAY; Duration: 56 Active Hydrocortisone 2 % 1 application Externally Twice a day; Duration: 14 days 11/22/2023 Not-Taking predniSONE 20 MG 1 tablet Orally Once a day; Duration: 7 days 10/18/2023 Not-Taking oxyCODONE HCl 5 MG 1 tablet as needed Orally every 12 hrs; Duration: 5 days 11/25/2023 Not-Taking Riboflavin 400 MG 1 capsule Orally Once a day; Duration: 30 days 12/05/2023 Not-Taking lamoTRIgine Starter Kit-[place]more 42 x 25 MG & 7 x 100 MG as directed Orally daily; Duration: 30 days Active Levocetirizine Dihydrochloride 5 MG 1 tablet in the evening Orally Once a day; Duration: 90 days Active Align 4 MG as directed Orally DAILY; Duration: 90 days 2023 Not-Taking Advair HFA 115-21 MCG/ACT 2 puffs Inhalation Twice a day; Duration: 30 days 07/25/2023 Active CeleBREX 200 MG 1 capsule with food Orally Once a day; Duration: 30 days 2023 Active Celecoxib 200 MG 1 capsule with food Orally Once a day; Duration: 30 day(s) 07/11/2023 Not-Taking clonazePAM 0.5 MG 1 tablet at bedtime Orally Once a day; Duration: 30 days 07/08/2023 Not-Taking Atorvastatin Calcium 40 MG TAKE 1 TABLET BY MOUTH EVERY DAY FOR 90 DAYS; Duration: 90 Active Cyclobenzaprine HCl 10 MG TAKE 1 TABLET BY MOUTH EVERY DAY AT BEDTIME NEEDED FOR 30 DAYS; Duration: 30 Active Bisoprolol Fumarate 5 MG 1 tablet Orally Once a day; Duration: 90 days Active Fluticasone Propionate 50 MCG/ACT 1 spray in each nostril Nasally Twice a day; Duration: 30 days Active Wheelchair - Standard Manual Wheelchair; DX: G35; Duration: 30 days 02/17/2025 Active Pantoprazole Sodium 40 MG TAKE 1 TABLET BY MOUTH EVERY DAY FOR 30 DAYS; Duration: 90 Active hydrOXYzine HCl 25 MG TAKE 1 TABLET BY MOUTH TWICE A DAY; Duration: 90 Active Immunizations Vaccine Route Administration Date Status [...] Status Risk Notes Problem Genital herpes simplex (93884168) Herpesviral infection of urogenital system, unspecified (A60.00) Active confirmed Problem Vitamin B>12< deficiency anaemia (49208283) Vitamin B12 deficiency anemia, unspecified (D51.9) Active confirmed Problem Mixed hyperlipidemia (553252916) Mixed hyperlipidemia (E78.2) Active confirmed Problem Tobacco user (837136689) Nicotine dependence, unspecified, uncomplicated (F17.200) Active confirmed Problem Tobacco user (970639656) Nicotine dependence, cigarettes, uncomplicated (F17.210) Active confirmed Problem Generalized anxiety disorder (96762696) Generalized anxiety disorder (F41.1) Active confirmed Problem Multiple sclerosis (24279776) Multiple sclerosis (G35) Active confirmed Problem Insomnia (594327153) Insomnia, unspecified (G47.00) Active confirmed Problem Hearing loss (40809510) Unspecified hearing loss, unspecified ear (H91.90) Active confirmed Problem Intermittent claudication of bilateral lower limbs co-occurrent and due to atherosclerosis (36495059510592609) Atherosclerosis of creek arteries of extremities with intermittent claudication, 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) Active confirmed Problem Chronic obstructive pulmonary disease (18653526) Chronic obstructive pulmonary disease, unspecified (J44.9) Active confirmed Problem Gastro-esophageal reflux disease without esophagitis (291525385) Gastro-esophageal reflux disease without esophagitis (K21.9) Active confirmed Problem Constipation (19226135) Constipation, unspecified (K59.00) Active confirmed Problem Osteoarthritis (161425080) Polyosteoarthriti s, unspecified (M15.9) Active confirmed Problem Osteoarthritis of knee (763599590) Osteoarthritis of knee, unspecified (M17.9) Active confirmed Problem Acquired spondylolisthesis (926430165) Spondylolisthesis , lumbar region (M43.16) Active confirmed Problem Degeneration of thoracolumbar intervertebral disc (78611346) Other intervertebral disc degeneration, thoracolumbar region (M51.35) Active confirmed Problem Degeneration of lumbar intervertebral disc (46258821) Other intervertebral disc degeneration, lumbar region (M51.36) Active confirmed Problem Erectile dysfunction (disorder) (820308437) Male erectile dysfunction, unspecified (N52.9) Active confirmed Problem 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, 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) Active confirmed Problem Wheezing (73157631) Wheezing (R06.2) Active con firmed Problem Adult health examination (542704264) Encounter for general adult medical examination without abnormal findings (Z00.00) Active confirmed Problem Body mass index 30+ - obesity (544622486) Body mass index (BMI) 30.0-30.9, adult (Z68.30) Active confirmed Problem Essential hypertension (03944075) Essential (primary) hypertension (I10) Active confirmed Problem Benign prostatic hypertrophy without outflow obstruction (465556502) Benign prostatic hyperplasia without lower urinary tract symptoms (N40.0) Active confirmed Problem Lower urinary tract symptoms due to benign prostatic hypertrophy (84475206375639) Benign prostatic hyperplasia with lower urinary tract symptoms (N40.1) Active confirmed Problem Atherosclerotic heart disease of creek coronary artery without angina pectoris (421078383825121) 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.10) Active confirmed Problem Seasonal allergy (106657910) Seasonal allergies (J30.2) Active confirmed Vital Signs Heart Rate 72 /min 02/09/2025 Temperature 96.7 degrees Fahrenheit 02/09/2025 Oximetry 98 % 02/09/2025 Blood pressure diastolic 62 mm Hg 02/09/2025 Height 70.5 in 02/09/2025 Blood pressure systolic 100 mm Hg 02/09/2025 Weight 222.9 lbs 02/09/2025 BMI 31.53 kg/m2 02/09/2025 Encounters Encounter Location Date Provider Diagnosis [address] [place] [address] 04/24/[address] [place] [address] 04/27/[address] [place] [address] 05/01/2024 [facility] Headache, unspecifie d R51.[address] [place] [address] 05/05/2024 Rene Allan [address] [place] [address] 05/08/2024 [facility] Kid[facility] N28.[address] [place] [address] 05/21/2024 [facility] [address] [place] [address] 06/02/2024 [facility] [address] [facility] [place] [address] 07/13/2024 [facility] [address] [place] [address] 07/14/2024 [facility] [address] [place] [address] 07/20/2024 [facility] [address] [place] [address] 07/21/2024 [facility] [address] [place] [address] 07/21/2024 [facility] [address] [place] [address] 07/27/2024 [facility] [address] [place] [address] 07/28/2024 [facility] [address] [place] [address] 08/17/2024 [facility] [address] [place] [address] 08/20/2024 [facility] [address] [place] [address] 2024 [facility] [address] [place] [address] 08/26/2024 [facility] [address] [facility] [address] 08/27/2024 [facility] [address] [place] [address] 08/27/2024 [facility] [address] [place] [address] 09/16/2024 [facility] [address] [place] [address] 11/12/2024 [facility] [address] [place] [address] 12/25/2024 WYLIE GUL Essential (primary) hypertension I10 [facility] [address] [place] [address] 12/28/2024 Ghadeer Mazloum Essential (primary) hypertension I10 [facility] [address] [place] [address] 01/21/2025 [facility] [address] [place] [address] 02/04/2025 Ghadeer Mazloum Generalized anxiety disorder F41.1 [facility] [address] [place] [address] 02/09/2025 [facility] [address] [place] [address] 02/17/2025 [facility] [address] [place] [address] 02/24/2025 [facility] [address] [place] [address] 02/25/2025 [facility] [address] [place] [address] 02/25/2025 [facility] [address] [place] [address] 03/16/2025 [facility] [address] [place] [address] 03/30/2025 [facility] [address] [place] [address] 07/15/2024 Ghadeer Mazloum Headache, unspecifie d R51.9 ; Essential (primary) hypertension I10 and Unspecified acute conjunctivitis, unspecified eye H10.[address] [place] [address] 11/18/2024 Ghadeer Mazloum Essential (primary) hypertension I10 ; Generalized anxiety disorder F41.1 ; Mixed hyperlipidemia E78.2 ; Gastro-esophageal reflux disease without esophagitis K21.9 ; Benign prostatic hyperplasia without lower urinary tract symptoms N40.0 ; Chronic obstructive pulmonary disease, unspecified J44.9 ; Multiple sclerosis G35 ; Nicotine dependence, unspecified, uncomplicated F17.200 and Encounter for screening for malignant neoplasm of prostate Z12.[address] [place] [address] 03/17/2025 WYLIE GUL Vitamin B12 deficien cy anemia, unspecified D51.[address] [address] 04/29/2024 Ghadeer Mazloum Headache, unspecifie d R51.9 ; Acute sinusitis, unspecified J01.90 and Encounter for screening for cardiovascular disorders Z13.[address] [address] 02/09/2025 WYLIE GUL Cough, unspecified R05.9 ; Generalized anxiety disorder F41.1 ; Herpesviral infection, unspecified B00.9 ; Essential (primary) hypertension I10 ; Mixed hyperlipidemia E78.2 ; Gastro-esophageal reflux disease without esophagitis K21.9 and Nicotine dependence, unspecified, uncomplicated F17.[address] [place] [address] 08/17/2024 WYLIE GUL Essential (primary) hypertension I10 and Flatulence R14.[address] [address] 05/06/2024 Ghadeer Mazloum Assessments Encounter Date Diagnosis (ICD Code) Assessment Notes Treatment Notes Treatment Clinical Notes Section Notes 02/04/2025 Generalized anxiety disorder (ICD-10 - F41.1) 11/18/2024 Generalized anxiety disorder (ICD-10 - F41.1) [...] of microalbumin. He does follow with a pediatrician active practice Generalized anxiety disorder. Continue on fluoxetine, lorazepam [...] of microalbumin. He does follow with a pediatrician active practice Generalized anxiety disorder. Continue on fluoxetine, lorazepam [...] software. Despite multiple revisions, Errors may persist 02/09/2025 Cough, unspecified (ICD-10 - R05.9) Mr. Astorga is a 69-year-old gentleman with acid reflux, BPH, generalized anxiety disorder, hypertension, HSV and dyslipidemia here for upper respiratory tract symptoms of postnasal drip, sinus pressure, cough and fatigue. Plan is as follows Cough. He is a smoker and they may be a question of acute bronchitis/atypical pneumonia. Will treat with Z-Javier and he will use [id number] Mucinex and is given prednisone 20 mg 1 tablet daily. Generalized anxiety disorder. Continue paroxetine 30 mg and he is given lorazepam 0.5 mg as needed. Herpes virus infection. Whenever he is stressed he is a flareup and he is given acyclovir 200 mg 1 tablet 3 times a day for 10 days. Hypertension. Blood pressure reasonably controlled on amlodipine 10 mg 1 tablet daily, losartan 25 mg daily, hydrochlorothiazide 12.5 mg daily and bisoprolol 5 mg daily. Mixed hyperlipidemia. Continue on atorvastatin 40 mg daily. Acid reflux. Continue Protonix 20 mg daily. Nicotine dependence. Advised abstinence but he is not ready at this point in time. COPD. Continue on Advair and albuterol inhaler as needed along with Spiriva daily. Multiple sclerosis. He is stable and he follows up with Dr. Valdivia 12/25/2024 Essential (primary) hypertension (ICD-10 - I10) 08/17/2024 Flatulence (ICD-10 - R14.3) Mr. Astorga [...] and increase regular exercise and weight loss 03/17/2025 Vitamin B12 deficiency anemia, unspecified (ICD-10 - D51.9) 07/15/2024 Essential (primary) hypertension (ICD-10 - I10) Mr. Astorga is a 68-year-old gentleman with acid reflux, BPH, generalized anxiety disorder, hypertension, HSV and dyslipidemia here for BP check. Plan as follows: HTN - BP is within normal limit. Continue on Bisoprolol and losartan 25mg. I will also get a 48-hour blood pressure monitor. Given the intermittent/episodic headache and high blood pressure. I will [...] a 48-hour blood pressure monitor. Given the intermittent/episodic headache and high blood pressure. I will rule out pheochromocytoma. Order blood work Hydration is recommended and reducing salt intake Headache - Stable on Lamictal. Continue Lamictal 100 mg. Refilled his medications General concerns have been discussed. I have rendered the services for this patient under direct supervision of Dr. Chapman, who did not see the patient but was available upon request 05/08/2024 Kidney cysts (ICD-10 - N28.1) 05/01/2024 Headache, unspecified (ICD-10 - R51.9) 04/29/2024 [...] - He is currently getting managed by [facility]. I have spent 20 mins w/ patient Screening BW before next appt General concerns have been discussed. I have rendered the services for this patient under direct supervision of Dr. Chapman, who did not see the patient but was available upon request 12/28/2024 Essential (primary) hypertension (ICD-10 - I10) 04/29/2024 Headache, unspecified (ICD-10 - R51.9) Mr. Astorga [...] - He is currently getting managed by [facility]. I have spent 20 mins w/ [...] a 48-hour blood pressure monitor. Given the intermittent/episodic headache and high blood pressure. I will [...] - He is currently getting managed by [facility]. I have spent 20 mins w/ patient Screening BW before next appt General concerns have been discussed. I have rendered the services for this patient under direct supervision of Dr. Chapman, who did not see the patient but was available upon request 02/09/2025 Generalized anxiety disorder (ICD-10 - F41.1) Mr. Astorga is a 69-year-old gentleman with acid reflux, BPH, generalized anxiety disorder, hypertension, HSV and dyslipidemia here for upper respiratory tract symptoms of postnasal drip, sinus pressure, cough and fatigue. Plan is as follows Cough. He is a smoker and they may be a question of acute bronchitis/atypical pneumonia. Will treat with Z-Javier and he will use [id number] Mucinex and is given prednisone 20 mg 1 tablet daily. Generalized anxiety disorder. Continue paroxetine 30 mg and he is given lorazepam 0.5 mg as needed. Herpes virus infection. Whenever he is stressed he is a flareup and he is given acyclovir 200 mg 1 tablet 3 times a day for 10 days. Hypertension. Blood pressure reasonably controlled on amlodipine 10 mg 1 tablet daily, losartan 25 mg daily, hydrochlorothiazide 12.5 mg daily and bisoprolol 5 mg daily. Mixed hyperlipidemia. Continue on atorvastatin 40 mg daily. Acid reflux. Continue Protonix 20 mg daily. Nicotine dependence. Advised abstinence but he is not ready at this point in time. COPD. Continue on Advair and albuterol inhaler as needed along with Spiriva daily. Multiple sclerosis. He is stable and he follows up with Dr. Valdivia 11/18/2024 Mixed hyperlipidemia (ICD-10 - E78.2) Mr. [...] of microalbumin. He does follow with a pediatrician active practice Generalized anxiety disorder. Continue on fluoxetine, lorazepam [...] Despite multiple revisions, Errors may persist 11/18/2024 Gastro-esophageal reflux disease without esophagitis (ICD-10 [...] of microalbumin. He does follow with a pediatrician active practice Generalized anxiety disorder. Continue on fluoxetine, lorazepam [...] software. Despite multiple revisions, Errors may persist 02/09/2025 Herpesviral infection, unspecified (ICD-10 - B00.9) Mr. Astorga is a 69-year-old gentleman with acid reflux, BPH, generalized anxiety disorder, hypertension, HSV and dyslipidemia here for upper respiratory tract symptoms of postnasal drip, sinus pressure, cough and fatigue. Plan is as follows Cough. He is a smoker and they may be a question of acute bronchitis/atypical pneumonia. Will treat with Z-Javier and he will use [id number] Mucinex and is given prednisone 20 mg 1 tablet daily. Generalized anxiety disorder. Continue paroxetine 30 mg and he is given lorazepam 0.5 mg as needed. Herpes virus infection. Whenever he is stressed he is a flareup and he is given acyclovir 200 mg 1 tablet 3 times a day for 10 days. Hypertension. Blood pressure reasonably controlled on amlodipine 10 mg 1 tablet daily, losartan 25 mg daily, hydrochlorothiazide 12.5 mg daily and bisoprolol 5 mg daily. Mixed hyperlipidemia. Continue on atorvastatin 40 mg daily. Acid reflux. Continue Protonix 20 mg daily. Nicotine dependence. Advised abstinence but he is not ready at this point in time. COPD. Continue on Advair and albuterol inhaler as needed along with Spiriva daily. Multiple sclerosis. He is stable and he follows up with Dr. Valdivia 02/09/2025 Essential (primary) hypertension (ICD-10 - I10) Mr. Astorga is a 69-year-old gentleman with acid reflux, BPH, generalized anxiety disorder, hypertension, HSV and dyslipidemia here for upper respiratory tract symptoms of postnasal drip, sinus pressure, cough and fatigue. Plan is as follows Cough. He is a smoker and they may be a question of acute bronchitis/atypical pneumonia. Will treat with Z-Javier and he will use [id number] Mucinex and is given prednisone 20 mg 1 tablet daily. Generalized anxiety disorder. Continue paroxetine 30 mg and he is given lorazepam 0.5 mg as needed. Herpes virus infection. Whenever he is stressed he is a flareup and he is given acyclovir 200 mg 1 tablet 3 times a day for 10 days. Hypertension. Blood pressure reasonably controlled on amlodipine 10 mg 1 tablet daily, losartan 25 mg daily, hydrochlorothiazide 12.5 mg daily and bisoprolol 5 mg daily. Mixed hyperlipidemia. Continue on atorvastatin 40 mg daily. Acid reflux. Continue Protonix 20 mg daily. Nicotine dependence. Advised abstinence but he is not ready at this point in time. COPD. Continue on Advair and albuterol inhaler as needed along with Spiriva daily. Multiple sclerosis. He is stable and he follows up with Dr. Valdivia 11/18/2024 Benign prostatic hyperplasia without lower urinary [...] of microalbumin. He does follow with a pediatrician active practice Generalized anxiety disorder. Continue on fluoxetine, lorazepam [...] of microalbumin. He does follow with a pediatrician active practice Generalized anxiety disorder. Continue on fluoxetine, lorazepam [...] software. Despite multiple revisions, Errors may persist 02/09/2025 Mixed hyperlipidemia (ICD-10 - E78.2) Mr. Astorga is a 69-year-old gentleman with acid reflux, BPH, generalized anxiety disorder, hypertension, HSV and dyslipidemia here for upper respiratory tract symptoms of postnasal drip, sinus pressure, cough and fatigue. Plan is as follows Cough. He is a smoker and they may be a question of acute bronchitis/atypical pneumonia. Will treat with Z-Javier and he will use hetp-wdy-vsaaabd Mucinex and is given prednisone 20 mg 1 tablet daily. Generalized anxiety disorder. Continue paroxetine 30 mg and he is given lorazepam 0.5 mg as needed. Herpes virus infection. Whenever he is stressed he is a flareup and he is given acyclovir 200 mg 1 tablet 3 times a day for 10 days. Hypertension. Blood pressure reasonably controlled on amlodipine 10 mg 1 tablet daily, losartan 25 mg daily, hydrochlorothiazide 12.5 mg daily and bisoprolol 5 mg daily. Mixed hyperlipidemia. Continue on atorvastatin 40 mg daily. Acid reflux. Continue Protonix 20 mg daily. Nicotine dependence. Advised abstinence but he is not ready at this point in time. COPD. Continue on Advair and albuterol inhaler as needed along with Spiriva daily. Multiple sclerosis. He is stable and he follows up with Dr. Valdivia 02/09/2025 Gastro-esophageal reflux disease without esophagitis (ICD-10 - K21.9) Mr. Astorga is a 69-year-old gentleman with acid reflux, BPH, generalized anxiety disorder, hypertension, HSV and dyslipidemia here for upper respiratory tract symptoms of postnasal drip, sinus pressure, cough and fatigue. Plan is as follows Cough. He is a smoker and they may be a question of acute bronchitis/atypical pneumonia. Will treat with Z-Javier and he will use eszh-ylc-tdaaqfs Mucinex and is given prednisone 20 mg 1 tablet daily. Generalized anxiety disorder. Continue paroxetine 30 mg and he is given lorazepam 0.5 mg as needed. Herpes virus infection. Whenever he is stressed he is a flareup and he is given acyclovir 200 mg 1 tablet 3 times a day for 10 days. Hypertension. Blood pressure reasonably controlled on amlodipine 10 mg 1 tablet daily, losartan 25 mg daily, hydrochlorothiazide 12.5 mg daily and bisoprolol 5 mg daily. Mixed hyperlipidemia. Continue on atorvastatin 40 mg daily. Acid reflux. Continue Protonix 20 mg daily. Nicotine dependence. Advised abstinence but he is not ready at this point in time. COPD. Continue on Advair and albuterol inhaler as needed along with Spiriva daily. Multiple sclerosis. He is stable and he follows up with Dr. Valdivia 11/18/2024 Multiple sclerosis (ICD-10 - G35) Mr. [...] of microalbumin. He does follow with a pediatrician active practice Generalized anxiety disorder. Continue on fluoxetine, lorazepam [...] of microalbumin. He does follow with a pediatrician active practice Generalized anxiety disorder. Continue on fluoxetine, lorazepam [...] software. Despite multiple revisions, Errors may persist 02/09/2025 Nicotine dependence, unspecified, uncomplicated (ICD-10 - F17.200) Mr. Astorga is a 69-year-old gentleman with acid reflux, BPH, generalized anxiety disorder, hypertension, HSV and dyslipidemia here for upper respiratory tract symptoms of postnasal drip, sinus pressure, cough and fatigue. Plan is as follows Cough. He is a smoker and they may be a question of acute bronchitis/atypical pneumonia. Will treat with Z-Javier and he will use brex-gth-vtswsbs Mucinex and is given prednisone 20 mg 1 tablet daily. Generalized anxiety disorder. Continue paroxetine 30 mg and he is given lorazepam 0.5 mg as needed. Herpes virus infection. Whenever he is stressed he is a flareup and he is given acyclovir 200 mg 1 tablet 3 times a day for 10 days. Hypertension. Blood pressure reasonably controlled on amlodipine 10 mg 1 tablet daily, losartan 25 mg daily, hydrochlorothiazide 12.5 mg daily and bisoprolol 5 mg daily. Mixed hyperlipidemia. Continue on atorvastatin 40 mg daily. Acid reflux. Continue Protonix 20 mg daily. Nicotine dependence. Advised abstinence but he is not ready at this point in time. COPD. Continue on Advair and albuterol inhaler as needed along with Spiriva daily. Multiple sclerosis. He is stable and he follows up with Dr. Valdivia 11/18/2024 Encounter for screening for malignant neoplasm [...] of microalbumin. He does follow with a pediatrician active practice Generalized anxiety disorder. Continue on fluoxetine, lorazepam [...] 02/20/2023 CT Abdomen W WO 05/08/2024 Metanephrines, Pheochromocyt-[id number] 06/21 Catecholamines,Ur.,Free,24 Hr-[id number] Metanephrines, Frac, Qn, 08-[id number] Rheumatoid Factor (RF)-[id number] 12/06/2023 CBC/Differential (No Platelet)-[id number] CBC/Differential (No Platelet)-[id number] CBC/Differential (No Platelet)-[id number] Albumin/Creatinine Ratio,Urine-[id number] Anti-CCP Ab, IgG/IgA-[id number] 12/06/2023 Lipid Panel-[id number] 11/18/2024 Comp. Metabolic Panel ([id number] 2024 Comp. Metabolic Panel ([id number] 2024 PSA (Serial Monitor)-[id number] 11/18/2024 DARCY Profile 12 (RDL)-[id number] 12/06/2023 Hemoglobin A1c 07/11/2023 Insurance Providers Payer Name Payer Address Payer Phone Subscriber Number Group Number Insured Name Patient Relationship to Insured Coverage Start Date Coverage End Date [employer] Preferred [address] [place] [address] [id number] Lesli Astorga Self - patient is the insured 4 Medications Administered Medication Instructions Date of Administration Dosage Notes B12 03/17/2025 1 mL Medical (General) History Medical History History ICD Code hypertension, benign hyperlipidemia acid reflux Benign prostatic hypertrophy Nicotine dependence herpes genitalis right renal cyst on recent imaging in [place] Migraines Hospitalization History Reason Date(Month/Year) dizziness, weakness, headache, elevated BP-went in [place]
--- OUTSIDE RECORDS SUMMARY | 2025-03-30 23:18 | XMS_ITS | Patient Health Record ---
Author Organization [facility] Address [address] [address] Care Team Providers Care Bill Peddler Name Role Phone Scar López Unavailable [phone] Migration, Provider Unavailable Unavailable Reason For Referral No Information Medications Medication SIG (Take, Route, Frequency, Duration) Notes Start Date End Date Status lamoTRIgine 100 MG Tablet Oral 12/09/2020 Active Amoxicillin-Pot Clavulanate 875-125 MG Tablet Oral 12/09/2020 Active PARoxetine HCl 20 MG Tablet Oral 12/09/2020 Active Gabapentin 300 MG Capsule Oral 12/09/2020 Active Atorvastatin Calcium 40 MG Tablet Oral 12/09/2020 Active Bisoprolol Fumarate 5 MG Tablet Oral 12/09/2020 Active oxyCODONE-Acetaminophen 10-325 MG Tablet Oral 12/09/2020 Active Benzonatate 100 MG Capsule Oral 12/09/2020 Active Lisinopril 20 MG Tablet Oral 12/09/2020 Active Doxycycline Hyclate 100 MG Tablet Oral 12/09/2020 Active valACYclovir HCl 500 MG Tablet Oral 12/09/2020 Active buPROPion HCl ER (Smoking Det) 150 MG Tablet Extended Release 12 Hour Oral 12/09/2020 Active Trelegy Ellipta 200-62.5-25 MCG/ACT Aerosol Powder Breath Activated Inhalation 12/09/2020 Active Pantoprazole Sodium 40 MG Tablet Delayed Release Oral 12/09/2020 Activ e Meclizine HCl 25 MG Tablet Oral 12/09/2020 Active Aspirin 81 MG Tablet Chewable Oral 12/09/2020 Active Suprep Bowel Prep Kit 17.5-3.13-1.6 GM/177ML Solution Oral 12/09/2020 Active Tamsulosin HCl 0.4 MG Capsule Oral 12/09/2020 Active Problems Problem Type SNOMED Code ICD Code Onset Dates Problem Status W/U Status Risk Notes Problem Multiple sclerosis (67974039) Multiple sclerosis (G35) 12/10/19 Active confirmed Problem Chronic pain syndrome (672318580) Chronic pain syndrome (G89.4) 12/10/19 Active confirmed Problem Cervical spondylosis without myelopathy (794585153) Spondylosis without myelopathy or radiculopathy, cervical region (M47.812) 12/10/19 Active confirmed Problem Degeneration of lumbar intervertebral disc (48853526) Other intervertebral disc degeneration, lumbar region (M51.36) 12/10/19 Active confirmed Problem Cervical radiculopathy (85832026) Radiculopathy, cervical region (M54.12) 12/10/19 Active confirmed Problem Lumbar radiculopathy (810562423) Radiculopathy, lumbar region (M54.16) 12/10/19 Active confirmed Problem Cervicalgia (61900435) Cervicalgia (M54.2) 12/10/19 Active confirmed Problem Low back pain (761532653) Low back pain (M54.5) 12/10/19 Active confirmed Problem Depression Screening (810456309) Encounter for screening for depression (Z13.31) 12/10/19 Active confirmed Encounters Encounter Location Date Provider Diagnosis [facility] [id number] [address] 01/23/2025 Provider Migration [facility] [address] [address] 01/24/2025 Provider Migration Plan Of Treatment No Information Insurance Providers Payer Name Payer Address Payer Phone Subscriber Number Group Number Insured Name Patient Relationship to Insured Coverage Start Date Coverage End Date Yomaira Herron From [facility] [place] [address] [place] [address] [id number] LESLI ASTORGA Self - patient is the insured
--- OUTSIDE RECORDS SUMMARY | 2025-03-30 23:18 | XMS_ITS | Clinical Summary ---
Author Organization [facility] Address [address] [place] [address] Phone Care Team Providers Care Real Estate Paralegal Name Role Phone Whit Dawson MD Primary Care Provider [phone] Allergies Active Allergy Reactions Criticality Noted Date [...] Description 03/08/2025 11:40 AM EST Office Visit [facility] - [address] [phone] Karan Lee MD MS (multiple sclerosis) (Primary Dx); Vitamin D deficiency; Mood changes; Gait abnormality; Vitamin B12 deficiency; High risk medication use 03/08/2025 9:41 AM EST - 03/08/2025 11:59 PM EST Hospital Encounter [facility] MS Outpatient Rehabilititation - [address] [phone] MS (multiple sclerosis) (Primary Dx); Encounter for therapeutic drug monitoring Discharge Disposition: Home or Self Care 03/08/2025 Results Follow-Up [facility] - [place] [address] [phone] Karan Lee MD 03/03/2025 Telephone [facility] [place] [address] [phone] Frida Smith, [facility] 03/01/2025 Telephone [facility] - [place] [address] [place] [address] Frida Smith, [facility] 03/01/2025 Telephone [facility] [place] [address] [place] [address] Frida Smith, [facility] 02/25/2025 Telephone [facility] [place] [address] [phone] Karan Lee MD 02/05/2025 Telephone [facility] Outpatient Rehabilititation - [address] [phone] Karan Lee MD 01/18/2025 10:24 PM EDT - 01/18/2025 11:34 PM EDT Emergency [facility] Emergency [address] [place] [address] Ct Martínez MD Transient weakness of lower [...] on file Sexual Orientation Not on file Last Filed Vital Signs [...] Info) Description 09/06/2025 10:00 AM EDT Appointment [facility] Outpatient Rehabilititation [address] [phone] 09/06/2025 10:00 AM EDT Office Visit [address] [phone] Karan Lee MD [address] [place] [phone] Health Maintenance Due Date Last Done Comments [...] Anatomical Region Laterality Modality Magnetic Resonan ce us Provider [facility] IMG MRI PROCEDURES Final Result * (ABNORMAL) CBC auto differential (03/08/2025 9:52 AM EST) Only the most recent of2 resultswithin the time period is included. WBC 9.4 4.8 - 10.8 K/mcL LAB HEMETOLOGY METHOD 03/08/2025 2:06 PM [facility] RBC 5.00 4.50 - 5.50 M/mcL LAB HEMETOLOGY METHOD 03/08/2025 2:06 PM [facility] Hemoglobin 15.1 13.5 - 17.5 g/dL LAB HEMETOLOGY METHOD 03/08/2025 2:06 PM [facility] Hematocrit 46.7 42.0 - 54.0 % LAB HEMETOLOGY METHOD 03/08/2025 2:06 PM [facility] MCV 93.8 79.0 - 98.0 FL LAB HEMETOLOGY METHOD 03/08/2025 2:06 PM [facility] MCH 30.3 27.0 - 32.0 pcg LAB HEMETOLOGY METHOD 03/08/2025 2:06 PM [facility] MCHC 32.3 32.0 - 37.0 g/dL LAB HEMETOLOGY METHOD 03/08/2025 2:06 PM [facility] RDW 14.3 11.0 - 15.0 % LAB HEMETOLOGY METHOD 03/08/2025 2:06 PM [facility] Platelets 241 130 - 400 K/mcL LAB HEMETOLOGY METHOD 03/08/2025 2:06 PM [facility] MPV 10.8 7.0 - 11.0 FL LAB HEMETOLOGY METHOD 03/08/2025 2:06 PM [facility] NRBC 0.0 <1.0 % LAB HEMETOLOGY METHOD 03/08/2025 2:06 PM [facility] NRBC Absolute 0.00 <0.10 K/mcL LAB HEMETOLOGY METHOD 03/08/2025 2:06 PM [facility] Neutrophils Relative 53.7 % LAB HEMETOLOGY METHOD 03/08/2025 2:06 PM [facility] Lymphocytes Relative 33.7 % LAB HEMETOLOGY METHOD 03/08/2025 2:06 PM [facility] Monocytes Relative 7.9 % LAB HEMETOLOGY METHOD 03/08/2025 2:06 PM [facility] Eosinophils Relative 3.4 % LAB HEMETOLOGY METHOD 03/08/2025 2:06 PM [facility] Basophils Relative 0.6 % LAB HEMETOLOGY METHOD 03/08/2025 2:06 PM [facility] Immature Granulocytes Relative 0.7 % LAB HEMETOLOGY METHOD 03/08/2025 2:06 PM [facility] Neutrophils Absolute 5.04 1.50 - 7.00 K/mcL LAB HEMETOLOGY METHOD 03/08/2025 2:06 PM [facility] Lymphocytes Absolute 3.16 1.00 - 5.00 K/mcL LAB HEMETOLOGY METHOD 03/08/2025 2:06 PM [facility] Monocytes Absolute 0.74 0.20 - 1.00 K/mcL LAB HEMETOLOGY METHOD 03/08/2025 2:06 PM [facility] Eosinophils Absolute 0.32 0.00 - 0.50 K/mcL LAB HEMETOLOGY METHOD 03/08/2025 2:06 PM EST [facility] Basophils Absolute 0.06 0.00 - 0.20 K/[facility] LAB HEMETOLOGY METHOD 03/08/2025 2:06 PM EST [facility] Immature Granulocytes Absolute 0.07(H) 0.00 - 0.03 K/[facility] LAB HEMETOLOGY METHOD 03/08/2025 2:06 PM EST [facility] Blood Venous blood specimen / Unknown Venipuncture / Unknown 03/08/2025 9:52 AM EST 03/08/2025 9:52 AM EST [employer] LAB BLOOD ORDERABLES Final R esult Performing Organization Address [facility]/ZIP Co de Phone Number [facility] [address] [place] [address], [place] [phone] * (ABNORMAL) Creatinine (03/08/2025 9:52 AM EST) Creatinine 1.42(H) 0.70 - 1.30 mg/dL LAB CHEMISTRY METHOD 03/08/2025 2:29 PM EST [facility] eGFR 54(L) >=60 mL/min/1. 73m2 LAB CHEMISTRY METHOD 03/08/2025 2:29 PM EST [facility] Comment:Calculation based on the Chronic Kidney Disease Epidemiology Collaboration (CKD-EPI) equation refit without adjustment for race. Blood Venous blood specimen / Unknown Venipuncture / Unknown 03/08/2025 9:52 AM EST 03/08/2025 9:52 AM EST Krista Eben Justicei PA LAB BLOOD ORDERABLES Final R esult Performing Organization Address City/[facility]/ZIP Co de Phone Number [facility] [address] [place] [address], [place] [phone] * BUN (03/08/2025 9:52 AM EST) Pathologist [facility] BUN 22 5 - 25 mg/dL LAB CHEMISTRY METHOD 03/08/2025 2:36 PM EST [facility] Blood Venous blood specimen / Unknown Venipuncture / Unknown 03/08/2025 9:52 AM EST 03/08/2025 9:52 AM EST Krista ISRAEL LAB BLOOD ORDERABLES Final R esult Performing Organization Address City/[facility]/ZIP Co de Phone Number [facility] [address] [place] [address], [place] [phone] * (ABNORMAL) Vitamin B12 (03/08/2025 9:52 AM EST) [facility] Vitamin B-12 211(L) 250 - 900 pcg/mL LAB CHEMISTRY METHOD 03/08/2025 3:52 PM EST [facility] Blood Venous blood specimen / Unknown Venipuncture / Unknown 03/08/2025 9:52 AM EST 03/08/2025 9:52 AM EST Karan Lee MD LAB BLOOD ORDERABLES Fin al Result Performing Organization Address City/[facility]/ZIP Co de Phone Number [facility] [address] [place] [address], [place] [phone] * Hepatic function panel (03/08/2025 9:52 AM EST) [facility] Total Protein 6.3 6.0 - 8.0 g/dL LAB CHEMISTRY METHOD 03/08/2025 2:35 PM EST [facility] Albumin 3.4 3.2 - 5.0 g/dL LAB CHEMISTRY METHOD 03/08/2025 2:35 PM EST [facility] Total Bilirubin 0.4 0.0 - 1.4 mg/dL LAB CHEMISTRY METHOD 03/08/2025 2:35 PM EST [facility] Bilirubin, Direct <0.1 0.0 - 0.3 mg/dL LAB CHEMISTRY METHOD 03/08/2025 2:35 PM [facility] Bilirubin, Indirect LAB CHEMISTRY METHOD 03/08/2025 2:35 PM [facility] Comment:Unable to calculate Indirect Bilirubin. ALT (SGPT) 25 10 - 60 unit/L LAB CHEMISTRY METHOD 03/08/2025 2:35 PM [facility] AST (SGOT) 16 10 - 42 unit/L LAB CHEMISTRY METHOD 03/08/2025 2:35 PM [facility] Alkaline Phosphatase 65 42 - 121 unit/L LAB CHEMISTRY METHOD 03/08/2025 2:35 PM [facility] Blood Venous blood specimen / Unknown Venipuncture / Unknown 03/08/2025 9:52 AM EST 03/08/2025 9:52 AM EST Krista ISRAEL LAB BLOOD ORDERABLES Final R esult [facility] [address] [place] [address], * ECG-Annotated (01/19/2025) Provider Onbase MD ECG ORDERABLES Final Result * 12-Lead ECG (01/18/2025 11:18 PM EDT) Ventricular Rate ECG 70 BPM GEMUSE Atrial Rate 70 BPM GEMUSE P-R Interval 172 ms GEMUSE QRS Duration 98 ms GEMUSE Q-T Interval 388 ms GEMUSE QTc 419 ms GEMUSE P Wave [place] 64 degrees GEMUSE R [place] 77 degrees GEMUSE T [place] 66 degrees GEMUSE ECG Interpretation Normal sinus rhythm Normal ECG When compared with ECG of 27-NOV-2023 12:20, No significant change was found Confirmed by Tiffani MELGAR JAMES ([id number]) on 01/19/2025 4:24:49 PM GEMUSE 01/18/2025 11:1 8 PM EDT 01/19/2025 4:[address] Martínez MD ECG ORDERABLES Final Result Performing Organization Address City/[facility]/ZIP Tx de Phone Number GEMUSE * Troponin I High Sensitivity (01/18/2025 11:16 PM EDT) [facility] High Sensitivity Troponin I 3 <=79 ng/L LAB CHEMISTRY METHOD 01/19/2025 12:00 AM EDT [facility] Blood Venous blood specimen / Unknown Venipuncture / Unknown 01/18/2025 11:16 PM EDT 01/18/2025 11:34 PM EDT Narrative [facility] - 01/19/2025 12:00 AM EDT High levels of biotin in samples may falsely decrease hsTroponin values. Use caution when interpreting hsTroponin results in patients taking biotin who exhibit renal impairment (eGFR <60) or in patients taking more than 20 mg/day of biotin. us Ct Martínez MD LAB BLOOD ORDERABLES Final Resul t Performing Organization Address [facility] Co de Phone Number [facility] [address] [place] [address], [place] [phone] * CBC (01/18/2025 11:16 PM EDT) [facility] WBC 10.4 4.8 - 10.8 K/mcL LAB HEMETOLOGY METHOD 01/18/2025 11:37 PM EDT [facility] RBC 4.80 4.50 - 5.50 M/mcL LAB HEMETOLOGY METHOD 01/18/2025 11:37 PM EDT [facility] Hemoglobin 14.4 13.5 - 17.5 g/dL LAB HEMETOLOGY METHOD 01/18/2025 11:37 PM EDT [facility] Hematocrit 44.1 42.0 - 54.0 % LAB HEMETOLOGY METHOD 01/18/2025 11:37 PM EDT [facility] MCV 91.9 79.0 - 98.0 FL LAB HEMETOLOGY METHOD 01/18/2025 11:37 PM EDT [facility] MCH 30.0 27.0 - 32.0 pcg LAB HEMETOLOGY METHOD 01/18/2025 11:37 PM EDT [facility] MCHC 32.7 32.0 - 37.0 g/dL LAB HEMETOLOGY METHOD 01/18/2025 11:37 PM EDT [facility] RDW 13.7 11.0 - 15.0 % LAB HEMETOLOGY METHOD 01/18/2025 11:37 PM EDT [facility] Platelets 242 130 - 400 K/mcL LAB HEMETOLOGY METHOD 01/18/2025 11:37 PM EDT [facility] MPV 10.2 7.0 - 11.0 FL LAB HEMETOLOGY METHOD 01/18/2025 11:37 PM EDT [facility] NRBC 0.0 <1.0 % LAB HEMETOLOGY METHOD 01/18/2025 11:37 PM EDT [facility] NRBC Absolute 0.00 <0.10 K/mcL LAB HEMETOLOGY METHOD 01/18/2025 11:37 PM EDT [facility] Blood Venous blood specimen / Unknown Venipuncture / Unknown 01/18/2025 11:16 PM EDT 01/18/2025 11:[address] Martínez MD LAB BLOOD ORDERABLES Final Resul t [facility] [address] [place] [address], * (ABNORMAL) Magnesium (01/18/2025 11:16 PM EDT) Pathologist [facility] Magnesium 1.8(L) 1.9 - 2.6 mg/dL LAB CHEMISTRY METHOD 01/18/2025 11:56 PM [facility] Blood Venous blood specimen / Unknown Venipuncture / Unknown 01/18/2025 11:16 PM EDT 01/18/2025 11:[address] Martínez MD LAB BLOOD ORDERABLES Final Resul t [facility] [address] [place] [address], * (ABNORMAL) Basic Metabolic Panel (BMP) (01/18/2025 11:16 PM EDT) Pathologist [facility] Sodium 141 133 - 145 mmol/L LAB CHEMISTRY METHOD 01/18/2025 11:56 PM [facility] Potassium 3.9 3.5 - 5.5 mmol/L LAB CHEMISTRY METHOD 01/18/2025 11:56 PM [facility] Chloride 112(H) 96 - 110 mmol/L LAB CHEMISTRY METHOD 01/18/2025 11:56 PM [facility] CO2 24 21 - 32 mmol/L LAB CHEMISTRY METHOD 01/18/2025 11:56 PM [facility] Anion Gap 5 3 - 11 LAB CHEMISTRY METHOD 01/18/2025 11:56 PM [facility] Glucose 117(H) 70 - 100 mg/dL LAB CHEMISTRY METHOD 01/18/2025 11:56 PM [facility] BUN 13 5 - 25 mg/dL LAB CHEMISTRY METHOD 01/18/2025 11:56 PM [facility] Creatinine 1.10 0.70 - 1.30 mg/dL LAB CHEMISTRY METHOD 01/18/2025 11:56 PM [facility] eGFR 73 >=60 mL/min/1. 73m2 LAB CHEMISTRY METHOD 01/18/2025 11:56 PM EDT [facility] Comment:Calculation based on the Chronic Kidney Disease Epidemiology Collaboration (CKD-EPI) equation refit without adjustment for race. BUN/Creatinine Ratio 11.8 LAB CHEMISTRY METHOD 01/18/2025 11:56 PM EDT [facility] Calcium 9.0 8.5 - 10.5 mg/dL LAB CHEMISTRY METHOD 01/18/2025 11:56 PM EDT [facility] Blood Venous blood specimen / Unknown Venipuncture / Unknown 01/18/2025 11:16 PM EDT 01/18/2025 11:[address] Martínez MD LAB BLOOD ORDERABLES Final Resul t [facility] [address] [place] [address], * XR Chest 1 View (01/18/2025 10:51 PM EDT) Anatomical Region Laterality Modality Body Radiographic Franny ging 01/19/2025 8:43 AM EDT Impressions 01/19/2025 8:44 AM EDT Impression: No active pulmonary process identified. No significant change. Telerad JHONATAN ([id number]) -------- FINAL REPORT -------- Dictated By: Sharmila Bergeron Dictated Date: 01/19/2025 08:43 ET Assigned Physician: Sharmila Bergeron Reviewed and Electronically Signed By: Sharmila Bergeron Signed Date: 01/19/2025 08:44 ET Workstation ID: [id number] Transcribed By: Self Edit Transcribed Date: 01/19/2025 [...] process identified. No significant change. Telerad PA ([id number]) -------- FINAL REPORT -------- Dictated By: Sharmila Bergeron Dictated Date: 01/19/2025 08:43 ET Assigned Physician: Sharmila Bergeron Reviewed and Electronically Signed By: Sharmila Bergeron Signed Date: 01/19/2025 08:44 ET Workstation ID: [id number] Transcribed By: Self Edit Transcribed Date: 01/19/2025 08:[address] Martínez MD IMG XR PROCEDURES Final Result * (ABNORMAL) Lipid panel with reflex to direct LDL (11/19/2024 7:41 AM EDT) Cholesterol 153 0 - 200 mg/dL LAB CHEMISTRY METHOD 11/19/2024 1:00 PM EDT [facility] Triglycerides 125 0 - 150 mg/dL LAB CHEMISTRY METHOD 11/19/2024 1:00 PM EDT [facility] HDL 33(L) >=40 mg/dL LAB CHEMISTRY METHOD 11/19/2024 1:00 PM EDT [facility] LDL Calculated 95 0 - 100 mg/dL LAB CHEMISTRY METHOD 11/19/2024 1:00 PM EDT [facility] VLDL Cholesterol Dereje 25 mg/dL LAB CHEMISTRY METHOD 11/19/2024 1:00 PM EDT [facility] Non HDL Chol. (LDL+VLDL) 120 <145 mg/dL LAB CHEMISTRY METHOD 11/19/2024 1:00 PM EDT [facility] Chol/HDL Ratio 4.6(H) 0.0 - 4.4 LAB CHEMISTRY METHOD 11/19/2024 1:00 PM EDT [facility] Blood Venous blood specimen / Unknown Venipuncture / Unknown 11/19/2024 7:41 AM EDT 11/19/2024 8:15 AM EDT Rene ISRAEL LAB BLOOD ORDERABLES Final Result [facility] [address] [place] [address], * Hepatitis C antibody (2024 3:18 PM EDT) Hepatitis C Antibody Negative Negative LAB CHEMISTRY METHOD 2024 6:11 PM EDT [facility] Blood Venous blood specimen / Unknown Venipuncture / Unknown 2024 3:18 PM EDT 2024 3:37 PM EDT Karan Lee MD LAB BLOOD ORDERABLES Fin al Result Performing Organization Address City/[facility]/ZIP Co de Phone Number [facility] [address] [place] [address], from Last 3 Months or Most Recently Relevant to Health Maintenance Insurance MEDICA[place] [employer] Care Teams Real Estate Paralegal Relationship Specialty Start Date End Date Whit Dawson MD [address] [place] [phone] PCP - General 08/05/23
--- OUTSIDE RECORDS SUMMARY | 2025-03-30 23:18 | XMS_ITS | Encounter Summary ---
Author Organization [facility] Address [address] [place] [address] Care Team Providers Care Cleaning Attendant Name Role Phone Whit Dawson MD Primary Care Provider [phone] Encounter Details Date Type Department Care Team (Late Contact Info) Description 03/08/2025 Results Follow-Up [address] [phone] Karan Lee MD [address] [place] [address] Social History Tobacco Use Types Packs/Day Years [...] Info) Description 09/06/2025 10:00 AM EDT Appointment [facility] Outpatient Rehabilititation [address] [phone] 09/06/2025 10:00 AM EDT Office Visit [address] [phone] Karan Lee MD [address] [place] [address] documented as of this encounter Goals Goal [...] on filedocumented in this encounter Care Teams Cleaning Attendant Relationship Specialty Start Date End Date Whit Dawson MD [address] [place] [address] PCP - General 08/05/23 documented as of this encounter
== END 2025-03-30 19:16 | disposition home or self-care (01) ==
LOC: HO.MRI 19:15
PROVIDERS: PCP Hospitalist; Visit Provider Nurse Practitioner Family
DX: M51.360 Other intervertebral disc degeneration, lumbar region with discogenic back pain only (principal); M48.061 Spinal stenosis, lumbar region without neurogenic claudication; M47.817 Spondylosis without myelopathy or radiculopathy, lumbosacral region; M54.16 Radiculopathy, lumbar region
CPT/HCPCS: 72148

== ENCOUNTER → 2025-03-30 19:27 | Outpatient (BNV) | payer MEDICARE, SELFPAY | PROVIDERS: PCP Hospitalist; Visit Provider Radiology Diagnostic Radiology | DX: M51.369 Other intervertebral disc degeneration, lumbar region without mention of lumbar back pain or lower extremity pain (principal) | CPT/HCPCS: 72148 ==

== ENCOUNTER 2025-04-02 09:37 | Outpatient (REF) | payer MEDICARE, SELFPAY ==
--- NOTE | ~2025-04-02 | XR_ITS ---
EXAMINATION: XR LUMBOSACRAL SPINE CLINICAL INFORMATION: M54.16 - Radiculopathy, lumbar region COMPARISON: 01/22/2024. Correlation made with MR lumbar 03/30/2025. TECHNIQUE: 4 views of the lumbar spine, inclusive of flexion and extension views, were obtained. FINDINGS: There is no significant scoliosis. There is mild straightening of the normal lordosis. There is no significant subluxation. Alignment is anatomic. No fracture, compression deformity, or suspicious bone lesion is evident. Normal facet alignment. Multilevel hypertrophic facet degeneration, most notable L4-S1. No evidence of instability or subluxation on flexion and extension views. Mild to moderate disc degeneration diffusely, with ventral disc osteophytes most notable at L2-3 and L3-4. SI joints are not well imaged on this exam. There appear to be degenerative changes bilaterally. Soft tissues demonstrate cholecystectomy clips and vascular calcifications. XR/XR lumbar spine 4V min IMPRESSION: 1. No acute bony or soft tissue abnormalities. 2. Mild to moderate multilevel degenerative spondylosis. 3. No evidence of instability on flexion and extension views. Electronically signed by: Alexander Ortega MD 04/02/2025 11:01 AM OLESYA
== END 2025-04-02 09:38 | disposition home or self-care (01) ==
LOC: HO.HOSX 09:37
PROVIDERS: PCP Hospitalist; Referring Provider Nurse Practitioner Family; Visit Provider Physician Assistant
DX: M54.16 Radiculopathy, lumbar region (principal); I10 Essential (primary) hypertension; F17.210 Nicotine dependence, cigarettes, uncomplicated; Z79.899 Other long term (current) drug therapy; Z87.448 Personal history of other diseases of urinary system
CPT/HCPCS: 72110; 99202

== ENCOUNTER 2025-04-02 09:37 | Outpatient (AMB) | payer MEDICARE, SELFPAY ==
--- NOTE | 2025-04-02 09:51 | HO.SPINEOV ---
Vital Signs 04/02/25 10:14 Height 6 ft Weight 210 lb BMI 28.5 Intake Visit Reasons: lumbar radiculopathy Intake Note: Mr. Jensen is here today c/o low back and neck pain. MRI done at [facility]. Radioisotope Production Operator Required: No Allergies diclofenac Allergy (Severe, Verified 04/02/25 10:15) Anaphylaxis Physical Exam Vital Signs: BMI result Body Mass Index 28.5 Assessment & Plan Assessment & Plan (1) Lumbar radicular pain: Code(s): M54.16 - Radiculopathy, lumbar region Category: Medical Plan Dear Rossy Thank you for referring Mr Jensen to our office today. He is a very nice 69-year-old [place] gentleman who presents for evaluation of chronic low back pain which radiates to both legs. He has had it now for 10 years. It steadily getting worse. He has no pain when he is lying down, it is only when he is up walking around. He has undergone physical therapy, chiropractic as well as cortisone injections. The cortisone shots seems to help a little bit. He is here today with an MRI showing some degenerative disc disease and possibly some stenosis. PMH: Hypertension which is well controlled he tells me, MS which she is also well-maintained on an infusion every 6 months, and other than that he reports no medical problems. His [employer] chart however reports history of a right kidney mass as well, possibly TIA. Also looks like he has BPH as he takes Flomax. Denies any history of cardiovascular disease, renal or liver disorders. No history of blood clots, cancer diabetes or unusual infections. He has been a lifelong smoker with 15-20 cigarettes a day. Social hx: As above, smokes 15-20 cigarettes a day, he does not drink or use any recreational drugs Medications: Lisinopril, amlodipine, Lamictal, bisoprolol, losartan, level cetirizine, hydroxyzine, gabapentin, Flomax, paroxetine, pantoprazole Allergies: None Physical exam: Awake alert oriented no acute distress able to stand up out of a chair walk independently down the hallway with no instability. Motor exam reveals a little bit of weakness in his right hip flexor, I am unable to tell if this is actual weakness or if it is just related the back pain. Reflexes are normal in the lower extremities. Imaging review: Lumbar MRI shows normal alignment, he has normal disc height with very mild disc degeneration, there is no disc herniations, no Modic endplate changes. The radiologist does report some foraminal stenosis but it is very mild. I see no evidence of central canal stenosis. Impression: 69-year-old gentleman presents for evaluation of chronic low back pain and bilateral lower extremity pain in the setting of an MRI of the looks fairly underwhelming with no evidence of any severe findings that would warrant surgery. I did flexion-extension x-rays here in the office just to evaluate a little more closely and there is no signs of instability. Unfortunately I do not think that there is anything we have to offer him. Thank you for allowing us to care for your patient. The total time spent with this visit with this patient was 45 minutes reviewing history, physical exam, lumbar imaging review, and implementation of treatment plan or further diagnostic testing Germain Esparza MD,PhD [facility] Orders: Orders XR lumbar spine 4V min Today M54.16 - Radiculopathy, lumbar region Coding Level of Care Code New Pt Level 4 (55431) Diagnoses Lumbar radicular pain M54.16
[2025-04-02 10:14] VITALS: BMI 28.5
== END 2025-04-02 11:24 | disposition home or self-care (01) ==
PROVIDERS: PCP Hospitalist; Referring Provider Nurse Practitioner Family; Visit Provider Physician Assistant
DX: M54.16 Radiculopathy, lumbar region (principal)
CPT/HCPCS: 99204

== ENCOUNTER → 2025-04-02 10:45 | Outpatient (BNV) | payer MEDICARE, SELFPAY | PROVIDERS: PCP Hospitalist; Referring Provider Nurse Practitioner Family; Visit Provider Radiology Diagnostic Radiology | DX: M47.26 Other spondylosis with radiculopathy, lumbar region (principal) | CPT/HCPCS: 72110 ==